=== PATIENT | female | born 1955 | race Two or more races ===

== ENCOUNTER 2024-01-15 14:11 | Emergency (ER) | payer MEDICARE, SELFPAY ==
[2024-01-15 14:56] VITALS: BP 153/90; PULSE 92; RESP 15; TEMP 36.8; O2SAT 97
--- NOTE | 2024-01-15 15:44 | PD.EDRME ---
Rapid Medical Screening Exam RME Arrival date/time: 01/15/24 14:11 Chief Complaint: Abdominal Pain Time Seen by Provider: 01/15/24 14:28 Vital signs: Vital Signs Temperature 98.3 F 01/15/24 14:56 Pulse Rate 92 01/15/24 14:56 Respiratory Rate 15 01/15/24 14:56 Blood Pressure 153/90 H 01/15/24 14:56 Pulse Oximetry (%) 97 01/15/24 14:56 Oxygen Delivery Method Room Air 01/15/24 14:56 Vital signs reviewed by provider: Yes RME Narrative: 68-year-old female with past medical history of diabetes, hyperlipidemia, hypertension presents with constipation x 5 days. She endorses multiple abdominal surgeries in the past. Endorses nausea without emesis. Denies rectal bleeding and hematochezia.
[2024-01-15] MEDS: ACETAMINOPHEN 325 MG TABLET 650 MG PO (16:22)
[2024-01-15] MEDS: SENNA/DOCUSATE SOD 1 TAB TABLET PO (16:23)
--- NOTE | 2024-01-15 17:30 | EDNOTE_ITS ---
ED Abdominal Pain RME/HPI General Chief Complaint: Abdominal Pain Stated complaint: CONSTIPATION TIMES 5 DAYS Time seen by provider: 01/15/24 14:28 Arrival date/time: 01/15/24 14:11 Limitations: no limitations RME / HPI RME / HPI narrative: 68-year-old female with past medical history of diabetes, hyperlipidemia, hypertension presents with constipation x 5 days. She endorses multiple abdominal surgeries in the past. Endorses nausea without emesis. Denies rectal bleeding and hematochezia. Related Data Home Medications ?Medication ?Instructions ?Recorded ?Confirmed sitagliptin phosphate 100 mg 100 mg PO QDAY #0 tabs 07/10/16 05/15/23 tablet (Januvia) carvedilol 12.5 mg tablet 12.5 mg PO BID 05/15/23 05/15/23 docusate calcium 240 mg capsule 240 mg PO QDAY PRN Constipation 05/15/23 05/15/23 empagliflozin 25 mg tablet 25 mg PO QDAY 05/15/23 05/15/23 (Jardiance) ergocalciferol (vitamin D2) 1,250 1,250 mcg PO QWEEK 05/15/23 05/15/23 mcg (50,000 unit) capsule glipizide 10 mg tablet 10 mg PO QDAY 05/15/23 05/15/23 losartan 50 mg tablet 50 mg PO QDAY 05/15/23 05/15/23 lovastatin 10 mg tablet 10 mg PO HS 05/15/23 05/15/23 semaglutide 0.25 mg or 0.5 mg (2 0.25 mg subcut QWEEK 05/15/23 05/15/23 mg/3 mL) subcutaneous pen injector (Ozempic) trazodone 100 mg tablet 100 mg PO HS PRN Sleep 05/15/23 05/15/23 vitamin B comp no.3-folic acid 1 1 tab PO QDAY 05/15/23 05/15/23 mg-vit C 60 mg-biotin 300 mcg tablet (Mel-Debra Rx) Previous Rx's ?Medication ?Instructions ?Recorded docusate calcium 240 mg capsule 240 mg PO QDAY PRN constipation 01/15/24 #30 caps Allergies Allergy/AdvReac Type Severity Reaction Status Date / Time No Known Allergies Allergy Verified 05/15/23 11:01 Review of Systems Constitutional Constitutional: Denies anorexia, Denies chills, Denies fever(s), Denies headache(s), Denies poor appetite, Denies weight gain and Denies weight loss ENT Ears, Nose, Mouth, and Throat: Denies dizziness, Denies headache(s) and Denies neck pain Cardiovascular Cardiovascular: Denies chest pain, Denies dyspnea and Denies leg edema Respiratory Respiratory: Denies cough and Denies dyspnea Gastrointestinal Gastrointestinal: Reports abdominal pain, Denies belching, Reports change in bowel habits, Reports constipation, Denies excessive flatus, Reports nausea and Denies vomiting Genitourinary Genitourinary: Denies dysuria and Denies flank pain Musculoskeletal Musculoskeletal: Denies muscle cramps, Denies myalgias and Denies neck pain Integumentary/Breasts Skin/Breast: Denies rash Neurologic Neurologic: Denies dizziness and Denies headache(s) Past Medical History Past Medical History NEUROLOGIC: Negative Neurological Disorders CARDIAC: Positive Cardiac Disorders, Congestive Heart Failure and Hypertension RESPIRATORY: Negative Chronic Obstructive Pulmonary Disease (COPD) or Asthma GASTROINTESTINAL: Positive Gall Bladder Disease; Negative Gastrointestinal Disorders GENITOURINARY: Negative Genitourinary Disorders or Renal Disease REPRODUCTIVE: Positive Previous Pregnancies; Negative Pelvic Inflammatory Disease MUSCULOSKELETAL: Negative Musculoskeletal Disorders ENDOCRINE: Positive Endocrine Disorders and Diabetes Mellitus Type 2; Negative Diabetes Mellitus Type 1 HEMATOLOGIC: Negative Blood Disorders or Sickle Cell Disease OTHER HISTORY: Positive Blood Transfusions; Negative Autoimmune Disease, Blood Transfusion Reaction, Anesthesia Reactions or Cancer Surgical History SURGICAL: Positive Tonsillectomy, Abdominal Surgery and Section (x4) Social History SMOKING STATUS: Never smoker ED Exam General Limitations: Present no limitations General appearance: Present alert and in no apparent distress Head Head exam: Present atraumatic and normocephalic Eye Eye exam: Present normal appearance and EOMI; Absent scleral icterus ENT ENT exam: Present normal oropharynx and mucous membranes moist Neck Neck exam: Present normal inspection and full ROM Chest Chest inspection: Present normal inspection and symmetric chest wall rise Respiratory Respiratory exam: Present normal lung sounds bilaterally; Absent respiratory distress Cardiovascular Cardiovascular exam: Present regular rate and +S1 Abdominal Exam Abdominal exam: Present normal bowel sounds; Absent soft, distention, tenderness, guarding, rebound, rigidity, organomegaly, ascites, mass or pulsatile mass Rectal Exam Rectal exam: Present deferred Extremities Exam Extremities exam: Present normal inspection and full ROM Back Exam Back exam: Present normal inspection and full ROM Neurological Exam Neurological exam: Present alert and normal gait (ambulating in wheelchair ) Psychiatric Psychiatric exam: Present normal affect Skin Skin exam: Present warm, dry and normal color Course Quality Measures none Orders Category Date Time Status Enema Administration NOW Care 01/15/24 15:20 Completed Acetaminophen Tab [Tylenol Tab] Med 01/15/24 15:20 Discontinued 650 mg PO X1 ONE Lactulose Syrup [Enulose Syrup] Med 01/15/24 17:37 Discontinued 10 gm PO X1 ONE Senna/Docusate Sod [Senokot S] Med 01/15/24 15:22 Discontinued 1 tab PO X1 ONE Reevaluation(s) Reevaluation #1: Patient reports bowel movement following enema administration in the ED. Nontoxic-appearing, speaking in full sentences. Discussed plan for discharge with prescription for bowel regimen and plan to follow-up with primary care on Thursday. Patient was agreeable with this plan Time: 17:30 Vital Signs Vital signs: Vital Signs Temperature 98.3 F 01/15/24 14:56 Pulse Rate 92 01/15/24 14:56 Respiratory Rate 15 01/15/24 14:56 Blood Pressure 153/90 H 01/15/24 14:56 Pulse Oximetry (%) 97 01/15/24 14:56 Oxygen Delivery Method Room Air 01/15/24 14:56 Abdominal Pain MDM MDM Narrative MDM Narrative:: 68-year-old female with multiple comorbidities presents with constipation for the last several days. Vital signs reassuring. Bowel sounds heard on exam, however given history of multiple abdominal surgeries I considered CT abdomen and pelvis. Using shared decision making with the patient CT was deferred until after attempting bowel regimen in the department. Fleet enema was administered and after approximately 1 hour patient did have a bowel movement. Patient reported that her abdominal pain was improved following bowel movement. We d iscussed need for high-fiber diet and bowel regimen at home. Patient said that she was comfortable acquiring [id number] Fleet enema and senna therefore prescription was not sent in. Ultimately patient was discharged with plan to follow-up with primary care in the next 2 to 3 days for reevaluation. Patient stable at time of discharge. Patient data External records reviewed:: [facility] previous records Clinical information provided by:: patient Social determinants that could affect healthcare access:: none Patient has the following chronic illnesses:: Diabetes, hypertension, renal mass, anxiety. How is presenting disease/condition affected by chronic disease/condition?: exacerbated by Evaluation data The following diagnostics were reviewed and interpreted by me:: other (specify) Lab and/or radiology exams considered but not ordered:: Considered not ordered. Interpretation Summary: Considered not ordered. Medications / Prescriptions Medications or Prescriptions considered but not ordered:: Rx given. Medication administrations:: Medication Administration History Discontinued Medications Acetaminophen (Acetaminophen 325 Mg Tablet) 650 mg PO X1 ONE Stop: 01/15/24 15:21 Last Admin: 01/15/24 16:22 Dose: 650 mg Documented By: Lactulose (Lactulose Syrup 20 Gm/30 Ml Udc) 10 gm PO X1 ONE; Protocol Stop: 01/15/24 17:38 Last Admin: 01/15/24 17:55 Dose: 10 gm Documented By: Sennosides (Senna/Docusate Sod 1 Tab Tablet) 1 tab PO X1 ONE; Protocol Stop: 01/15/24 15:23 Last Admin: 01/15/24 16:23 Dose: 1 tab Documented By: Rx given. Consultations Consultation(s) initiated? (list below): No Diagnosis Differential diagnosis abdominal pain: abdominal pain, constipation, diverticulitis, gastroenteritis, small bowel obstruction and other Most likely diagnosis given after review of the tests above:: Constipation. Admission Indicated Admission indicated?: not indicated Admission Request Was there a request for admission?: No Disposition Plan Disposition Plan: Discharge Discharge Attestation Discharge Attestation: The patient and all family members were given an opportunity to ask questions and understood the discharge instructions. Discharge instructions specifically effects, indications for sooner follow up or return to the emergency department, and the expected course of current diagnosis. Patient condition: Stable Discharge Plan Plan Patient Disposition: HOME (Self Care) Disposition Comment: stable Prescriptions/Referrals Prescriptions/Med Rec: New docusate calcium 240 mg capsule 240 mg PO QDAY PRN (Reason: constipation) Qty: 30 0RF No Action Januvia 100 MG tablet 100 mg PO QDAY Qty: 0 Ozempic 0.25 mg or 0.5 mg (2 mg/3 mL) pen injector 0.25 mg SUBCUT QWEEK Patient Comments: INJECT 0.25 MG SUBCUTANEOUSLY WEEKLY losartan 50 mg tablet 50 mg PO QDAY carvedilol 12.5 mg tablet 12.5 mg PO BID docusate calcium 240 mg Capsule 240 mg PO QDAY PRN (Reason: Constipation) glipizide 10 mg tablet 10 mg PO QDAY Patient Comments: TAKE 1 TABLET BY MOUTH EVERY DAY lovastatin 10 mg tablet 10 mg PO HS Patient Comments: TAKE 1 TABLET BY MOUTH EVERY DAY WITH DINNER trazodone 100 mg tablet 100 mg PO HS PRN (Reason: Sleep) Patient Comments: TAKE 1 TABLET BY MOUTH EVERY DAY AT BEDTIME NEEDED FOR 30 DAYS ergocalciferol (vitamin D2) 1,250 mcg (50,000 unit) capsule 1,250 mcg PO QWEEK Patient Comments: TAKE 1 CAPSULE BY MOUTH ONCE A WEEK Mel-Debra Rx 1-60-300 mg-mg-mcg tablet 1 tab PO QDAY Patient Comments: TAKE 1 TABLET BY MOUTH EVERY DAY Jardiance 25 mg Tablet 25 mg PO QDAY Referrals: No Primary/Family,Physician [Primary Care Provider] - In 1 week Problem List Clinical Impression: Constipation Patient/Caregiver Discharge Instructions Other Activity Instructions:: Continues docusate and Fleet enema as needed for constipation. Follow-up with primary care on Thursday for reevaluation. Return to the ED if your symptoms worsen or change. Education Materials: Eating a High-Fiber Diet, ED Constipation (Adult) Print Language: Kazakh Stand Alone Forms: Tesha Award Info., Patient Portal Info Letter PA/CHIEF FINANCIAL OFFICER Supervising Physician EILEEN/BRITTANY Supervising Physician: Dr. rothman
[2024-01-15] MEDS: LACTULOSE SYRUP 20 GM/30 ML UDC 10 GM PO (17:55)
== END 2024-01-15 18:03 | disposition home or self-care (01) ==
PROVIDERS: Emergency Provider Emergency Medicine
DX: K59.00 Constipation, unspecified (principal)
CPT/HCPCS: 99283; A9270

== ENCOUNTER → 2024-02-16 | Outpatient (CLI) | payer MEDICARE, SELFPAY ==
--- NOTE | 2024-02-16 08:15 | XR_ITS ---
Examination: MRI of brain without intravenous contrast. MRI brain with intravenous contrast. Date and time of exam:February 16, 2024 0905 hrs. Indications: Diagnosis renal cell carcinoma, staging, dizziness lightheaded episodes May 2023 Technique: Multiple axial and sagittal images of the brain to been obtained. Siemens high-resolution 1.52 Annamarie short bore scanner utilized. Sagittal sections, T1 weighted images, TR 500, TE 14, are performed. Axial sections proton-density and T2-weighted images have been obtained. Inversion recovery axial images, TR 9260, TE 111, TR 2500. Diffusion weighted images, axial sections, TR 4800, TE 128, B value 1000. Axial sections, ADC map, TR 4800, TE 128. Axial and coronal images were also obtained post 12 cc gadolinium administered intravenously. Findings:: Enlargement of the sella turcica is not present. The optic chiasm and infundibular stalk are not remarkable. There is no localized enlargement of the medulla or ada. Fourth ventricle and cerebellar tonsils appear normal in position. No subacute area of hemorrhage density is seen. Fourth ventricle is midline. Mass in the cerebellopontine angle region is not evident. 7th and 8th nerve complexes exhibit symmetry Globes are symmetrical Orbital musculature including medial lateral rectus muscles do not exhibit abnormality Increased white matter signal is prominent, edema in the right temporal lobe Effacement of the cortical sulcal markings is not identified. Mass effect upon the ventricular system is not identified. Diffusion-weighted images demonstrate no focus of restricted diffusion with matching ADC deficit Contrast images demonstrate 8 mm enhancing lesion right temporal lobe Impression: 8mm enhancing lesion right temporal lobe with surrounding pronounced edema, the appearance most consistent with right temporal lobe metastasis, primary right temporal lobe neoplasm not excluded
== END | disposition home or self-care (01) ==
PROVIDERS: PCP Family Medicine; Referring Provider Internal Medicine; Visit Provider Internal Medicine
DX: G93.89 Other specified disorders of brain (principal); C64.9 Malignant neoplasm of unspecified kidney, except renal pelvis
CPT/HCPCS: 70553; A9579

== ENCOUNTER → 2024-02-18 | Outpatient (CLI) | payer MEDICARE, SELFPAY ==
--- NOTE | 2024-02-18 08:00 | XR_ITS ---
EXAMINATION: PET/CT FUSION SKULL TO THIGH EXAM DATE AND TIME: February 18, 2024 0858 hours INDICATIONS: Diagnosis renal cell carcinoma, staging prior to treatment CTDI:vol (mGy) 3.40 DLP: (mGycm) 310.72 PROCEDURE: 16.14 mCi FDG was administered intravenously To allow for distribution and uptake of radiotracer, the patient was allowed to rest quietly in a shielded room. Imaging was performed on an integrated 16-slice PET/CT scanner, with scanning from the skull base to the mid thigh. Serum blood glucose at the time of the injection was measured 138 mg/dL. CT scanning was performed without oral or intravenous contrast material. FINDINGS: Head and Neck: There is no nathalie hypermetabolism in the neck. The visualized portions of the brain are normal in appearance on CT. Chest: Hypermetabolic pulmonary mass right upper lobe, 10.7 by 6.9 cm, invading the mediastinum and significantly compressing and displacing the trachea to the left This mass extends into the right hilar region as well as subcarinal region Abdomen and Pelvis: There is no nathalie hypermetabolism in retroperitoneal or pelvic chains. Absent right kidney The spleen is normal in size and FDG avidity. Musculoskeletal: Marrow uptake is within normal range. IMPRESSION: 10.7 x 6.9 cm intensely hypermetabolic pulmonary mass right upper lobe infiltrate in the mediastinum with right hilar tracheobronchial and subcarinal adenopathy, differential would include metastatic pulmonary mass and metastatic mediastinal lymphadenopathy, primary lung cancer Recommend high-resolution CT chest post intravenous contrast follow-up
== END | disposition home or self-care (01) ==
PROVIDERS: PCP Family Medicine; Referring Provider Internal Medicine; Visit Provider Internal Medicine
DX: R91.8 Other nonspecific abnormal finding of lung field (principal); R59.0 Localized enlarged lymph nodes; C64.9 Malignant neoplasm of unspecified kidney, except renal pelvis
CPT/HCPCS: 78815; A9552

== ENCOUNTER 2024-04-13 09:23 | Outpatient (RCR) | payer MEDICARE, SELFPAY ==
--- NOTE | 2024-04-13 11:44 | CTCCONSULT_ITS ---
[facility] [address] [place], [place] [address] Consultation Note Date: 04/13/2024 MR#: [id number] Name: KIANNA GARCIA : 1955 Dx: C79.31 Secondary malignant neoplasm of brain C78.01 Secondary malignant neoplasm of right lung. Referring physician. Attending physician. Nelson Gonzales MD Referring physician. Jorge Flower MD [facility]. Reason for consultation. Patient with metastatic CA to lung and brain from renal cell primary. History of Present Illness: Patient is 68-year-old lady who had right nephrectomy performed for presumed renal cell CA, but the biopsy reportedly was benign and no adjuvant therapy was offered. The tumor reportedly completely encased the kidney and had to be removed in any case Due to insurance issues patient was followed at [facility] recently with CT showing a large right chest mass. Biopsy of endobronchial tumor from right mainstem bronchus 01/12/2024 revealed metastatic clear-cell renal cell CA. Patient also went to the ER with complaints of dizziness and on 02/16/2024 had MRI of the brain which revealed 8 mm enhancing lesion right temporal lobe with surrounding edema most likely mets. Patient also had PET CT scan 03-12 revealing hypermetabolic pulmonary mass right upper lobe 10.7 x 6.1 cm invading the mediastinum and significant compressing and displacing the trachea to the left. This mass extends to the right hilar region as well as the subcarinal region. Patient received 1 treatment CyberKnife at [facility] to the right temporal area which she tolerated well. Patient has had no imaging studies since. Patient has had significant weight loss of greater than 20% over the past 6 months but otherwise denies any pain shortness of breath or fever. Past Medical History:1. Right nephrectomy for ?benign tumor? [facility] 2015, now presumed to be likely malignant. 2. High blood pressure diabetes mellitus.3. Restless leg syndrome 4. Abdominal hernias 5. Shoulder surgery tubal ligation prior C-spine surgery. Medications. Carvedilol Jardiance insulin losartan lovastatin Requip Januvia tramadol trazodone Allergies none to meds Social History: Lives with partner in [place]. Denies smoking drinking Review of Systems: Has had significant weight loss. Denies pain shortness of breath. Physical Exam: General: Well-appearing lady no acute distress HEENT: Atraumatic normocephalic extraocular muscle intact no oral lesion no cervical or supraclavicular apathy CV: Chest clear to auscultation heart regular rate rhythm ABD: Soft no no organomegaly or tenderness EXT: No signs of clubbing or edema. Assessment: 1. History of right nephrectomy 2016 US reportedly benign but now presumed to be harboring malignancy. No adjuvant therapy recommended at the time. 2. Large lung mass and brain met. Bronch and biopsy from right upper lobe reveals metastatic renal cell CA. 3. Had CyberKnife treatment to the right temporal region February 2024. [facility]. 4. Seen by the oncology team [facility] which recommends systemic therapy nivolumab plus cabozantinib per Checkmate?9 ER to shrink chest tumor followed by XRT. 5. Currently is surprisingly comfortable appearing with no respiratory symptoms or pain. 6. Patient will be seeing medical oncologist Dr. Aramis watts. 7. I will be following her for palliation of any symptoms as well as radiation therapy at the appropriate time as recommended by [facility]. 8. Thank you much for allowing me to evaluate and manage this patient. Cc: Nelson Miller [facility] Electronically signed by: Shaka Tomas MD, DABR 04/13/2024 11:41 AM
== END 2024-04-15 23:59 | disposition home or self-care (01) ==
LOC: SCTC 09:23
PROVIDERS: PCP Family Medicine; Referring Provider Internal Medicine Hematology & Oncology; Visit Provider Internal Medicine Hematology & Oncology
DX: C64.1 Malignant neoplasm of right kidney, except renal pelvis (principal); C78.01 Secondary malignant neoplasm of right lung; C79.31 Secondary malignant neoplasm of brain; Z90.5 Acquired absence of kidney
CPT/HCPCS: 99213; G0463

== ENCOUNTER 2024-05-16 08:10 | Outpatient (RCR) | payer MEDICARE, MEDICAID, SELFPAY ==
--- NOTE | 2024-04-27 15:33 | CTCCONSULT_ITS ---
Patient: KIANNA GARCIA : 1955 MR#: [id number] Page 2 of 2 CONSULTATION NOTE DATE OF CONSULTATION: 04/25/2024 NAME: KIANNA GARCIA ACCOUNT: [id number] : 1955 AGE: 68 REFERRING PHYSICIAN: Nelson Gonzales MD PRIMARY PHYSICIAN: Nelson Gonzales MD REASON FOR VISIT: New metastatic renal cancer 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; Secondary malignant neoplasm of right lung [ICD10] C78.01; Malignant neoplasm of right kidney, except renal pelvis [ICD10] C64.1 History of right nephrectomy remote in 2017 at [facility] [email or web address]] 8 cm mass in the lung as clear-cell carcinoma DATE OF DIAGNOSIS: 01/12/2024 STAGE/TNM: IV T4 N1 M1 TREATMENT HISTORY: Care?Plan Start?Date Cycle Day Intent HISTORY OF PRESENT ILLNESS: 68-year-old female who is seen here for new diagnosis of renal cell cancer. Patient also was found to have brain lesion for which she underwent SRS. Patient follows with [facility] [[email or web address] Patient completed SRS Feeling very fatigued and tired She has very poor appetite. 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 carvedilol - 12.5 mg 1 tab Twice a Day 2. codeine-guaifenesin - 10-100 mg/5 mL 5 mL twice Daily 3. Cozaar - 50 mg Daily 4. Febuvia - 100 mg Daily 5. Jardiance - 25 mg Daily 6. Levemir - 15 Units Twice a Day 7. lovastatin - 10 mg 1 tab Daily 8. Mel-Debra Rx - 1-60-300 mg-mg-mcg 1 tab Daily 9. tramadol - 50 mg Twice a Day Medications Last Reconciled by Ingrid Lozano RN on 04/25/2024 ALLERGIES: No Known Drug Allergies REVIEW OF SYSTEMS: A complete 14-point review of systems was performed and is negative except as noted in interval history. PHYSICAL EXAMINATION: VITAL SIGNS: Temperature?99.4, B/P?151/79, Height?62.5?inches, Oxygen?Saturation?97% Weight?132?lbs PAIN: 1 - Between no and mild pain ECOG Performance Status: 1 - Symptomatic; ambulatory; restricted in strenuous activity GENERAL APPEARANCE: Appears well, in no apparent distress, appropriately interactive. HEENT: Normocephalic, no temporal wasting, normal conjunctiva, no scleral icterus, normal hearing, lips without lesions, neck normal range of motion. CARDIOVASCULAR: Not assessed. PULMONARY: Normal respiratory effort, no respiratory distress or use of accessory muscles, speaking in full sentences, no tachypnea. EXTREMITIES: No pedal edema or cyanosis. SKIN: Normal skin appearance. NEUROLOGIC: Alert and oriented x4. PSHYCHIATRIC: Appropriate affect, mood normal, behavior normal, intact thought and speech. LABORATORY DATA: I have personally reviewed and interpreted each of the patient?s relevant lab tests, abnormal findings are below: Date ASSESSMENT/PLAN: #1 recurrent metastatic clear-cell renal cell cancer 8 cm mass in the right upper lobe and mediastinal disease Patient is having dry cough from that Patient was also found to have 8 mm right temporal lobe met s/p SBRT Will start patient on axitinib with Keytruda Will start Keytruda while waiting for axitinib Scheduled for chemo education SHARON Port catheter CBC CMP TSH T4 RETURN TO CLINIC: 4 weeks BILLING AND COMPLIANCE: I reviewed external records from providers outside my specialty as summarized above. I spent a total of 50 minutes on this patient?s care on the day of their visit excluding time spent related to any billed procedures. This time includes time spent with the patient as well as time spent documenting in the medical record, reviewing patients records and tests, obtaining history, placing orders, communicating with other healthcare professionals, counseling the patient, family or caregiver, and/or care coordination for the diagnoses above. Electronically Signed by: El Self MD T: 3:31 PM CC: PCP: Nelson Gonzales Referring: Nelson Gonzales This document was completed utilizing speech recognition software. Grammatical errors, random word insertions, pronoun errors, and incomplete sentences are an occasional consequence of this system due to software limitations, ambient noise, and hardware issues. Any formal questions or concerns about the content, text or information contained within the body of this dictation should be directly addressed to the provider for clarification.
[2024-05-13 11:41] LABS: Basophils # (Auto) 0.1 Thou/mm3 (0.0-0.2); Basophils % (Auto) 1 % (0-2.5); Eosinophils # (Auto) 0.2 Thou/mm3 (0.0-0.5); Eosinophils % (Auto) 3 % (0-10); Hematocrit 43.3 % (36.0-46.0); Hemoglobin 13.6 g/dL (12.0-16.0); Immature Granulocytes % (Auto) 0 % (0-0); Immature Granulocytes Auto 0.03 Thou/mm3 (0.00-0.00); Lymphocytes # (Auto) 1.2 Thou/mm3 (1.0-4.8); Lymphocytes % (Auto) 15 % (10-50); Mean Corpuscular HGB Conc 31.4 g/dl (31.0-37.0); Mean Corpuscular Hemoglobin 24.6 pg (25.0-35.0); Mean Corpuscular Volume 78 fL (80-100); Monocytes # (Auto) 0.4 Thou/mm3 (0.0-0.8); Monocytes % (Auto) 5 % (0-12); Neutrophils # (Auto) 6.2 Thou/mm3 (1.8-7.7); Neutrophils % (Auto) 76 % (37-80); Nucleated Red Blood Cell % 0 /100 WBC (0); Platelet Count 365 Thou/mm3 (140-440); RDW Standard Deviation 41.9 fL (36.4-46.3); Red Blood Count 5.53 Miln/mm3 (4.00-5.20); White Blood Count 8.1 Thou/mm3 (3.6-11.0)
[2024-05-13 13:14] LABS: Alanine Aminotransferase 15 U/L (10-49); Albumin, Serum 4.5 gm/dL (3.4-4.8); Albumin/Globulin Ratio 1.1 (1.2-2.2); Alkaline Phosphatase 106 U/L (46-116); Anion Gap 12 (7-16); Aspartate Amino Transferase 16 U/L (0-34); BUN/Creatinine Ratio 18 Ratio (12-20); Blood Urea Nitrogen 18 mg/dL (9-23); Calcium 10.2 mg/dL (8.3-10.6); Calcium (Corrected) 10.2 mg/dL (8.5-10.1); Carbon Dioxide 21.4 mMol/L (20.0-31.0); Chloride 99 mMol/L (98-107); Globulin 4.1 gm/dL (2.3-3.5); Glucose 116 mg/dL (74-106); Osmolality,Calculated 267 (275-295); Potassium 3.8 mMol/L (3.4-5.1); Sodium 132 mMol/L (136-145); Thyroid Stimulating Hormone 12.35 uIU/mL (0.55-4.78); Total Protein 8.6 gm/dL (5.7-8.2); eGFR > 60 See Note
[2024-05-13 14:13] LABS: Bilirubin,Total 0.3 mg/dL (0.3-1.2)
== END 2024-05-16 23:59 | disposition home or self-care (01) ==
LOC: SCTC 08:10
PROVIDERS: PCP Family Medicine; Referring Provider Family Medicine; Visit Provider Internal Medicine Hematology & Oncology
DX: Z51.11 Encounter for antineoplastic chemotherapy (principal); C79.31 Secondary malignant neoplasm of brain; C78.01 Secondary malignant neoplasm of right lung; C64.1 Malignant neoplasm of right kidney, except renal pelvis; Z90.5 Acquired absence of kidney
CPT/HCPCS: 36415; 80053; 84439; 84443; 85025; 96413; 99213; A4216; J1642; J7050; J9271; G0463

== ENCOUNTER 2024-05-25 08:00 | Outpatient (CLI) | payer MEDICARE, MEDICAID, SELFPAY ==
[2024-05-23 09:42] VITALS: BMI 22.4
[2024-05-24 13:18] LABS: Basophils # (Auto) 0.1 Thou/mm3 (0.0-0.2); Basophils % (Auto) 1 % (0-2.5); Eosinophils # (Auto) 0.2 Thou/mm3 (0.0-0.5); Eosinophils % (Auto) 2 % (0-10); Hematocrit 40.6 % (36.0-46.0); Immature Granulocytes % (Auto) 0 % (0-0); Immature Granulocytes Auto 0.02 Thou/mm3 (0.00-0.00); Lymphocytes # (Auto) 1.3 Thou/mm3 (1.0-4.8); Lymphocytes % (Auto) 16 % (10-50); Mean Corpuscular Hemoglobin 24.7 pg (25.0-35.0); Mean Corpuscular Volume 77 fL (80-100); Monocytes # (Auto) 0.4 Thou/mm3 (0.0-0.8); Monocytes % (Auto) 4 % (0-12); Neutrophils # (Auto) 6.4 Thou/mm3 (1.8-7.7); Neutrophils % (Auto) 77 % (37-80); Nucleated Red Blood Cell % 0 /100 WBC (0); Platelet Count 336 Thou/mm3 (140-440); RDW Standard Deviation 43.1 fL (36.4-46.3); Red Blood Count 5.26 Miln/mm3 (4.00-5.20); White Blood Count 8.3 Thou/mm3 (3.6-11.0)
[2024-05-24 13:20] LABS: Blood Urea Nitrogen 22 mg/dL (9-23); Creatinine (Component) 1.2 mg/dL (0.6-1.3); Estimated Creatinine Clearance 36.1 mL/min (>60); eGFR 49 See Note
[2024-05-24 13:25] LABS: Partial Thromboplastin Time 33.5 Seconds (22.0-36.0); Prothrombin Time 10.9 Seconds (9.0-12.2)
[2024-05-25] VITALS (19 sets, daily range): BP systolic 98–202; BP diastolic 58–109; PULSE 61–78; RESP 9–17; TEMP 36.3–36.6; O2SAT 92–98; BMI 22.1
[2024-05-25] MEDS: hydrALAZINE INJ 20 MG/ML VIAL 10 MG IV (08:59)
--- NOTE | 2024-05-25 09:30 | XR_ITS ---
Exam: Fluoroscopic and ultrasound-guided right IJ port placement. Date: May 25, 2024, 9:47 AM Indication: Needs long-term vascular access Fluoroscopy time 7.4 minutes Dose: 4 9.63 mGy Technique: After a discussion of risks and benefits informed consent was obtained from the patient. Patient was brought to the angiography suite and placed supine on the exam table. Preliminary ultrasound evaluation showed the right IJ to be patent. The skin overlying the right neck and upper chest was cleaned and draped in normal sterile surgical fashion. 20 cc's of 1% lidocaine was used for local anesthesia. Conscious sedation was begun with direct nursing supervision. Using ultrasound guidance access to the IJ was obtained with a micropuncture needle. An 0.018 wire was advanced through the needle into the SVC and the needle was withdrawn. A 5 Iraqi micropuncture change sheath was advanced over the wire, and the wire removed. The sheath was capped. A 5 cm incision was made over right chest. Small pouch was created with a combination of sharp and blunt dissection. The port and catheter tubing were attached to the tunneling device and pulled underneath the skin and exiting at the right IJ access site. Right IJ 5 inch sheath was replaced with a 7 Iraqi peel-away sheath. Catheter was advanced through the peel-away sheath and peel-away sheath was removed. Distal catheter tip was appropriately positioned at the cavoatrial junction. The port pocket was closed with deep interrupted sutures using 2-0 Vicryl and superficial running sutures utilized 3-0 Vicryl. IJ access site was closed with 3-0 Vicryl and Dermabond glue Port flushed and aspirated easily and is ready for use. Impression: Successful placement of right IJ port as above with distal tip at the caval atrial junction Catheter is ready for use.
[2024-05-25] MEDS: SODIUM CHLORIDE 0.9% 500 ML 500 ML 20 ML IV (10:18)
[2024-05-25] MEDS: MIDAZOLAM INJ 1 MG/ML VIAL 2 ML IV (10:19)
[2024-05-25] MEDS: fentaNYL CIT INJ 50 mCg/ML AMP 2ML 75 MCG IVP (10:19)
[2024-05-25] MEDS: HEPARIN SOD LOCK SYR 100 UNIT/ML 500 UNIT STFIELD (10:20)
[2024-05-25] MEDS: LIDOCAINE INJ PF 1% 30 ML VIAL EPID (10:20)
[2024-05-25] MEDS: ceFAZolin 1 GM in SODIUM CHLORIDE 0.9% 100 ML IV (10:20)
== END 2024-05-25 12:28 | disposition home or self-care (01) ==
PROVIDERS: Radiology Diagnostic Radiology; PCP Family Medicine; Referring Provider Internal Medicine Hematology & Oncology; Visit Provider Internal Medicine Hematology & Oncology
DX: C79.31 Secondary malignant neoplasm of brain (principal); C78.01 Secondary malignant neoplasm of right lung; Z01.812 Encounter for preprocedural laboratory examination
CPT/HCPCS: 36558; 36415; 76937; 77001; 82565; 84520; 85025; 85610; 85730; 99152; 99153; C1769; C1788; C1894; J0360; J0690; J1642; J2250; J3010; J3490; J7040; J7050

== ENCOUNTER 2024-06-02 13:04 | Emergency (ER) | payer MEDICARE, SELFPAY ==
[2024-06-02 13:05] VITALS: BMI 22.1
[2024-06-02 13:13] VITALS: BP 178/112; PULSE 73; RESP 20; TEMP 36.4; O2SAT 99
--- NOTE | 2024-06-02 13:17 | EKG_ITS ---
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
--- NOTE | 2024-06-02 13:17 | XR_ITS ---
Examination: AP chest single view TECHNIQUE: Sitting AP chest single view Standing time: June 02, 2024 1417 hours Comparison July 23, 2016 INDICATIONS: Shortness of breath weakness today. FINDINGS: Pneumonia and volume loss in the right upper lobe Mild prominence left ventricle Left lung clear Right internal jugular Port-A-Cath tip SVC IMPRESSION: Significant pneumonia and volume loss in the right upper lobe
--- NOTE | 2024-06-02 13:18 | PD.EDSOB ---
ED SOB =RME/HPI General Chief Complaint: Shortness of Breath/Dyspnea Stated Complaint: SOB X2 WEEKS; HX OF LUNG CANCER Time Seen by Provider: 06/02/24 13:17 Arrival date/time: 06/02/24 13:04 RME / HPI RME / HPI Narrative: 68-year-old female patient with significant history of hypertension diabetes mellitus, lung cancer stage IV, currently on chemotherapy, came in for evaluation regarding shortness of breath. According to the family and patient patient's been having worsening shortness of breath for the last 2 weeks. Patient is denying any fever denies any chest pain denies any abdominal pain denies any vomiting denies any blood in the stool denies any other complaints last chemotherapy was 3 weeks ago. Followed by Dr. Phelps Related Data Home Medications ?Medication ?Instructions ?Recorded ?Confirmed sitagliptin phosphate 100 mg 100 mg PO QDAY #0 tabs 07/10/16 05/25/24 tablet (Januvia) carvedilol 12.5 mg tablet 12.5 mg PO BID 05/15/23 05/25/24 ergocalciferol (vitamin D2) 1,250 1,250 mcg PO QWEEK 05/15/23 05/15/23 mcg (50,000 unit) capsule losartan 50 mg tablet 50 mg PO QDAY 05/15/23 05/25/24 lovastatin 10 mg tablet 10 mg PO HS 05/15/23 05/25/24 vitamin B comp no.3-folic acid 1 1 tab PO QDAY 05/15/23 05/25/24 mg-vit C 60 mg-biotin 300 mcg tablet (Mel-Debra Rx) axitinib 5 mg tablet (Inlyta) 5 mg PO Q12H 05/25/24 05/25/24 clonidine HCl 0.2 mg tablet 0.2 mg PO BID 05/25/24 05/25/24 insulin detemir U-100 100 unit/mL 10 unit subcut .am 05/25/24 05/25/24 (3 mL) subcutaneous pen levothyroxine 50 mcg tablet 50 mcg PO QDAY 05/25/24 05/25/24 (Euthyrox) ropinirole 1 mg tablet 1 mg PO HS 05/25/24 05/25/24 Previous Rx's ?Medication ?Instructions ?Recorded levofloxacin 750 mg tablet 750 mg PO Q24H 7 days #7 tabs 06/02/24 Allergies Allergy/AdvReac Type Severity Reaction Status Date / Time No Known Allergies Allergy Verified 06/02/24 13:07 Review of Systems Review of Systems Narrative Review of Systems: Review of system reviewed and within normal limits except mentioned in HPI ED Exam Narrative Physical exam: VITAL SIGNS: Reviewed. GENERAL APPEARANCE: Alert and interactive, follows commands, no acute distress, HEAD AND FACE: Non-traumatic. ENT: PERRL, pale conjunctiva, eyelid no trauma, Mucous membrane moist. NECK: Supple, nontender, no nuchal rigidity. CHEST: No tenderness, no crepitus, no paradoxical movement, no retractions. LUNGS: Clear, well ventilated, symmetric, no rales, no wheezing, no ronchi, no stridor, good breath sounds bilaterally. HEART: Regular rate, regular rhythm, no murmur, no gallops. ABDOMEN: Soft, positive bowel sounds, nondistended, no guarding, nontender, no rebound, no masses, right hernando cath RECTAL: Deferred. GENITAL: Deferred. NEUROLOGICAL: Gross motor function intact sensory function intact, Appropriate for age. MUSCULOSKELETAL: low back nontender, full range of motion. EXTREMITIES: Nontender, full range of motion. SKIN: Color pale, dry, no rash, no lacerations, no abrasions, no contusions. LYMPHATICS: Deferred. Course Quality Measures none Orders Category Date Time Status EKG (ED ONLY) *Do not use* NOW Care 06/02/24 13:18 Completed EKG (ED Only) Stat Exams 06/02/24 13:17 Draft XR chest 1V Stat Exams 06/02/24 13:17 Completed B-Type Natriuretic Peptide Stat Lab 06/02/24 13:52 Completed CBC Stat Lab 06/02/24 13:52 Completed Comprehensive Metabolic Panel Stat Lab 06/02/24 13:52 Completed Partial Thromboplastin Time Stat Lab 06/02/24 13:52 Completed Prothrombin Time with INR Stat Lab 06/02/24 13:52 Completed Troponin I Stat Lab 06/02/24 13:52 Completed Type and Screen Stat Lab 06/02/24 13:52 Completed Urinalysis, C/S if Indicated Stat Lab 06/02/24 13:35 Completed Levofloxacin [Levaquin] Med 06/02/24 16:19 Discontinued 500 mg PO X1 ONE Vital Signs Vital signs: Vital Signs Temperature 97.6 F 06/02/24 13:13 Pulse Rate 73 06/02/24 13:13 Respiratory Rate 20 06/02/24 13:13 Blood Pressure 178/112 H 06/02/24 13:13 Pulse Oximetry (%) 99 06/02/24 13:13 Oxygen Delivery Method Room Air 06/02/24 13:13 Shortness of Breath / Dyspnea [facility] Narrative MDM Narrative:: 68-year-old female patient with significant history of hypertension diabetes mellitus, lung cancer stage IV, currently on chemotherapy, came in for evaluation regarding shortness of breath. According to the family and patient patient's been having worsening shortness of breath for the last 2 weeks. Patient is denying any fever denies any chest pain denies any abdominal pain denies any vomiting denies any blood in the stool denies any other complaints last chemotherapy was 3 weeks ago. Followed by Dr. Phelps Patient CBC showed no leukocytosis. CMP unremarkable urinalysis no UTI EKG showed normal sinus rhythm, ventricular rate 71 bpm, no ST segment ovation depression noted. Chest x-ray showed Significant pneumonia and volume loss in the right upper lobe Was noted to be satting 99% on room air she was given Levaquin p.o. for pneumonia Patient appears nontoxic and hemodynamically stable. Patient discharged home and instructed to follow-up with primary care provider in 24 to 48 hours. Instructed to return to the emergency department immediately if worsening of symptoms Patient data External records reviewed:: None Clinical information provided by:: patient Social determinants that could affect healthcare access:: none Patient has the following chronic illnesses:: Lung cancer How is presenting disease/condition affected by chronic disease/condition?: exacerbated by Evaluation data The following diagnostics were reviewed and interpreted by me:: lab results and radiology exam(s) Lab and/or radiology exams considered but not ordered:: None Interpretation Summary: See results in MDM Medications / Prescriptions Medications or Prescriptions considered but not ordered:: None Medication administrations:: Medication Administration History Discontinued Medications Levofloxacin (Levofloxacin 250 Mg Tablet) 500 mg PO X1 ONE Stop: 06/02/24 16:20 Last Admin: 06/02/24 17:44 Dose: 500 mg Documented By: PADMINI Levaquin Consultations Consultation(s) initiated? (list below): No Diagnosis Shortness of Breath Differential Diagnosis: acute exacerbation of chronic obstructive airways disease and community acquired pneumonia Most likely diagnosis given after review of the tests above:: Pneumonia Admission Indicated Admission indicated?: not indicated Admission Request Was there a request for admission?: No Disposition Plan Disposition Plan: Discharge Discharge Attestation Discharge Attestation: The patient and all family members were given an opportunity to ask questions and understood the discharge instructions. Discharge instructions specifically effects, indications for sooner follow up or return to the emergency department, and the expected course of current diagnosis. Patient condition: Stable Discharge Plan Plan Patient Disposition: HOME (Self Care) Disposition Comment: stable Prescriptions/Referrals Prescriptions/Med Rec: New levofloxacin 750 mg tablet 750 mg PO Q24H 7 Days Qty: 7 0RF No Action Januvia 100 MG tablet 100 mg PO QDAY Qty: 0 losartan 50 mg tablet 50 mg PO QDAY carvedilol 12.5 mg tablet 12.5 mg PO BID lovastatin 10 mg tablet 10 mg PO HS Patient Comments: TAKE 1 TABLET BY MOUTH EVERY DAY WITH DINNER ergocalciferol (vitamin D2) 1,250 mcg (50,000 unit) capsule 1,250 mcg PO QWEEK Patient Comments: TAKE 1 CAPSULE BY MOUTH ONCE A WEEK Mel-Debra Rx 1-60-300 mg-mg-mcg tablet 1 tab PO QDAY Patient Comments: TAKE 1 TABLET BY MOUTH EVERY DAY ropinirole 1 mg tablet 1 mg PO HS clonidine HCl 0.2 mg tablet 0.2 mg PO BID levothyroxine [Euthyrox] 50 mcg tablet 50 mcg PO QDAY insulin detemir U-100 100 unit/mL (3 mL) insulin pen 10 unit subcut .am Inlyta 5 mg tablet 5 mg PO Q12H Referrals: Neslon Gonzales MD [Primary Care Provider] - In 1 week Problem List Clinical Impression: PNA (pneumonia) Patient/Caregiver Discharge Instructions Discharge Activity: activity as tolerated Education Materials: ED Pneumonia (Adult) Additional Instructions: Thank you for the opportunity for serving you today. You are stable for discharged . You are advised to: Follow-up with your PCP in 1 to 2 days Return to ED for worsening of symptoms Take medication as prescribed Print Language: Swedish Stand Alone Forms: [employer]ha Award Info., Patient Portal Info Letter
[2024-06-02 13:44] LABS: Collection Type, Urine Clean Catch
[2024-06-02 14:02] LABS: Bilirubin,Urine Negative (Negative); Blood,Urine 1+ (Negative); Clarity,Urine Clear (Clear/Hazy); Color,Urine Yellow (Lt Yel-Yel); Culture Indicated,Urine Not Indicated; Glucose, Urine 3+ (Negative); Hyaline Casts,Urine < 1 /hpf (0-1); Ketones,Urine Negative (Negative); Leukocyte Esterase,Urine Negative (Negative); Nitrite,Urine Negative (Negative); Protein,Urine 3+ (Neg - Trace); RBC,Urine 4 /hpf (0-3); Specific Gravity,Urine 1.015 (1.001-1.035); Squamous Epithelial Cell,Urine 1 /hpf (0-5); Urobilinogen,Urine Negative mg/dL (0.0-1.0); WBC,Urine 6 /hpf (0-5)
[2024-06-02 14:10] LABS: Basophils # (Auto) 0.1 Thou/mm3 (0.0-0.2); Basophils % (Auto) 1 % (0-2.5); Eosinophils # (Auto) 0.3 Thou/mm3 (0.0-0.5); Eosinophils % (Auto) 4 % (0-10); Hematocrit 44.9 % (36.0-46.0); Hemoglobin 14.6 g/dL (12.0-16.0); Immature Granulocytes % (Auto) 0 % (0-0); Immature Granulocytes Auto 0.03 Thou/mm3 (0.00-0.00); Lymphocytes # (Auto) 1.3 Thou/mm3 (1.0-4.8); Lymphocytes % (Auto) 16 % (10-50); Mean Corpuscular HGB Conc 32.5 g/dl (31.0-37.0); Mean Corpuscular Hemoglobin 24.8 pg (25.0-35.0); Mean Corpuscular Volume 76 fL (80-100); Monocytes # (Auto) 0.3 Thou/mm3 (0.0-0.8); Monocytes % (Auto) 4 % (0-12); Neutrophils # (Auto) 6.3 Thou/mm3 (1.8-7.7); Neutrophils % (Auto) 75 % (37-80); Nucleated Red Blood Cell % 0 /100 WBC (0); Platelet Count 358 Thou/mm3 (140-440); RDW Standard Deviation 43.7 fL (36.4-46.3); Red Blood Count 5.89 Miln/mm3 (4.00-5.20); White Blood Count 8.3 Thou/mm3 (3.6-11.0)
[2024-06-02 14:24] LABS: Partial Thromboplastin Time 33.9 Seconds (22.0-36.0); Prothrombin Time 10.9 Seconds (9.0-12.2)
[2024-06-02 14:25] LABS: B-Type Natriuretic Peptide 95 pg/mL (0-100)
[2024-06-02 14:28] LABS: Alanine Aminotransferase 15 U/L (10-49); Albumin/Globulin Ratio 1.1 (1.2-2.2); Alkaline Phosphatase 112 U/L (46-116); Anion Gap 8 (7-16); Aspartate Amino Transferase 17 U/L (0-34); BUN/Creatinine Ratio 16 Ratio (12-20); Bilirubin,Total 0.3 mg/dL (0.3-1.2); Blood Urea Nitrogen 18 mg/dL (9-23); Calcium 9.5 mg/dL (8.3-10.6); Calcium (Corrected) 9.5 mg/dL (8.5-10.1); Carbon Dioxide 22.2 mMol/L (20.0-31.0); Chloride 102 mMol/L (98-107); Creatinine (Component) 1.1 mg/dL (0.6-1.3); Estimated Creatinine Clearance 39.4 mL/min (>60); Globulin 3.6 gm/dL (2.3-3.5); Glucose 130 mg/dL (74-106); Osmolality,Calculated 268 (275-295); Potassium 3.9 mMol/L (3.4-5.1); Sodium 132 mMol/L (136-145); Total Protein 7.6 gm/dL (5.7-8.2); Troponin I < 0.020 ng/mL (0.0-0.045); eGFR 54 See Note
[2024-06-02] MEDS: LEVOFLOXACIN 250 MG TABLET 500 MG PO (17:44)
== END 2024-06-02 17:52 | disposition home or self-care (01) ==
PROVIDERS: Nurse Practitioner Family; Emergency Provider Emergency Medicine; PCP Family Medicine
DX: J18.9 Pneumonia, unspecified organism (principal); R94.31 Abnormal electrocardiogram [ECG] [EKG]; I10 Essential (primary) hypertension; C34.90 Malignant neoplasm of unspecified part of unspecified bronchus or lung
CPT/HCPCS: 36415; 71045; 80053; 81001; 83880; 84484; 85025; 85610; 85730; 86850; 86900; 86901; 93005; 99283; A9270

== ENCOUNTER 2024-06-13 15:05 | Emergency (ER) | payer MEDICARE, SELFPAY ==
[2024-06-13 15:07] VITALS: BMI 21.9
--- NOTE | 2024-06-13 15:24 | EKG_ITS ---
[facility] Test Date: 2024-06-13 Pat Name: KIANNA GARCIA Department: Room: - Gender: Female Boarding Mother: : 1955 Requested By: Sheldon Villalta (JOANNA) Order Number: [id number] Reading MD: Sheldon Villalta (ANGIOGRAPHY NURSE) Measurements Intervals [place] Rate: 77 P: 109 [place]: 186 QRS: -68 QRSD: 91 T: -6 QT: 351 QTc: 397 Interpretive Statements SINUS RHYTHM WITH OCCASIONAL VENTRICULAR PREMATURE COMPLEXES LEFT AXIS DEVIATION [QRS AXIS < -30] SEPTAL MYOCARDIAL INFARCTION , PROBABLY OLD [40+ ms Q WAVE IN V1/V2] Compared to ECG 06/02/2024 13:22:50 Ventricular premature complex(es) now present Myocardial infarct finding now present /store/S0/[id number]/ecg/[id number].pdf
[2024-06-13 15:35] VITALS: BP 169/98; PULSE 71; RESP 18; TEMP 36.5; O2SAT 97
--- NOTE | 2024-06-13 15:35 | XR_ITS ---
Examination: AP chest single view Technique one AP portable semiupright chest single view Exam date and time: June 05, 2024 1601 hours Comparison June 02, 2024 INDICATIONS: Chest pain shortness of breath today. FINDINGS: Atelectasis in the lung Masslike area in the right upper lobe, please see the PET/CT scan February 18, 2024 Elevation right hemidiaphragm Normal heart size IMPRESSION: Right upper lobe atelectasis, likely related to masslike area in the right upper lobe right mediastinum, please see the PET/CT scan report February 18, 2024 indicating hypermetabolic 10.7 cm mass in the right upper lobe and mediastinum
--- NOTE | 2024-06-13 15:42 | EDNOTE_ITS ---
ED SOB =RME/HPI General Chief Complaint: Shortness of Breath/Dyspnea Stated Complaint: SOB Time Seen by Provider: 06/13/24 15:09 Arrival date/time: 06/13/24 15:05 RME / HPI RME / HPI Narrative: DR. 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 Patient also complains of a little left-sided abdominal pain. No cough. No fevers or chills. No constipation. No dysuria or other urinary symptoms. Last bowel movement was yesterday, normal. 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 Social Hx: No tobacco, alcohol, or substance use. Related Data Home Medications ?Medication ?Instructions ?Recorded ?Confirmed sitagliptin phosphate 100 mg 100 mg PO QDAY #0 tabs 05/25/24 tablet (Januvia) carvedilol 12.5 mg tablet 12.5 mg PO BID 05/15/2311/10 ergocalciferol (vitamin D2) 1,250 1,250 mcg PO QWEEK 0 05/15/23 05/15/23 mcg (50,000 unit) capsule losartan 50 mg tablet 50 mg PO QDAY 05/15/2305/25 lovastatin 10 mg tablet 10 mg PO HS 05/15/23 5 vitamin B comp no.3-folic acid 1 1 tab PO QDAY 4 05/25/24 mg-vit C 60 mg-biotin 300 mcg tablet (Mel-Debra Rx) axitinib 5 mg tablet (Inlyta) 5 mg PO Q12H 05/25/24 clonidine HCl 0.2 mg tablet 0.2 mg PO BID 05/25/2411/10 insulin detemir U-100 100 unit/mL 10 unit subcut .am 0 05/25/24 05/25/24 (3 mL) subcutaneous pen levothyroxine 50 mcg tablet 50 mcg PO QDAY 05/25/24 (Euthyrox) ropinirole 1 mg tablet 1 mg PO HS 05/25/24 05/25/24 Allergies Allergy/AdvReac Type Severity Reaction Status Date / Time No Known Allergies Allergy Verified 06/02/24 13:07 Review of Systems Review of Systems Systems Reviewed: All systems reviewed, normal except as documented Past Medical History Past Medical History CARDIAC: Positive Cardiac Disorders, Congestive Heart Failure and Hypertension GASTROINTESTINAL: Positive Gall Bladder Disease REPRODUCTIVE: Positive Previous Pregnancies MUSCULOSKELETAL: Positive Carpal Tunnel Syndrome (left) ENDOCRINE: Positive Endocrine Disorders, Diabetes Mellitus Type 2 and Hyperthyroidism PSYCHO/SOCIAL: Positive Anxiety OTHER HISTORY: Positive Blood Transfusions Surgical History SURGICAL: Positive Tonsillectomy, Abdominal Surgery, Tubal Ligation and Section (x4) Social History SMOKING STATUS: Never smoker SUBSTANCE USE: does not use ALCOHOL: Never ED Exam Narrative Physical exam: GENERAL APPEARANCE: alert and oriented x 4, well-developed, well-nourished, no acute distress VITALS: All vitals were reviewed and the pulse ox is 97% on room air, which is normal according to my interpretation. HEENT: Normocephalic, atraumatic; pupils equal, round, reactive to light; EOMI; mucous membranes pink, moist; oropharynx clear NECK: Supple LUNGS: CTABL; no wheezes, no rales, no rhonchi HEART: Regular rate, regular rhythm; normal S1, S2; no murmurs ABDOMEN: non distended; normal BS; there is some mild left-sided abdominal tenderness, but no guarding, no rebound; no masses, no organomegaly, no hernia BACK: no CVA tenderness EXTREMITIES: atraumatic; no edema NEUROLOGIC: awake; alert and oriented x4; cranial nerves II-XII grossly intact; no focal sensory or motor deficits PSYCHIATRIC: appropriate mood and affect SKIN: warm, dry, normal color; no rashes Course Quality Measures none Orders Category Date Time Status CT Screening NOW Care 06/13/24 15:46 Completed EKG (ED ONLY) *Do not use* NOW Care 06/13/24 15:[address] angio chest Stat Exams 06/13/24 15:46 Completed EKG (ED Only) Stat Exams 06/13/24 15:24 Draft XR chest 1V portable Stat Exams 06/13/24 15:35 Completed B-Type Natriuretic Peptide Stat Lab 06/13/24 16:06 Completed CBC Stat Lab 06/13/24 16:06 Completed Comprehensive Metabolic Panel Stat Lab 06/13/24 16:06 Completed Free T4 (Free Thyroxine) Stat Lab 06/13/24 16:06 Completed Magnesium Stat Lab 06/13/24 16:06 Completed Partial Thromboplastin Time Stat Lab 06/13/24 16:06 Completed Prothrombin Time with INR Stat Lab 06/13/24 16:06 Completed TSH [Thyroid Stimulating Hormone] Stat Lab 06/13/24 16:06 Completed Troponin I Stat Lab 06/13/24 16:06 Completed UA, C/S IF [Urinalysis, C/S if Indicated] Stat Lab 06/13/24 15:58 Completed Potassium Chloride [K-Dur] Med 06/13/24 20:18 Discontinued 40 meq PO X1 ONE Vital Signs Vital signs: Vital Signs Temperature 97.7 F 06/13/24 15:35 Pulse Rate 71 06/13/24 15:35 Respiratory Rate 18 06/13/24 15:35 Blood Pressure 169/98 H 06/13/24 15:35 Pulse Oximetry (%) 97 06/13/24 15:35 Oxygen Delivery Method Room Air 06/13/24 15:35 Shortness of Breath / Dyspnea MDM Narrative MDM Narrative:: IDaya am scribing for and in the presence of Dr. Cameron. Patient data External records reviewed:: [facility] previous records (Reviewed oncology note by Dr. 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 How is presenting disease/condition affected by chronic disease/condition?: exacerbated by Evaluation data The following diagnostics were reviewed and interpreted by me:: lab results, radiology exam(s) and EKG tracing(s) (EKG#1: EKG at 1537 hours. Interpreted by me: sinus rhythm, rate 75, Q waves in V1 and V2, mild artifact) Lab and/or radiology exams considered but not ordered:: none Interpretation Summary: Procedure(s): XR chest 1V portable Accession Number(s): [id number] cc: Pawan ([employer]),Sheldon MARSHALL; Wolfgang Akhtar MD~ Examination: AP chest single view Technique one AP portable semiupright chest single view Exam date and time: June 05, 2024 1601 hours Comparison June 02, 2024 INDICATIONS: Chest pain shortness of breath today. FINDINGS: Atelectasis in the lung Masslike area in the right upper lobe, please see the PET/CT scan February 18, 2024 Elevation right hemidiaphragm Normal heart size IMPRESSION: Right upper lobe atelectasis, likely related to masslike area in the right upper lobe right mediastinum, please see the PET/CT scan report February 18, 2024 indicating hypermetabolic 10.7 cm mass in the right upper lobe and mediastinum Dictated By: Wolfgang Akhtar MD Medications / Prescriptions Medications or Prescriptions considered but not ordered:: none Medication administrations:: Medication Administration History Discontinued Medications Potassium Chloride (Potassium Chloride 20 Meq Tabcr) 40 meq PO X1 ONE Stop: 06/13/24 20:19 Last Admin: 06/13/24 20:26 Dose: 40 meq Documented By: EF see above if any Consultations Consultation(s) initiated? (list below): No Diagnosis Shortness of Breath Differential Diagnosis: congestive heart failure, community acquired pneumonia, asthma with exacerbation and other (lung cancer) Most likely diagnosis given after review of the tests above:: No official diagnoses at this time, still pending diagnostic tests. Patient signout to the production supervisor off shift provider. Admission Indicated Admission indicated?: not indicated Explain why admission is indicated or not indicated:: No final disposition plan at this time, still pending diagnostic tests. Patient signout to the production supervisor off shift provider. Admission Request Was there a request for admission?: No Disposition Plan Disposition Plan: other (specify) (Patient signout to the production supervisor off shift provider, pending chest CTA, remainder of labs, and final disposition.) Discharge Plan Plan Patient Disposition: HOME (Self Care) Patient condition on transfer: Stable Prescriptions/Referrals Prescriptions/Med Rec: No Action Januvia 100 MG tablet 100 mg PO QDAY Qty: 0 losartan 50 mg tablet 50 mg PO QDAY carvedilol 12.5 mg tablet 12.5 mg PO BID lovastatin 10 mg tablet 10 mg PO HS Patient Comments: TAKE 1 TABLET BY MOUTH EVERY DAY WITH DINNER ergocalciferol (vitamin D2) 1,250 mcg (50,000 unit) capsule 1,250 mcg PO QWEEK Patient Comments: TAKE 1 CAPSULE BY MOUTH ONCE A WEEK Mel-Debra Rx 1-60-300 mg-mg-mcg tablet 1 tab PO QDAY Patient Comments: TAKE 1 TABLET BY MOUTH EVERY DAY ropinirole 1 mg tablet 1 mg PO HS clonidine HCl 0.2 mg tablet 0.2 mg PO BID levothyroxine [Euthyrox] 50 mcg tablet 50 mcg PO QDAY insulin detemir U-100 100 unit/mL (3 mL) insulin pen 10 unit subcut .am Inlyta 5 mg tablet 5 mg PO Q12H Referrals: Nelson Gonzales MD [Primary Care Provider] - In 1 week Problem List Clinical Impression: Left adrenal mass, Acute hypokalemia, Lung cancer Patient/Caregiver Discharge Instructions Education Materials: Cancer Lung Dc Additional Instructions: Return to the emergency department for worsening symptoms, or any other concerns. Please follow-up with your cancer doctor as scheduled. Print Language: Danish Stand Alone Forms: [facility] Award Info., Patient Portal Info Letter
--- NOTE | 2024-06-13 15:46 | XR_ITS ---
Examination: CTA chest with intravenous contrast 2-D reconstructions 3-D reconstructions, vascular Date and time of exam: June 13, 2024 1848 hours Comparison PET/CT scan February 18, 2024 INDICATION: Difficulty breathing beginning 2 weeks ago CTDI: vol (mGy) 9.75 DLP: (mGycm) 275 Technique: Multiple axial sections of the thorax have been obtained. 3 mm slice thickness, from below the hemidiaphragms to above the apices of the lungs. Mediastinal and lung density settings have been obtained. 2-D sagittal and coronal reconstructions. 3-D angiographic renderings, 3-D volume renderings, 3D post processing, vascular maximum intensity projections obtained. Contrast administered is 100 cc Isovue-370. Low dose protocols were performed. One or more of the following dose reduction techniques were used; automated exposure control, adjustment of the mA and/or KV according to patient size, use of iterative reconstruction technique. Findings: Very large mediastinal tumor mass, anterior mediastinal, right tracheobronchial, aortopulmonary window, right hilar, subcarinal measuring at least 9 cm AP dimension 10 cm transverse dimension 11 cm cephalocaudad dimension surrounding and compressing the superior vena cava surrounding the right main pulmonary artery No thoracic aortic aneurysmal dilatation No pulmonary artery filling defects Pneumonia right base Multiple bilateral pulmonary nodules, the largest in the right apex posteriorly measuring 4 cm No definite liver or splenic lesions No pancreatic mass Metastatic left adrenal mass 18 mm Periaortic lymphadenopathy, the largest lymph node 12 mm Significant osteopenia IMPRESSION: 9 x 10 x 11 cm mediastinal tumor mass as above, please see the PET CT scan report February 18, 2024 Multiple bilateral pulmonary nodules, the largest mass is in the right upper lobe measuring 4 cm Negative for pulmonary artery emboli Pneumonia right base Metastatic left adrenal mass
[2024-06-13 15:59] VITALS: BP 201/104; PULSE 76; RESP 23; TEMP 36.4; O2SAT 98
[2024-06-13 16:06] LABS: Collection Type, Urine Clean Catch
[2024-06-13 16:10] VITALS: BP 177/104
[2024-06-13 16:13] LABS: Bilirubin,Urine Negative (Negative); Blood,Urine Trace (Negative); Clarity,Urine Clear (Clear/Hazy); Color,Urine Lt-Yellow (Lt Yel-Yel); Culture Indicated,Urine Not Indicated; Glucose, Urine 2+ (Negative); Ketones,Urine Negative (Negative); Leukocyte Esterase,Urine Negative (Negative); Nitrite,Urine Negative (Negative); Protein,Urine 3+ (Neg - Trace); RBC,Urine 4 /hpf (0-3); Specific Gravity,Urine 1.007 (1.001-1.035); Squamous Epithelial Cell,Urine < 1 /hpf (0-5); Urobilinogen,Urine Negative mg/dL (0.0-1.0); WBC,Urine 2 /hpf (0-5)
--- NOTE | 2024-06-13 16:13 | PC.NURSE ---
PT CAME TO THE ED WITH DAUGHTER REPORTING SOB. PT CAMES THAT THE SHORTENS OF BREATH COMES AND GO AND SHE SAYS ITS RELATED TO A TUMOR IN HER LUNG.
[2024-06-13 16:31] LABS: Basophils # (Auto) 0.1 Thou/mm3 (0.0-0.2); Basophils % (Auto) 1 % (0-2.5); Eosinophils # (Auto) 0.3 Thou/mm3 (0.0-0.5); Eosinophils % (Auto) 5 % (0-10); Hematocrit 45.8 % (36.0-46.0); Hemoglobin 15.3 g/dL (12.0-16.0); Immature Granulocytes % (Auto) 0 % (0-0); Immature Granulocytes Auto 0.02 Thou/mm3 (0.00-0.00); Lymphocytes # (Auto) 1.4 Thou/mm3 (1.0-4.8); Lymphocytes % (Auto) 20 % (10-50); Mean Corpuscular HGB Conc 33.4 g/dl (31.0-37.0); Mean Corpuscular Hemoglobin 25.5 pg (25.0-35.0); Mean Corpuscular Volume 76 fL (80-100); Monocytes # (Auto) 0.4 Thou/mm3 (0.0-0.8); Monocytes % (Auto) 5 % (0-12); Neutrophils # (Auto) 4.9 Thou/mm3 (1.8-7.7); Neutrophils % (Auto) 69 % (37-80); Nucleated Red Blood Cell % 0 /100 WBC (0); Platelet Count 220 Thou/mm3 (140-440); RDW Standard Deviation 45.9 fL (36.4-46.3); White Blood Count 7.2 Thou/mm3 (3.6-11.0)
[2024-06-13 16:39] LABS: Partial Thromboplastin Time 31.9 Seconds (22.0-36.0); Prothrombin Time 10.9 Seconds (9.0-12.2)
--- NOTE | 2024-06-13 16:52 | PC.NURSE ---
Assisted Pt and family member (daughter) to bathroom via wheelchair without incident.
[2024-06-13 16:57] LABS: B-Type Natriuretic Peptide 126 pg/mL (0-100)
--- NOTE | 2024-06-13 18:17 | EDNOTE_ITS ---
Emergency Room Addendum Addendum Narrative: 1800: Care assumed from Dr. Cameron, the previous shift emergency physician. Past medical, surgical, social and family history reviewed. Vitals and home medications reviewed. Results and treatment plan discussed. I will assume the care of the patient at this time and will follow the patient, pending CTA of the chest and labs. Please refer to the emergency department record for history and examination from initial visit. CBC is normal, PT and INR are normal, Potassium is 3.0, Troponin is normal, BNP is 126. CTA of the chest is pending at this time. CTA of the chest is negative for pulmonary emboli. Will replace the patient's potassium and discharge her home. RADIOLOGY RESULTS: [facility] Report Signed Patient: KIANNA GARCIA. Record#: [id number] Birthdate: 1955 Age/Sex: 68 / F Location: [facility] Attending Dr: Ordering Physician: Kathy Cameron MD Date of Service: 06/13/24 Procedure(s): CT angio chest Accession Number(s): [id number] cc: Nelson Gonzales MD; Wolfgang Akhtar MD; Kathy Cameron MD~ Examination: CTA chest with intravenous contrast 2-D reconstructions 3-D reconstructions, vascular Date and time of exam: June 13, 2024 1848 hours Comparison PET/CT scan February 18, 2024 INDICATION: Difficulty breathing beginning 2 weeks ago CTDI: vol (mGy) 9.75 DLP: (mGycm) 275 Technique: Multiple axial sections of the thorax have been obtained. 3 mm slice thickness, from below the hemidiaphragms to above the apices of the lungs. Mediastinal and lung density settings have been obtained. 2-D sagittal and coronal reconstructions. 3-D angiographic renderings, 3-D volume renderings, 3D post processing, vascular maximum intensity projections obtained. Contrast administered is 100 cc Isovue-370. Low dose protocols were performed. One or more of the following dose reduction techniques were used; automated exposure control, adjustment of the mA and/or KV according to patient size, use of iterative reconstruction technique. Findings: Very large mediastinal tumor mass, anterior mediastinal, right tracheobronchial, aortopulmonary window, right hilar, subcarinal measuring at least 9 cm AP dimension 10 cm transverse dimension 11 cm cephalocaudad dimension surrounding and compressing the superior vena cava surrounding the right main pulmonary artery No thoracic aortic aneurysmal dilatation No pulmonary artery filling defects Pneumonia right base Multiple bilateral pulmonary nodules, the largest in the right apex posteriorly measuring 4 cm No definite liver or splenic lesions No pancreatic mass Metastatic left adrenal mass 18 mm Periaortic lymphadenopathy, the largest lymph node 12 mm Significant osteopenia IMPRESSION: 9 x 10 x 11 cm mediastinal tumor mass as above, please see the PET CT scan report February 18, 2024 Multiple bilateral pulmonary nodules, the largest mass is in the right upper lobe measuring 4 cm Negative for pulmonary artery emboli Pneumonia right base Metastatic left adrenal mass Dictated By: Wolfgang Akhtar MD Signed By: <Electronically signed by Wolfgang Akhtar MD in [place]> 06/13/241924
[2024-06-13 18:22] VITALS: BP 143/93; PULSE 66; RESP 14; TEMP 36.5; O2SAT 96
[2024-06-13 18:25] LABS: Alanine Aminotransferase 18 U/L (10-49); Albumin, Serum 3.7 gm/dL (3.4-4.8); Albumin/Globulin Ratio 1.1 (1.2-2.2); Alkaline Phosphatase 115 U/L (46-116); Anion Gap 7 (7-16); Aspartate Amino Transferase 22 U/L (0-34); BUN/Creatinine Ratio 15 Ratio (12-20); Bilirubin,Total 0.5 mg/dL (0.3-1.2); Blood Urea Nitrogen 19 mg/dL (9-23); Calcium 8.8 mg/dL (8.3-10.6); Carbon Dioxide 25.1 mMol/L (20.0-31.0); Chloride 102 mMol/L (98-107); Creatinine (Component) 1.3 mg/dL (0.6-1.3); Estimated Creatinine Clearance 33.3 mL/min (>60); Free T4 (Free Thyroxine) 1.58 ng/dL (0.89-1.76); Globulin 3.3 gm/dL (2.3-3.5); Glucose 152 mg/dL (74-106); Magnesium 1.5 mg/dL (1.6-2.6); Osmolality,Calculated 273 (275-295); Sodium 134 mMol/L (136-145); Thyroid Stimulating Hormone 17.34 uIU/mL (0.55-4.78); eGFR 44 See Note
[2024-06-13 18:40] LABS: Troponin I < 0.020 ng/mL (0.0-0.045)
--- NOTE | 2024-06-13 19:57 | PC.NURSE ---
assisted pt to bathroom via wheelchair. pt tolerated well. assisted pt back to bed
[2024-06-13] MEDS: POTASSIUM CHLORIDE 20 mEq TABCR 40 MEQ PO (20:26)
== END 2024-06-13 20:54 | disposition home or self-care (01) ==
PROVIDERS: Nurse Practitioner Primary Care; Emergency Provider Emergency Medicine; PCP Family Medicine
DX: J18.9 Pneumonia, unspecified organism (principal); C79.72 Secondary malignant neoplasm of left adrenal gland; D49.89 Neoplasm of unspecified behavior of other specified sites; E87.6 Hypokalemia; J98.11 Atelectasis; C64.1 Malignant neoplasm of right kidney, except renal pelvis; C79.31 Secondary malignant neoplasm of brain; C78.00 Secondary malignant neoplasm of unspecified lung; I11.0 Hypertensive heart disease with heart failure; I50.9 Heart failure, unspecified; E78.00 Pure hypercholesterolemia, unspecified; I49.3 Ventricular premature depolarization; Z90.5 Acquired absence of kidney
CPT/HCPCS: 36415; 71045; 71275; 80053; 81001; 83735; 83880; 84439; 84443; 84484; 85025; 85610; 85730; 93005; 99285; A4649; Q9967; A9270

== ENCOUNTER 2024-06-15 09:41 | Outpatient (RCR) | payer MEDICARE, SELFPAY ==
--- NOTE | 2024-06-08 23:53 | CTCFLWUP_ITS ---
Patient: KIANNA GARCIA : 1955 Page 2 of 7 FOLLOW UP NOTE DATE OF SERVICE: 06/08/2024 NAME: KIANNA GARCIA ACCOUNT: [id number] : 1955 AGE: 68 INTERVAL HISTORY: Chief Complaint Pneumonia follow-up, delayed immunotherapy, port catheter site dressing change, dry mouth, skin dryness, vaginal dryness History of Present Illness The patient, currently undergoing treatment for an unspecified cancer, presents with a recent diagnosis of pneumonia and multiple treatment-related side effects. The patient is currently on antibiotics (low-dose ofloxacin) for pneumonia treatment. The patient's immunotherapy treatment has been delayed due to the pneumonia diagnosis. They did not receive their scheduled immunotherapy on June 01, as advised to hold it until after completing the antibiotic course. Despite this setback, the patient's last data showed a positive response to their cancer treatment. The patient reports experiencing significant dryness, particularly affecting the mouth, skin, and vaginal area. The oral and skin dryness are impacting the patient's comfort, while the extent of the vaginal dryness impact is not specified. No specific onset or duration for these symptoms is mentioned. The patient also requires a change of gauze on their port catheter site, which will be addressed by the infusion room nurses. Overall, despite the recent pneumonia diagnosis and treatment-related side effects, the patient is reported to be doing well. Their cancer treatment appears to be progressing positively based on recent data, although specific details are not provided. Medical History - Pneumonia Medications and Supplements - Antibiotics - Low ofloxacin - Immunotherapy - Delayed due to pneumonia and antibiotic treatment - Inhaler Review of Systems General: Positive for fatigue. Skin: Positive for dryness. HEENT: Positive for dry mouth. Genitourinary: Positive for vaginal dryness. 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 Patient also was found to have brain lesion for which she underwent SRS. Patient follows with [facility]. Patient completed SRS Feeling very fatigued and tired She has very poor appetite. 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 axitinib - 5 mg 1 tab Daily 2. carvedilol - 12.5 mg 1 tab Twice a Day 3. codeine-guaifenesin - 10-100 mg/5 mL 5 mL twice Daily 4. conjugated estrogens - 0.625 mg/gram 1 gm Daily 5. Cozaar - 50 mg Daily 6. Inlyta - 5 mg 1 tab twice a day 7. Januvia - 100 mg Daily 8. Jardiance - 25 mg Daily 9. Levemir - 15 Units Twice a Day 10. levothyroxine - 50 mcg 1 tab Daily 11. lovastatin - 10 mg 1 tab Daily 12. ondansetron HCl - 8 mg 1 tab Daily 13. prochlorperazine maleate - 5 mg 1 tab Daily 14. Mel-Debra Rx - 1-60-300 mg-mg-mcg 1 tab Daily 15. tramadol - 50 mg Twice a Day Medications Last Reconciled by Deana Merida MA on 06/08/2024 ALLERGIES: No Known Drug Allergies REVIEW OF SYSTEMS: A complete 14-point review of systems was performed and is negative except as noted in interval history. PHYSICAL EXAMINATION: VITAL SIGNS: Temperature?98.2, B/P?161/100, Oxygen?Saturation?96% PAIN: 1 - Between no and mild pain ECOG Performance Status: 0 - Asymptomatic and fully active GENERAL APPEARANCE: Appears well, in no apparent distress, appropriately interactive. HEENT: Normocephalic, no temporal wasting, normal conjunctiva, no scleral icterus, normal hearing, lips without lesions, neck normal range of motion. CARDIOVASCULAR: Not assessed. PULMONARY: Normal respiratory effort, no respiratory distress or use of accessory muscles, speaking in full sentences, no tachypnea. EXTREMITIES: No pedal edema or cyanosis. SKIN: Normal skin appearance. NEUROLOGIC: Alert and oriented x4. PSHYCHIATRIC: Appropriate affect, mood normal, behavior normal, intact thought and speech. LABORATORY DATA: I have personally reviewed and interpreted each of the patient?s relevant lab tests, abnormal findings are below: Date 05/24/24 06/02/24 ??WHITE?BLOOD?COUNT?(Thou/mm3) 8.3 8.3 ??RED?BLOOD?COUNT?(Miln/mm3) 5.26?H 5.89?H ??HEMOGLOBIN?(gm/dl) 13.0 14.6 ??HEMATOCRIT?(%) 40.6 44.9 ??PLATELET?COUNT?(Thou/mm3) 336 358 ??NEUTROPHILS?%,?AUTO?(%) 77 75 ??LYMPH?%,?AUTO?(%) 16 16 ??NEUTROPHILS,?AUTO?(Thou/mm3) 6.4 6.3 ??GLUCOSE,RANDOM?(mg/dL) ? 130?H ??BLOOD?UREA?NITROGEN?(mg/dL) 22 18 ??CREATININE?(mg/dL) ? 1.10 ??SODIUM?(mmol/L) ? 132?L ??POTASSIUM?(mmol/L) ? 3.9 ??CHLORIDE?(mmol/L) ? 102 ??CrCl?(CandG)?(ml/min) ? 42.60 ??AST/SGOT?(Unit/L) ? 17 ??ALT/SGPT?(Unit/L) ? 15 ??ALKALINE?PHOSPHATASE?(Unit/L) ? 112 ??BILIRUBIN,?TOTAL?(mg/dL) ? 0.3 ??PROTEIN?TOTAL?(gm/dl) ? 7.6 ??ALBUMIN,?SERUM?(gm/dl) ? 4.0 ??GLOBULIN?(gm/dl) ? 3.6?H ??ALBUMIN/GLOBULIN?RATIO ? 1.1?L ??CALCIUM,?SERUM?(mg/dL) ? 9.5 ??CALCIUM?SERUM?(CORRECTED)?(mg/dL) ? 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 Pneumonia Assessment: Patient was diagnosed with pneumonia and is currently on antibiotic treatment with low-dose ofloxacin. The infection has necessitated a delay in the patient's scheduled immunotherapy. Plan: - Continue current antibiotic regimen (low-dose ofloxacin) - Hold immunotherapy until after completion of antibiotic course - Schedule immunotherapy for next week - Follow-up appointment in 2 months Oncological condition (unspecified) Assessment: Patient is undergoing immunotherapy for an unspecified oncological condition. Recent data indicates a positive response to treatment. The patient has a port catheter in place, suggesting ongoing parenteral therapy. Plan: - Resume immunotherapy after completion of antibiotic course - Continue monitoring with serial imaging and Northera - Change gauze on port catheter site (to be performed by infusion room nurses) - Reassess need for testing at next visit Mucocutaneous dryness Assessment: Patient reports significant dryness affecting multiple areas, including mouth, skin, and vagina. Plan: - For oral and skin dryness: - Advise use of coconut oil for skin and gum massage - Encourage frequent oral hydration - For vaginal dryness: - Prescribe estrogen cream - Instruct to apply every other day initially for one week, then every 2-3 days per week CBC CMP TSH T4 ORDERS: Order # Description [id number] CBC + Comprehensive Metabolic Panel [id number] Lab Appointment [id number] Follow Up Appointment [id number] CBC + Comprehensive Metabolic Panel [id number] Lab Appointment [id number] Follow Up Appointment [id number] CBC + Comprehensive Metabolic Panel [id number] Lab Appointment [id number] Follow Up Appointment [id number] CBC + Comprehensive Metabolic Panel [id number] Lab Appointment [id number] Follow Up Appointment [id number] CBC + Comprehensive Metabolic Panel [id number] Lab Appointment [id number] Follow Up Appointment [id number] CBC + Comprehensive Metabolic Panel [id number] Lab Appointment [id number] Follow Up Appointment [id number] CBC + Comprehensive Metabolic Panel [id number] Lab Appointment [id number] Follow Up Appointment [id number] CBC + Comprehensive Metabolic Panel [id number] Lab Appointment [id number] Follow Up Appointment [id number] CBC + Comprehensive Metabolic Panel [id number] Lab Appointment [id number] Follow Up Appointment [id number] CBC + Comprehensive Metabolic Panel [id number] Lab Appointment [id number] Follow Up Appointment [id number] CBC + Comprehensive Metabolic Panel [id number] Lab Appointment [id number] Follow Up Appointment RETURN TO CLINIC: BILLING AND COMPLIANCE: I reviewed external records from providers outside my specialty as summarized above. I spent a total of 50 minutes on this patient?s care on the day of their visit excluding time spent related to any billed procedures. This time includes time spent with the patient as well as time spent documenting in the medical record, reviewing patients records and tests, obtaining history, placing orders, communicating with other healthcare professionals, counseling the patient, family or caregiver, and/or care coordination for the diagnoses above. Electronically Signed by: {Object.Sanct_ID*PnP.NameFL@M}, {Object.Sanct_ID*PnP.Suffix@U} D: {Object.Sanct_Date} T: {Object.Sanct_Time} CC: PCP: Nelson Gonzales Referring: Nelson Gonzales This document was completed utilizing speech recognition software. Grammatical errors, random word insertions, pronoun errors, and incomplete sentences are an occasional consequence of this system due to software limitations, ambient noise, and hardware issues. Any formal questions or concerns about the content, text or information contained within the body of this dictation should be directly addressed to the provider for clarification.
[2024-06-15 10:54] LABS: Basophils # (Auto) 0.1 Thou/mm3 (0.0-0.2); Basophils % (Auto) 1 % (0-2.5); Eosinophils # (Auto) 0.4 Thou/mm3 (0.0-0.5); Eosinophils % (Auto) 5 % (0-10); Hematocrit 41.8 % (36.0-46.0); Hemoglobin 14.1 g/dL (12.0-16.0); Immature Granulocytes % (Auto) 1 % (0-0); Immature Granulocytes Auto 0.04 Thou/mm3 (0.00-0.00); Lymphocytes # (Auto) 1.2 Thou/mm3 (1.0-4.8); Lymphocytes % (Auto) 14 % (10-50); Mean Corpuscular HGB Conc 33.7 g/dl (31.0-37.0); Mean Corpuscular Hemoglobin 25.7 pg (25.0-35.0); Mean Corpuscular Volume 76 fL (80-100); Monocytes # (Auto) 0.4 Thou/mm3 (0.0-0.8); Monocytes % (Auto) 5 % (0-12); Neutrophils # (Auto) 6.1 Thou/mm3 (1.8-7.7); Neutrophils % (Auto) 75 % (37-80); Nucleated Red Blood Cell % 0 /100 WBC (0); Platelet Count 182 Thou/mm3 (140-440); RDW Standard Deviation 46.6 fL (36.4-46.3); Red Blood Count 5.48 Miln/mm3 (4.00-5.20); White Blood Count 8.2 Thou/mm3 (3.6-11.0)
[2024-06-15 11:10] LABS: Alanine Aminotransferase 20 U/L (10-49); Albumin, Serum 3.3 gm/dL (3.4-4.8); Albumin/Globulin Ratio 1.1 (1.2-2.2); Alkaline Phosphatase 91 U/L (46-116); Anion Gap 6 (7-16); Aspartate Amino Transferase 24 U/L (0-34); BUN/Creatinine Ratio 15 Ratio (12-20); Bilirubin,Total 0.5 mg/dL (0.3-1.2); Blood Urea Nitrogen 15 mg/dL (9-23); Calcium 8.5 mg/dL (8.3-10.6); Calcium (Corrected) 9.1 mg/dL (8.5-10.1); Chloride 104 mMol/L (98-107); Free T4 (Free Thyroxine) 1.44 ng/dL (0.89-1.76); Glucose 147 mg/dL (74-106); Osmolality,Calculated 273 (275-295); Potassium 3.4 mMol/L (3.4-5.1); Sodium 135 mMol/L (136-145); Thyroid Stimulating Hormone 18.17 uIU/mL (0.55-4.78); Total Protein 6.3 gm/dL (5.7-8.2); eGFR > 60 See Note
== END 2024-06-15 23:59 | disposition home or self-care (01) ==
LOC: SCTC 09:41
PROVIDERS: PCP Family Medicine; Referring Provider Family Medicine; Visit Provider Internal Medicine Hematology & Oncology
DX: Z51.11 Encounter for antineoplastic chemotherapy (principal); C79.31 Secondary malignant neoplasm of brain; C64.1 Malignant neoplasm of right kidney, except renal pelvis; C78.01 Secondary malignant neoplasm of right lung; Z90.5 Acquired absence of kidney; J18.9 Pneumonia, unspecified organism; R68.2 Dry mouth, unspecified; L85.3 Xerosis cutis; N89.8 Other specified noninflammatory disorders of vagina
CPT/HCPCS: 80053; 84439; 84443; 85025; 96366; 96367; 96413; 99212; A4216; J2997; J7040; J7050; J9271; G0463

== ENCOUNTER 2024-07-06 08:54 | Outpatient (RCR) | payer MEDICARE, SELFPAY ==
[2024-07-04 13:51] LABS: Basophils # (Auto) 0.1 Thou/mm3 (0.0-0.2); Basophils % (Auto) 1 % (0-2.5); Eosinophils # (Auto) 0.4 Thou/mm3 (0.0-0.5); Eosinophils % (Auto) 6 % (0-10); Hematocrit 40.7 % (36.0-46.0); Hemoglobin 13.9 g/dL (12.0-16.0); Immature Granulocytes % (Auto) 0 % (0-0); Immature Granulocytes Auto 0.02 Thou/mm3 (0.00-0.00); Lymphocytes # (Auto) 1.4 Thou/mm3 (1.0-4.8); Lymphocytes % (Auto) 20 % (10-50); Mean Corpuscular HGB Conc 34.2 g/dl (31.0-37.0); Mean Corpuscular Hemoglobin 26.2 pg (25.0-35.0); Mean Corpuscular Volume 77 fL (80-100); Monocytes # (Auto) 0.4 Thou/mm3 (0.0-0.8); Monocytes % (Auto) 6 % (0-12); Neutrophils # (Auto) 4.9 Thou/mm3 (1.8-7.7); Neutrophils % (Auto) 68 % (37-80); Nucleated Red Blood Cell % 0 /100 WBC (0); Platelet Count 139 Thou/mm3 (140-440); RDW Standard Deviation 51.4 fL (36.4-46.3); Red Blood Count 5.31 Miln/mm3 (4.00-5.20); White Blood Count 7.2 Thou/mm3 (3.6-11.0)
[2024-07-04 15:10] LABS: Alanine Aminotransferase 94 U/L (10-49); Albumin, Serum 3.5 gm/dL (3.4-4.8); Albumin/Globulin Ratio 1.2 (1.2-2.2); Alkaline Phosphatase 95 U/L (46-116); Anion Gap 8 (7-16); Aspartate Amino Transferase 63 U/L (0-34); BUN/Creatinine Ratio 14 Ratio (12-20); Bilirubin,Total 0.9 mg/dL (0.3-1.2); Blood Urea Nitrogen 18 mg/dL (9-23); Calcium 8.7 mg/dL (8.3-10.6); Calcium (Corrected) 9.1 mg/dL (8.5-10.1); Carbon Dioxide 23.2 mMol/L (20.0-31.0); Chloride 104 mMol/L (98-107); Creatinine (Component) 1.3 mg/dL (0.6-1.3); Free T4 (Free Thyroxine) 1.52 ng/dL (0.89-1.76); Glucose 94 mg/dL (74-106); Osmolality,Calculated 272 (275-295); Potassium 3.7 mMol/L (3.4-5.1); Sodium 135 mMol/L (136-145); Thyroid Stimulating Hormone 25.96 uIU/mL (0.55-4.78); Total Protein 6.5 gm/dL (5.7-8.2); eGFR 44 See Note
== END 2024-07-16 23:59 | disposition home or self-care (01) ==
LOC: SCTC 08:54
PROVIDERS: PCP Internal Medicine; Referring Provider Internal Medicine Hematology & Oncology; Visit Provider Radiology Therapeutic Radiology
DX: Z51.11 Encounter for antineoplastic chemotherapy (principal); C64.1 Malignant neoplasm of right kidney, except renal pelvis; C79.31 Secondary malignant neoplasm of brain; C78.01 Secondary malignant neoplasm of right lung; Z90.5 Acquired absence of kidney
CPT/HCPCS: 80053; 84439; 84443; 85025; 96374; 96413; 96523; 99212; A4216; J1642; J2997; J7040; J7050; J9271; G0463

== ENCOUNTER 2024-07-27 09:21 | Emergency (ER) | payer MEDICARE, MEDICAID, SELFPAY ==
[2024-07-27 09:23] VITALS: BMI 20.9
[2024-07-27 09:34] VITALS: BP 102/77; PULSE 76; RESP 16; TEMP 36.7; O2SAT 98
--- NOTE | 2024-07-27 09:51 | XR_ITS ---
Examination: AP lateral chest 2 views TECHNIQUE: Sitting AP lateral chest 2 views Date and time: February 27, 2024 1003 hours Comparison June 05, 2024 INDICATIONS: Chest pain beginning 2 months ago lung carcinoma diagnosis FINDINGS: Normal heart size Abnormal right mediastinal contour, please see the PET/CT scan report February 18, 2024 The right paratracheal adenopathy appears worse compared to the prior study No pneumonia or pulmonary edema Right internal jugular Port-A-Cath tip stable position IMPRESSION: Slightly more prominent right paratracheal mediastinal lymphadenopathy compared with June 13, 2024
--- NOTE | 2024-07-27 09:51 | EKG_ITS ---
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: : 1955 Requested By: Ye Gonzalez Order Number: [id number] Reading MD: Ye Gonzalez Measurements Intervals [place] Rate: 78 P: 81 AK: 187 QRS: -79 QRSD: 88 T: 71 QT: 358 QTc: 409 Interpretive Statements SINUS RHYTHM PATTERN CONSISTENT WITH PULMONARY DISEASE LEFT ANTERIOR FASCICULAR BLOCK [QRS AXIS <= -45, QR IN I, RS IN II] MODERATE T-WAVE ABNORMALITY, CONSIDER ANTEROLATERAL ISCHEMIA [-0.1+ mV T-WAVE IN V3-V6] Compared to ECG 06/13/2024 15:38:12 T-wave abnormality now present Possible ischemia now present Ventricular premature complex(es) no longer present Myocardial infarct finding no longer present /store/S0/[id number]/ecg/[id number].pdf
--- NOTE | 2024-07-27 09:52 | PD.EDRME ---
Rapid Medical Screening Exam RME Arrival date/time: 07/27/24 09:21 68-year-old female with a history of hypertension, type 2 diabetes, hyperlipidemia, lung cancer that began in the kidney and has metastasized to the lungs, was sent over by the cancer treatment center for increased shortness of breath. I have greeted and performed a focused initial assessment of this patient. A comprehensive ED assessment and evaluation of the patient, analysis of all test results, and completion of the medical decision making process will be conducted by additional ED providers. Chief Complaint: Shortness of Breath/Dyspnea Time Seen by Provider: 07/27/24 09:40 Vital signs: Vital Signs Temperature 98.1 F 07/27/24 09:34 Pulse Rate 76 07/27/24 09:34 Respiratory Rate 16 07/27/24 09:34 Blood Pressure 102/77 07/27/24 09:34 Pulse Oximetry (%) 98 07/27/24 09:34 Oxygen Delivery Method Room Air 07/27/24 09:34 Vital signs reviewed by provider: Yes
[2024-07-27 10:52] LABS: Basophils # (Auto) 0.1 Thou/mm3 (0.0-0.2); Basophils % (Auto) 1 % (0-2.5); Eosinophils # (Auto) 0.2 Thou/mm3 (0.0-0.5); Eosinophils % (Auto) 2 % (0-10); Hematocrit 45.8 % (36.0-46.0); Hemoglobin 15.9 g/dL (12.0-16.0); Immature Granulocytes % (Auto) 0 % (0-0); Immature Granulocytes Auto 0.03 Thou/mm3 (0.00-0.00); Lymphocytes # (Auto) 2.2 Thou/mm3 (1.0-4.8); Lymphocytes % (Auto) 23 % (10-50); Mean Corpuscular HGB Conc 34.7 g/dl (31.0-37.0); Mean Corpuscular Volume 81 fL (80-100); Monocytes # (Auto) 0.5 Thou/mm3 (0.0-0.8); Monocytes % (Auto) 5 % (0-12); Neutrophils # (Auto) 6.4 Thou/mm3 (1.8-7.7); Neutrophils % (Auto) 69 % (37-80); Nucleated Red Blood Cell % 0 /100 WBC (0); Platelet Count 262 Thou/mm3 (140-440); RDW Standard Deviation 58.9 fL (36.4-46.3); Red Blood Count 5.68 Miln/mm3 (4.00-5.20); White Blood Count 9.3 Thou/mm3 (3.6-11.0)
[2024-07-27 11:07] LABS: B-Type Natriuretic Peptide 64 pg/mL (0-100)
[2024-07-27 11:09] VITALS: BP 157/107; PULSE 69; RESP 17; TEMP 36.5; O2SAT 97; BMI 21.5
[2024-07-27 11:10] LABS: Alanine Aminotransferase 46 U/L (10-49); Albumin, Serum 3.7 gm/dL (3.4-4.8); Albumin/Globulin Ratio 1.3 (1.2-2.2); Alkaline Phosphatase 107 U/L (46-116); Anion Gap 11 (7-16); BUN/Creatinine Ratio 16 Ratio (12-20); Bilirubin,Total 0.7 mg/dL (0.3-1.2); Blood Urea Nitrogen 25 mg/dL (9-23); Calcium 9.3 mg/dL (8.3-10.6); Calcium (Corrected) 9.5 mg/dL (8.5-10.1); Carbon Dioxide 23.8 mMol/L (20.0-31.0); Chloride 100 mMol/L (98-107); Creatinine (Component) 1.6 mg/dL (0.6-1.3); Estimated Creatinine Clearance 27.1 mL/min (>60); Globulin 2.8 gm/dL (2.3-3.5); Glucose 111 mg/dL (74-106); Magnesium 1.9 mg/dL (1.6-2.6); Osmolality,Calculated 275 (275-295); Potassium 4.8 mMol/L (3.4-5.1); Sodium 135 mMol/L (136-145); Total Protein 6.5 gm/dL (5.7-8.2); Troponin I < 0.020 ng/mL (0.0-0.045); eGFR 34 See Note
[2024-07-27 11:18] LABS: Partial Thromboplastin Time 31.8 Seconds (22.0-36.0); Prothrombin Time 10.9 Seconds (9.0-12.2)
--- NOTE | 2024-07-27 11:31 | EDNOTE_ITS ---
ED SOB =RME/HPI General Chief Complaint: Shortness of Breath/Dyspnea Stated Complaint: WORSENING SOB; SENT BY [facility] Time Seen by Provider: 07/27/24 09:40 Arrival date/time: 07/27/24 09:21 RME / HPI RME / HPI Narrative: 68-year-old female with a history of hypertension, type 2 diabetes, hyperlipidemia, lung cancer that began in the kidney and has metastasized to the lungs, was sent over by the cancer treatment center for increased shortness of breath. Patient has been having worsening shortness of breath, especially during the night, for the last 2 to 3 weeks. Patient denies any cough denies any fever denies any other complaints. Patient rotates [id number] oxygen does according to the family it is helping. Related Data Home Medications ?Medication ?Instructions ?Recorded ?Confirmed sitagliptin phosphate 100 mg 100 mg PO QDAY #0 tabs 05/25/24 tablet (Januvia) carvedilol 12.5 mg tablet 12.5 mg PO BID 05/15/2311/10 ergocalciferol (vitamin D2) 1,250 1,250 mcg PO QWEEK 0 05/15/23 05/15/23 mcg (50,000 unit) capsule losartan 50 mg tablet 50 mg PO QDAY 05/15/2305/25 lovastatin 10 mg tablet 10 mg PO HS 05/15/23 5 vitamin B comp no.3-folic acid 1 1 tab PO QDAY 4 05/25/24 mg-vit C 60 mg-biotin 300 mcg tablet (Mel-Debra Rx) axitinib 5 mg tablet (Inlyta) 5 mg PO Q12H 05/25/24 clonidine HCl 0.2 mg tablet 0.2 mg PO BID 05/25/2411/10 insulin detemir U-100 100 unit/mL 10 unit subcut .am 0 05/25/24 05/25/24 (3 mL) subcutaneous pen levothyroxine 50 mcg tablet 50 mcg PO QDAY 05/25/24 (Euthyrox) ropinirole 1 mg tablet 1 mg PO HS 05/25/24 05/25/24 Allergies Allergy/AdvReac Type Severity Reaction Status Date / Time No Known Allergies Allergy Verified 07/27/24 09:24 Review of Systems Review of Systems Narrative Review of Systems: Review of system reviewed and within normal limits except mentioned in HPI ED Exam Narrative Physical exam: VITAL SIGNS: Reviewed. GENERAL APPEARANCE: Alert and interactive, follows commands, no acute distress, HEAD AND FACE: Non-traumatic. ENT: PERRL, pink conjunctivitis, eyelid no trauma, Mucous membrane moist. NECK: Supple, nontender, no nuchal rigidity. CHEST: No tenderness, no crepitus, no paradoxical movement, no retractions. LUNGS: Clear, well ventilated, symmetric, no rales, no wheezing, no ronchi, no stridor, good breath sounds bilaterally. HEART: Regular rate, regular rhythm, no murmur, no gallops. ABDOMEN: Soft, positive bowel sounds, nondistended, no guarding, nontender, no rebound, no masses, RECTAL: Deferred. GENITAL: Deferred. NEUROLOGICAL: Gross motor function intact sensory function intact, Appropriate for age. MUSCULOSKELETAL: low back nontender, full range of motion. EXTREMITIES: Nontender, full range of motion. SKIN: Color pink, dry, no rash, no lacerations, no abrasions, no contusions. LYMPHATICS: Deferred. Course Quality Measures none Orders Category Date Time Status EKG (ED ONLY) *Do not use* NOW Care 07/27/24 09:51 Completed EKG (ED Only) Stat Exams 07/27/24 09:51 Draft XR chest 2V Stat Exams 07/27/24 09:51 Completed B-Type Natriuretic Peptide Stat Lab 07/27/24 10:32 Completed CBC Stat Lab 07/27/24 10:32 Completed Comprehensive Metabolic Panel Stat Lab 07/27/24 10:32 Completed Magnesium Stat Lab 07/27/24 10:32 Completed Partial Thromboplastin Time Stat Lab 07/27/24 10:32 Completed Prothrombin Time with INR Stat Lab 07/27/24 10:32 Completed Troponin I Stat Lab 07/27/24 10:32 Completed Urinalysis Stat Lab 07/27/24 13:04 Completed Referral Inhalation Therapy Aide NOW 07/27/24 11:38 Active Vital Signs Vital signs: Vital Signs Temperature 98.1 F 07/27/24 09:34 Pulse Rate 76 07/27/24 09:34 Respiratory Rate 16 07/27/24 09:34 Blood Pressure 102/77 07/27/24 09:34 Pulse Oximetry (%) 98 07/27/24 09:34 Oxygen Delivery Method Room Air 07/27/24 09:34 Shortness of Breath / Dyspnea [facility] Narrative MDM Narrative:: 68-year-old female with a history of hypertension, type 2 diabetes, hyperlipidemia, lung cancer that began in the kidney and has metastasized to the lungs, was sent over by the cancer treatment center for increased shortness of breath. Patient has been having worsening shortness of breath, especially during the night, for the last 2 to 3 weeks. Patient denies any cough denies any fever denies any other complaints. Patient rotates [id number] oxygen does according to the family it is helping On my initial evaluation patient's oxygen was noted to be 88% on room air while lying in bed patient was ambulating, was noted to be satting 87%.. Patient's workup today all came back unremarkable no leukocytosis, CMP creatinine 1.6 BUN of 25 patient was advised to drink a lot of fluids urinalysis no UTI chest x-ray showed lightly more prominent right paratracheal mediastinal lymphadenopathy compared with June 13, 2024 EKG showed by me as normal sinus rhythm, ventricular rate of 78 bpm, no ST segment elevation or depressions. Patient was referred to social worker school for further evaluation Patient appears nontoxic and hemodynamically stable .Decision to discharge the patient. The patient/family was given an opportunity to ask questions and understood their discharge instructions. Discharge instructions specifically included follow up provider and time frame Patient reports feeling better as well and giving evidence of significant clinical improvement, I believe patient is now a candidate for discharge. Oxygen gaye was here to give them oxygen supplies. Patient data External records reviewed:: None Clinical information provided by:: none Social determinants that could affect healthcare access:: none Patient has the following chronic illnesses:: Diabetes mellitus, hypertension, chest renal carcinoma, How is presenting disease/condition affected by chronic disease/condition?: exacerbated by Evaluation data The following diagnostics were reviewed and interpreted by me:: lab results, radiology exam(s) and EKG tracing(s) Lab and/or radiology exams considered but not ordered:: None Interpretation Summary: See results MDM Medications / Prescriptions Medications or Prescriptions considered but not ordered:: None Medication administrations:: Clonidine Consultations Consultation(s) initiated? (list below): No Diagnosis Shortness of Breath Differential Diagnosis: acute exacerbation of chronic obstructive airways disease, congestive heart failure, community acquired pneumonia and other (Shortness of breath) Most likely diagnosis given after review of the tests above:: Shortness of breath,, history of lung malignancy history of brain malignancy history of renal malignancy Admission Indicated Admission indicated?: not indicated Admission Request Was there a request for admission?: No Disposition Plan Disposition Plan: Discharge Discharge Attestation Discharge Attestation: The patient and all family members were given an opportunity to ask questions and understood the discharge instructions. Discharge instructions specifically effects, indications for sooner follow up or return to the emergency department, and the expected course of current diagnosis. Patient condition: Stable Discharge Plan Plan Patient Disposition: HOME (Self Care) Discharge Disposition comment: Stable Prescriptions/Referrals Prescriptions/Med Rec: No Action Januvia 100 MG tablet 100 mg PO QDAY Qty: 0 losartan 50 mg tablet 50 mg PO QDAY carvedilol 12.5 mg tablet 12.5 mg PO BID lovastatin 10 mg tablet 10 mg PO HS Patient Comments: TAKE 1 TABLET BY MOUTH EVERY DAY WITH DINNER ergocalciferol (vitamin D2) 1,250 mcg (50,000 unit) capsule 1,250 mcg PO QWEEK Patient Comments: TAKE 1 CAPSULE BY MOUTH ONCE A WEEK Mel-Debra Rx 1-60-300 mg-mg-mcg tablet 1 tab PO QDAY Patient Comments: TAKE 1 TABLET BY MOUTH EVERY DAY ropinirole 1 mg tablet 1 mg PO HS clonidine HCl 0.2 mg tablet 0.2 mg PO BID levothyroxine [Euthyrox] 50 mcg tablet 50 mcg PO QDAY insulin detemir U-100 100 unit/mL (3 mL) insulin pen 10 unit subcut .am Inlyta 5 mg tablet 5 mg PO Q12H Referrals: Denise Gonzalez MD [Primary Care Provider] - In 1 week Problem List Clinical Impression: Shortness of breath, Cancer of right lung Patient/Caregiver Discharge Instructions Discharge Activity: activity as tolerated Education Materials: ED Shortness of Breath (Dyspnea) Additional Instructions: Thank you for the opportunity for serving you today. You are stable for discharged . You are advised to: Follow-up with your PCP in 1 to 2 days Return to ED for worsening of symptoms Use your oxygen as needed Print Language: Occitan Stand Alone Forms: Tesha Award Info., Patient Portal Info Letter PA/SPEECH PATHOLOGY SUPERVISOR Supervising Physician PA/SPEECH PATHOLOGY SUPERVISOR Supervising Physician: MD Yi
--- NOTE | 2024-07-27 11:46 | PC.NURSE ---
PT AMBULATED TO RESTROOM WITH 2-PERSON ASSIST WHILE BEING CONNECTED TO PULSE OX VIA PORTABLE VITAL SIGNS MONITOR; PT'S O2 SAT DROPPED TO 87% DURING AMBULATION;. PT MOVED BACK TO BED, PT'S SATURATION WHILE LYING IN BED 88%.
[2024-07-27 11:50] VITALS: PULSE 76; RESP 18; RESP 88; O2SAT 96
--- NOTE | 2024-07-27 12:31 | PC.CC ---
Nataly CANO was consulted by JOANNA Valladares for home oxygen for the patient. ASW confirmed information on demographics with patient and family who was at bedside. ASW submitted DME oxygen order via [employer].
[2024-07-27 13:10] LABS: Collection Type, Urine Clean Catch
[2024-07-27 13:14] LABS: Bilirubin,Urine Negative (Negative); Blood,Urine Negative (Negative); Clarity,Urine Clear (Clear/Hazy); Color,Urine Yellow (Lt Yel-Yel); Glucose, Urine 2+ (Negative); Hyaline Casts,Urine 1 /hpf (0-1); Ketones,Urine Negative (Negative); Leukocyte Esterase,Urine Negative (Negative); Nitrite,Urine Negative (Negative); Protein,Urine 3+ (Neg - Trace); RBC,Urine 3 /hpf (0-3); Specific Gravity,Urine 1.019 (1.001-1.035); Squamous Epithelial Cell,Urine < 1 /hpf (0-5); Urobilinogen,Urine Negative mg/dL (0.0-1.0); WBC,Urine 4 /hpf (0-5)
--- NOTE | 2024-07-27 13:45 | PC.CC ---
ASW, sent referral for oxygen to [facility] as they are contracted with patient's insurance and report they will be able to deliver the oxygen at bedside within the next 2 hours. ASW provided update to JOANNA Valladares and patient.
[2024-07-27 14:10] VITALS: BP 179/119; PULSE 69; RESP 16; TEMP 36.3; O2SAT 97
[2024-07-27 15:42] VITALS: BP 181/104; PULSE 66; RESP 13; TEMP 35.6; O2SAT 93
--- NOTE | 2024-07-27 15:48 | PC.NURSE ---
PER WILDA Khan NP, PT OK TO TAKE BLOOD PRESSURE MEDICATION, CLONIDINE 0.2MG TABLET, FROM HOME HERE AT THIS TIME.
--- NOTE | 2024-07-27 15:50 | PC.NURSE ---
ALEKSANDRA SETTER MOLDING AND COREMAKING MACHINES FROM [facility] AT BEDSIDE PROVIDING PT EDUCATION ON HOW TO USE OXYGEN CONCENTRATOR, OXYGEN TANKS, NASAL CANNULA, AND HUMIDIFIER. PT'S DAUGHTER AT BEDSIDE WELL RECEIVING EDUCATION FROM ALEKSANDRA ON HOW TO USE MEDICAL EQUIPMENT.
--- NOTE | 2024-07-27 15:53 | PC.CC ---
Oxygen has been delivered to bedside. ASW informed GROCERY CHECKER Jacquelyn that oxygen had been delivered.
== END 2024-07-27 16:20 | disposition home or self-care (01) ==
PROVIDERS: Nurse Practitioner Family; Emergency Provider Emergency Medicine; PCP Internal Medicine
DX: C78.01 Secondary malignant neoplasm of right lung (principal); C78.02 Secondary malignant neoplasm of left lung; C64.9 Malignant neoplasm of unspecified kidney, except renal pelvis; R59.0 Localized enlarged lymph nodes; I44.4 Left anterior fascicular block; I10 Essential (primary) hypertension
CPT/HCPCS: 36415; 71046; 80053; 81001; 83735; 83880; 84484; 85025; 85610; 85730; 93005; 99283

== ENCOUNTER 2024-08-09 13:53 | Outpatient (RCR) | payer MEDICARE, SELFPAY ==
[2024-07-26 10:22] LABS: Basophils # (Auto) 0.1 Thou/mm3 (0.0-0.2); Basophils % (Auto) 1 % (0-2.5); Eosinophils # (Auto) 0.3 Thou/mm3 (0.0-0.5); Eosinophils % (Auto) 3 % (0-10); Hematocrit 45.1 % (36.0-46.0); Hemoglobin 15.7 g/dL (12.0-16.0); Immature Granulocytes % (Auto) 0 % (0-0); Immature Granulocytes Auto 0.02 Thou/mm3 (0.00-0.00); Lymphocytes # (Auto) 1.7 Thou/mm3 (1.0-4.8); Lymphocytes % (Auto) 15 % (10-50); Mean Corpuscular HGB Conc 34.8 g/dl (31.0-37.0); Mean Corpuscular Hemoglobin 27.7 pg (25.0-35.0); Mean Corpuscular Volume 80 fL (80-100); Monocytes # (Auto) 0.5 Thou/mm3 (0.0-0.8); Monocytes % (Auto) 5 % (0-12); Neutrophils # (Auto) 8.4 Thou/mm3 (1.8-7.7); Neutrophils % (Auto) 77 % (37-80); Nucleated Red Blood Cell % 0 /100 WBC (0); Platelet Count 288 Thou/mm3 (140-440); RDW Standard Deviation 58.6 fL (36.4-46.3); Red Blood Count 5.66 Miln/mm3 (4.00-5.20); White Blood Count 10.9 Thou/mm3 (3.6-11.0)
[2024-07-26 10:42] LABS: Aspartate Amino Transferase 30 U/L (0-34)
[2024-07-26 10:44] LABS: Alanine Aminotransferase 47 U/L (10-49); Albumin, Serum 3.6 gm/dL (3.4-4.8); Albumin/Globulin Ratio 1.3 (1.2-2.2); Alkaline Phosphatase 113 U/L (46-116); Anion Gap 11 (7-16); BUN/Creatinine Ratio 14 Ratio (12-20); Bilirubin,Total 0.6 mg/dL (0.3-1.2); Blood Urea Nitrogen 20 mg/dL (9-23); Calcium 9.1 mg/dL (8.3-10.6); Calcium (Corrected) 9.4 mg/dL (8.5-10.1); Carbon Dioxide 25.3 mMol/L (20.0-31.0); Chloride 101 mMol/L (98-107); Creatinine (Component) 1.4 mg/dL (0.6-1.3); Free T4 (Free Thyroxine) 1.75 ng/dL (0.89-1.76); Globulin 2.7 gm/dL (2.3-3.5); Glucose 103 mg/dL (74-106); Osmolality,Calculated 276 (275-295); Potassium 4.7 mMol/L (3.4-5.1); Sodium 137 mMol/L (136-145); Thyroid Stimulating Hormone 32.65 uIU/mL (0.55-4.78); Total Protein 6.3 gm/dL (5.7-8.2); eGFR 40 See Note
[2024-07-29 10:13] LABS: D-Dimer 305 ng/mL (<600)
[2024-08-02 10:39] LABS: Basophils % (Auto) 1 % (0-2.5); Eosinophils # (Auto) 0.3 Thou/mm3 (0.0-0.5); Eosinophils % (Auto) 3 % (0-10); Hematocrit 46.5 % (36.0-46.0); Immature Granulocytes % (Auto) 0 % (0-0); Immature Granulocytes Auto 0.03 Thou/mm3 (0.00-0.00); Lymphocytes # (Auto) 1.9 Thou/mm3 (1.0-4.8); Lymphocytes % (Auto) 22 % (10-50); Mean Corpuscular HGB Conc 34.4 g/dl (31.0-37.0); Mean Corpuscular Hemoglobin 28.5 pg (25.0-35.0); Mean Corpuscular Volume 83 fL (80-100); Monocytes # (Auto) 0.4 Thou/mm3 (0.0-0.8); Monocytes % (Auto) 5 % (0-12); Neutrophils # (Auto) 6.1 Thou/mm3 (1.8-7.7); Neutrophils % (Auto) 70 % (37-80); Nucleated Red Blood Cell % 0 /100 WBC (0); Platelet Count 213 Thou/mm3 (140-440); RDW Standard Deviation 60.9 fL (36.4-46.3); Red Blood Count 5.62 Miln/mm3 (4.00-5.20); White Blood Count 8.7 Thou/mm3 (3.6-11.0)
[2024-08-02 11:03] LABS: Alanine Aminotransferase 36 U/L (10-49); Albumin, Serum 3.5 gm/dL (3.4-4.8); Albumin/Globulin Ratio 1.3 (1.2-2.2); Alkaline Phosphatase 93 U/L (46-116); Anion Gap 8 (7-16); Aspartate Amino Transferase 35 U/L (0-34); BUN/Creatinine Ratio 11 Ratio (12-20); Bilirubin,Total 0.6 mg/dL (0.3-1.2); Blood Urea Nitrogen 18 mg/dL (9-23); Calcium 9.2 mg/dL (8.3-10.6); Calcium (Corrected) 9.6 mg/dL (8.5-10.1); Carbon Dioxide 25.1 mMol/L (20.0-31.0); Chloride 100 mMol/L (98-107); Creatinine (Component) 1.7 mg/dL (0.6-1.3); Free T4 (Free Thyroxine) 1.66 ng/dL (0.89-1.76); Globulin 2.7 gm/dL (2.3-3.5); Glucose 117 mg/dL (74-106); Osmolality,Calculated 269 (275-295); Potassium 5.1 mMol/L (3.4-5.1); Sodium 133 mMol/L (136-145); Thyroid Stimulating Hormone 31.51 uIU/mL (0.55-4.78); Total Protein 6.2 gm/dL (5.7-8.2); eGFR 32 See Note
--- NOTE | 2024-08-10 23:56 | CTCFLWUP_ITS ---
Patient: KIANNA GARCIA : 1955 Page 5 of 8 FOLLOW UP NOTE DATE OF SERVICE: 08/09/2024 NAME: KIANNA GARCIA ACCOUNT: [id number] : 1955 AGE: 68 INTERVAL HISTORY: Chief Complaint Patient is feeling fatigued and tired. Was started on spironolactone recently and since has been feeling tired. Medical History - Pneumonia- resolved Medications and Supplements - Antibiotics - Low ofloxacin - Immunotherapy - Delayed due to pneumonia and antibiotic treatment - Inhaler Review of Systems General: Positive for fatigue. Skin: Positive for dryness. HEENT: Positive for dry mouth. Genitourinary: Positive for vaginal dryness. 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 Patient also was found to have brain lesion for which she underwent SRS. Patient follows with [facility]. Patient completed SRS Feeling very fatigued and tired She has very poor appetite. 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 Tobacco?Pack?per?Day:?0 Tobacco Use:?SMOKED 1 PACK/MONTH FOR 10YRS - QUIT 40 YRS AGO ETOH?Use:?DENIES Drug?Note:?DENIES Social?History?Note:?LIVE???/?PARTNER CUST[employer]IAN [employer]MENT HISTORY: Menarche?-?Age:?11 Menopause:?48 :?4 Live?Births:?4 Age?1st?:?14 MEDICATIONS: 1. Aldactone - 50 mg 1 tab Daily 2. axitinib - 5 mg 1 tab Daily 3. carvedilol - 12.5 mg 1 tab Twice a Day 4. cloNIDine HCl - 0.2 mg 1 tab Twice a Day 5. conjugated estrogens - 0.625 mg/gram 1 gm Daily 6. Cozaar - 50 mg Daily 7. Inlyta - 5 mg 1 tab twice a day 8. Januvia - 100 mg Daily 9. Jardiance - 25 mg Daily 10. Levemir - 10 Units Twice a Day 11. levothyroxine - 50 mcg 1 tab Daily 12. levothyroxine - 75 mcg 1 tab Daily 13. levothyroxine - 112 mcg 1 tab Daily 14. Lidocaine Viscous - 2 % 10 mL NEEDED 15. lovastatin - 10 mg 1 tab Daily 16. Maalox Advanced - 200-200-20 mg/5 mL 20 mL as needed 17. nystatin - 100,000 unit/mL 10 mL as needed 18. Mel-Debra Rx - 1-60-300 mg-mg-mcg 1 tab Daily Medications Last Reconciled by Elizabeth Zamora MA on 08/09/2024 ALLERGIES: No Known Drug Allergies REVIEW OF SYSTEMS: A complete 14-point review of systems was performed and is negative except as noted in interval history. PHYSICAL EXAMINATION: VITAL SIGNS: Temperature?98.5, B/P?117/80, Oxygen?Saturation?100% PAIN: 0 - No pain ECOG Performance Status: 0 - Asymptomatic and fully active GENERAL APPEARANCE: Appears well, in no apparent distress, appropriately interactive. HEENT: Normocephalic, no temporal wasting, normal conjunctiva, no scleral icterus, normal hearing, lips without lesions, neck normal range of motion. CARDIOVASCULAR: Not assessed. PULMONARY: Normal respiratory effort, no respiratory distress or use of accessory muscles, speaking in full sentences, no tachypnea. EXTREMITIES: No pedal edema or cyanosis. SKIN: Normal skin appearance. NEUROLOGIC: Alert and oriented x4. PSHYCHIATRIC: Appropriate affect, mood normal, behavior normal, intact thought and speech. LABORATORY DATA: I have personally reviewed and interpreted each of the patient?s relevant lab tests, abnormal findings are below: Date 07/27/24 08/02/24 ??WHITE?BLOOD?COUNT?(Thou/mm3) 9.3 8.7 ??RED?BLOOD?COUNT?(Miln/mm3) 5.68?H 5.62?H ??HEMOGLOBIN?(gm/dl) 15.9 16.0 ??HEMATOCRIT?(%) 45.8 46.5?H ??PLATELET?COUNT?(Thou/mm3) 262 213 ??NEUTROPHILS?%,?AUTO?(%) 69 70 ??LYMPH?%,?AUTO?(%) 23 22 ??NEUTROPHILS,?AUTO?(Thou/mm3) 6.4 6.1 ??GLUCOSE,RANDOM?(mg/dL) 111?H 117?H ??BLOOD?UREA?NITROGEN?(mg/dL) 25?H 18 ??CREATININE?(mg/dL) 1.60?H 1.70?H ??SODIUM?(mmol/L) 135?L 133?L ??POTASSIUM?(mmol/L) 4.8 5.1 ??CHLORIDE?(mmol/L) 100 100 ??CrCl?(CandG)?(ml/min) 27.74 25.75 ??AST/SGOT?(Unit/L) ? 35?H ??ALT/SGPT?(Unit/L) 46 36 ??ALKALINE?PHOSPHATASE?(Unit/L) 107 93 ??BILIRUBIN,?TOTAL?(mg/dL) 0.7 0.6 ??PROTEIN?TOTAL?(gm/dl) 6.5 6.2 ??ALBUMIN,?SERUM?(gm/dl) 3.7 3.5 ??GLOBULIN?(gm/dl) 2.8 2.7 ??ALBUMIN/GLOBULIN?RATIO 1.3 1.3 ??CALCIUM,?SERUM?(mg/dL) 9.3 9.2 ??CALCIUM?SERUM?(CORRECTED)?(mg/dL) 9.5 9.6 ASSESSMENT/PLAN: #1 recurrent metastatic clear-cell renal cell cancer 8 cm mass in the right upper lobe and mediastinal disease patient on axitinib with Keytruda Will start Keytruda while waiting for axitinib Naterra shows response to treatment Cont treatment Stopped spironolactone as BP low Advised to go up on losartan once sbp is above 130 Can start half dose of aldactone if bp rises on losartan 100 daily Pneumonia Resolved Mucocutaneous dryness Assessment: Patient reports significant dryness affecting multiple areas, including mouth, skin, and vagina. Plan: - For oral and skin dryness: - Advise use of coconut oil for skin and gum massage - Encourage frequent oral hydration - For vaginal dryness: - Prescribe estrogen cream - Instruct to apply every other day initially for one week, then every 2-3 days per week CBC CMP TSH T4 ORDERS: Order # Description [id number] CBC + Comprehensive Metabolic Panel [id number] Lab Appointment [id number] Follow Up Appointment [id number] CBC + Comprehensive Metabolic Panel [id number] Lab Appointment [id number] Follow Up Appointment [id number] CBC + Comprehensive Metabolic Panel [id number] Lab Appointment [id number] Follow Up Appointment [id number] CBC + Comprehensive Metabolic Panel [id number] Lab Appointment [id number] Follow Up Appointment [id number] CBC + Comprehensive Metabolic Panel [id number] Lab Appointment [id number] Follow Up Appointment [id number] CBC + Comprehensive Metabolic Panel [id number] Lab Appointment [id number] Follow Up Appointment [id number] CBC + Comprehensive Metabolic Panel [id number] Lab Appointment [id number] Follow Up Appointment [id number] CBC + Comprehensive Metabolic Panel [id number] Lab Appointment [id number] Follow Up Appointment [id number] CBC + Comprehensive Metabolic Panel [id number] Lab Appointment [id number] Follow Up Appointment RETURN TO CLINIC: BILLING AND COMPLIANCE: I reviewed external records from providers outside my specialty as summarized above. I spent a total of 50 minutes on this patient?s care on the day of their visit excluding time spent related to any billed procedures. This time includes time spent with the patient as well as time spent documenting in the medical record, reviewing patients records and tests, obtaining history, placing orders, communicating with other healthcare professionals, counseling the patient, family or caregiver, and/or care coordination for the diagnoses above. Electronically Signed by: {Object.Sanct_ID*PnP.NameFL@M}, {Object.Sanct_ID*PnP.Suffix@U} D: {Object.Sanct_Date} T: {Object.Sanct_Time} CC: PCP: Denise Gonzalez Referring: Denise Gonzalez This document was completed utilizing speech recognition software. Grammatical errors, random word insertions, pronoun errors, and incomplete sentences are an occasional consequence of this system due to software limitations, ambient noise, and hardware issues. Any formal questions or concerns about the content, text or information contained within the body of this dictation should be directly addressed to the provider for clarification.
== END 2024-08-15 23:59 | disposition home or self-care (01) ==
LOC: SCTC 13:53
PROVIDERS: PCP Internal Medicine; Referring Provider Internal Medicine; Visit Provider Internal Medicine Hematology & Oncology
DX: Z51.11 Encounter for antineoplastic chemotherapy (principal); C64.1 Malignant neoplasm of right kidney, except renal pelvis; C79.31 Secondary malignant neoplasm of brain; C78.01 Secondary malignant neoplasm of right lung; Z90.5 Acquired absence of kidney; L85.3 Xerosis cutis; R68.2 Dry mouth, unspecified; N89.8 Other specified noninflammatory disorders of vagina; R53.83 Other fatigue
CPT/HCPCS: 36415; 80053; 84439; 84443; 84450; 85025; 85379; 96365; 96366; 96413; 99212; A4216; J1642; J2997; J7040; J7050; J9271; G0463

== ENCOUNTER 2024-08-17 09:06 | Outpatient (CLI) | payer MEDICARE, MEDICAID, SELFPAY ==
[2024-08-16 11:56] LABS: Basophils # (Auto) 0.1 Thou/mm3 (0.0-0.2); Basophils % (Auto) 1 % (0-2.5); Eosinophils # (Auto) 0.2 Thou/mm3 (0.0-0.5); Eosinophils % (Auto) 2 % (0-10); Hematocrit 48.1 % (36.0-46.0); Hemoglobin 16.3 g/dL (12.0-16.0); Immature Granulocytes Auto 0.03 Thou/mm3 (0.00-0.00); Lymphocytes # (Auto) 2.2 Thou/mm3 (1.0-4.8); Lymphocytes % (Auto) 22 % (10-50); Mean Corpuscular HGB Conc 33.9 g/dl (31.0-37.0); Mean Corpuscular Hemoglobin 29.1 pg (25.0-35.0); Mean Corpuscular Volume 86 fL (80-100); Monocytes # (Auto) 0.5 Thou/mm3 (0.0-0.8); Monocytes % (Auto) 4 % (0-12); Neutrophils # (Auto) 7.4 Thou/mm3 (1.8-7.7); Neutrophils % (Auto) 71 % (37-80); Nucleated Red Blood Cell # 0.00 Thou/mm3 (0.00-0.00); Nucleated Red Blood Cell % 0 /100 WBC (0); Platelet Count 247 Thou/mm3 (140-440); RDW Standard Deviation 63.7 fL (36.4-46.3); Red Blood Count 5.60 Miln/mm3 (4.00-5.20); White Blood Count 10.3 Thou/mm3 (3.6-11.0)
[2024-08-16 12:11] LABS: Blood Urea Nitrogen 23 mg/dL (9-23); Creatinine (Component) 2.0 mg/dL (0.6-1.3); eGFR 26 See Note
[2024-08-16 12:35] LABS: INR 1.0 (0.9-1.3); Partial Thromboplastin Time 30.8 Seconds (22.0-36.0); Prothrombin Time 10.9 Seconds (9.0-12.2)
[2024-08-17] VITALS (9 sets, daily range): BP systolic 120–155; BP diastolic 82–104; PULSE 63–73; RESP 12–20; TEMP 36.6; O2SAT 90–96
--- NOTE | 2024-08-17 09:30 | XR_ITS ---
Examination: IR catheter venous check Fluoroscopy AP chest 20 views Thrombolytic therapy Date and time: August 17, 2024 0924 hours INDICATIONS: Diagnosis renal cell carcinoma, nonfunctioning Port-A-Cath this month TECHNIQUE AND FINDINGS: Hand injection 10 cc Isovue-300 with serial spot fluoroscopic chest images obtained, 20 spot fluoroscopic chest films Radiation dose 14.74 milligray fluoroscopy 0.1 minute Contrast is present in the Port-A-Cath reservoir and line and exits into the superior vena cava However, no aspiration of blood from the Port-A-Cath 2 mg catheter introduced at the Port-A-Cath reservoir with no change in infiltrate to aspirate blood completion of the procedure IMPRESSION: Orogastric reservoir and Port-A-Cath line are intact No successful aspiration of blood from the Port-A-Cath post local thrombolytic therapy
[2024-08-17] MEDS: CATHFLO (ALTEPLASE) INJ 2 MG, Sterile Water 2.2 ML INDWELLCAT (10:39)
[2024-08-17] MEDS: HEPARIN SOD LOCK SYR 100 UNIT/ML 500 UNIT IV (11:15)
== END 2024-08-17 11:37 | disposition home or self-care (01) ==
PROVIDERS: Radiology Diagnostic Radiology; PCP Internal Medicine; Referring Provider Internal Medicine Hematology & Oncology; Visit Provider Internal Medicine Hematology & Oncology
DX: C79.31 Secondary malignant neoplasm of brain (principal); C78.01 Secondary malignant neoplasm of right lung; C64.1 Malignant neoplasm of right kidney, except renal pelvis; Z01.812 Encounter for preprocedural laboratory examination
CPT/HCPCS: 36598; 36415; 82565; 84520; 85025; 85610; 85730; A4216; J1642; J2997; Q9967

== ENCOUNTER → 2024-09-06 | Outpatient (CLI) | payer MEDICARE, MEDICAID, SELFPAY ==
--- NOTE | 2024-09-06 11:30 | XR_ITS ---
Examination: CTA chest with intravenous contrast 2-D reconstructions 3-D reconstructions, vascular Date and time of exam: September 07, 1999 2554 hours Comparison June 13, 2024 INDICATIONS: Secondary malignant neoplasm of the brain, 9 x 10 x 11 cm mediastinal tumor mass on CT chest June 13, 2024 CTDI: vol (mGy) 9.69 DLP: (mGycm) 229 Technique: Multiple axial sections of the thorax have been obtained. 3 mm slice thickness, from below the hemidiaphragms to above the apices of the lungs. Mediastinal and lung density settings have been obtained. 2-D sagittal and coronal reconstructions. 3-D angiographic renderings, 3-D volume renderings, 3D post processing, vascular maximum intensity projections obtained. Contrast administered is 60 cc Isovue-300. Low dose protocols were performed. One or more of the following dose reduction techniques were used; automated exposure control, adjustment of the mA and/or KV according to patient size, use of iterative reconstruction technique. Findings: Right mediastinal tumor mass measures 3.0 x 3.5 x 6.7 cm compared to 9 x 10 x [address] scan June 13, 2024 The 4 cm pulmonary mass described on the June 05, 2024 exam is actually part of the larger right mediastinal mass The right upper lobe 8mm pulmonary nodule on June 13, 2024 now measures 2 mm No visualized liver or splenic lesions The current abdomen images do not extend as low as on the June 13, 2024 exam IMPRESSION: Negative for pulmonary artery emboli Right upper lobe right mediastinal tumor mass measures 3.0 x 3.5 x 6.7 cm compared to 9 x 10 x 11 cm: CT chest June 13, 2024 2 mm pulmonary nodule right upper lobe compared to 8 mm on June 13, 2024 No new pulmonary nodules
== END | disposition home or self-care (01) ==
LOC: CCTX 11:35
PROVIDERS: PCP Internal Medicine; Referring Provider Internal Medicine Hematology & Oncology; Visit Provider Internal Medicine Hematology & Oncology
DX: C78.01 Secondary malignant neoplasm of right lung (principal); R91.1 Solitary pulmonary nodule
CPT/HCPCS: 71275; A4649; Q9967

== ENCOUNTER 2024-09-13 11:09 | Outpatient (RCR) | payer MEDICARE, MEDICAID, SELFPAY ==
[2024-08-23 16:15] LABS: Basophils # (Auto) 0.1 Thou/mm3 (0.0-0.2); Basophils % (Auto) 1 % (0-2.5); Eosinophils # (Auto) 0.2 Thou/mm3 (0.0-0.5); Eosinophils % (Auto) 2 % (0-10); Hematocrit 48.2 % (36.0-46.0); Hemoglobin 16.8 g/dL (12.0-16.0); Immature Granulocytes Auto 0.03 Thou/mm3 (0.00-0.00); Lymphocytes # (Auto) 1.8 Thou/mm3 (1.0-4.8); Lymphocytes % (Auto) 20 % (10-50); Mean Corpuscular HGB Conc 34.9 g/dl (31.0-37.0); Mean Corpuscular Hemoglobin 29.8 pg (25.0-35.0); Mean Corpuscular Volume 86 fL (80-100); Monocytes # (Auto) 0.6 Thou/mm3 (0.0-0.8); Monocytes % (Auto) 7 % (0-12); Neutrophils # (Auto) 6.4 Thou/mm3 (1.8-7.7); Neutrophils % (Auto) 71 % (37-80); Nucleated Red Blood Cell # 0.00 Thou/mm3 (0.00-0.00); Nucleated Red Blood Cell % 0 /100 WBC (0); Platelet Count 268 Thou/mm3 (140-440); RDW Standard Deviation 60.4 fL (36.4-46.3); Red Blood Count 5.63 Miln/mm3 (4.00-5.20); White Blood Count 9.1 Thou/mm3 (3.6-11.0)
[2024-08-23 16:47] LABS: Alanine Aminotransferase 37 U/L (10-49); Albumin, Serum 3.7 gm/dL (3.4-4.8); Albumin/Globulin Ratio 1.3 (1.2-2.2); Alkaline Phosphatase 108 U/L (46-116); Anion Gap 10 (7-16); Aspartate Amino Transferase 36 U/L (0-34); BUN/Creatinine Ratio 13 Ratio (12-20); Bilirubin,Total 0.6 mg/dL (0.3-1.2); Blood Urea Nitrogen 20 mg/dL (9-23); Calcium 9.3 mg/dL (8.3-10.6); Calcium (Corrected) 9.5 mg/dL (8.5-10.1); Carbon Dioxide 24.2 mMol/L (20.0-31.0); Chloride 98 mMol/L (98-107); Creatinine (Component) 1.6 mg/dL (0.6-1.3); Free T4 (Free Thyroxine) 1.06 ng/dL (0.89-1.76); Globulin 2.8 gm/dL (2.3-3.5); Glucose 51 mg/dL (74-106); Osmolality,Calculated 264 (275-295); Potassium 4.9 mMol/L (3.4-5.1); Sodium 132 mMol/L (136-145); Thyroid Stimulating Hormone 94.58 uIU/mL (0.55-4.78); Total Protein 6.5 gm/dL (5.7-8.2); eGFR 34 See Note
== END 2024-09-15 23:59 | disposition home or self-care (01) ==
LOC: SCTC 11:09
PROVIDERS: PCP Internal Medicine; Referring Provider Internal Medicine; Visit Provider Internal Medicine Hematology & Oncology
DX: Z51.11 Encounter for antineoplastic chemotherapy (principal); C64.1 Malignant neoplasm of right kidney, except renal pelvis; C79.31 Secondary malignant neoplasm of brain; C78.01 Secondary malignant neoplasm of right lung; R53.83 Other fatigue; Z90.5 Acquired absence of kidney; L85.3 Xerosis cutis; R68.2 Dry mouth, unspecified; N89.8 Other specified noninflammatory disorders of vagina
CPT/HCPCS: 36415; 80053; 84439; 84443; 85025; 96365; 96413; J7050; J9271

== ENCOUNTER 2024-09-13 11:57 | Inpatient (IN) | payer MEDICARE, MEDICAID, SELFPAY ==
[2024-09-13] VITALS (20 sets, daily range): BP systolic 141–226; BP diastolic 75–119; PULSE 4–77; RESP 12–99; TEMP 36.1–36.8; O2SAT 95–100; BMI 22.4
--- NOTE | 2024-09-13 12:05 | EKG_ITS ---
[facility] Test Date: 2024-09-13 Pat Name: KIANNA GARCIA Department: Room: - Gender: Female Community Arts Officer: : 1955 Requested By: Jean Claude Ortiz Order Number: [id number] Reading MD: Jean Claude Ortiz Measurements Intervals [place] Rate: 34 P: MN: QRS: -61 QRSD: 114 T: 91 QT: 522 QTc: 397 Interpretive Statements SINUS BRADYCARDIA WITH 2ND DEGREE AV BLOCK, 2:1 OR MOBITZ TYPE II LEFT AXIS DEVIATION [QRS AXIS < -30] RIGHT BUNDLE BRANCH BLOCK [120+ ms QRS DURATION, UPRIGHT V1, 40+ ms S IN I/aVL/V4/V5/V6] MODERATE T-WAVE ABNORMALITY, CONSIDER LATERAL ISCHEMIA [-0.1+ mV T-WAVE IN I/aVL/V5/V6] CRITICAL TEST RESULT Compared to ECG 07/27/2024 09:54:45 Left-axis deviation now present Right bundle-branch block now present Sinus rhythm no longer present Left anterior fascicular block no longer present T-wave abnormality still present Possible ischemia still present /store/S0/[id number]/ecg/[id number].pdf
--- NOTE | 2024-09-13 12:05 | XR_ITS ---
Examination: AP chest single view Technique one AP portable upright chest single view Date and time: September 13, 2024 1239 hours Comparison July 27, 2024 INDICATIONS: Weakness beginning 3 days ago. FINDINGS: Normal heart size Moderate elevation right hemidiaphragm. Right internal jugular Port-A-Cath tip SVC No pneumonia or pulmonary edema Prominent osteopenia IMPRESSION: No pneumonia or pulmonary edema
--- NOTE | 2024-09-13 12:08 | PD.EDARRY ---
ED Arrhythmia Palp. RME/HPI General Chief Complaint: Arrhythmia/Palpitations Stated Complaint: SLOW HEART RATE Time Seen by Provider: 09/13/24 12:04 Arrival date/time: 09/13/24 11:57 Limitations: no limitations RME / HPI RME / HPI narrative: 68-year-old female who is brought in by EMS from her cancer care center where she is being seen for routine visit and found to have bradycardia with a heart rate of 36. She has a history of renal cell carcinoma with metastases to the right upper lobe. She has a history of diabetes, hypertension, hyperlipidemia, and hypothyroidism. She has generalized weakness that has been ongoing. She denies any acute changes with this. She denies any dizziness, headache, near syncope, palpitations, chest pain, abdominal pain, nausea, vomiting. She is followed by Dr. Gonzalez. Related Data Home Medications ?Medication ?Instructions ?Recorded ?Confirmed sitagliptin phosphate 100 mg 100 mg PO QDAY #0 tabs 07/10/16 08/17/24 tablet (Januvia) carvedilol 12.5 mg tablet 12.5 mg PO BID 05/15/23 08/17/24 losartan 50 mg tablet 50 mg PO QDAY 05/15/23 08/17/24 lovastatin 10 mg tablet 10 mg PO HS 05/15/23 08/17/24 axitinib 5 mg tablet (Inlyta) 5 mg PO Q12H 05/25/24 08/17/24 clonidine HCl 0.2 mg tablet 0.2 mg PO BID 05/25/24 08/17/24 levothyroxine 50 mcg tablet 75 mcg PO QDAY 05/25/24 08/17/24 (Euthyrox) ropinirole 1 mg tablet 1 mg PO HS 05/25/24 08/17/24 insulin detemir U-100 100 unit/mL 10 unit subcut 08/17/24 (3 mL) subcutaneous pen vitamin B comp no.3-folic acid 1 1 tab PO QDAY 08/17/24 08/17/24 mg-vit C 60 mg-biotin 300 mcg tablet (Mel-Debra Rx) Allergies Allergy/AdvReac Type Severity Reaction Status Date / Time No Known Allergies Allergy Verified 07/27/24 09:24 Review of Systems Review of Systems Systems Reviewed: All systems reviewed, normal except as documented ED Exam General Limitations: Present no limitations General appearance: Present alert and in no apparent distress Head Head exam: Present atraumatic Eye Eye exam: Present normal appearance, PERRL and EOMI ENT ENT exam: Present normal exam, normal oropharynx and mucous membranes moist Neck Neck exam: Present normal inspection, full ROM and trachea midline Chest Chest inspection: Present normal inspection and symmetric chest wall rise Respiratory Respiratory exam: Present normal lung sounds bilaterally Cardiovascular Cardiovascular exam: Present normal rhythm, bradycardia and normal heart sounds Abdominal Exam Abdominal exam: Present soft and normal bowel sounds Extremities Exam Extremities exam: Present normal inspection and full ROM Back Exam Back exam: Present normal inspection and full ROM Neurological Exam Neurological exam: Present alert, oriented X3 and CN II-XII intact Psychiatric Psychiatric exam: Present normal affect and normal mood Skin Skin exam: Present warm, dry, intact and normal color Course Course Course Narrative: Dr. Gonzalez paged at 20 2:[address] Eduardo was contacted at 1355 PM, case were discussed and he will follow-up. Will have her stop her clonidine and carvedilol. He will see the patient in the hospital to consider installing a cardiac pacer. Dr. Gonzalez was contacted at approximately 14:45 regarding the patient's status, she will follow, she would like our hospitalist team to admit. Case discussed with our dayshift hospitalist team. Discussed case with Dr. Buck who have the resident team assist with the admission Quality Measures none Orders Category Date Time Status Welder Operator Q4H START 00 Care 09/13/24 11:59 Active EKG (ED ONLY) *Do not use* NOW Care 09/13/24 12:06 Active EKG (ED Only) Stat Exams 09/13/24 12:05 Ordered XR chest 1V Stat Exams 09/13/24 12:05 Ordered BNP [B-Type Natriuretic Peptide] Stat Lab 09/13/24 12:05 Ordered CBC Stat Lab 09/13/24 12:05 Ordered CMP [Comprehensive Metabolic Panel] Stat Lab 09/13/24 12:05 Ordered Mag [Magnesium] Stat Lab 09/13/24 12:05 Ordered TSH [Thyroid Stimulating Hormone] Stat Lab 09/13/24 12:05 Ordered Troponin I Stat Lab 09/13/24 12:05 Ordered UA [Urinalysis] Stat Lab 09/13/24 12:05 Ordered Vital Signs Vital signs: Vital Signs Temperature 97.6 F 09/13/24 11:59 Pulse Rate 36 L 09/13/24 11:59 Respiratory Rate 14 09/13/24 11:59 Blood Pressure 159/94 H 09/13/24 11:59 Pulse Oximetry (%) 98 09/13/24 11:59 Oxygen Delivery Method Room Air 09/13/24 11:59 Arrhythmia/Palpitations Patient data External records reviewed:: None Clinical information provided by:: patient, EMS and family Social determinants that could affect healthcare access:: none Patient has the following chronic illnesses:: Renal cell carcinoma, metastases to the right lung, diabetes, hypertension chronic kidney disease How is presenting disease/condition affected by chronic disease/condition?: exacerbated by Evaluation data The following diagnostics were reviewed and interpreted by me:: EKG tracing(s) (Sinus bradycardia with secondary AV block) Lab and/or radiology exams considered but not ordered:: n/a Interpretation Summary: Hyperkalemia, Mobitz heart block type II Medications / Prescriptions Medications or Prescriptions considered but not ordered:: n/a Medication administrations:: Calcium, insulin, D50, atropine Consultations Consultation(s) initiated? (list below): No Diagnosis Most likely diagnosis given after review of the tests above:: Hyperkalemia, secondary heart block type II Admission Indicated Admission indicated?: indicated Admission Request Was there a request for admission?: Yes Admission Attestation Admission request attestation: Discussed case with [] from Hospitalist service regarding admission. Discussed patients ED course, exam findings, labs, and radiology results. The Hospitalist [agrees,declines] to accept the patient for admission. Disposition Plan Disposition Plan: Admit Critical Care Time Critical Care Time Total Critical Care Time (min.): 45 Attestation: The high probability of sudden, clinically significant deterioration in the patient's condition required the highest level of my preparedness to intervene urgently. The services I provided to this patient were to treat and/or prevent clinically significant deterioration. Services included the following: chart data review, reviewing nursing notes and/or old charts, documentation time, economics consultant collaboration regarding findings and treatment options, medication orders and management, direct patient care, vital sign assessments and ordering, interpreting and reviewing diagnostic studies and lab tests. Aggregate critical care time includes only time during which I was engaged in work directly related to the patient's care, as described above, whether at bedside or elsewhere in the Emergency Department. It did not include time spent performing other reported procedures or the services of residents, students, nurses or physician assistants. Discharge Plan Plan Patient Disposition: Admit Acute Care w/in Hospital Patient condition on transfer: Stable Prescriptions/Referrals Prescriptions/Med Rec: No Action Januvia 100 MG tablet 100 mg PO QDAY Qty: 0 losartan 50 mg tablet 50 mg PO QDAY carvedilol 12.5 mg tablet 12.5 mg PO BID lovastatin 10 mg tablet 10 mg PO HS Patient Comments: TAKE 1 TABLET BY MOUTH EVERY DAY WITH DINNER ropinirole 1 mg tablet 1 mg PO HS clonidine HCl 0.2 mg tablet 0.2 mg PO BID levothyroxine [Euthyrox] 50 mcg tablet 75 mcg PO QDAY Inlyta 5 mg tablet 5 mg PO Q12H insulin detemir U-100 100 unit/mL (3 mL) insulin pen 10 unit subcut Eml-Debra Rx 1-60-300 mg-mg-mcg tablet 1 tab PO QDAY Referrals: Denise Gonzalez MD [Primary Care Provider] - In 1 week Problem List Clinical Impression: Atrioventricular block, Mobitz type 2, Acute hyperkalemia Patient/Caregiver Discharge Instructions Print Language: Bhutanese Stand Alone Forms: [employer] Award Info., Patient Portal Info Letter
[2024-09-13] MEDS: ATROPINE SULF INJ 0.1 MG/ML SYR 10 ML 1 MG IV (12:18)
--- NOTE | 2024-09-13 12:23 | PC.NURSE ---
HR after atropine at 41bpm at this time, daughter at bedside and updated on plan of care.
--- NOTE | 2024-09-13 12:24 | PC.NURSE ---
Patient to er from CTC with c/o low heart rate 30-40's, feels tired, currently patient skin is warm dry and slightly pale, patient alert and oriented x 3, denies pain, patient on chemo for right lung CA, last chemo was approx. 3 weeks ago, Jose ARELLANO at bedside, new orders recieved, patient placed on Pacer pads.
--- NOTE | 2024-09-13 12:32 | PC.NURSE ---
Patient placed on bedpan to obtain urine sample.
[2024-09-13 12:39] LABS: Basophils # (Auto) 0.1 Thou/mm3 (0.0-0.2); Basophils % (Auto) 1 % (0-2.5); Eosinophils # (Auto) 0.2 Thou/mm3 (0.0-0.5); Eosinophils % (Auto) 2 % (0-10); Hematocrit 43.7 % (36.0-46.0); Hemoglobin 14.9 g/dL (12.0-16.0); Immature Granulocytes Auto 0.05 Thou/mm3 (0.00-0.00); Lymphocytes # (Auto) 1.6 Thou/mm3 (1.0-4.8); Lymphocytes % (Auto) 19 % (10-50); Mean Corpuscular HGB Conc 34.1 g/dl (31.0-37.0); Mean Corpuscular Hemoglobin 31.2 pg (25.0-35.0); Mean Corpuscular Volume 91 fL (80-100); Monocytes # (Auto) 0.5 Thou/mm3 (0.0-0.8); Monocytes % (Auto) 6 % (0-12); Neutrophils # (Auto) 6.2 Thou/mm3 (1.8-7.7); Neutrophils % (Auto) 72 % (37-80); Nucleated Red Blood Cell # 0.00 Thou/mm3 (0.00-0.00); Nucleated Red Blood Cell % 0 /100 WBC (0); Platelet Count 256 Thou/mm3 (140-440); RDW Standard Deviation 62.1 fL (36.4-46.3); Red Blood Count 4.78 Miln/mm3 (4.00-5.20); White Blood Count 8.6 Thou/mm3 (3.6-11.0)
[2024-09-13 13:00] LABS: Alanine Aminotransferase 41 U/L (10-49); Albumin, Serum 3.3 gm/dL (3.4-4.8); Albumin/Globulin Ratio 1.3 (1.2-2.2); Alkaline Phosphatase 106 U/L (46-116); Anion Gap 9 (7-16); Aspartate Amino Transferase 31 U/L (0-34); BUN/Creatinine Ratio 24 Ratio (12-20); Bilirubin,Total 0.4 mg/dL (0.3-1.2); Blood Urea Nitrogen 33 mg/dL (9-23); Calcium 8.5 mg/dL (8.3-10.6); Calcium (Corrected) 9.1 mg/dL (8.5-10.1); Carbon Dioxide 21.9 mMol/L (20.0-31.0); Chloride 101 mMol/L (98-107); Creatinine (Component) 1.4 mg/dL (0.6-1.3); Estimated Creatinine Clearance 30.9 mL/min (>60); Globulin 2.5 gm/dL (2.3-3.5); Glucose 108 mg/dL (74-106); Magnesium 1.8 mg/dL (1.6-2.6); Osmolality,Calculated 272 (275-295); Potassium 5.9 mMol/L (3.4-5.1); Sodium 132 mMol/L (136-145); Thyroid Stimulating Hormone 91.41 uIU/mL (0.55-4.78); Total Protein 5.8 gm/dL (5.7-8.2); Troponin I < 0.020 ng/mL (0.0-0.045); eGFR 40 See Note
[2024-09-13 13:08] LABS: B-Type Natriuretic Peptide 172 pg/mL (0-100)
[2024-09-13 13:20] LABS: Collection Type, Urine Voided
[2024-09-13 13:36] LABS: Bacteria,Urine 1+; Bilirubin,Urine Negative (Negative); Blood,Urine Negative (Negative); Clarity,Urine Turbid (Clear/Hazy); Color,Urine Lt-Yellow (Lt Yel-Yel); Glucose, Urine Trace (Negative); Ketones,Urine Negative (Negative); Leukocyte Esterase,Urine Positive (Negative); Nitrite,Urine Negative (Negative); PH,Urine 7.0 (5.0-7.0); Protein,Urine 3+ (Neg - Trace); RBC,Urine 7 /hpf (0-3); Specific Gravity,Urine 1.011 (1.001-1.035); Squamous Epithelial Cell,Urine 25 /hpf (0-5); Urobilinogen,Urine Negative mg/dL (0.0-1.0); WBC,Urine 31 /hpf (0-5)
--- NOTE | 2024-09-13 13:58 | PC.NURSE ---
pharmacy called to bring Requip to er not in our pixys
[2024-09-13] MEDS: CALCIUM GLUCONATE 10% INJ 1 GM/10 ML VIAL IV (15:05)
[2024-09-13] MEDS: DEXTROSE 50%-WATER INJ 50 ML SYRINGE IVP ×2 (15:05→16:54)
[2024-09-13] MEDS: INSULIN HUM REGULAR 1 UNIT/0.01 ML (PER UNIT) 5 UNIT IV (15:06)
[2024-09-13 15:16] LABS: Free T4 (Free Thyroxine) 1.17 ng/dL (0.89-1.76)
--- NOTE | 2024-09-13 15:31 | PC.NURSE ---
Patients brief changed, soiled of urine, clean dry brief applied and brandt wick applied. Patient placed in POC. Daughter remains at bedside, call light within reach.
--- NOTE | 2024-09-13 15:36 | PC.NURSE ---
Hospitalists at bedside to evaluate patient
--- NOTE | 2024-09-13 16:30 | ECHO_ITS ---
Transthoracic Echo Report Ht (in): 63 Wt (lb): 127 Exam Location: Echo Lab Status: Emergency Circus Performer: Ami De Leon Indications: Procedure Performed: BP: 180 / 74 HR: 52 Technical Quality: Very technically difficult study MEASUREMENTS (Male / Female) Normal Values 2D ECHO LV Diastolic Diameter PLAX 4.1 cm 4.2 - 5.9 / 3.9 - 5.3 cm LV Systolic Diameter PLAX 3.4 cm IVS Diastolic Thickness 1.0 cm 0.6 - 1.0 / 0.6 - 0.9 cm LVPW Diastolic Thickness 0.7 cm 0.6 - 1.0 / 0.6 - 0.9 cm LV Relative Wall Thickness 0.4 LVOT Diameter 2.0 cm M-MODE Aortic Root Diameter MM 2.0 cm LA Systolic Diameter MM 3.5 cm LA Ao Ratio MM 1.8 AV Cusp Separation MM 1.4 cm DOPPLER AV Peak Velocity 112.0 cm/s AV Peak Gradient 5.0 mmHg AV Mean Gradient 2.0 mmHg AV Velocity Time Integral 20.6 cm LVOT Peak Velocity 76.9 cm/s LVOT Peak Gradient 2.4 mmHg LVOT Velocity Time Integral 20.2 cm LVOT Cardiac Index 2056.0 cm?/min?m? AV Area Cont Eq vti 3.1 cm? AV Area Cont Eq pk 2.2 cm? MV Area PHT 4.2 cm? Mitral E Point Velocity 46.1 cm/s Mitral A Point Velocity 81.0 cm/s Mitral E to A Ratio 0.6 PV Peak Velocity 92.3 cm/s PV Peak Gradient 3.4 mmHg FINDINGS Left Ventricle Normal left ventricular size and wall thickness. The ejection fraction is visually estimated at 40-45%. There is grade I diastolic dysfunction of the left ventricle (impaired relaxation pattern). Global left ventricular systolic function is mildly decreased. Right Ventricle The right ventricle is normal in size with moderately decreased systolic function. Left Atrium The left atrium is normal by two-dimensional, color flow and Doppler imaging with no structural abnormalities, no thrombus formation present. Right Atrium The right atrium is normal by two-dimensional imaging, color flow and Doppler imaging with no structural abnormalities, no thrombus formation present. Atrial Septum The interatrial septum appears normal with no evidence of a shunt. Aorta The aorta is normal by two-dimensional, color flow and Doppler interrogation. Mitral Valve The mitral valve is normal by two-dimensional, color flow and Doppler interrogation. Trace mitral regurgitation. Aortic Valve The aortic valve is trileaflet and normal by two-dimensional, color flow and Doppler interrogation. There is no significant aortic valve regurgitation. Tricuspid Valve The tricuspid valve is normal by two-dimensional, color flow and Doppler interrogation. There is trace tricuspid valve regurgitation. Pulmonic Valve The pulmonic valve is not well visualized. There is no significant pulmonic valve regurgitation. Vessels The pulmonary artery appears normal. The inferior vena cava pulmonary and hepatic veins appear normal. Pericardium The pericardium is normal by two-dimensional imaging. There is no significant pericardial effusion. CONCLUSIONS Indication: Second degree heart block. All cardiac structures suboptimally visulaized. Poor quality study Normal LV size and wall thickness. Probable mild LV dysfunction with an EF of 40 to 45%. Diastolic dysfunction present but cannot be graded because of the arrhythmia. Normal RV size and RV not visualized well to comment on the function Trace TR and MR. Devante Alesha (Electronically Signed) Final Date: 14 September 2024 23:00
--- NOTE | 2024-09-13 16:36 | PC.NURSE ---
Called Dr. Peter made her aware of patient's elevated bp, currently 196/94, hr 41. Also, patient requesting to eat, per Dr. Peter will place orders.
--- NOTE | 2024-09-13 16:40 | PC.NURSE ---
Called RT to come to er to administer breathing treatment.
[2024-09-13] MEDS: LOSARTAN POTASSIUM 25 MG TABLET 100 MG PO (16:55)
--- NOTE | 2024-09-13 16:59 | PD.RESHP ---
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 Patient denied chest pain. Positive for orthopnea, PND, and dyspnea upon exertion all occuring within the last few weeks. Patient denied dizziness. Positive for fatigue. Paitnet denied previous cardiac history. Patient was pushed Atropine X 2 in the ER without significant changes and subsequently converted back to sinus. HOLD ROPINIROLE, HOLD COREG, AND HOLD CLONIDINE. Atropine added for MAP <65 or HR <40. Hyperkalemia 5.9, not severe range (>6.5), pushed Insulin Regular 5 units X 1 and calium gluconate. Hypothyroidism, less concern for myxedema comma as patient is alert and orientated, hypoglycemia episode secondary to regular insulin given for K, and no constipation. INcrease Levothyroxine increased from 122 to 150. Continue to monitor. Cardiology Consulted. Echo pending. Tele. Sandoval follows with doctor Self per chart review Keytruda infusion every three weeks and Inlyta BID. Will update Dr. Self that outpatinet has been admitted. HPI History of Present Illness Chief complaint: Generalized weakness and bradycardia History of present illness: Mrs. Zapata is a pleasant 68 year old lady with a relevant medical history of renal cell carcinoma status post right nephrectomy with metastases to lungs and brain, T2DM, HLD, HTN, CKD stage III, restless leg syndrome, and hypothyroidism who presented to the ED from the [facility] with generalized weakness and a pulse of 36. Patient was admitted for symptomatic bradycardia and second-degree heart block. In the ED, the patient arrived with blood pressure of 159/94 and pulse of 36. The patient was given atropine 1 mg once, which did not significantly improve her heart rate. Calcium gluconate 1 gm and insulin 5 units was given with dextrose for management of hyperkalemia of 5.9. About 25 minutes later, the patient's blood pressure increased to 226/119, but pulse also increased to 74. During the evaluation, the patient was not in any acute distress. The patient stated that she has felt generalized weakness and shortness of breath ever since she started her chemotherapy about 3 to 4 months ago. She currently follows Dr. Self for oncology and is currently on Keytruda (pembrolizumab) and Inlyta (axitinib) for management of her metastatic renal cell carcinoma. The patient denied any fever or chills at time of examination. She does state however, that she has shortness of breath that is worse at night, often waking her up. She also sleeps with pillows to prop herself up and noticed that she becomes short of breath with several small steps. The patient uses a walker at home and lives with her . She is able to do all her activities of daily living independently. The patient states that her symptoms do get worse when she has her infusions about every 3 weeks, but also interestingly, her generalized weakness gets worse when she uses her levothyroxine. Patient denies any history of heart failure and does not currently follow with a benzene operator. Patient follows Dr. Gonzalez for PCP. Patient also endorses diarrhea (with Keytruda infusions) and headache in the top of her head. Patient denies fevers and chills, changes in vision, abdominal pain, constipation, dysuria. Oncologic history: The patient had a right renal mass identified prior to 2015. She had a nephrectomy done in 2015 at [facility], which was presumed for renal cell carcinoma, but biopsy was reportedly benign. It would not be until 01/12/2024 where it was discovered that the patient had recurrence of her renal cell carcinoma with metastasis to the lungs after imaging uncovered an 8 cm mass in the right upper lobe of the lungs along with mediastinal disease. An MRI brain was obtained on 02/16/2024, which showed metastatic spread to the brain as well. The patient would undergo CyberKnife treatment to the right temporal region in February 2024 at [facility]. It was noted that the oncology team at [facility] recommended systemic therapy with nivolumab and cabozantibin. However, likely due to pursuing care closer to home, the patient followed up with Dr. Self on 04/27/2024 who recommended immediate treatment with Keytruda and Inlyta. However, due to an upper respiratory infection, the patient did not start treatment until about 3 months ago. She receives Keytruda infusion every 3 weeks at the [facility] and takes Inlyta 5mg twice daily. Additional Past Medical History: - Vitamin D deficiency - Mucocutaneous dryness Past Surgical History: - Right nephrectomy 2016 at [facility] - Cholecystectomy about 35 years ago - Right rotator cuff repair/neck fusion - x4 - s/p CyberKnife treatment to right temporal region February 2024 at [facility] Current Medication(s): - Januvia 100 mg in the morning - Levemir 15 units in the morning - Carvedilol 12.5 mg twice daily - Losartan 50 mg daily - Mel-Debra 300 mg (1 tablet) daily - Lovastatin 10 mg daily - Vitamin D3 1250 MCG capsule weekly on Fridays - Clonidine 0.2 mg twice daily - Levothyroxine 122 MCG daily - Ropinirole 2 mg daily - Inlyta 5 mg twice daily - Aldactone 50 mg daily Allergies (w/ Reactions): NKDA Family History: Multiple family members have diabetes, sister had unspecified cancer Alcohol Intake:?Patient denies Tobacco/Vape Use:?Patient stopped smoking 20 years ago. Smoked 1 pack of cigarettes per month for about 10 years. Other Drug Use:?Patient denies Recent Travel History:?N/A Review of Systems Review of Systems Systems Reviewed: All systems reviewed, normal except as documented Exam Vital Signs Temp Pulse Resp BP Pulse Ox O2 Del Method O2 Flow Rate 98.2 F 74 13 226/119 H 97 Room Air 2 09/13/24 15:33 09/13/24 16:56 09/13/24 16:56 09/13/24 16:56 09/13/24 16:56 09/13/24 16:56 09/13/24 16:31 Narrative Exam Physical Exam: General: Alert, no acute distress. Skin: Warm, dry, intact, no obvious rash. Head: Normocephalic, atraumatic. Eye: Normal conjunctiva, PERRL. Cardiovascular: Regular rate and rhythm, no murmur, +S1/S2. Respiratory: Lungs are clear to auscultation, respirations unlabored, no crackles, no wheezing. Gastrointestinal: Soft, nontender, non-distended. No guarding or rebound tenderness. Extremities: 1+ edema in BLE to shins, no cyanosis, no clubbing. Neuro: No focal deficits observed. Conversant, moving all extremities. No overt cerebellar signs/incoordination. Psychiatric: Cooperative, appropriate affect. Results: Labs 09/14/24 04:07 09/14/24 04:07 Labs: Short CBC 09/13/24 Range/Units 12:12 WBC 8.6 (3.6-11.0) Thou/mm3 Hgb 14.9 (12.0-16.0) g/dL Hct 43.7 (36.0-46.0) % Plt Count 256 (140-440) Thou/mm3 BMP 09/13/24 12:12 Sodium 132 L Potassium 5.9 H Chloride 101 Carbon Dioxide 21.9 BUN 33 H Creatinine 1.4 H Glucose 108 H Calcium 8.5 Cardiac Enzymes 09/13/24 Range/Units 12:12 Troponin I < 0.020 (0.0-0.045) ng/mL Liver Function 09/13/24 Range/Units 12:12 Total Bilirubin 0.4 (0.3-1.2) mg/dL AST 31 (0-34) U/L ALT 41 (10-49) U/L Alkaline Phosphatase 106 (46-116) U/L Albumin 3.3 L (3.4-4.8) gm/dL Urine 09/13/24 Range/Units 13:15 Urine Color Lt-Yellow (Lt Yel-Yel) Urine Clarity Turbid A (Clear/Hazy) Urine pH 7.0 (5.0-7.0) Ur Specific [place] 1.011 (1.001-1.035) Urine Protein 3+ A (Neg - Trace) Urine Glucose (UA) Trace (Negative) Quality Measures Quality Measures none Advance care planning discussed with:: patient and legal surragate Medications Home Medications and Allergies Home Medications ?Medication ?Instructions ?Recorded ?Confirmed ?Type sitagliptin phosphate 100 mg 100 mg PO QDAY #0 tabs 07/10/16 08/17/24 History tablet (Januvia) carvedilol 12.5 mg tablet 12.5 mg PO BID 05/15/23 08/17/24 History losartan 50 mg tablet 50 mg PO QDAY 05/15/23 08/17/24 History lovastatin 10 mg tablet 10 mg PO HS 05/15/23 08/17/24 History axitinib 5 mg tablet (Inlyta) 5 mg PO Q12H 05/25/24 09/13/24 History clonidine HCl 0.2 mg tablet 0.2 mg PO BID 05/25/24 08/17/24 History levothyroxine 50 mcg tablet 75 mcg PO QDAY 05/25/24 08/17/24 History (Euthyrox) ropinirole 1 mg tablet 1 mg PO HS 05/25/24 08/17/24 History insulin detemir U-100 100 unit/mL 10 unit subcut 08/17/24 History (3 mL) subcutaneous pen vitamin B comp no.3-folic acid 1 1 tab PO QDAY 08/17/24 08/17/24 History mg-vit C 60 mg-biotin 300 mcg tablet (Mel-Debra Rx) Allergies Allergy/AdvReac Type Severity Reaction Status Date / Time No Known Allergies Allergy Verified 07/27/24 09:24 Visit Medications Acetaminophen (Acetaminophen 325 Mg Tablet) 650 mg PO Q6H PRN PRN Reason: Mild Pain1-3 or Fever 100.3 Stop: 10/13/24 16:28 Losartan Potassium (Losartan Potassium 25 Mg Tablet) 100 mg PO QDAY GAYATRI Stop: 10/13/24 16:44 Last Admin: 09/13/24 16:55 Dose: 100 mg Discontinued Medications Albuterol (Albuterol Rt 2.5 Mg/0.5 Ml Nebu) 10 mg INH X1 ONE Stop: 09/13/24 16:13 Atropine Sulfate (Atropine Sulf Inj 0.1 Mg/Ml Syr 10 Ml) 1 mg IV X1 ONE Stop: 09/13/24 12:12 Last Admin: 09/13/24 12:18 Dose: 1 mg Calcium Gluconate (Calcium Gluconate 10% Inj 1 Gm/10 Ml Vial) 1 gm IV X1 ONE Stop: 09/13/24 14:48 Last Admin: 09/13/24 15:05 Dose: 1 gm Dextrose (Dextrose 50%-Water Inj 50 Ml Syringe) 50 ml IVP X1 ONE Stop: 09/13/24 14:49 Last Admin: 09/13/24 15:05 Dose: 50 ml Dextrose (Dextrose 50%-Water Inj 50 Ml Syringe) 50 ml IVP X1 ONE Stop: 09/13/24 16:49 Last Admin: 09/13/24 16:54 Dose: 50 ml Insulin Human Regular (Insulin Hum Regular 1 Unit/0.01 Ml (Per Unit)) 5 unit IV X1 ONE Stop: 09/13/24 14:49 Last Admin: 09/13/24 15:06 Dose: 5 unit Ropinirole HCl (Ropinirole Hcl 1 Mg Tablet) 1 mg PO X1 ONE Stop: 09/13/24 13:22 Last Admin: 09/13/24 14:04 Dose: 1 mg Assessment & Plan Plan Mrs. Zapata is a pleasant 68 year old lady with a relevant medical history of renal cell carcinoma status post right nephrectomy with metastases to lungs and brain, T2DM, HLD, HTN, CKD stage III, restless leg syndrome, and hypothyroidism who presented to the ED from the [facility] with generalized weakness and a pulse of 36. Patient was admitted for symptomatic bradycardia and second-degree heart block. #Symptomatic bradycardia #Second degree heart block AV Block, 2: 1 #Suspicion for congestive heart failure Patient presented to the ED with heart rate of 36. EKG done in ED on 09/13 showed sinus bradycardia with 2:1 second-degree heart block. Last recorded EKG done in 07/28/2024 did not show heart block. Atropine 1 mg was given in the ED, initially without success, but patient's heart rate later increased to 74. Patient expresses generalized weakness and shortness of breath. BNP in ED elevated at 172. ? Ordered atropine 0.5 mg every 3 minutes as needed for if MAP less than 65 or heart rate less than 30 ? Transthoracic echocardiogram ordered ? Repeat EKG ordered ? Cardiology consulted, appreciate recommendations ? Per ED note, cardiology to consider placement of cardiac pacer ? Will hold home clonidine and carvedilol per cardiology recommendations #Renal cell carcinoma IV with metastasis to lungs and brain #s/p right nephrectomy Patient follows Dr. Self for management of malignancy. She takes Keytruda infusion once every 3 weeks and Inlyta 5 mg twice daily for chemotherapy. Additional information can be found in H&P. ? Will consult Dr. Self for recommendations on malignancy management while inpatient #Hypothyroidism #Subclinical Hypothyrodisms Patient has a history of hypothyroidism that started with her chemotherapy.TSH has been increasing since initial recordings available in April. An earlier ED visit on 08/23, the patient had a TSH level of 94.58. During this ED visit prior to admission, the patient had a TSH level of 91.41. Patient's physicians has been closely monitoring, resulting in increases to her levothyroxine every few weeks. The patient was on 122 mcg of levothyroxine on presentation to the ED. Free T4 levels throughout all of those was noted to be in the normal range. This is most likely tied to thyroid injury due to chemotherapy. ? Increased levothyroxine dose to 150 mcg daily ? Will monitor with daily TSH and free T4 #Hyperkalemia #Hyponatremia Patient had potassium of 5.9 and sodium of 132 in the ED. ED managed with calcium gluconate 1 gm and regular insulin 5 units with dextrose. ? Will monitor a.m. electrolytes and replenish/deplete as necessary #Type 2 diabetes mellitus Patient has history of T2DM that was diagnosed when the patient was 38 years old. ? Started patient on sliding scale insulin ? Ordered a.m. hemoglobin A1c ? Consistent low carbohydrate diet placed ? Will hold home Januvia 100 mg daily # Hypertensive urgency Patient has a history of hypertension. In the ED, the patient's blood pressure was 159/94 on presentation. ? home losartan 50 mg daily-->Losartan 100 ? Patient's home clonidine and carvedilol held per cardiology recommendations noted in ED note ? Cardiology ordered hydralazine 10 mg every 4 hours as needed if systolic blood pressure is greater than 180 #Restless leg syndrome Patient was noted to have a history of restless leg per patient note provided by her PCP Dr. Gonzalez ? Will HOLD patient's home ropinirole 2 mg at home #Hyperlipidemia Patient noted to have hyperlipidemia in the past. Patient takes lovastatin 10 mg at home. ? Ordered lipid panel ? Started atorvastatin 10 mg at night in place of patient's home lovastatin 10 mg. #CKD stage IIIb Patient noted to have BUN 33, creatinine 1.4, GFR 40 in ED. Baseline BUN around 20, baseline creatinine around 1.3, and baseline GFR around 40. ? Will continue to monitor renal panel daily ? Ordered phosphorus and magnesium series ? Will hold home Mel-Debra DVT Prophylaxis: SCDs GI Prophylaxis: N/A Bowel: N/A Diet: Consistent low carbohydrate diet Montes: N/A Lines: Peripheral IV Antibiotics: N/A Code Status: FULL Reason for Hospitalization: Symptomatic bradycardia and second-degree heart block Other Barriers to Discharge: Cardiology consultation Patient plan of care was discussed with the senior resident Dr. Peter and attending physician Dr. Perri Moe, PGY1 - The patient's plan was discussed with attending Dr. Perri Peter MD PGY2 Internal Medicine Attending Provider Attestation/Addendum I attest that I was physically present for the evaluation, physical examination, lab and imaging review of the patient with the residents. I discussed the case with the residents and agree with the findings and plans of care as documented above. After examination of the patient and review of the clinical data I feel that this patient needs admission to the hospital for further treatment/evaluation. Patient is a 68 years old female with past medical history of hypertension, hyperlipidemia, diabetes mellitus, hypothyroidism, restless leg syndrome, renal cell carcinoma with metastasis to brain and lung s/p nephrectomy who presented from the cancer treatment center with complaint of low heart rate. Patient has been having worsening fatigue for some time since she started her chemotherapy about 3/4 months ago, but has been worse lately. She denied any chest pain, palpitations, fever, chills. But endorses some SOB, Orthopnea and PND. In the ED, patient was hypertensive, blood pressure going up to 226/119. She was bradycardic with pulse rate going down up to 33. Rest of the vitals were within normal limits, saturating well on room air. Lab results show potassium of 5.9, sodium 132, BUN/creatinine 33/1.4, BNP 172, TSH 91.41, T41.17. Urinalysis showed 31 WBCs but patient did not have any urinary symptoms. Chest x-ray did not show any active disease. EKG was done, which shows 2:1 Mobitz type II second-degree heart block. Patient takes carvedilol, clonidine and ropinirole at home. Trial of atropine was done in the ED, without improvement. Discussed with cardiology, recommended admission to telemetry. We will admit the patient for further management of symptomatic bradycardia, second-degree AV block. We will hold off on beta-mary, clonidine and ropinirole. We will start her on losartan 100 mg along with as needed IV hydralazine. We will obtain echocardiogram. We will hold her chemotherapy medication, plan to discuss with Dr. Self tomorrow. With patient's fatigue, very high TSH, bradycardia with heart block, mild hyponatremia concern for myxedema coma arises, but she is alert and oriented, temperature and blood pressure is within normal limits, T4 level also came back at normal limit, suspicion decreases. We will however increase her levothyroxine dose to 150 mcg daily and monitor her thyroid function closely. Patient received temporizing measures with insulin and dextrose for hyperkalemia, we will follow-up with potassium level. Started on insulin regimen for diabetes. Kidney function is currently stable, if patient's potassium level does not improve or kidney function worsen, we will plan for nephrology consult. Gen Rayo MD
--- NOTE | 2024-09-13 17:05 | PC.NURSE ---
repeat ekg being performed by ross furnace operator at this time.
--- NOTE | 2024-09-13 17:28 | PC.NURSE ---
rt called once again for nebulizer treatment
[2024-09-13] MEDS: ALBUTEROL RT 2.5 MG/0.5 ML NEBU 10 MG INH (17:33)
--- NOTE | 2024-09-13 18:46 | PD.RESCONSUL ---
HPI Data of Consult Requesting Physician: Gen Rayo MD Admitting Provider: Gen Rayo MD Attending Provider: Gen Rayo MD Primary Care Provider: Denise Gonzalez MD Consult Narrative History of present illness: The patient is a 69-year-old female with past medical history significant for DM 2, HLD, HTN, CKD stage III, restless leg syndrome, hypothyroidism, renal cell carcinoma diagnosed in 2015, reoccurrence with metastasis to lung and brain in 2023 was sent to ED by infusion center, after being found to have low heart rate and high blood pressure. The patient did not had any symptoms in the infusion center, but due to extreme vitals, she was sent to ED. The patient denied any headache, lightheadedness, dizziness, chest pain, SOB, orthopnea or PND, palpitations, leg swelling, fever or chills, nausea or vomiting, any changes in bowel or bladder habit. In the ED, her blood pressure was 159/94, pulse 36, and received 1 mg of IV atropine, with significant improvement in her heart rate. Her blood pressure increased up to 226/119, and pulse rate increased to 74, but later her blood pressure and heart rate started to decrease. During my evaluation, her blood pressure was 194/96, pulse rate was 43, and saturating 97% on room air. Her CBC was fairly stable, sodium 132, potassium 5.9, BUN 33, creatinine 1.4, GFR 40, magnesium 1.8, BNP 172, troponin less than 0.020, albumin 3.3, TSH 91.41, free T41.17, UA revealed turbid urine, protein 3+, leukocyte esterase positive, WBC 31, squamous epithelial cells 25, urine bacteria 1+, with no urinary symptoms. EKG revealed second-degree AV block, Mobitz type II, 2:1 progression, heart rate 34. Chest x-ray was negative for pneumonia or pulmonary edema. PMH: As mentioned above SHX: Right nephrectomy 2015 at [facility], cholecystectomy about 35 years ago, right rotator cuff repair, x 4, s/p CyberKnife treatment to right temporal region February 2024 at [facility] Family history: Multiple family members with diabetes mellitus, sister had unspecified cancer Social history: Lives with , has poor children, is retired working from [employer], able to ambulate with the help of walker, denied any alcohol, illicit drug use, happy about 1 to 2 pack year smoking history 20 years ago Medications: Januvia 100 Mg daily, Levemir 15 units in the morning, carvedilol 12.5 Mg twice daily, losartan 50 Mg daily, lovastatin 10 mg daily, vitamin D3, clonidine 0.2 Mg twice daily, levothyroxine 125 Mcg daily, ropinirole 2 Mg daily, Inlyta 5 Mg twice daily, Aldactone 50 Mg daily Allergies: No known allergies Cardiology consultation was done for further management of Mobitz type II 2:1 heart block. cc:: cc: Gen Rayo MD Review of Systems Review of Systems Systems Reviewed: All systems reviewed, normal except as documented (Above) Exam Vital Signs Temp Pulse Resp BP Pulse Ox O2 Del Method O2 Flow Rate 98.2 F 72 16 144/87 H 100 Room Air 2 09/13/24 15:33 09/13/24 18:22 09/13/24 18:17 09/13/24 18:17 09/13/24 18:17 09/13/24 17:03 09/13/24 17:33 Narrative Exam General: Elderly, cooperative, frail female, no acute distress, Alert and Oriented x 3 HEENT: Moist mucous membranes, oropharynx clear Neck: Supple, No masses, No JVD CVS: S1S2 Regular rate and rhythm, No murmurs, rubs or gallops Lungs: Clear to auscultation with no accessory use, no wheeze no rhonchi Abd: Soft, NT/ND, +BS, no organomegaly Ext: No edema, warm and well perfused, bilateral lower leg weakness Skin: No rash Psych: Appropriate mood and affect Results Labs 09/13/24 12:12 09/13/24 12:12 Labs: Short CBC 09/13/24 Range/Units 12:12 WBC 8.6 (3.6-11.0) Thou/mm3 Hgb 14.9 (12.0-16.0) g/dL Hct 43.7 (36.0-46.0) % Plt Count 256 (140-440) Thou/mm3 BMP 09/13/24 12:12 Sodium 132 L Potassium 5.9 H Chloride 101 Carbon Dioxide 21.9 BUN 33 H Creatinine 1.4 H Glucose 108 H Calcium 8.5 Cardiac Enzymes 09/13/24 Range/Units 12:12 Troponin I < 0.020 (0.0-0.045) ng/mL Liver Function 09/13/24 Range/Units 12:12 Total Bilirubin 0.4 (0.3-1.2) mg/dL AST 31 (0-34) U/L ALT 41 (10-49) U/L Alkaline Phosphatase 106 (46-116) U/L Albumin 3.3 L (3.4-4.8) gm/dL Urine 09/13/24 Range/Units 13:15 Urine Color Lt-Yellow (Lt Yel-Yel) Urine Clarity Turbid A (Clear/Hazy) Urine pH 7.0 (5.0-7.0) Ur Specific [place] 1.011 (1.001-1.035) Urine Protein 3+ A (Neg - Trace) Urine Glucose (UA) Trace (Negative) Quality Measures Quality Measures none Advance care planning discussed with:: patient and child Medications Home Medications and Allergies Home Medications ?Medication ?Instructions ?Recorded ?Confirmed ?Type sitagliptin phosphate 100 mg 100 mg PO QDAY #0 tabs 07/10/16 08/17/24 History tablet (Januvia) carvedilol 12.5 mg tablet 12.5 mg PO BID 05/15/23 08/17/24 History losartan 50 mg tablet 50 mg PO QDAY 05/15/23 08/17/24 History lovastatin 10 mg tablet 10 mg PO HS 05/15/23 08/17/24 History axitinib 5 mg tablet (Inlyta) 5 mg PO Q12H 05/25/24 09/13/24 History clonidine HCl 0.2 mg tablet 0.2 mg PO BID 05/25/24 08/17/24 History levothyroxine 50 mcg tablet 75 mcg PO QDAY 05/25/24 08/17/24 History (Euthyrox) ropinirole 1 mg tablet 1 mg PO HS 05/25/24 08/17/24 History insulin detemir U-100 100 unit/mL 10 unit subcut 08/17/24 History (3 mL) subcutaneous pen vitamin B comp no.3-folic acid 1 1 tab PO QDAY 08/17/24 08/17/24 History mg-vit C 60 mg-biotin 300 mcg tablet (Mel-Debra Rx) Allergies Allergy/AdvReac Type Severity Reaction Status Date / Time No Known Allergies Allergy Verified 07/27/24 09:24 Visit Medications Acetaminophen (Acetaminophen 325 Mg Tablet) 650 mg PO Q6H PRN PRN Reason: Mild Pain1-3 or Fever 100.3 Stop: 10/13/24 16:28 Atropine Sulfate (Atropine Sulf Inj 0.1 Mg/Ml Syr 10 Ml) 0.5 mg IVP Q3MIN PRN PRN Reason: BRADYCARDIA Stop: 10/13/24 17:05 Dextrose (Dextrose 50%-Water Inj 50 Ml Syringe) 25 ml IV Q15MIN PRN PRN Reason: BG 50-70 responsive npo pt Stop: 10/13/24 17:00 Dextrose (Dextrose 50%-Water Inj 50 Ml Syringe) 50 ml IV Q15MIN PRN PRN Reason: BG <50 OR BG <70 & pt unresponsive Stop: 10/13/24 17:00 Glucagon (Glucagon Inj 1 Mg Vial) 1 mg IM Q15MIN PRN PRN Reason: BG <70, and no IV access Hydralazine HCl (Hydralazine Inj 20 Mg/Ml Vial) 10 mg IVP Q4HR PRN PRN Reason: SBP > 180 Stop: 10/13/24 17:10 Insulin Human Lispro (Insulin Lispro (Admelog) 1 Unit/0.01 Ml Unit) 0 unit SC ACHS [facility]; Protocol Stop: 10/13/24 20:59 Levothyroxine Sodium 125 mcg/ (Levothyroxine Sodium 25 mcg) 150 mcg PO ACBR [facility] Stop: 10/14/24 05:59 Losartan Potassium (Losartan Potassium 25 Mg Tablet) 100 mg PO QDAY [facility] Stop: 10/13/24 16:44 Last Admin: 09/13/24 16:55 Dose: 100 mg Discontinued Medications Albuterol (Albuterol Rt 2.5 Mg/0.5 Ml Nebu) 10 mg INH X1 ONE Stop: 09/13/24 16:13 Last Admin: 09/13/24 17:33 Dose: 10 mg Atropine Sulfate (Atropine Sulf Inj 0.1 Mg/Ml Syr 10 Ml) 1 mg IV X1 ONE Stop: 09/13/24 12:12 Last Admin: 09/13/24 12:18 Dose: 1 mg Calcium Gluconate (Calcium Gluconate 10% Inj 1 Gm/10 Ml Vial) 1 gm IV X1 ONE Stop: 09/13/24 14:48 Last Admin: 09/13/24 15:05 Dose: 1 gm Dextrose (Dextrose 50%-Water Inj 50 Ml Syringe) 50 ml IVP X1 ONE Stop: 09/13/24 14:49 Last Admin: 09/13/24 15:05 Dose: 50 ml Dextrose (Dextrose 50%-Water Inj 50 Ml Syringe) 50 ml IVP X1 ONE Stop: 09/13/24 16:49 Last Admin: 09/13/24 16:54 Dose: 50 ml Hydralazine HCl (Hydralazine Inj 20 Mg/Ml Vial) 10 mg IVP Q4HR PRN PRN Reason: Hypertension Stop: 10/13/24 17:10 Insulin Human Regular (Insulin Hum Regular 1 Unit/0.01 Ml (Per Unit)) 5 unit IV X1 ONE Stop: 09/13/24 14:49 Last Admin: 09/13/24 15:06 Dose: 5 unit Ropinirole HCl (Ropinirole Hcl 1 Mg Tablet) 1 mg PO X1 ONE Stop: 09/13/24 13:22 Last Admin: 09/13/24 14:04 Dose: 1 mg Assessment & Plan Plan The patient is a 69-year-old female with past medical history significant for DM 2, HLD, HTN, CKD stage III, restless leg syndrome, hypothyroidism, renal cell carcinoma diagnosed in 2015, reoccurrence with metastasis to lung and brain in 2023 was sent to ED by infusion center, after being found to have low heart rate and high blood pressure. EKG revealed second-degree AV block, Mobitz type II, 2:1 progression, heart rate 34. Cardiology consultation was done for further management of Mobitz type II 2:1 heart block. #Mobitz type II 2:1 AV block DDx: More likely 2/2 carvedilol, clonidine and ropinirole use, versus age related degeneration (in the setting of hyperkalemia of 5.9) The patient was sent from infusion center to ED with concern regarding low heart rate, and EKG revealed Mobitz type II 2:1 AV block. The patient has been asymptomatic. - TTE ordered - Maintain electrolyte balance - Stop beta-mary, calcium channel mary, clonidine, ropinirole - Continue with losartan 100 Mg daily - Hydralazine 25 Mg p.o. 3 times daily - Hydralazine 10 Mg IV as needed every 4 hourly for SBP greater than 170 - Telemetry monitoring - Subcutaneous pacing as needed, with cardiac pads - Further decision regarding pacemaker placement will be made after 48 hours, the time required for beta-mary washout #Hypertensive urgency Likely compensatory in the setting of bradycardia - Antihypertensive as above #Hyperkalemia Likely secondary to losartan and spironolactone, in the setting of CKD stage IIIb - Recommended to hold spironolactone for now - Kayexalate 30 g x 1 - Regular insulin 5 units IV x 1, albuterol INH 10 mL x 1, D50 W 50 cc x 1 - Monitor potassium level closely #CKD stage IIIb #DM2 #Restless leg syndrome #Metastatic renal cell carcinoma, metastasized to lungs and brain - Management deferred to primary hospitalist team Thank you for cardiology consultation. We appreciate the opportunity to participate in this patient care. Will continue to follow-up in this patient care. The patient's management plan was discussed with my attending physician MD Horace Sommers MD, PGY3 Attending Provider Attestation/Addendum I have personally seen and examined the patient separately on the above date of service and discussed the plan of care with the resident. I reviewed the resident Dr. Horace Reed consultation progress note and agree with the resident findings and plan in the note above and have also edited the documentation to reflect my findings and plan. A 69-year-old female patient with past medical history of renal cell carcinoma diagnosed in 2016 status post right nephrectomy in 2015 with recurrence in 2023 with metastasis to lung and brain on chemotherapy, radiotherapy, type 2 diabetes mellitus, essential hypertension, hyperlipidemia, CKD stage III, hypothyroidism, restless leg syndrome was sent in from the cancer center infusion department for further evaluation of bradycardia or low heart rate with elevated blood pressure. In the emergency department patient was found to have an heart rate of 36 and EKG showed second-degree AV block Mobitz type II with 2: 1 AV block and cardiology was consulted for further evaluation. Assessment and plan: 1. Mobitz type II 2: 1 AV block leading to bradycardia 2. Hypertensive urgency in the setting of severe bradycardia 3. Hyperkalemia 4. Abnormal thyroid function tests with a history of hypothyroidism on levothyroxine 5. CKD stage III 6. Metastatic renal cell carcinoma status post right nephrectomy in 2015 with metastasis to lungs and brain s/p radiotherapy and now on chemotherapy 7. Type 2 diabetes mellitus on insulin 8. Hyperlipidemia 9. Hypothyroidism 10. Restless leg syndrome 11. Chronic fatigue Patient presented with severe bradycardia with a heart rate of 30-40 bpm as well as elevated blood pressure systolic greater than 200 mmHg. Unclear etiology of the severe bradycardia but appears to be multifactorial with possible underlying sick sinus syndrome exacerbated with hyperkalemia versus beta-mary and clonidine use with abnormal thyroid function tests. Patient is hemodynamically stable and denies any kind of syncope or dizziness or passing out. Has chronically vague complains of fatigue but otherwise is asymptomatic and went to the cancer center to get her infusion. Blood pressure is elevated in the setting of the severe bradycardia. No need of urgent pacemaker for the patient to the present point of time as she is essentially asymptomatic and is hemodynamically stable. Recommend to treat the reversible causes for now and continue to closely monitor on telemetry. Recommend to treat aggressively for hyperkalemia with cocktail as well as at least Kayexalate 60 mg x 1 and repeat potassium levels in 6 hours. Recommend to stop the beta-mary completely as patient is on Coreg 12.5 mg twice daily which is a high dose. Also recommend to hold on the clonidine for now it could cause bradycardia. Ropinirole is on low-dose of only 1 mg every night and unlikely to cause bradycardia given that there are reports of bradycardia with ropinirole and it is okay to hold it for now. Patient could still have underlying sick sinus syndrome given her age secondary to degenerative conduction system but will need to wait for at least 48 hours to rule out all reversible causes. Patient thyroid function tests are also abnormal with TSH elevated at 91 and free T4 is low normal around 0.89 and 1.05. Patient appears to be on levothyroxine but unclear reasons for severely elevated TSH consistently Previously. Recommend to check T3 and obtain consultation with endocrinology for further evaluation of the abnormal thyroid function tests Regarding her elevated blood pressure and hypertensive urgency patient's systolic blood pressure is elevated more than 200 which is compensated right secondary to the severe bradycardia to maintain adequate perfusion. Recommend not to aggressively control the blood pressure and keep the systolic blood pressure around 160 to 170 mmHg and his blood pressure is higher than give IV hydralazine as needed. Patient can be continued on losartan 100 mg once daily for now and can add oral hydralazine if needed if the blood pressure consistently is above 180 mmHg in spite of the losartan. Keep potassium between 4 and 5 and keep magnesium greater than 2 at all times. Continue telemetry monitoring Management of rest of the medical conditions as per primary team and other consultants. Thank you for the consult and allowing me to participate in the care of the patient. Cardiology will continue to follow. Devante Eduardo M.D. Interventional Cardiology
[2024-09-13] MEDS: ATORVASTATIN CALCIUM 10 MG TABLET PO (20:57)
--- NOTE | 2024-09-13 21:45 | PC.LAC ---
Patient does not remember her exact meds. Daughter Tri said she will bring her med list tomorrow morning
[2024-09-13] MEDS: SOD POLYSTYRENE SULFON SUSP 15 GM/60 ML BTL 30 GM PO (21:59)
--- NOTE | 2024-09-13 22:06 | PC.NURSE ---
MD whaley notified that patient's HR is sustaining in 33-34. He said ok to give atropine
[2024-09-13] MEDS: ATROPINE SULF INJ 0.1 MG/ML SYR 10 ML 0.5 MG IVP (22:11)
--- NOTE | 2024-09-13 22:44 | PC.NURSE ---
daughter mahsa said she will bring her meds in the AM. patient does not remember what meds she takes
[2024-09-14] VITALS (14 sets, daily range): BP systolic 120–180; BP diastolic 64–91; PULSE 36–52; RESP 10–98; TEMP 35.9–36.4; O2SAT 96–100; BMI 23.5
--- NOTE | 2024-09-14 03:35 | PC.NURSE ---
Clarified with MD Allen about atropine order since it says HR <40 and/or symptomatic. patient HR is sustaining in 36. BP is 160/81. Patient is asymptomatic and not complaining of dizziness, chest pain, or shortness of breath at this time. He said no need to give atropine
[2024-09-14 04:55] LABS: Basophils # (Auto) 0.1 Thou/mm3 (0.0-0.2); Basophils % (Auto) 1 % (0-2.5); Eosinophils # (Auto) 0.1 Thou/mm3 (0.0-0.5); Eosinophils % (Auto) 1 % (0-10); Hematocrit 48.0 % (36.0-46.0); Hemoglobin 16.4 g/dL (12.0-16.0); Immature Granulocytes Auto 0.09 Thou/mm3 (0.00-0.00); Lymphocytes # (Auto) 1.3 Thou/mm3 (1.0-4.8); Lymphocytes % (Auto) 13 % (10-50); Mean Corpuscular HGB Conc 34.2 g/dl (31.0-37.0); Mean Corpuscular Hemoglobin 31.2 pg (25.0-35.0); Mean Corpuscular Volume 91 fL (80-100); Monocytes # (Auto) 0.5 Thou/mm3 (0.0-0.8); Monocytes % (Auto) 5 % (0-12); Neutrophils # (Auto) 8.0 Thou/mm3 (1.8-7.7); Neutrophils % (Auto) 80 % (37-80); Nucleated Red Blood Cell # 0.00 Thou/mm3 (0.00-0.00); Nucleated Red Blood Cell % 0 /100 WBC (0); Platelet Count 259 Thou/mm3 (140-440); RDW Standard Deviation 61.5 fL (36.4-46.3); Red Blood Count 5.25 Miln/mm3 (4.00-5.20); White Blood Count 10.0 Thou/mm3 (3.6-11.0)
[2024-09-14 05:11] LABS: Glucose Estimated Average 128 mg/dL (80-131); Hemoglobin A1C 6.1 % Hgb (4.8-6.0)
[2024-09-14] MEDS: LEVOTHYROXINE SODIUM 125 MCG, LEVOTHYROXINE SODIUM 25 MCG 150 MCG PO (05:16)
[2024-09-14 05:22] LABS: Alanine Aminotransferase 41 U/L (10-49); Albumin, Serum 3.4 gm/dL (3.4-4.8); Albumin/Globulin Ratio 1.4 (1.2-2.2); Alkaline Phosphatase 84 U/L (46-116); Anion Gap 11 (7-16); Aspartate Amino Transferase 35 U/L (0-34); BUN/Creatinine Ratio 24 Ratio (12-20); Bilirubin,Total 0.7 mg/dL (0.3-1.2); Blood Urea Nitrogen 31 mg/dL (9-23); Calcium 8.8 mg/dL (8.3-10.6); Calcium (Corrected) 9.3 mg/dL (8.5-10.1); Carbon Dioxide 19.8 mMol/L (20.0-31.0); Cardiac Risk Estimate 2.8 RATIO (3.7-5.6); Chloride 105 mMol/L (98-107); Cholesterol 228 mg/dL (132-200); Creatinine (Component) 1.3 mg/dL (0.6-1.3); Estimated Creatinine Clearance 33.3 mL/min (>60); Globulin 2.5 gm/dL (2.3-3.5); Glucose 94 mg/dL (74-106); HDL Cholesterol 81 mg/dL (40-60); LDL Cholesterol,Calculated 129 mg/dL (0-130); Magnesium 1.7 mg/dL (1.6-2.6); Osmolality,Calculated 278 (275-295); Phosphorous 4.8 mg/dL (2.4-5.1); Potassium 5.1 mMol/L (3.4-5.1); Sodium 136 mMol/L (136-145); Total Protein 5.9 gm/dL (5.7-8.2); Triglycerides 90 mg/dL (30-150); eGFR 44 See Note
--- NOTE | 2024-09-14 08:00 | EKG_ITS ---
[facility] Test Date: 2024-09-14 Pat Name: KIANNA GARCIA Department: Room: S262A Gender: Female [employer] Mechanician: KARINA : 1955 Requested By: Ramona Peter Order Number: [id number] Reading MD: Ramona Peter Measurements Intervals [place] Rate: 41 P: [place]: QRS: -72 QRSD: 90 T: 136 QT: 517 QTc: 430 Interpretive Statements SINUS BRADYCARDIA WITH 2ND DEGREE AV BLOCK, MOBITZ TYPE II MARKED LEFT AXIS DEVIATION S1-S2-S3 PATTERN, CONSISTENT WITH PULMONARY DISEASE, RVH, OR NORMAL VARIANT PATTERN CONSISTENT WITH PULMONARY DISEASE MODERATE T-WAVE ABNORMALITY, CONSIDER ANTEROLATERAL ISCHEMIA MODERATE T-WAVE ABNORMALITY, CONSIDER INFERIOR ISCHEMIA Compared to ECG 09/13/2024 12:04:21 Right ventricular hypertrophy now present Right bundle-branch block no longer present T-wave abnormality still present Possible ischemia still present /store/S0/[id number].pdf
[2024-09-14] MEDS: LOSARTAN POTASSIUM 25 MG TABLET 100 MG PO (08:34)
[2024-09-14] MEDS: SOD POLYSTYRENE SULFON SUSP 15 GM/60 ML BTL PO (08:34)
[2024-09-14] MEDS: Magnesium Sulfate 2 GM Ivpb 2 GM/50 ML BAG IV (08:34)
--- NOTE | 2024-09-14 08:57 | PD.RESCONSUL ---
HPI Data of Consult Requesting Physician: Gen Rayo MD Admitting Provider: Gen Rayo MD Attending Provider: Gen Rayo MD Primary Care Provider: Denise Gonzalez MD Consult Narrative cc:: cc: Gen Rayo MD Exam Vital Signs Temp Pulse Resp BP Pulse Ox O2 Del Method O2 Flow Rate 96.9 F 45 L 15 177/79 H 100 Nasal Cannula 2 09/14/24 08:00 09/14/24 08:45 09/14/24 08:00 09/14/24 08:45 09/14/24 08:00 09/14/24 08:00 09/14/24 08:00 Results Labs 09/14/24 04:07 09/14/24 04:07 Labs: Short CBC 09/13/24 09/14/24 Range/Units 12:12 04:07 WBC 8.6 10.0 (3.6-11.0) Thou/mm3 Hgb 14.9 16.4 H (12.0-16.0) g/dL Hct 43.7 48.0 H (36.0-46.0) % Plt Count 256 259 (140-440) Thou/mm3 BMP 09/13/24 09/14/24 12:12 04:07 Sodium 132 L 136 Potassium 5.9 H 5.1 D Chloride 101 105 Carbon Dioxide 21.9 19.8 L BUN 33 H 31 H Creatinine 1.4 H 1.3 Glucose 108 H 94 Calcium 8.5 8.8 Cardiac Enzymes 09/13/24 Range/Units 12:12 Troponin I < 0.020 (0.0-0.045) ng/mL Liver Function 09/13/24 09/14/24 Range/Units 12:12 04:07 Total Bilirubin 0.4 0.7 (0.3-1.2) mg/dL AST 31 35 H (0-34) U/L ALT 41 41 (10-49) U/L Alkaline Phosphatase 106 84 D (46-116) U/L Albumin 3.3 L 3.4 (3.4-4.8) gm/dL Urine 09/13/24 Range/Units 13:15 Urine Color Lt-Yellow (Lt Yel-Yel) Urine Clarity Turbid A (Clear/Hazy) Urine pH 7.0 (5.0-7.0) Ur Specific [place] 1.011 (1.001-1.035) Urine Protein 3+ A (Neg - Trace) Urine Glucose (UA) Trace (Negative) Quality Measures Quality Measures none Medications Home Medications and Allergies Home Medications ?Medication ?Instructions ?Recorded ?Confirmed ?Type sitagliptin phosphate 100 mg 100 mg PO QDAY #0 tabs 07/10/16 08/17/24 History tablet (Januvia) carvedilol 12.5 mg tablet 12.5 mg PO BID 05/15/23 08/17/24 History losartan 50 mg tablet 50 mg PO QDAY 05/15/23 08/17/24 History lovastatin 10 mg tablet 10 mg PO HS 05/15/23 08/17/24 History axitinib 5 mg tablet (Inlyta) 5 mg PO Q12H 05/25/24 09/13/24 History clonidine HCl 0.2 mg tablet 0.2 mg PO BID 05/25/24 08/17/24 History levothyroxine 50 mcg tablet 75 mcg PO QDAY 05/25/24 08/17/24 History (Euthyrox) ropinirole 1 mg tablet 1 mg PO HS 05/25/24 08/17/24 History insulin detemir U-100 100 unit/mL 10 unit subcut 08/17/24 History (3 mL) subcutaneous pen vitamin B comp no.3-folic acid 1 1 tab PO QDAY 08/17/24 08/17/24 History mg-vit C 60 mg-biotin 300 mcg tablet (Mel-Debra Rx) Allergies Allergy/AdvReac Type Severity Reaction Status Date / Time No Known Allergies Allergy Verified 07/27/24 09:24 Visit Medications Acetaminophen (Acetaminophen 325 Mg Tablet) 650 mg PO Q6H PRN PRN Reason: Mild Pain1-3 or Fever 100.3 Stop: 10/13/24 16:28 Atorvastatin Calcium (Atorvastatin Calcium 10 Mg Tablet) 10 mg PO HS GAYATRI Stop: 10/13/24 20:59 Last Admin: 09/13/24 20:57 Dose: 10 mg Atropine Sulfate (Atropine Sulf Inj 0.1 Mg/Ml Syr 10 Ml) 0.5 mg IVP Q3MIN PRN PRN Reason: BRADYCARDIA Stop: 10/13/24 17:05 Dextrose (Dextrose 50%-Water Inj 50 Ml Syringe) 25 ml IV Q15MIN PRN PRN Reason: BG 50-70 responsive npo pt Stop: 10/13/24 17:00 Dextrose (Dextrose 50%-Water Inj 50 Ml Syringe) 50 ml IV Q15MIN PRN PRN Reason: BG <50 OR BG <70 & pt unresponsive Stop: 10/13/24 17:00 Glucagon (Glucagon Inj 1 Mg Vial) 1 mg IM Q15MIN PRN PRN Reason: BG <70, and no IV access Hydralazine HCl (Hydralazine Inj 20 Mg/Ml Vial) 10 mg IVP Q4HR PRN PRN Reason: SBP > 180 Stop: 10/13/24 17:10 Hydralazine HCl (Hydralazine Hcl 25 Mg Tablet) 50 mg PO Q8H GAYATRI Stop: 10/14/24 13:59 Magnesium Sulfate (Magnesium Sulfate Ivpb) 2 gm in 50 mls @ 25 mls/hr IV X1 ONE Stop: 09/14/24 09:21 Last Admin: 09/14/24 08:34 Dose: 25 mls/hr Insulin Human Lispro (Insulin Lispro (Admelog) 1 Unit/0.01 Ml Unit) 0 unit SC [facility]; Protocol Stop: 10/13/24 20:59 Last Admin: 09/14/24 08:29 Dose: Not Given Levothyroxine Sodium 125 mcg/ (Levothyroxine Sodium 25 mcg) 150 mcg PO ACBR [facility] Stop: 10/14/24 05:59 Last Admin: 09/14/24 05:16 Dose: 150 mcg Losartan Potassium (Losartan Potassium 25 Mg Tablet) 100 mg PO QDAY GAYATRI Stop: 10/13/24 16:44 Last Admin: 09/14/24 08:34 Dose: 100 mg Sodium Polystyrene Sulfonate (Sod Polystyrene Sulfon Susp 15 Gm/60 Ml Btl) 15 gm PO X1 ONE Stop: 09/14/24 09:01 Last Admin: 09/14/24 08:34 Dose: 15 gm Discontinued Medications Albuterol (Albuterol Rt 2.5 Mg/0.5 Ml Nebu) 10 mg INH X1 ONE Stop: 09/13/24 16:13 Last Admin: 09/13/24 17:33 Dose: 10 mg Atropine Sulfate (Atropine Sulf Inj 0.1 Mg/Ml Syr 10 Ml) 1 mg IV X1 ONE Stop: 09/13/24 12:12 Last Admin: 09/13/24 12:18 Dose: 1 mg Atropine Sulfate (Atropine Sulf Inj 0.1 Mg/Ml Syr 10 Ml) 0.5 mg IVP Q3MIN PRN PRN Reason: BRADYCARDIA Stop: 10/13/24 17:05 Last Admin: 09/13/24 22:11 Dose: 0.5 mg Calcium Gluconate (Calcium Gluconate 10% Inj 1 Gm/10 Ml Vial) 1 gm IV X1 ONE Stop: 09/13/24 14:48 Last Admin: 09/13/24 15:05 Dose: 1 gm Dextrose (Dextrose 50%-Water Inj 50 Ml Syringe) 50 ml IVP X1 ONE Stop: 09/13/24 14:49 Last Admin: 09/13/24 15:05 Dose: 50 ml Dextrose (Dextrose 50%-Water Inj 50 Ml Syringe) 50 ml IVP X1 ONE Stop: 09/13/24 16:49 Last Admin: 09/13/24 16:54 Dose: 50 ml Hydralazine HCl (Hydralazine Inj 20 Mg/Ml Vial) 10 mg IVP Q4HR PRN PRN Reason: Hypertension Stop: 10/13/24 17:10 Hydralazine HCl (Hydralazine Hcl 25 Mg Tablet) 25 mg PO Q8H GAYATRI Stop: 10/13/24 21:59 Last Admin: 09/14/24 05:16 Dose: 25 mg Hydralazine HCl (Hydralazine Hcl 25 Mg Tablet) 25 mg PO X1 ONE Stop: 09/14/24 08:37 Last Admin: 09/14/24 08:45 Dose: 25 mg Insulin Human Regular (Insulin Hum Regular 1 Unit/0.01 Ml (Per Unit)) 5 unit IV X1 ONE Stop: 09/13/24 14:49 Last Admin: 09/13/24 15:06 Dose: 5 unit Ropinirole HCl (Ropinirole Hcl 1 Mg Tablet) 1 mg PO X1 ONE Stop: 09/13/24 13:22 Last Admin: 09/13/24 14:04 Dose: 1 mg Sodium Polystyrene Sulfonate (Sod Polystyrene Sulfon Susp 15 Gm/60 Ml Btl) 30 gm PO X1 ONE Stop: 09/13/24 21:47 Last Admin: 09/13/24 21:59 Dose: 30 gm
--- NOTE | 2024-09-14 09:45 | PD.RESPRO ---
Documentation for date of: 09/14/24 No overnight events. Paitnet examed at bedside. Paitent dienes chest pain, chest pressure, or shortness of breath. Denied fluttering sensation or skipped beats. HR 40s. Continue to hold Coreg, Clonidine, and ropinirole. Continue to monitor for th next 24 hours. Continue to monitor BP. Attempted to updated patient oncologist about recent hospitilization. Continue levothyroxine, likely will require adjustment, based on weight. Ramona Peter PGY 2 Subjective Subjective Interval history: Overnight events: No acute events overnight. Patient received atropine 0.5 mg for bradycardia heart rate at 36. Atropine did not seem to improve, so second dose was not given. Patient was asymptomatic throughout. Patient was seen and examined at bedside. AM vitals and labs reviewed. Patient stated that she feels better than yesterday. Heart rate noted to be 41 and blood pressure 177/79 on telemetry during visit. Reviewed telemetry strips overnight which was only significant for bradycardia, no further incidences of second-degree Mobitz type II heart block noted. Attempted to reach out to Dr. Self this morning via phone, but was unsuccessful. Cardiology does not recommend urgent pacemaker placement, does recommend holding beta-mary, clonidine, ropinirole and wait for at least 48 hours to rule out reversible causes. Patient has no other complaints at this time. Review of systems otherwise negative except for what is mentioned above. Exam Vital Signs Temp Pulse Resp BP Pulse Ox O2 Del Method O2 Flow Rate 96.9 F 49 L 16 177/79 H 100 Nasal Cannula 2 09/14/24 08:00 09/14/24 08:45 09/14/24 08:45 09/14/24 08:45 09/14/24 08:00 09/14/24 08:00 09/14/24 08:00 Narrative Exam Physical Exam: General: Alert, no acute distress. Skin: Warm, dry, intact, no obvious rash. Head: Normocephalic, atraumatic. Eye: Normal conjunctiva, PERRL. Throat: Oral mucosa moist. No obvious lesions in oropharynx. Cardiovascular: Bradycardic and regular rhythm, no murmur, +S1/S2. Respiratory: Lungs are clear to auscultation, respirations unlabored, no crackles, no wheezing. Gastrointestinal: Soft, nontender, non-distended. No guarding or rebound tenderness. Extremities: No edema, no cyanosis, no clubbing. 2+ radial pulse bilaterally, 2+ pedal pulse bilaterally. Neuro: No focal deficits observed. Conversant, moving all extremities. No overt cerebellar signs/incoordination. Psychiatric: Cooperative, appropriate affect. Objective Labs 09/14/24 04:07 09/14/24 04:07 Labs: Laboratory Results - last 24 hr 09/13/24 09/13/24 09/14/24 12:12 13:15 04:07 WBC 8.6 10.0 RBC 4.78 5.25 H Hgb 14.9 16.4 H Hct 43.7 48.0 H MCV 91 91 MCH 31.2 31.2 MCHC 34.1 34.2 RDW Std Deviation 62.1 H 61.5 H Plt Count 256 259 Neut % (Auto) 72 80 Lymph % (Auto) 19 13 [place] % (Auto) 6 5 Eos % (Auto) 2 1 Baso % (Auto) 1 1 Neut # (Auto) 6.2 8.0 H Lymph # (Auto) 1.6 1.3 [place] # (Auto) 0.5 0.5 Eos # (Auto) 0.2 0.1 Baso # (Auto) 0.1 0.1 Immature Gran # (Auto) 0.05 H 0.09 H Absolute Nucleated RBC 0.00 0.00 Immature Gran % 1 H 1 H Nucleated RBC % 0 0 Sodium 132 L 136 Potassium 5.9 H 5.1 D Chloride 101 105 Carbon Dioxide 21.9 19.8 L Anion Gap 9 11 BUN 33 H 31 H Creatinine 1.4 H 1.3 Estim Creat Clear Calc 30.9 L 33.3 L eGFR 40 L 44 L BUN/Creatinine Ratio 24 H 24 H Glucose [address] Glu mg/dL 128 Hemoglobin A1c 6.1 H Calculated Osmolality 272 L 278 Calcium 8.5 8.8 Corrected Calcium 9.1 9.3 Phosphorus 4.8 Magnesium 1.8 1.7 Total Bilirubin 0.4 0.7 AST 31 35 H ALT 41 41 Alkaline Phosphatase 106 84 D Troponin I < 0.020 B-Natriuretic Peptide 172 H Total Protein 5.8 5.9 Albumin 3.3 L 3.4 Globulin 2.5 2.5 Albumin/Globulin Ratio 1.3 1.4 Triglycerides 90 Cholesterol 228 H LDL Cholesterol, Calc 129 HDL Cholesterol 81 H Cholesterol/HDL Ratio 2.8 L TSH 91.41 H* D Free T4 1.17 Ur Collection Type Voided Urine Color Lt-Yellow Urine Clarity Turbid A Urine pH 7.0 Ur Specific Ramona 1.011 Urine Protein 3+ A Urine Glucose (UA) Trace Urine Ketones Negative Urine Blood Negative Urine Nitrite Negative Urine Bilirubin Negative Urine Urobilinogen (Auto) Negative Ur Leukocyte Esterase Positive Urine RBC 7 H Urine WBC 31 H Ur Squamous Epith Cells 25 H Urine Bacteria 1+ A Quality Measures Quality Measures none Advance care planning discussed with:: patient Assessment & Plan Assessment Current Active Medications: Generic Name Dose Route Start Last Admin Trade Name Freq PRN Reason Stop Dose Admin Acetaminophen 650 mg 09/13/24 16:29 Acetaminophen 325 Mg Tablet PO 10/13/24 16:28 Q6H PRN Mild Pain1-3 or Fever 100.3 Atorvastatin Calcium 10 mg 09/13/24 21:00 09/13/24 20:57 Atorvastatin Calcium 10 Mg Tablet PO 10/13/24 20:59 10 mg HS GAYATRI Administration Atropine Sulfate 0.5 mg 09/13/24 22:18 Atropine Sulf Inj 0.1 Mg/Ml Syr 10 Ml IVP 10/13/24 17:05 Q3MIN PRN BRADYCARDIA Dextrose 25 ml 09/13/24 17:01 Dextrose 50%-Water Inj 50 Ml Syringe IV 10/13/24 17:00 Q15MIN PRN BG 50-70 responsive npo pt Dextrose 50 ml 09/13/24 17:01 Dextrose 50%-Water Inj 50 Ml Syringe IV 10/13/24 17:00 Q15MIN PRN BG <50 OR BG <70 & pt unresponsive Glucagon 1 mg 09/13/24 17:01 Glucagon Inj 1 Mg Vial IM Q15MIN PRN BG <70, and no IV access Hydralazine HCl 10 mg 09/13/24 17:54 Hydralazine Inj 20 Mg/Ml Vial IVP 10/13/24 17:10 Q4HR PRN SBP > 180 Hydralazine HCl 50 mg 09/14/24 14:00 Hydralazine Hcl 25 Mg Tablet PO 10/14/24 13:59 Q8H GAYATRI Insulin Human Lispro 0 unit 09/13/24 21:00 09/14/24 08:29 Insulin Lispro (Admelog) 1 Unit/0.01 Ml Unit SC 10/13/24 20:59 Not Given ACHS GAYATRI Protocol Levothyroxine Sodium 125 mcg/ 150 mcg 09/14/24 06:00 09/14/24 05:16 Levothyroxine Sodium 25 mcg PO 10/14/24 05:59 150 mcg ACBR GAYATRI Administration Losartan Potassium 100 mg 09/13/24 16:45 09/14/24 08:34 Losartan Potassium 25 Mg Tablet PO 10/13/24 16:44 100 mg QDAY GAYATRI Administration Plan Mrs. Zapata is a pleasant 68 year old lady with a relevant medical history of renal cell carcinoma status post right nephrectomy with metastases to lungs and brain, T2DM, HLD, HTN, CKD stage III, restless leg syndrome, and hypothyroidism who presented to the ED from the [facility] with generalized weakness and a pulse of 36. Patient was admitted for symptomatic bradycardia and second-degree heart block. #Symptomatic bradycardia #Second degree heart block AV Block, 2: 1 #Suspicion for congestive heart failure Patient presented to the ED with heart rate of 36. EKG done in ED on 09/13 showed sinus bradycardia with 2:1 second-degree heart block. Last recorded EKG done in 07/28/2024 did not show heart block. Atropine 1 mg was given in the ED, initially without success, but patient's heart rate later increased to 74. Patient expresses generalized weakness and shortness of breath. BNP in ED elevated at 172. ? Continue atropine 0.5 mg every 3 minutes as needed for if MAP less than 65 or heart rate less than 40 ? Transthoracic echocardiogram ordered, pending ? Cardiology consulted, appreciate recommendations ? Continue to hold home clonidine and carvedilol per cardiology recommendations ? 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 Self for management of malignancy. She takes Keytruda infusion once every 3 weeks and Inlyta 5 mg twice daily for chemotherapy. Additional information can be found in H&P. ? Will consult Dr. Self for recommendations on malignancy management while inpatient #Hypothyroidism Patient has a history of hypothyroidism that started with her chemotherapy.TSH has been increasing since initial recordings available in April. An earlier ED visit on 08/23, the patient had a TSH level of 94.58. During this ED visit prior to admission, the patient had a TSH level of 91.41. Patient's physicians has been closely monitoring, resulting in increases to her levothyroxine every few weeks. The patient was on 122 mcg of levothyroxine on presentation to the ED. Free T4 levels throughout all of those was noted to be in the normal range. This is most likely tied to thyroid injury due to chemotherapy. ? Increased levothyroxine dose to 150 mcg daily ? Will monitor with daily TSH and free T4 ? Ordered free T3 level ? Will discuss possible recommendations for management of chemotherapy induced hypothyroidism with behavior management specialist Dr. Argueta #Hyperkalemia #Hyponatremia Patient had potassium of 5.9 and sodium of 132 in the ED. ED managed with calcium gluconate 1 gm and regular insulin 5 units with dextrose. ? Will monitor a.m. electrolytes and replenish/deplete as necessary #Type 2 diabetes mellitus Patient has history of T2DM that was diagnosed when the patient was 38 years old. Hemoglobin A1c 09/14 6.1. ? Continue sliding scale insulin ? Continue onsistent low carbohydrate diet ? Continue to hold home Januvia 100 mg daily # Hypertensive urgency Patient has a history of hypertension. In the ED, the patient's blood pressure was 159/94 on presentation. ? Continue Losartan 100 mg ? Patient's home clonidine and carvedilol held per cardiology recommendations noted in ED note ? Cardiology ordered hydralazine 10 mg every 4 hours as needed if systolic blood pressure is greater than 180 #Restless leg syndrome Patient was noted to have a history of restless leg per patient note provided by her PCP Dr. Gonzalez ? Continue to HOLD patient's home ropinirole 2 mg at home -Iron supplements. #Hyperlipidemia Patient noted to have hyperlipidemia in the past. Patient takes lovastatin 10 mg at home. Lipid panel 09/14 triglycerides 90, cholesterol 228, LDL 129, HDL 81. ? Continue atorvastatin 10 mg at night in place of patient's home lovastatin 10 mg. #CKD stage IIIb Patient noted to have BUN 33, creatinine 1.4, GFR 40 in ED. Baseline BUN around 20, baseline creatinine around 1.3, and baseline GFR around 40. ? Continue to monitor renal panel daily ? Ordered phosphorus and magnesium series ? Continue to hold home Mel-Debra DVT Prophylaxis: SCDs GI Prophylaxis: N/A Bowel: N/A Diet: Consistent low carbohydrate diet Montes: N/A Lines: Peripheral IV Antibiotics: N/A Code Status: FULL Reason for Hospitalization: Symptomatic bradycardia and second-degree heart block Other Barriers to Discharge: Cardiology consultation Patient plan of care was discussed with the senior resident Dr. Peter and attending physician Dr. Perri Moe, PGY1 - The patient's plan was discussed with attending Dr. Perri Peter MD PGY2 Internal Medicine Attending Provider Attestation/Addendum I attest that I was physically present for the evaluation, physical examination, lab and imaging review of the patient with the residents. I discussed the case with the residents and agree with the findings and plans of care as documented above. At bedside today, patient states she is feeling better. She states she has better energy compared to yesterday. Continues to have hypertension and bradycardia. Heart rate remains around 30s to 40s. Potassium level have improved to 5.1 this morning. We will continue to hold her beta-mary, clonidine and ropinirole. Will continue with levothyroxine 150 daily. Free T3 level was ordered. Patient is planned for possible pacemaker placement tomorrow, we will keep her n.p.o. after midnight. Gen Rayo MD
[2024-09-14 11:03] LABS: Free T3 1.5 pg/mL (2.3-4.2)
--- NOTE | 2024-09-14 11:32 | ESPR_ITS ---
Documentation for date of: 09/14/24 Subjective Subjective Interval history: The patient was seen and examined at the bedside this morning. She reported doing well. She denied any headache, dizziness, chest pain, chest pressure, SOB, orthopnea or PND, palpitations, or leg swelling. No overnight events. lay out maker still revealing Mobitz type II 2: 1 AV block Heart rate ranging from 30s to 40s Labs at baseline, with improving creatinine to 1.3. A1c 6.1, total cholesterol 228, LDL 129, HDL 81, Her blood pressure has been ranging from 160s to 180s, and her hydralazine was increased to 50 Mg 3 times daily. Continue with hydralazine 10 mg IV every 4 hourly as needed for SBP greater than 170. N.p.o. after midnight, for possible permanent cardiac pacemaker placement tomorrow morning or afternoon. Exam Vital Signs Temp Pulse Resp BP Pulse Ox O2 Del Method O2 Flow Rate 96.9 F 49 L 16 177/79 H 100 Nasal Cannula 2 09/14/24 08:00 09/14/24 08:45 09/14/24 08:45 09/14/24 08:45 09/14/24 08:00 09/14/24 08:00 09/14/24 08:00 Narrative Exam General: Elderly, cooperative, frail female, no acute distress, Alert and Oriented x 3 HEENT: Moist mucous membranes, oropharynx clear Neck: Supple, No masses, No JVD CVS: Bradycardic, No murmurs, rubs or gallops Lungs: Clear to auscultation with no accessory use, no wheeze no rhonchi Abd: Soft, NT/ND, +BS, no organomegaly Ext: No edema, warm and well perfused, bilateral lower leg weakness Skin: No rash Psych: Appropriate mood and affect Objective Labs 09/14/24 04:07 09/14/24 04:07 Labs: Laboratory Results - last 24 hr 09/13/24 09/13/24 09/14/24 12:12 13:15 04:07 WBC 8.6 10.0 RBC 4.78 5.25 H Hgb 14.9 16.4 H Hct 43.7 48.0 H MCV 91 91 MCH 31.2 31.2 MCHC 34.1 34.2 RDW Std Deviation 62.1 H 61.5 H Plt Count 256 259 Neut % (Auto) 72 80 Lymph % (Auto) 19 13 [place] % (Auto) 6 5 Eos % (Auto) 2 1 Baso % (Auto) 1 1 Neut # (Auto) 6.2 8.0 H Lymph # (Auto) 1.6 1.3 [place] # (Auto) 0.5 0.5 Eos # (Auto) 0.2 0.1 Baso # (Auto) 0.1 0.1 Immature Gran # (Auto) 0.05 H 0.09 H Absolute Nucleated RBC 0.00 0.00 Immature Gran % 1 H 1 H Nucleated RBC % 0 0 Sodium 132 L 136 Potassium 5.9 H 5.1 D Chloride 101 105 Carbon Dioxide 21.9 19.8 L Anion Gap 9 11 BUN 33 H 31 H Creatinine 1.4 H 1.3 Estim Creat Clear Calc 30.9 L 33.3 L eGFR 40 L 44 L BUN/Creatinine Ratio 24 H 24 H Glucose [address] Glu mg/dL 128 Hemoglobin A1c 6.1 H Calculated Osmolality 272 L 278 Calcium 8.5 8.8 Corrected Calcium 9.1 9.3 Phosphorus 4.8 Magnesium 1.8 1.7 Total Bilirubin 0.4 0.7 AST 31 35 H ALT 41 41 Alkaline Phosphatase 106 84 D Troponin I < 0.020 B-Natriuretic Peptide 172 H Total Protein 5.8 5.9 Albumin 3.3 L 3.4 Globulin 2.5 2.5 Albumin/Globulin Ratio 1.3 1.4 Triglycerides 90 Cholesterol 228 H LDL Cholesterol, Calc 129 HDL Cholesterol 81 H Cholesterol/HDL Ratio 2.8 L TSH 91.41 H* D Free T4 1.17 Free T3 pg/dL Cancelled 1.5 L Ur Collection Type Voided Urine Color Lt-Yellow Urine Clarity Turbid A Urine pH 7.0 Ur Specific [place] 1.011 Urine Protein 3+ A Urine Glucose (UA) Trace Urine Ketones Negative Urine Blood Negative Urine Nitrite Negative Urine Bilirubin Negative Urine Urobilinogen (Auto) Negative Ur Leukocyte Esterase Positive Urine RBC 7 H Urine WBC 31 H Ur Squamous Epith Cells 25 H Urine Bacteria 1+ A Quality Measures Quality Measures none Advance care planning discussed with:: patient and child Assessment & Plan Assessment Current Active Medications: Generic Name Dose Route Start Last Admin Trade Name Freq PRN Reason Stop Dose Admin Acetaminophen 650 mg 09/13/24 16:29 Acetaminophen 325 Mg Tablet PO 10/13/24 16:28 Q6H PRN Mild Pain1-3 or Fever 100.3 Atorvastatin Calcium 10 mg 09/13/24 21:00 09/13/24 20:57 Atorvastatin Calcium 10 Mg Tablet PO 10/13/24 20:59 10 mg HS GAYATRI Administration Atropine Sulfate 0.5 mg 09/13/24 22:18 Atropine Sulf Inj 0.1 Mg/Ml Syr 10 Ml IVP 10/13/24 17:05 Q3MIN PRN BRADYCARDIA Dextrose 25 ml 09/13/24 17:01 Dextrose 50%-Water Inj 50 Ml Syringe IV 10/13/24 17:00 Q15MIN PRN BG 50-70 responsive npo pt Dextrose 50 ml 09/13/24 17:01 Dextrose 50%-Water Inj 50 Ml Syringe IV 10/13/24 17:00 Q15MIN PRN BG <50 OR BG <70 & pt unresponsive Glucagon 1 mg 09/13/24 17:01 Glucagon Inj 1 Mg Vial IM Q15MIN PRN BG <70, and no IV access Hydralazine HCl 10 mg 09/13/24 17:54 Hydralazine Inj 20 Mg/Ml Vial IVP 10/13/24 17:10 Q4HR PRN SBP > 180 Hydralazine HCl 50 mg 09/14/24 14:00 Hydralazine Hcl 25 Mg Tablet PO 10/14/24 13:59 Q8H GAYATRI Insulin Human Lispro 0 unit 09/13/24 21:00 09/14/24 08:29 Insulin Lispro (Admelog) 1 Unit/0.01 Ml Unit SC 10/13/24 20:59 Not Given ACHS GAYATRI Protocol Levothyroxine Sodium 125 mcg/ 150 mcg 09/14/24 06:00 09/14/24 05:16 Levothyroxine Sodium 25 mcg PO 10/14/24 05:59 150 mcg ACBR GAYATRI Administration Losartan Potassium 100 mg 09/13/24 16:45 09/14/24 08:34 Losartan Potassium 25 Mg Tablet PO 10/13/24 16:44 100 mg QDAY GAYATRI Administration Plan The patient is a 69-year-old female with past medical history significant for DM 2, HLD, HTN, CKD stage III, restless leg syndrome, hypothyroidism, renal cell carcinoma diagnosed in 2015, reoccurrence with metastasis to lung and brain in 2023 was sent to ED by infusion center, after being found to have low heart rate and high blood pressure. EKG revealed second-degree AV block, Mobitz type II, 2:1 progression, heart rate 34. Cardiology consultation was done for further management of Mobitz type II 2:1 heart block. #Mobitz type II 2:1 AV block DDx: More likely 2/2 carvedilol, clonidine and ropinirole use, versus age related degeneration (in the setting of hyperkalemia of 5.9) The patient was sent from infusion center to ED with concern regarding low heart rate, and EKG revealed Mobitz type II 2:1 AV block. The patient has been asymptomatic. - TTE ordered - Maintain electrolyte balance - Stop beta-mary, calcium channel mary, clonidine, ropinirole - Continue with losartan 100 Mg daily - Hydralazine 50 Mg p.o. 3 times daily - Hydralazine 10 Mg IV as needed every 4 hourly for SBP greater than 170 - Telemetry monitoring - Subcutaneous pacing as needed, with cardiac pads - Possible permanent cardiac pacemaker tomorrow morning or afternoon, n.p.o. after midnight #Hypertensive urgency Likely compensatory in the setting of bradycardia - Antihypertensive as above #Hyperlipidemia Presented with total cholesterol of 228, LDL 129, HDL 81, TG 90 - Recommended to start the patient on atorvastatin 40 Mg daily #Hyperkalemia, resolved Likely secondary to losartan and spironolactone, in the setting of CKD stage IIIb - Recommended to hold spironolactone for now - Monitor potassium level closely #CKD stage IIIb #DM2 #Restless leg syndrome #Hypothyroidism #Metastatic renal cell carcinoma, metastasized to lungs and brain - Management deferred to primary hospitalist team Thank you for cardiology consultation. We appreciate the opportunity to participate in this patient care. Will continue to follow-up in this patient care. The patient's management plan was discussed with my attending physician MD Horace Sommers MD, PGY3 Attending Provider Attestation/Addendum I have personally seen and examined the patient separately on the above date of service and discussed the plan of care with the resident. I reviewed the resident Dr. Horcae Reed consultation progress note and agree with the resident findings and plan in the note above and have also edited the documentation to reflect my findings and plan. A 69-year-old female patient with past medical history of renal cell carcinoma diagnosed in 2016 status post right nephrectomy in 2015 with recurrence in 2023 with metastasis to lung and brain on chemotherapy, radiotherapy, type 2 diabetes mellitus, essential hypertension, hyperlipidemia, CKD stage III, hypothyroidism, restless leg syndrome was sent in from the [facility] infusion department for further evaluation of bradycardia or low heart rate with elevated blood pressure. In the emergency department patient was found to have an heart rate of 36 and EKG showed second-degree AV block Mobitz type II with 2: 1 AV block and cardiology was consulted for further evaluation. Assessment and plan: 1. Mobitz type II 2: 1 AV block leading to bradycardia 2. Hypertensive urgency in the setting of severe bradycardia 3. Hyperkalemia 4. Abnormal thyroid function tests with a history of hypothyroidism on levothyroxine 5. CKD stage III 6. Metastatic renal cell carcinoma status post right nephrectomy in 2016 with metastasis to lungs and brain s/p radiotherapy and now on chemotherapy 7. Type 2 diabetes mellitus on insulin 8. Hyperlipidemia 9. Hypothyroidism 10. Restless leg syndrome 11. Chronic fatigue Patient presented with severe bradycardia with a heart rate of 30-40 bpm as well as elevated blood pressure systolic greater than 200 mmHg. Unclear etiology of the severe bradycardia but appears to be multifactorial with possible underlying sick sinus syndrome exacerbated with hyperkalemia versus beta-amry and clonidine use with abnormal thyroid function tests. Patient is hemodynamically stable and denies any kind of syncope or dizziness or passing out. Has chronically vague complains of fatigue but otherwise is asymptomatic and went to the [facility] center to get her infusion. Blood pressure is elevated in the setting of the severe bradycardia. No need of urgent pacemaker for the patient to the present point of time as she is essentially asymptomatic and is hemodynamically stable. Recommend to treat the reversible causes for now and continue to closely monitor on telemetry. Recommend to treat aggressively for hyperkalemia with cocktail as well as at least Kayexalate 60 mg x 1 and repeat potassium levels in 6 hours. Recommend to stop the beta-mary completely as patient is on Coreg 12.5 mg twice daily which is a high dose. Also recommend to hold on the clonidine for now it could cause bradycardia. Ropinirole is on low-dose of only 1 mg every night and unlikely to cause bradycardia given that there are reports of bradycardia with ropinirole and it is okay to hold it for now. Patient could still have underlying sick sinus syndrome given her age secondary to degenerative conduction system but will need to wait for at least 48 hours to rule out all reversible causes. Patient thyroid function tests are also abnormal with TSH elevated at 91 and free T4 is low normal around 0.89 and 1.05. Patient appears to be on levothyroxine but unclear reasons for severely elevated TSH consistently Previously. Recommend to check T3 and obtain consultation with endocrinology for further evaluation of the abnormal thyroid function tests Regarding her elevated blood pressure and hypertensive urgency patient's systolic blood pressure is elevated more than 200 which is compensated right secondary to the severe bradycardia to maintain adequate perfusion. Recommend not to aggressively control the blood pressure and keep the systolic blood pressure around 160 to 170 mmHg and his blood pressure is higher than give IV hydralazine as needed. Patient can be continued on losartan 100 mg once daily for now and can add oral hydralazine if needed if the blood pressure consistently is above 180 mmHg in spite of the losartan. Keep potassium between 4 and 5 and keep magnesium greater than 2 at all times. Continue telemetry monitoring. 09/14/2024- Patient seen and examined at the bedside. Patient continues to be in second- degree Mobitz type II 2:1 AV block with a heart rate between 35 to 40 bpm. Beta-mary already stopped and hyperkalemia has been corrected and potassium is 4.9 and additional treatment being given. Clonidine has also been stopped. Blood pressure stable and the patient is hemodynamically stable. Patient heart rate continues to be between 35 bpm to 45 bpm and patient will need an dual- chamber pacemaker placement which is a class I indication for the patient. Patient was recommended dual-chamber pacemaker placement given the evidence of sick sinus syndrome with significant AV block and was explained the risk benefits and alternatives of performing the procedure including the risk of bleeding, infection as well as perforation with hemopericardium in detail. Patient understands the risks and wishes to proceed with the procedure. Consent obtained for the same. Will keep her n.p.o. and plan for the pacemaker placement tomorrow afternoon if patient continues to have a low heart rate as it may be 48 hours since discontinuing the medication. Management of rest of the medical conditions as per primary team and other consultants. Thank you for the consult and allowing me to participate in the care of the patient. Cardiology will continue to follow. Devante Eduardo M.D. Interventional Cardiology
[2024-09-14] MEDS: INSULIN LISPRO (AdmeLOG) 1 UNIT/0.01 ML UNIT SC (11:45)
--- NOTE | 2024-09-14 12:49 | PC.SS ---
CONTACT AND SERVICE CLERKS SUPERVISOR conducted bedside contact with the patient conduct initial assessment and to discuss discharge planning.? Patient confirmed demographic information.? Patient resides at home with spouse, Won Sesay.? Patient is retired.? Patient utilizes a walker to assist with ambulation.? Patient reports possession of home oxygen.? Patient describes possessing ability to complete ADL?s independently.? Patient identified daughter, Tri Orozco ; as surrogate medical decision maker.? Patient?s PCP is Dr. Gonzalez.? Patient?s oncologist is Dr. Self.? Patient currently undergoing chemotherapy at [facility].? Patient does not participate with dialysis.? Patient possesses history of diabetes, insulin dependent.? Patient possesses history of high blood pressure.? Patient utilizes [facility] for medication services.? Patient plans on returning home at the time of discharge.? If home health recommended no preferred agency identified.? Patient reports possession of basic utilities and provisions.? Family will provide transportation on behalf of the patient. ?No further discharge needs identified by the patient.? No further intervention required at this time, criminal justice social worker will be available to address any further concerns.? Next of Kin: Tri Orozco D/C Plan: Home
--- NOTE | 2024-09-14 12:51 | PC.SS ---
Patient's home address is: [id number] [place], [place]. PCP: Dr. Gonzalez.
--- NOTE | 2024-09-14 15:22 | PC.SS ---
Rounding Note: Cardiology recommendations are pending. Awaiting 48 hr duration to confirm beta mary out of patient's system.
[2024-09-14] MEDS: LOPERAMIDE 2 MG CAPSULE PO (16:11)
--- NOTE | 2024-09-14 16:42 | PC.PT ---
PT eval witheld today. Patient has restless leg today per family. Will try again tomorrow.
[2024-09-14] MEDS: FERROUS SULF 325 MG TABLET PO (17:25)
[2024-09-14] MEDS: ATORVASTATIN CALCIUM 10 MG TABLET PO (21:43)
[2024-09-15] VITALS (14 sets, daily range): BP systolic 136–174; BP diastolic 67–116; PULSE 41–97; RESP 10–98; TEMP 35.9–37.3; O2SAT 90–98; BMI 21.8
[2024-09-15 05:00] LABS: Basophils # (Auto) 0.1 Thou/mm3 (0.0-0.2); Basophils % (Auto) 1 % (0-2.5); Eosinophils # (Auto) 0.2 Thou/mm3 (0.0-0.5); Eosinophils % (Auto) 2 % (0-10); Hematocrit 49.6 % (36.0-46.0); Hemoglobin 16.9 g/dL (12.0-16.0); Immature Granulocytes Auto 0.05 Thou/mm3 (0.00-0.00); Lymphocytes # (Auto) 1.6 Thou/mm3 (1.0-4.8); Lymphocytes % (Auto) 15 % (10-50); Mean Corpuscular HGB Conc 34.1 g/dl (31.0-37.0); Mean Corpuscular Hemoglobin 31.3 pg (25.0-35.0); Mean Corpuscular Volume 92 fL (80-100); Monocytes # (Auto) 0.5 Thou/mm3 (0.0-0.8); Monocytes % (Auto) 5 % (0-12); Neutrophils # (Auto) 8.7 Thou/mm3 (1.8-7.7); Neutrophils % (Auto) 78 % (37-80); Nucleated Red Blood Cell # 0.00 Thou/mm3 (0.00-0.00); Nucleated Red Blood Cell % 0 /100 WBC (0); Platelet Count 278 Thou/mm3 (140-440); RDW Standard Deviation 62.8 fL (36.4-46.3); Red Blood Count 5.40 Miln/mm3 (4.00-5.20); White Blood Count 11.2 Thou/mm3 (3.6-11.0)
[2024-09-15] MEDS: LEVOTHYROXINE SODIUM 125 MCG, LEVOTHYROXINE SODIUM 25 MCG 150 MCG PO (05:21)
[2024-09-15 06:01] LABS: Alanine Aminotransferase 38 U/L (10-49); Albumin, Serum 3.2 gm/dL (3.4-4.8); Albumin/Globulin Ratio 1.3 (1.2-2.2); Alkaline Phosphatase 103 U/L (46-116); Anion Gap 10 (7-16); Aspartate Amino Transferase 26 U/L (0-34); BUN/Creatinine Ratio 18 Ratio (12-20); Bilirubin,Total 0.6 mg/dL (0.3-1.2); Blood Urea Nitrogen 25 mg/dL (9-23); Calcium 8.4 mg/dL (8.3-10.6); Calcium (Corrected) 9.0 mg/dL (8.5-10.1); Carbon Dioxide 22.5 mMol/L (20.0-31.0); Chloride 103 mMol/L (98-107); Creatinine (Component) 1.4 mg/dL (0.6-1.3); Estimated Creatinine Clearance 30.9 mL/min (>60); Globulin 2.5 gm/dL (2.3-3.5); Glucose 112 mg/dL (74-106); Magnesium 2.0 mg/dL (1.6-2.6); Osmolality,Calculated 275 (275-295); Phosphorous 4.3 mg/dL (2.4-5.1); Potassium 4.0 mMol/L (3.4-5.1); Sodium 135 mMol/L (136-145); Total Protein 5.7 gm/dL (5.7-8.2); eGFR 40 See Note
--- NOTE | 2024-09-15 09:17 | PD.RESPRO ---
Documentation for date of: 09/15/24 No overnight events. Patient is NPO, scheduled for wetlands conservation laborer at 12 PM for pacemaker. Continue to hold home medication of coreg, clonidine, and ropinirole as these may be contributing for second degree block. s/p pacemaker. NO Heparin NO anticoagulation for today. Do not lift anything heavy within the first week or so. Keflex for 1 week, until 09/22/2024. Ceftriaxone D/C. Levothyroxine given weight at approximately 100 mcg per day. Given recent adjustment from Lovethyroxine 75 to 122, this is only week 4 and may require additional time. None the less new dose 125 mcg before meals/antiacids. Additionally, 3 additional days of IV levothyroxine 50 mcg for the next 3 days until 09/17/2024. Continue to hold cancer medication. Continue Losartan 100 mg qday I have discussed the case with supervising physician and trestle mainternance laborer physician involved in the care of patient. I personally saw and examined patient and discussed the assessment and plan with the entire medical team, including attending. I agree with assessment and plan as documented below. Ramona Peter MD PGY-2 Internal Medicine Subjective Subjective Interval history: Overnight events: No acute events overnight. Patient was seen and examined at bedside. AM vitals and labs reviewed. Patient ate dinner last night but had nothing by mouth since midnight and did not eat breakfast this morning. Cardiology plans to have pacemaker placement today. Patient stated that she feels even better compared to yesterday. Patient asked for her ropinirole for her restless legs, but it was explained to her that this medication was held due to concerns for further slowing of the heart rate. Patient also complains of new dysuria. On telemetry block, heart rate was noted to be 44 with 2:1 second-degree Mobitz type II heart block present. Attempts to reach Dr. Self were unsuccessful today. Review of systems otherwise negative except for what is mentioned above. Exam Vital Signs Temp Pulse Resp BP Pulse Ox O2 Del Method O2 Flow Rate 99.2 F 44 L 17 136/67 H 94 L Room Air 2 09/15/24 11:29 09/15/24 11:29 09/15/24 11:29 09/15/24 11:29 09/15/24 11:29 09/15/24 11:29 09/14/24 12:00 Narrative Exam Physical Exam: General: Alert, no acute distress. Skin: Warm, dry, intact, no obvious rash. Head: Normocephalic, atraumatic. Eye: Normal conjunctiva, PERRL. Cardiovascular: Bradycardic and regular rhythm, no murmur, +S1/S2. Respiratory: Lungs are clear to auscultation, respirations unlabored, no crackles, no wheezing. Gastrointestinal: Soft, nontender, non-distended. No guarding or rebound tenderness. Extremities: No edema, no cyanosis, no clubbing. Neuro: No focal deficits observed. Conversant, moving all extremities. No overt cerebellar signs/incoordination. Psychiatric: Cooperative, appropriate affect. Objective Labs 09/15/24 04:13 09/15/24 04:13 Labs: Laboratory Results - last 24 hr 09/15/24 04:13 WBC 11.2 H RBC 5.40 H Hgb 16.9 H Hct 49.6 H MCV 92 MCH 31.3 MCHC 34.1 RDW Std Deviation 62.8 H Plt Count 278 Neut % (Auto) 78 Lymph % (Auto) 15 [place] % (Auto) 5 Eos % (Auto) 2 Baso % (Auto) 1 Neut # (Auto) 8.7 H Lymph # (Auto) 1.6 [place] # (Auto) 0.5 Eos # (Auto) 0.2 Baso # (Auto) 0.1 Immature Gran # (Auto) 0.05 H Absolute Nucleated RBC 0.00 Immature Gran % 0 Nucleated RBC % 0 Sodium 135 L Potassium 4.0 D Chloride 103 Carbon Dioxide 22.5 Anion Gap 10 BUN 25 H Creatinine 1.4 H Estim Creat Clear Calc 30.9 L eGFR 40 L BUN/Creatinine Ratio 18 Glucose 112 H Calculated Osmolality 275 Calcium 8.4 Corrected Calcium 9.0 Phosphorus 4.3 Magnesium 2.0 Total Bilirubin 0.6 AST 26 ALT 38 Alkaline Phosphatase 103 D Total Protein 5.7 Albumin 3.2 L Globulin 2.5 Albumin/Globulin Ratio 1.3 Quality Measures Quality Measures none Advance care planning discussed with:: patient and child Assessment & Plan Assessment Current Active Medications: Generic Name Dose Route Start Last Admin Trade Name Freq PRN Reason Stop Dose Admin Acetaminophen 650 mg 09/13/24 16:29 Acetaminophen 325 Mg Tablet PO 10/13/24 16:28 Q6H PRN Mild Pain1-3 or Fever 100.3 Atorvastatin Calcium 10 mg 09/13/24 21:00 09/14/24 21:43 Atorvastatin Calcium 10 Mg Tablet PO 10/13/24 20:59 10 mg HS GAYATRI Administration Atropine Sulfate 0.5 mg 09/13/24 22:18 Atropine Sulf Inj 0.1 Mg/Ml Syr 10 Ml IVP 10/13/24 17:05 Q3MIN PRN BRADYCARDIA Dextrose 25 ml 09/13/24 17:01 Dextrose 50%-Water Inj 50 Ml Syringe IV 10/13/24 17:00 Q15MIN PRN BG 50-70 responsive npo pt Dextrose 50 ml 09/13/24 17:01 Dextrose 50%-Water Inj 50 Ml Syringe IV 10/13/24 17:00 Q15MIN PRN BG <50 OR BG <70 & pt unresponsive Ferrous Sulfate 325 mg 09/14/24 16:30 09/14/24 17:25 Ferrous Sulf 325 Mg Tablet PO 10/14/24 16:29 325 mg QOD GAYATRI Administration Glucagon 1 mg 09/13/24 17:01 Glucagon Inj 1 Mg Vial IM Q15MIN PRN BG <70, and no IV access Hydralazine HCl 10 mg 09/13/24 17:54 Hydralazine Inj 20 Mg/Ml Vial IVP 10/13/24 17:10 Q4HR PRN SBP > 180 Hydralazine HCl 50 mg 09/14/24 14:00 09/15/24 05:20 Hydralazine Hcl 25 Mg Tablet PO 10/14/24 13:59 50 mg Q8H GAYATRI Administration Ceftriaxone Sodium/Dextrose 1 gm in 50 mls @ 100 mls/hr 09/15/24 10:06 09/15/24 10:35 Rocephin/D5w 1gm Iv Premix IV 09/22/24 10:05 100 mls/hr QDAY GAYATRI Administration Insulin Human Lispro 0 unit 09/13/24 21:00 09/15/24 12:47 Insulin Lispro (Admelog) 1 Unit/0.01 Ml Unit SC 10/13/24 20:59 Not Given ACHS GAYATRI Protocol Levothyroxine Sodium 125 mcg 09/16/24 06:00 Levothyroxine Sodium 125 Mcg Tablet PO 10/16/24 05:59 ACBR GAYATRI Losartan Potassium 100 mg 09/13/24 16:45 09/15/24 10:04 Losartan Potassium 25 Mg Tablet PO 10/13/24 16:44 100 mg QDAY GAYATRI Administration Plan Mrs. Zapata is a pleasant 68 year old lady with a relevant medical history of renal cell carcinoma status post right nephrectomy with metastases to lungs and brain, T2DM, HLD, HTN, CKD stage III, restless leg syndrome, and hypothyroidism who presented to the ED from the [facility] with generalized weakness and a pulse of 36. Patient was admitted for symptomatic bradycardia and second-degree heart block. #Symptomatic bradycardia #Second degree heart block AV Block, 2: 1 #Suspicion for congestive heart failure Patient presented to the ED with heart rate of 36. EKG done in ED on 09/13 showed sinus bradycardia with 2:1 second-degree heart block. Last recorded EKG done in 07/28/2024 did not show heart block. Atropine 1 mg was given in the ED, initially without success, but patient's heart rate later increased to 74. Patient expresses generalized weakness and shortness of breath. BNP in ED elevated at 172. ? Continue atropine 0.5 mg every 3 minutes as needed for if MAP less than 65 or heart rate less than 40 ? Transthoracic echocardiogram ordered, normal LV size and wall thickness, possible mild LV dysfunction with EF 40 to 45%. ? Cardiology consulted, appreciate recommendations ? Continue to hold home clonidine and carvedilol per cardiology recommendations ? 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 Self for management of malignancy. She takes Keytruda infusion once every 3 weeks and Inlyta 5 mg twice daily for chemotherapy. Additional information can be found in H&P. ? Will consult Dr. Self for recommendations on malignancy management while inpatient #Hypothyroidism Patient has a history of hypothyroidism that started with her chemotherapy.TSH has been increasing since initial recordings available in April. An earlier ED visit on 08/23, the patient had a TSH level of 94.58. During this ED visit prior to admission, the patient had a TSH level of 91.41. Patient's physicians has been closely monitoring, resulting in increases to her levothyroxine every few weeks. The patient was on 122 mcg of levothyroxine on presentation to the ED. Free T4 levels throughout all of those was noted to be in the normal range. This is most likely tied to thyroid injury due to chemotherapy. Free T3 on 09/14 was 1.5. ? Discussed case with safety admin assistant Dr. Argueta ? Recommended to decrease the thyroxine 150 mcg back to 125 mcg daily based on patient's weight, and add 2 to 3 days of IV levothyroxine 50 mcg ? Dr. Argueta noted that 3 weeks would be too soon for the patient to adjust to new thyroxine dose ? Will monitor symptomatically #Dysuria due to #Suspected urinary tract infection Patient had turbid urine with 3+ protein, 7 RBC, 31 WBC, 25 squamous epithelial cells, and 1+ bacteria in ED. Patient was initially asymptomatic, so this was not pursued further due to concern for possible contamination. Patient endorsed new onset dysuria on 09/15, reminicent of her previous cases of dysuria. Will treat empirically. ? Started Rocephin 1 g IV daily #Hyperkalemia #Hyponatremia Patient had potassium of 5.9 and sodium of 132 in the ED. ED managed with calcium gluconate 1 gm and regular insulin 5 units with dextrose. ? Will monitor a.m. electrolytes and replenish/deplete as necessary #Type 2 diabetes mellitus Patient has history of T2DM that was diagnosed when the patient was 38 years old. Hemoglobin A1c 09/14 6.1. ? Continue sliding scale insulin ? Continue onsistent low carbohydrate diet ? Continue to hold home Januvia 100 mg daily #Hypertensive urgency Patient has a history of hypertension. In the ED, the patient's blood pressure was 159/94 on presentation. ? Continue Losartan 100 mg ? Patient's home clonidine and carvedilol held per cardiology recommendations noted in ED note ? Cardiology ordered hydralazine 10 mg every 4 hours as needed if systolic blood pressure is greater than 180 #Restless leg syndrome Patient was noted to have a history of restless leg per patient note provided by her PCP Dr. Gonzalez ? Continue to HOLD patient's home ropinirole 2 mg at home ? Iron supplements. #Hyperlipidemia Patient noted to have hyperlipidemia in the past. Patient takes lovastatin 10 mg at home. Lipid panel 09/14 triglycerides 90, cholesterol 228, LDL 129, HDL 81. ? Continue atorvastatin 10 mg at night in place of patient's home lovastatin 10 mg. #CKD stage IIIb Patient noted to have BUN 33, creatinine 1.4, GFR 40 in ED. Baseline BUN around 20, baseline creatinine around 1.3, and baseline GFR around 40. ? Continue to monitor renal panel daily ? Ordered phosphorus and magnesium series ? Continue to hold home Mel-Debra DVT Prophylaxis: SCDs GI Prophylaxis: N/A Bowel: N/A Diet: Consistent low carbohydrate diet Montes: N/A Lines: Peripheral IV Antibiotics: N/A Code Status: FULL Reason for Hospitalization: Symptomatic bradycardia and second-degree heart block Other Barriers to Discharge: Pacemaker placement Patient plan of care was discussed with the senior resident Dr. Peter and attending physician Dr. Perri Moe, PGY1 Attending Provider Attestation/Addendum I attest that I was physically present for the evaluation, physical examination, lab and imaging review of the patient with the residents. I discussed the case with the residents and agree with the findings and plans of care as documented above. At bedside today, patient appears comfortable and denies any new complaints. Her energy level is similar compared to yesterday. WBC count noted to be slightly elevated to 11.2 from 10 yesterday, patient had complaint of burning micturition yesterday, urinalysis on admission showed pyuria, we will start her on IV Rocephin. Continues to be bradycardic, heart rate mostly around low 40s. Blood pressure this morning is stable, 140s systolic. We will continue with her antihypertensive regimen. Discussed the case with endocrinology, we will reduce her levothyroxine dose to 125 mcg daily and start her on IV levothyroxine 50 mg x 2 days. Blood glucose and temperatures are stable. Chemistry panel is also stable. Patient is planned for pacemaker placement with cardiology today Gen Rayo MD
[2024-09-15] MEDS: LOSARTAN POTASSIUM 25 MG TABLET 100 MG PO (10:04)
[2024-09-15] MEDS: cefTRIAXone/D5w 1gm IV premix 1 GM/50 ML BAG IV (10:35)
--- NOTE | 2024-09-15 11:15 | PC.NURSE ---
Handoff report given to Araseli PAYTON from woods laborer. Pt was picked up via gurney and sent to woods laborer with RN.
--- NOTE | 2024-09-15 11:33 | PC.NURSE ---
patient awake, alert, orientedx3, agree to have pacemaker procedure done and prefers daughter to sign consent, consent obtained at this time by daughter
--- NOTE | 2024-09-15 13:00 | PC.PT ---
Patient is pending pacemaker implant. PT eval witheld.
--- NOTE | 2024-09-15 15:41 | ESPR_ITS ---
Documentation for date of: 09/15/24 Subjective Subjective Interval history: The patient was seen and examined at the bedside this morning. She reported doing well. She denied any headache, dizziness, chest pain, chest pressure, SOB, orthopnea or PND, palpitations, or leg swelling. No overnight events. surveillance system monitor still revealing Mobitz type II 2: 1 AV block Heart rate ranging from 30s to 40s Labs at baseline, with improving creatinine to 1.3. A1c 6.1, total cholesterol 228, LDL 129, HDL 81, Her blood pressure has been ranging from 160s to 170's, and her hydralazine is 50 Mg 3 times daily. Continue with hydralazine 10 mg IV every 4 hourly as needed for SBP greater than 170. She underwent dual chamber cardiac pacemaker placement this afternoon. -Recommended not to move or raise the left arm for 1 week and continue with Kaflex 500mg BID for 7 days. -F/U with Dr. Eduardo in 1 week after discharge for staple removal -Ok to resume her beta mary, carvedilol and clonidine for BP control Exam Vital Signs Temp Pulse Resp BP Pulse Ox O2 Del Method O2 Flow Rate 99.2 F 44 L 17 136/67 H 94 L Room Air 2 09/15/24 11:29 09/15/24 11:29 09/15/24 11:29 09/15/24 11:29 09/15/24 11:09/15/24 11:09/14/24 12:00 Narrative Exam General: Elderly, cooperative, frail female, no acute distress, Alert and Oriented x 3 HEENT: Moist mucous membranes, oropharynx clear Neck: Supple, No masses, No JVD CVS: Bradycardic, No murmurs, rubs or gallops Lungs: Clear to auscultation with no accessory use, no wheeze no rhonchi Abd: Soft, NT/ND, +BS, no organomegaly Ext: No edema, warm and well perfused, bilateral lower leg weakness Skin: No rash Psych: Appropriate mood and affect Objective Labs 09/15/24 04:13 09/15/24 04:13 Labs: Laboratory Results - last 24 hr 09/15/24 04:13 WBC 11.2 H RBC 5.40 H Hgb 16.9 H Hct 49.6 H MCV 92 MCH 31.3 MCHC 34.1 RDW Std Deviation 62.8 H Plt Count 278 Neut % (Auto) 78 Lymph % (Auto) 15 [place] % (Auto) 5 Eos % (Auto) 2 Baso % (Auto) 1 Neut # (Auto) 8.7 H Lymph # (Auto) 1.6 [place] # (Auto) 0.5 Eos # (Auto) 0.2 Baso # (Auto) 0.1 Immature Gran # (Auto) 0.05 H Absolute Nucleated RBC 0.00 Immature Gran % 0 Nucleated RBC % 0 Sodium 135 L Potassium 4.0 D Chloride 103 Carbon Dioxide 22.5 Anion Gap 10 BUN 25 H Creatinine 1.4 H Estim Creat Clear Calc 30.9 L eGFR 40 L BUN/Creatinine Ratio 18 Glucose 112 H Calculated Osmolality 275 Calcium 8.4 Corrected Calcium 9.0 Phosphorus 4.3 Magnesium 2.0 Total Bilirubin 0.6 AST 26 ALT 38 Alkaline Phosphatase 103 D Total Protein 5.7 Albumin 3.2 L Globulin 2.5 Albumin/Globulin Ratio 1.3 Quality Measures Quality Measures none Advance care planning discussed with:: patient and child Assessment & Plan Assessment Current Active Medications: Generic Name Dose Route Start Last Admin Trade Name Freq PRN Reason Stop Dose Admin Acetaminophen 650 mg 09/13/24 16:29 Acetaminophen 325 Mg Tablet PO 10/13/24 16:28 Q6H PRN Mild Pain1-3 or Fever 100.3 Atorvastatin Calcium 10 mg 09/13/24 21:00 09/14/24 21:43 Atorvastatin Calcium 10 Mg Tablet PO 10/13/24 20:59 10 mg HS GAYATRI Administration Atropine Sulfate 0.5 mg 09/13/24 22:18 Atropine Sulf Inj 0.1 Mg/Ml Syr 10 Ml IVP 10/13/24 17:05 Q3MIN PRN BRADYCARDIA Dextrose 25 ml 09/13/24 17:01 Dextrose 50%-Water Inj 50 Ml Syringe IV 10/13/24 17:00 Q15MIN PRN BG 50-70 responsive npo pt Dextrose 50 ml 09/13/24 17:01 Dextrose 50%-Water Inj 50 Ml Syringe IV 10/13/24 17:00 Q15MIN PRN BG <50 OR BG <70 & pt unresponsive Ferrous Sulfate 325 mg 09/14/24 16:30 09/14/24 17:25 Ferrous Sulf 325 Mg Tablet PO 10/14/24 16:29 325 mg QOD GAYATRI Administration Glucagon 1 mg 09/13/24 17:01 Glucagon Inj 1 Mg Vial IM Q15MIN PRN BG <70, and no IV access Hydralazine HCl 10 mg 09/13/24 17:54 Hydralazine Inj 20 Mg/Ml Vial IVP 10/13/24 17:10 Q4HR PRN SBP > 180 Hydralazine HCl 50 mg 09/14/24 14:00 09/15/24 05:20 Hydralazine Hcl 25 Mg Tablet PO 10/14/24 13:59 50 mg Q8H GAYATRI Administration Ceftriaxone Sodium/Dextrose 1 gm in 50 mls @ 100 mls/hr 09/15/24 10:06 09/15/24 13:48 Rocephin/D5w 1gm Iv Premix IV 09/22/24 10:05 Infused QDAY GAYATRI Infusion Insulin Human Lispro 0 unit 09/13/24 21:00 09/15/24 12:47 Insulin Lispro (Admelog) 1 Unit/0.01 Ml Unit SC 10/13/24 20:59 Not Given ACHS GAYATRI Protocol Levothyroxine Sodium 125 mcg 09/16/24 06:00 Levothyroxine Sodium 125 Mcg Tablet PO 10/16/24 05:59 ACBR GAYATRI Losartan Potassium 100 mg 09/13/24 16:45 09/15/24 10:04 Losartan Potassium 25 Mg Tablet PO 10/13/24 16:44 100 mg QDAY GAYATRI Administration Plan The patient is a 69-year-old female with past medical history significant for DM 2, HLD, HTN, CKD stage III, restless leg syndrome, hypothyroidism, renal cell carcinoma diagnosed in 2015, reoccurrence with metastasis to lung and brain in 2023 was sent to ED by [facility], after being found to have low heart rate and high blood pressure. EKG revealed second-degree AV block, Mobitz type II, 2:1 progression, heart rate 34. Cardiology consultation was done for further management of Mobitz type II 2:1 heart block. #Mobitz type II 2:1 AV block DDx: More likely 2/2 carvedilol, clonidine and ropinirole use, versus age related degeneration (in the setting of hyperkalemia of 5.9) The patient was sent from infusion center to ED with concern regarding low heart rate, and EKG revealed Mobitz type II 2:1 AV block. The patient has been asymptomatic. - TTE ordered - Maintain electrolyte balance - Stop beta-mary, calcium channel mary, clonidine, ropinirole - Continue with losartan 100 Mg daily - Hydralazine 50 Mg p.o. 3 times daily - Hydralazine 10 Mg IV as needed every 4 hourly for SBP greater than 170 - Telemetry monitoring - She underwent dual chamber cardiac pacemaker placement this afternoon. - Recommended not to move or raise the left arm for 1 week and continue with Kaflex 500mg BID for 7 days. - F/U with Dr. Eduardo in 1 week after discharge for staple removal. - Ok to resume her beta mary, carvedilol and clonidine for BP control #Hypertensive urgency Likely compensatory in the setting of bradycardia - Antihypertensive as above #Hyperlipidemia Presented with total cholesterol of 228, LDL 129, HDL 81, TG 90 - Recommended to start the patient on atorvastatin 40 Mg daily #Hyperkalemia, resolved Likely secondary to losartan and spironolactone, in the setting of CKD stage IIIA - Recommended to hold spironolactone for now - Monitor potassium level closely #CKD stage IIIb #DM2 #Restless leg syndrome #Hypothyroidism #Metastatic renal cell carcinoma, metastasized to lungs and brain #Chronic fatigue - Management deferred to primary hospitalist team Thank you for cardiology consultation. We appreciate the opportunity to participate in this patient care. Will continue to follow-up in this patient care. The patient's management plan was discussed with my attending physician MD Horace Sommers MD, PGY3 Attending Provider Attestation/Addendum I have personally seen and examined the patient separately on the above date of service and discussed the plan of care with the resident. I reviewed the resident Dr. Horace Reed consultation progress note and agree with the resident findings and plan in the note above and have also edited the documentation to reflect my findings and plan. Devante Eduardo M.D. Interventional Cardiology
--- NOTE | 2024-09-15 17:30 | ESOP_ITS ---
Date of Procedure 09/15/24 Pre Op Diagnosis 1. Intermittent complete heart block as well as Mobitz Type II 2: 1 AV block 2. Sick sinus syndrome 3. Bradycardia symptomatic Post Op Diagnosis Successful implantation of dual-chamber AV sequential permanent pacemaker- Nueñz /[employer] Procedure 1. Implantation of dual-chamber AV sequential permanent pacemaker. CPT 14118 2. 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 In the emergency department patient was found to have an heart rate of 36 and EKG showed second-degree AV block Mobitz type II with 2: 1 AV block and cardiology was consulted for further evaluation. Patient was monitored in the hospital for 48 hours after discontinuing the carvedilol as well as clonidine. Hyperkalemia was treated aggressively and potassium was in the normal range. Patient still continued to be in Mobitz type II 2: 1 AV block and this morning she also had intermittent complete heart block and hence was recommended a permanent pacemaker. Syndrome. Patient was recommended dual- chamber pacemaker placement given the evidence of sick sinus syndrome with significant AV block and was explained the risk benefits and alternatives of performing the procedure including the risk of bleeding, infection as well as perforation with hemopericardium in detail. Patient understands the risks and wishes to proceed with the procedure. Consent obtained for the same. H&P updated and placed in the chart. Procedure Description The patient was brought to cardiac catheterization laboratory where she was given total of 2.5 mg Versed and 75 mcg of fentanyl for sedation.? A micropuncture was used to cannulate the left subclavian vein once and Two guidewires were introduced. A linear incision was made, with blunt dissection a pocket was created.? 2 separate 6 Macedonian sheaths were introduced into the subc lavian vein for atrial and ventricular leads.?Atrial and ventricular leads advanced into the right atrial appendage and right ventricular apex respectively.? Active fixation leads screw-in technique was used to secure the leads and thresholds were excellent.? After obtaining satisfactory threshold, both leads were anchored to the pectoral fascia, 2-0 silk suture.? Subsequently Nuñez dual chamber pacemaker generator attached to the leads, placed in the pocket, secured to the fascia with 2-0 silk suture.? Subsequently, subcutaneous tissue was closed using 2-0 chromic continuous suture.? Skin was closed using tasneem.? The patient was given 1 gram of Ancef preprocedure.? The patient tolerated the operation well with no complications.? Details of device as follows:? Nuñez vp marketing services and skin Assurity MRI PM 2272, pacemaker serial number is [id number] Atrial lead is Nuñze Ultipace 46 cm lead LPA 1231 -serial [id number] Atrial lead is Nuñez Ultipace 52 cm lead LPA 1231 -serial [id number] The thresholds are as follows:? Atrial capturing threshold 1.0 Volts @ 0.4 ms, sensing 1.6 millivolts, lead impedance 510 ohms. Ventricular capturing threshold 1.25 Volts @ 0.4 ms,? Sensing 10.3 millivolts.? Lead impedance 760 ohms.? The patient is programmed DDDR mode, baseline rate of 60 bpm, maximum track rate 130 beats bpm, Paced and Sensed AV delay of 180 ms. Patient received 500 mg of IV vancomycin along with a left arm sling. Postoperative chest x-ray showed no evidence of any pneumothorax and cardiac leads were in satisfactory position. Patient recommended to not to lift any weights with his left hand and avoid significant shoulder movements. Will also send a prescription for Keflex 500 mg twice daily for a total of 10 days for antibiotic prophylaxis. Patient recommended to follow-up with me in the clinic in 7-10 days for staple removal. Anesthesia local and IV sedation Pathology / specimen None Estimated Blood Loss 10 Condition Stable Disposition floor Surgeon Devante Eduardo MD Surgical Staff Operation Date: 09/15/24 13:00 <No data on this case meets the specified criteria>
--- NOTE | 2024-09-15 17:36 | XR_ITS ---
Examination: AP chest single view TECHNIQUE: AP portable semiupright chest single view Date and time: September 15, 2024, 1827 hours Comparison September 13, 2024 INDICATIONS: Postop pacemaker insertion FINDINGS: Transvenous dual-chamber bipolar cardiac leads satisfactory position Mild prominence left ventricle Ectatic and enlarged thoracic aorta. Moderate elevation right hemidiaphragm with subsegmental atelectasis of the right days Right internal jugular central line tip SVC satisfactory position No pneumothorax IMPRESSION: Cardiac leads satisfactory position
--- NOTE | 2024-09-15 17:51 | PC.SS ---
Rounding Note: Plan is for patient to obtain pace maker today. Cardiology consulting.
[2024-09-15] MEDS: VANCOMYCIN/NS 500 MG IVPB 100 ML 100 MG IV (18:06)
--- NOTE | 2024-09-15 18:26 | PC.NURSE ---
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 No report or update about return of patient.
[2024-09-15] MEDS: fentaNYL CIT INJ 50 mCg/ML AMP 2ML 25 MCG IVP (18:35)
[2024-09-15] MEDS: ATORVASTATIN CALCIUM 10 MG TABLET PO (20:09)
--- NOTE | 2024-09-15 21:51 | PD.CARDCATH ---
Cardiac Cath Procedure Procedure Narrative Pre Op Diagnosis 1. Intermittent complete heart block as well as Mobitz Type II 2: 1 AV block 2. Sick sinus syndrome Post Op Diagnosis Successful implantation of a dual-chamber AV sequential permanent pacemaker-Nuñez device Procedure 1. Implantation of dual-chamber AV sequential permanent pacemaker. CPT 66169 2. Conscious sedation for 60 min Findings HISTORY AND INDICATIONS:? Patient was recommended dual-chamber pacemaker placement given the evidence of sick sinus syndrome with significant AV block and was explained the risk benefits and alternatives of performing the procedure including the risk of bleeding, infection as well as perforation with hemopericardium in detail. Patient understands the risks and wishes to proceed with the procedure. Consent obtained for the same. H&P updated and placed in the chart. Procedure Description The patient was brought to cardiac catheterization laboratory where she was given total of 2.5 mg Versed and 75 mcg of fentanyl for sedation.? A micropuncture was used to cannulate the left subclavian vein twice and Two guidewires were introduced.? A linear incision was made, with blunt dissection a pocket was created.? 2 6 Argentine sheaths were introduced into the subclavian vein.? Atrial and ventricular leads advanced into the right atrial appendage and right ventricular apex respectively.? Active fixation leads screw-in technique was used to secure the leads and thresholds were excellent.? After obtaining satisfactory threshold, both leads were anchored to the pectoral fascia, 2-0 silk suture.? Subsequently Nuñez dual chamber pacemaker generator attached to the leads, placed in the pocket, secured to the fascia with 2-0 silk suture.? Subsequently, subcutaneous tissue was closed using 2-0 chromic continuous suture.? Skin was closed using tasneem.? The patient was given 1 gram of Ancef preprocedure.? The patient tolerated the operation well with no complications.? Details of device as follows:? Nuñez wood pile driver operator Assurity MRI TM 2272, pacemaker serial # [id number] Atrial lead is [employer] 52 cm lead - Tendril STS 2088TC/52 cm - [id number] Ventricular lead is [employer] 58 cm lead - Tendril STS 2088TC/58 cm - [id number] The thresholds are as follows:? Atrial capturing threshold 0.75 Volts @ 0.4 ms, sensing 1.3 millivolts, lead impedance 460 ohms. Ventricular capturing threshold 0.75 Volts @ 0.4 ms,? Sensing 9.4 millivolts.? Lead impedance 560 ohms.? The patient is programmed DDDR mode, baseline rate of 60 bpm, maximum track rate 130 beats bpm, Paced and Sensed AV delay of 180 ms. Patient will receive 500 mg of IV vancomycin and left arm sling postoperatively prior to discharge. Postoperative chest x-ray showed no evidence of any pneumothorax and cardiac leads were in satisfactory position. Patient recommended to not to lift any weights with his left hand and avoid significant shoulder movements. Will also send a prescription for Keflex 500 mg twice daily for a total of 10 days for antibiotic prophylaxis. Patient recommended to follow-up with me in the clinic in 7-10 days for staple removal.
[2024-09-16] VITALS (12 sets, daily range): BP systolic 137–155; BP diastolic 87–99; PULSE 80–101; RESP 12–97; TEMP 36–36.6; O2SAT 94–97; BMI 21.9
[2024-09-16] MEDS: LEVOTHYROXINE SODIUM 125 MCG TABLET PO (05:16)
[2024-09-16 06:24] LABS: Basophils # (Auto) 0.1 Thou/mm3 (0.0-0.2); Basophils % (Auto) 1 % (0-2.5); Eosinophils # (Auto) 0.1 Thou/mm3 (0.0-0.5); Eosinophils % (Auto) 1 % (0-10); Hematocrit 49.5 % (36.0-46.0); Hemoglobin 16.5 g/dL (12.0-16.0); Immature Granulocytes Auto 0.02 Thou/mm3 (0.00-0.00); Lymphocytes # (Auto) 1.0 Thou/mm3 (1.0-4.8); Lymphocytes % (Auto) 11 % (10-50); Mean Corpuscular HGB Conc 33.3 g/dl (31.0-37.0); Mean Corpuscular Hemoglobin 31.0 pg (25.0-35.0); Mean Corpuscular Volume 93 fL (80-100); Monocytes # (Auto) 0.5 Thou/mm3 (0.0-0.8); Monocytes % (Auto) 6 % (0-12); Neutrophils # (Auto) 7.8 Thou/mm3 (1.8-7.7); Neutrophils % (Auto) 82 % (37-80); Nucleated Red Blood Cell # 0.00 Thou/mm3 (0.00-0.00); Nucleated Red Blood Cell % 0 /100 WBC (0); Platelet Count 239 Thou/mm3 (140-440); RDW Standard Deviation 62.8 fL (36.4-46.3); Red Blood Count 5.32 Miln/mm3 (4.00-5.20); White Blood Count 9.6 Thou/mm3 (3.6-11.0)
[2024-09-16 07:04] LABS: Alanine Aminotransferase 34 U/L (10-49); Albumin, Serum 3.2 gm/dL (3.4-4.8); Albumin/Globulin Ratio 1.2 (1.2-2.2); Alkaline Phosphatase 119 U/L (46-116); Anion Gap 12 (7-16); Aspartate Amino Transferase 29 U/L (0-34); BUN/Creatinine Ratio 16 Ratio (12-20); Bilirubin,Total 0.6 mg/dL (0.3-1.2); Blood Urea Nitrogen 22 mg/dL (9-23); Calcium 8.8 mg/dL (8.3-10.6); Calcium (Corrected) 9.4 mg/dL (8.5-10.1); Carbon Dioxide 21.2 mMol/L (20.0-31.0); Chloride 103 mMol/L (98-107); Creatinine (Component) 1.4 mg/dL (0.6-1.3); Estimated Creatinine Clearance 30.9 mL/min (>60); Globulin 2.7 gm/dL (2.3-3.5); Glucose 111 mg/dL (74-106); Magnesium 2.2 mg/dL (1.6-2.6); Osmolality,Calculated 276 (275-295); Phosphorous 4.5 mg/dL (2.4-5.1); Potassium 4.0 mMol/L (3.4-5.1); Sodium 136 mMol/L (136-145); Total Protein 5.9 gm/dL (5.7-8.2); eGFR 40 See Note
[2024-09-16] MEDS: LOSARTAN POTASSIUM 25 MG TABLET 100 MG PO (07:52)
[2024-09-16] MEDS: FERROUS SULF 325 MG TABLET PO (07:52)
--- NOTE | 2024-09-16 09:05 | ESPR_ITS ---
<Statement entered by Roya Mendez MD - 09/16/24 21:55> Patient was seen and examined by me personally. I have directly supervised and reviewed documentation by the team resident and agree with its findings with the following exceptions/and additional findings. ------- Plan of care was discussed with the attending, Dr. Perri Mendez, PGY-2 Documentation for date of: 09/16/24 Subjective Subjective Interval history: Overnight events: No acute events overnight. Patient was seen and examined at bedside. AM vitals and labs reviewed. Patient had dual-chamber AV sequential permanent pacemaker placement yesterday 09/15. Today the patient states that she feels significantly better, with much more energy. She endorses soreness on pacemaker placement area, but otherwise has no complaints at this time. Patient had heart rate of 102 without evidence of heart block on telemetry box. Discussed the current hypothyroidism plan with the patient. Notified the patient that it would be ideal if she follows up with endocrinology outpatient. Review of systems otherwise negative except for what is mentioned above. Exam Vital Signs Temp Pulse Resp BP Pulse Ox O2 Del Method O2 Flow Rate 97.8 F 81 20 141/95 H 97 Room Air 2 09/16/24 16:09/16/24 16:09/16/24 16:09/16/24 16:09/16/24 16:09/16/24 16:09/14/24 12:00 Narrative Exam Physical Exam: General: Alert, no acute distress. Skin: Warm, dry, intact, no obvious rash. Head: Normocephalic, atraumatic. Eye: Normal conjunctiva, PERRL. Cardiovascular: Regular rate and rhythm, no murmur, +S1/S2. Tender to light palpation of left chest near pacemaker bandage. Respiratory: Lungs are clear to auscultation, respirations unlabored, no crackles, no wheezing. Gastrointestinal: Soft, nontender, non-distended. No guarding or rebound tenderness. Extremities: No edema, no cyanosis, no clubbing. 2+ radial pulse bilaterally, 2+ pedal pulse bilaterally. Neuro: No focal deficits observed. Conversant, moving all extremities. No overt cerebellar signs/incoordination. Psychiatric: Cooperative, appropriate affect. Objective Labs 09/16/24 05:00 09/16/24 05:00 Labs: Laboratory Results - last 24 hr 09/16/24 05:00 WBC 9.6 RBC 5.32 H Hgb 16.5 H Hct 49.5 H MCV 93 MCH 31.0 MCHC 33.3 RDW Std Deviation 62.8 H Plt Count 239 D Neut % (Auto) 82 H Lymph % (Auto) 11 [place] % (Auto) 6 Eos % (Auto) 1 Baso % (Auto) 1 Neut # (Auto) 7.8 H Lymph # (Auto) 1.0 [place] # (Auto) 0.5 Eos # (Auto) 0.1 Baso # (Auto) 0.1 Immature Gran # (Auto) 0.02 H Absolute Nucleated RBC 0.00 Immature Gran % 0 Nucleated RBC % 0 Sodium 136 Potassium 4.0 Chloride 103 Carbon Dioxide 21.2 Anion Gap 12 BUN 22 Creatinine 1.4 H Estim Creat Clear Calc 30.9 L eGFR 40 L BUN/Creatinine Ratio 16 Glucose 111 H Calculated Osmolality 276 Calcium 8.8 Corrected Calcium 9.4 Phosphorus 4.5 Magnesium 2.2 Total Bilirubin 0.6 AST 29 ALT 34 Alkaline Phosphatase 119 H Total Protein 5.9 Albumin 3.2 L Globulin 2.7 Albumin/Globulin Ratio 1.2 Quality Measures Quality Measures none Advance care planning discussed with:: patient Assessment & Plan Assessment Current Active Medications: Generic Name Dose Route Start Last Admin Trade Name Freq PRN Reason Stop Dose Admin Acetaminophen 650 mg 09/13/24 16:29 Acetaminophen 325 Mg Tablet PO 10/13/24 16:28 Q6H PRN Mild Pain1-3 or Fever 100.3 Atorvastatin Calcium 40 mg 09/16/24 21:00 Atorvastatin Calcium 10 Mg Tablet PO 10/16/24 20:59 HS GAYATRI Atropine Sulfate 0.5 mg 09/13/24 22:18 Atropine Sulf Inj 0.1 Mg/Ml Syr 10 Ml IVP 10/13/24 17:05 Q3MIN PRN BRADYCARDIA Carvedilol 12.5 mg 09/16/24 10:00 09/16/24 13:53 Carvedilol 12.5 Mg Tablet PO 10/16/24 09:59 12.5 mg BIDWM GAYATRI Administration Cephalexin HCl 500 mg 09/15/24 21:00 09/16/24 07:52 Cephalexin 250 Mg Capsule PO 09/22/24 20:59 500 mg BID GAYATRI Administration Dextrose 25 ml 09/13/24 17:01 Dextrose 50%-Water Inj 50 Ml Syringe IV 10/13/24 17:00 Q15MIN PRN BG 50-70 responsive npo pt Dextrose 50 ml 09/13/24 17:01 Dextrose 50%-Water Inj 50 Ml Syringe IV 10/13/24 17:00 Q15MIN PRN BG <50 OR BG <70 & pt unresponsive Ferrous Sulfate 325 mg 09/14/24 16:30 09/16/24 07:52 Ferrous Sulf 325 Mg Tablet PO 10/14/24 16:29 325 mg QOD GAYATRI Administration Glucagon 1 mg 09/13/24 17:01 Glucagon Inj 1 Mg Vial IM Q15MIN PRN BG <70, and no IV access Hydralazine HCl 10 mg 09/13/24 17:54 Hydralazine Inj 20 Mg/Ml Vial IVP 10/13/24 17:10 Q4HR PRN SBP > 180 Hydralazine HCl 50 mg 09/14/24 14:00 09/16/24 13:52 Hydralazine Hcl 25 Mg Tablet PO 10/14/24 13:59 50 mg Q8H GAYATRI Administration Insulin Human Lispro 0 unit 09/13/24 21:00 09/16/24 17:46 Insulin Lispro (Admelog) 1 Unit/0.01 Ml Unit SC 10/13/24 20:59 Not Given ACHS GAYATRI Protocol Levothyroxine Sodium 125 mcg 09/16/24 06:00 09/16/24 05:16 Levothyroxine Sodium 125 Mcg Tablet PO 10/16/24 05:59 125 mcg ACBR GAYATRI Administration Levothyroxine Sodium 50 mcg 09/16/24 06:00 09/16/24 05:18 Levothyroxine Inj 100 Mcg Vial IV 09/17/24 05:59 50 mcg ACBR GAYATRI Administration Protocol Losartan Potassium 100 mg 09/13/24 16:45 09/16/24 07:52 Losartan Potassium 25 Mg Tablet PO 10/13/24 16:44 100 mg QDAY GAYATRI Administration Ropinirole HCl 2 mg 09/16/24 21:00 Ropinirole Hcl 1 Mg Tablet PO 10/16/24 20:59 QPM GAYATRI Plan Mrs. Zapata is a pleasant 68 year old lady with a relevant medical history of renal cell carcinoma status post right nephrectomy with metastases to lungs and brain, T2DM, HLD, HTN, CKD stage III, restless leg syndrome, and hypothyroidism who presented to the ED from the [facility] with generalized weakness and a pulse of 36. Patient was admitted for symptomatic bradycardia and second-degree heart block. #Symptomatic bradycardia (resolved) #Second degree heart block AV Block, 2: 1 #Sick sinus syndrome #status post pacemaker placement #Congestive heart failure ruled out Patient presented to the ED with heart rate of 36. EKG done in ED on 09/13 showed sinus bradycardia with 2:1 second-degree heart block. Last recorded EKG done in 07/28/2024 did not show heart block. Atropine 1 mg was given in the ED, initially without success, but patient's heart rate later increased to 74. Patient expresses generalized weakness and shortness of breath. BNP in ED elevated at 172. ? Continue atropine 0.5 mg every 3 minutes as needed for if MAP less than 65 or heart rate less than 40 ? Transthoracic echocardiogram ordered, normal LV size and wall thickness, possible mild LV dysfunction with EF 40 to 45%. ? Cardiology consulted, appreciate recommendations ? Physical therapy referral ordered ? 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 Self for management of malignancy. She takes Keytruda infusion once every 3 weeks and Inlyta 5 mg twice daily for chemotherapy. Additional information can be found in H&P. ? Will consult Dr. Self for recommendations on malignancy management while inpatient #Hypothyroidism Patient has a history of hypothyroidism that started with her chemotherapy.TSH has been increasing since initial recordings available in April. An earlier ED visit on 08/23, the patient had a TSH level of 94.58. During this ED visit prior to admission, the patient had a TSH level of 91.41. Patient's physicians has been closely monitoring, resulting in increases to her levothyroxine every few weeks. The patient was on 122 mcg of levothyroxine on presentation to the ED. Free T4 levels throughout all of those was noted to be in the normal range. This is most likely tied to thyroid injury due to chemotherapy. Free T3 on 09/14 was 1.5. ? Discussed case with finisher accordion Dr. Argueta ? Recommended to decrease the thyroxine 150 mcg back to 125 mcg daily based on patient's weight, and add 2 to 3 days of IV levothyroxine 50 mcg ? Dr. Argueta noted that 3 weeks would be too soon for the patient to adjust to new thyroxine dose ? Will monitor symptomatically #Dysuria due to #Suspected urinary tract infection Patient had turbid urine with 3+ protein, 7 RBC, 31 WBC, 25 squamous epithelial cells, and 1+ bacteria in ED. Patient was initially asymptomatic, so this was not pursued further due to concern for possible contamination. Patient endorsed new onset dysuria on 09/15, reminicent of her previous cases of dysuria. Will treat empirically. ? Keflex 500mg BID #Hyperkalemia #Hyponatremia Patient had potassium of 5.9 and sodium of 132 in the ED. ED managed with calcium gluconate 1 gm and regular insulin 5 units with dextrose. ? Will monitor a.m. electrolytes and replenish/deplete as necessary #Type 2 diabetes mellitus Patient has history of T2DM that was diagnosed when the patient was 38 years old. Hemoglobin A1c 09/14 6.1. ? Continue sliding scale insulin ? Continue consistent low carbohydrate diet ? Continue to hold home Januvia 100 mg daily #Hypertensive urgency (resolved) #Hypertension Patient has a history of hypertension. In the ED, the patient's blood pressure was 159/94 on presentation. ? Restarted home carvedilol 125 mg twice daily ? Continue losartan 100 mg daily ? Continue to hold home clonidine, will consider restarting tomorrow ? Continue hydralazine 50 mg every 8 hours per cardiology recommendations ? Cardiology ordered hydralazine 10 mg every 4 hours as needed if systolic blood pressure is greater than 180 #Restless leg syndrome Patient was noted to have a history of restless leg per patient note provided by her PCP Dr. Gonzalez ? Restarted patient's home ropinirole 2 mg at home ? Iron supplements. #Hyperlipidemia Patient noted to have hyperlipidemia in the past. Patient takes lovastatin 10 mg at home. Lipid panel 09/14 triglycerides 90, cholesterol 228, LDL 129, HDL 81. ASCVD risk 7.2%. ? Increased atorvastatin 10mg at night to atorvastatin 40mg at night. #CKD stage IIIb Patient noted to have BUN 33, creatinine 1.4, GFR 40 in ED. Baseline BUN around 20, baseline creatinine around 1.3, and baseline GFR around 40. ? Continue to monitor renal panel daily ? Ordered phosphorus and magnesium series ? Continue to hold home Mel-Debra DVT Prophylaxis: SCDs GI Prophylaxis: N/A Bowel: N/A Diet: Consistent low carbohydrate diet Montes: N/A Lines: Peripheral IV Antibiotics: N/A Code Status: FULL Reason for Hospitalization: Hypothyroidism Other Barriers to Discharge: Clearance Patient plan of care was discussed with the senior resident Dr. Mendez and attending physician Dr. Perri Moe, PGY1 Attending Provider Attestation/Addendum I attest that I was physically present for the evaluation, physical examination, lab and imaging review of the patient with the residents. I discussed the case with the residents and agree with the findings and plans of care as documented above. Gen Rayo MD
--- NOTE | 2024-09-16 09:30 | PC.SS ---
Addendum entered by GARRET Amaral 09/16/24 15:43: Insurance authorization was obtained by [facility]. lucierna reference number: [id number]. Pending transport ETA. Addendum entered by GARRET Amaral 09/16/24 15:22: [facility] is working on insurance authorization. Patient's daughter Tri is aware. RN Arabella is also aware. Addendum entered by GARRET Amaral 09/16/24 14:37: PT evaluation sent to SNF's on [facility] to review if able to accept. Patient will require insurance authorization. Addendum entered by GARRET Amaral 09/16/24 13:46: SNF referral sent via [facility]. Pending PT evaluation to be charted to send out to facilities. Addendum entered by GARRET Amaral 09/16/24 13:35: PASRR completed. No follow up required. Addendum entered by GARRET Amaral 09/16/24 13:27: Per PT Diana, recommendation for short term SNF for the patient. Spoke to patient's daughter, Tri regarding the recommendations and she was agreeable. No preferred facility in [facility]. Original Note: SS update: patient receiving IV pain medication. No plan for d/c today.
--- NOTE | 2024-09-16 10:17 | PD.RESPRO ---
Documentation for date of: 09/16/24 Subjective Subjective Interval history: Overnight events: No acute events overnight. Patient was seen and examined at bedside. AM vitals and labs reviewed. Patient received pacemaker placement yesterday. Heart rate noted to be 102 on the telemetry box, no heart block noted. The patient states that she feels so much better, and that she has much more energy compared to yesterday before the procedure. The patient is mixer tender at the site of the pacemaker placement and has some back pain, but otherwise has no complaints. Review of systems otherwise negative except for what is mentioned above. Exam Vital Signs Temp Pulse Resp BP Pulse Ox O2 Del Method O2 Flow Rate 97.9 F 91 25 H 139/98 H 94 L Room Air 2 09/16/24 07:58 09/16/24 08:00 09/16/24 07:58 09/16/24 07:58 09/16/24 07:58 09/16/24 07:58 09/14/24 12:00 Narrative Exam Physical Exam: General: Alert, no acute distress. Skin: Warm, dry, intact, no obvious rash. Head: Normocephalic, atraumatic. Eye: Normal conjunctiva, PERRL. Cardiovascular: Regular rate and rhythm, no murmur, +S1/S2. Respiratory: Lungs are clear to auscultation, respirations unlabored, no crackles, no wheezing. Gastrointestinal: Soft, nontender, non-distended. No guarding or rebound tenderness. Extremities: No edema, no cyanosis, no clubbing. 2+ radial pulse bilaterally, 2+ pedal pulse bilaterally. Neuro: No focal deficits observed. Conversant, moving all extremities. No overt cerebellar signs/incoordination. Psychiatric: Cooperative, appropriate affect. Objective Labs 09/16/24 05:00 09/16/24 05:00 Labs: Laboratory Results - last 24 hr 09/16/24 05:00 WBC 9.6 RBC 5.32 H Hgb 16.5 H Hct 49.5 H MCV 93 MCH 31.0 MCHC 33.3 RDW Std Deviation 62.8 H Plt Count 239 D Neut % (Auto) 82 H Lymph % (Auto) 11 [place] % (Auto) 6 Eos % (Auto) 1 Baso % (Auto) 1 Neut # (Auto) 7.8 H Lymph # (Auto) 1.0 [place] # (Auto) 0.5 Eos # (Auto) 0.1 Baso # (Auto) 0.1 Immature Gran # (Auto) 0.02 H Absolute Nucleated RBC 0.00 Immature Gran % 0 Nucleated RBC % 0 Sodium 136 Potassium 4.0 Chloride 103 Carbon Dioxide 21.2 Anion Gap 12 BUN 22 Creatinine 1.4 H Estim Creat Clear Calc 30.9 L eGFR 40 L BUN/Creatinine Ratio 16 Glucose 111 H Calculated Osmolality 276 Calcium 8.8 Corrected Calcium 9.4 Phosphorus 4.5 Magnesium 2.2 Total Bilirubin 0.6 AST 29 ALT 34 Alkaline Phosphatase 119 H Total Protein 5.9 Albumin 3.2 L Globulin 2.7 Albumin/Globulin Ratio 1.2 Quality Measures Quality Measures none Advance care planning discussed with:: patient Assessment & Plan Assessment Current Active Medications: Generic Name Dose Route Start Last Admin Trade Name Freq PRN Reason Stop Dose Admin Acetaminophen 650 mg 09/13/24 16:29 Acetaminophen 325 Mg Tablet PO 10/13/24 16:28 Q6H PRN Mild Pain1-3 or Fever 100.3 Atorvastatin Calcium 40 mg 09/16/24 21:00 Atorvastatin Calcium 10 Mg Tablet PO 10/16/24 20:59 HS GAYATRI Atropine Sulfate 0.5 mg 09/13/24 22:18 Atropine Sulf Inj 0.1 Mg/Ml Syr 10 Ml IVP 10/13/24 17:05 Q3MIN PRN BRADYCARDIA Carvedilol 12.5 mg 09/16/24 10:00 Carvedilol 12.5 Mg Tablet PO 10/16/24 09:59 BIDWM GYAATRI Cephalexin HCl 500 mg 09/15/24 21:00 09/16/24 07:52 Cephalexin 250 Mg Capsule PO 09/22/24 20:59 500 mg BID GAYATRI Administration Dextrose 25 ml 09/13/24 17:01 Dextrose 50%-Water Inj 50 Ml Syringe IV 10/13/24 17:00 Q15MIN PRN BG 50-70 responsive npo pt Dextrose 50 ml 09/13/24 17:01 Dextrose 50%-Water Inj 50 Ml Syringe IV 10/13/24 17:00 Q15MIN PRN BG <50 OR BG <70 & pt unresponsive Ferrous Sulfate 325 mg 09/14/24 16:30 09/16/24 07:52 Ferrous Sulf 325 Mg Tablet PO 10/14/24 16:29 325 mg QOD GAYATRI Administration Glucagon 1 mg 09/13/24 17:01 Glucagon Inj 1 Mg Vial IM Q15MIN PRN BG <70, and no IV access Hydralazine HCl 10 mg 09/13/24 17:54 Hydralazine Inj 20 Mg/Ml Vial IVP 10/13/24 17:10 Q4HR PRN SBP > 180 Hydralazine HCl 50 mg 09/14/24 14:00 09/16/24 05:15 Hydralazine Hcl 25 Mg Tablet PO 10/14/24 13:59 50 mg Q8H GAYATRI Administration Insulin Human Lispro 0 unit 09/13/24 21:00 09/16/24 07:26 Insulin Lispro (Admelog) 1 Unit/0.01 Ml Unit SC 10/13/24 20:59 Not Given ACHS GAYATRI Protocol Levothyroxine Sodium 125 mcg 09/16/24 06:00 09/16/24 05:16 Levothyroxine Sodium 125 Mcg Tablet PO 10/16/24 05:59 125 mcg ACBR GAYATRI Administration Levothyroxine Sodium 50 mcg 09/16/24 06:00 09/16/24 05:18 Levothyroxine Inj 100 Mcg Vial IV 09/17/24 05:59 50 mcg ACBR GAYATRI Administration Protocol Losartan Potassium 100 mg 09/13/24 16:45 09/16/24 07:52 Losartan Potassium 25 Mg Tablet PO 10/13/24 16:44 100 mg QDAY GAYATRI Administration Ropinirole HCl 2 mg 09/16/24 21:00 Ropinirole Hcl 1 Mg Tablet PO 10/16/24 20:59 QPM GAYATRI Plan Mrs. Zapata is a pleasant 68 year old lady with a relevant medical history of renal cell carcinoma status post right nephrectomy with metastases to lungs and brain, T2DM, HLD, HTN, CKD stage III, restless leg syndrome, and hypothyroidism who presented to the ED from the [facility] with generalized weakness and a pulse of 36. Patient was admitted for symptomatic bradycardia and second-degree heart block. #Symptomatic bradycardia (resolved) #Second degree heart block AV Block, 2: 1 (resolved) #Congestive heart failure ruled out Patient presented to the ED with heart rate of 36. EKG done in ED on 09/13 showed sinus bradycardia with 2:1 second-degree heart block. Last recorded EKG done in 07/28/2024 did not show heart block. Atropine 1 mg was given in the ED, initially without success, but patient's heart rate later increased to 74. Patient expresses generalized weakness and shortness of breath. BNP in ED elevated at 172. ? Continue atropine 0.5 mg every 3 minutes as needed for if MAP less than 65 or heart rate less than 40 ? Transthoracic echocardiogram ordered, normal LV size and wall thickness, possible mild LV dysfunction with EF 40 to 45%. ? Cardiology consulted, appreciate recommendations ? Restarted home carvedilol and ? 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 Self for management of malignancy. She takes Keytruda infusion once every 3 weeks and Inlyta 5 mg twice daily for chemotherapy. Additional information can be found in H&P. ? Will consult Dr. Self for recommendations on malignancy management while inpatient #Hypothyroidism Patient has a history of hypothyroidism that started with her chemotherapy.TSH has been increasing since initial recordings available in April. An earlier ED visit on 08/23, the patient had a TSH level of 94.58. During this ED visit prior to admission, the patient had a TSH level of 91.41. Patient's physicians has been closely monitoring, resulting in increases to her levothyroxine every few weeks. The patient was on 122 mcg of levothyroxine on presentation to the ED. Free T4 levels throughout all of those was noted to be in the normal range. This is most likely tied to thyroid injury due to chemotherapy. Free T3 on 09/14 was 1.5. ? Discussed case with brick burner head Dr. Argueta ? Recommended to decrease the thyroxine 150 mcg back to 125 mcg daily based on patient's weight, and add 2 to 3 days of IV levothyroxine 50 mcg ? Dr. Argueta noted that 3 weeks would be too soon for the patient to adjust to new thyroxine dose ? Will monitor symptomatically #Dysuria due to #Suspected urinary tract infection Patient had turbid urine with 3+ protein, 7 RBC, 31 WBC, 25 squamous epithelial cells, and 1+ bacteria in ED. Patient was initially asymptomatic, so this was not pursued further due to concern for possible contamination. Patient endorsed new onset dysuria on 09/15, reminicent of her previous cases of dysuria. Will treat empirically. ? Started Rocephin 1 g IV daily #Hyperkalemia #Hyponatremia Patient had potassium of 5.9 and sodium of 132 in the ED. ED managed with calcium gluconate 1 gm and regular insulin 5 units with dextrose. ? Will monitor a.m. electrolytes and replenish/deplete as necessary #Type 2 diabetes mellitus Patient has history of T2DM that was diagnosed when the patient was 38 years old. Hemoglobin A1c 09/14 6.1. ? Continue sliding scale insulin ? Continue onsistent low carbohydrate diet ? Continue to hold home Januvia 100 mg daily #Hypertensive urgency Patient has a history of hypertension. In the ED, the patient's blood pressure was 159/94 on presentation. ? Continue Losartan 100 mg ? Patient's home clonidine and carvedilol held per cardiology recommendations noted in ED note ? Cardiology ordered hydralazine 10 mg every 4 hours as needed if systolic blood pressure is greater than 180 #Restless leg syndrome Patient was noted to have a history of restless leg per patient note provided by her PCP Dr. Gonzalez ? Continue to HOLD patient's home ropinirole 2 mg at home ? Iron supplements. #Hyperlipidemia Patient noted to have hyperlipidemia in the past. Patient takes lovastatin 10 mg at home. Lipid panel 09/14 triglycerides 90, cholesterol 228, LDL 129, HDL 81. ? Continue atorvastatin 10 mg at night in place of patient's home lovastatin 10 mg. #CKD stage IIIb Patient noted to have BUN 33, creatinine 1.4, GFR 40 in ED. Baseline BUN around 20, baseline creatinine around 1.3, and baseline GFR around 40. ? Continue to monitor renal panel daily ? Ordered phosphorus and magnesium series ? Continue to hold home Mel-Debra DVT Prophylaxis: SCDs GI Prophylaxis: N/A Bowel: N/A Diet: Consistent low carbohydrate diet Montes: N/A Lines: Peripheral IV Antibiotics: N/A Code Status: FULL Reason for Hospitalization: Symptomatic bradycardia and second-degree heart block Other Barriers to Discharge: Pacemaker placement Patient plan of care was discussed with the senior resident Dr. Peter and attending physician Dr. Perri Moe, PGY1
--- NOTE | 2024-09-16 14:00 | PD.IMPROG ---
Documentation for date of: 09/17/24 Subjective Subjective Interval history: [facility]. No new cardiac complaints. pacemaker site normal with no evidence of any hematoma or bruising Successful implantation of dual-chamber AV sequential permanent pacemaker- Nuñez device on 09/15/2024. Details of device as follows:? 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 Atrial capturing threshold 1.0 Volts @ 0.4 ms, sensing 1.6 millivolts, lead impedance 510 ohms. Ventricular capturing threshold 1.25 Volts @ 0.4 ms,? Sensing 10.3 millivolts.? Lead impedance 760 ohms.? The patient is programmed DDDR mode, baseline rate of 60 bpm, maximum track rate 130 beats bpm, Paced and Sensed AV delay of 180 ms. Patient received 500 mg of IV vancomycin along with a left arm sling. Postoperative chest x-ray showed no evidence of any pneumothorax and cardiac leads were in satisfactory position. Patient recommended to not to lift any weights with his left hand and avoid significant shoulder movements. Will also send a prescription for Keflex 500 mg twice daily for a total of 10 days for antibiotic prophylaxis. Patient recommended to follow-up with me in the clinic in 7-10 days for staple removal. Exam Vital Signs Temp Pulse Resp BP Pulse Ox O2 Del Method O2 Flow Rate 97.8 F 81 20 137/87 H 97 Room Air 2 09/16/24 16:09/16/24 17:52 09/16/24 16:09/16/24 17:52 09/16/24 16:00 09/16/24 16:00 09/14/24 12:00 Narrative Exam General: Elderly, cooperative, frail female, no acute distress, Alert and Oriented x 3 HEENT: Moist mucous membranes, oropharynx clear Neck: Supple, No masses, No JVD pacemaker site normal with no evidence of any hematoma or bruising CVS: S1 S2 normal, No murmurs, rubs or gallops Lungs: Clear to auscultation with no accessory use, no wheeze no rhonchi Abd: Soft, NT/ND, +BS, no organomegaly Ext: No edema, warm and well perfused, bilateral lower leg weakness Skin: No rash Psych: Appropriate mood and affect Objective Labs 09/16/24 05:00 09/16/24 05:00 Assessment & Plan A&P Narrative I have personally seen and examined the patient separately on the above date of service and discussed the plan of care with the resident. I reviewed the resident Dr. Horace Reed consultation progress note and agree with the resident findings and plan in the note above and have also edited the documentation to reflect my findings and plan. A 69-year-old female patient with past medical history of renal cell carcinoma diagnosed in 2015 status post right nephrectomy in 2015 with recurrence in 2023 with metastasis to lung and brain on chemotherapy, radiotherapy, type 2 diabetes mellitus, essential hypertension, hyperlipidemia, CKD stage III, hypothyroidism, restless leg syndrome was sent in from the [facility] infusion department for further evaluation of bradycardia or low heart rate with elevated blood pressure. In the emergency department patient was found to have an heart rate of 36 and EKG showed second-degree AV block Mobitz type II with 2: 1 AV block and cardiology was consulted for further evaluation. Assessment and plan: 1. Mobitz type II 2: 1 AV block leading to bradycardia 2. Hypertensive urgency in the setting of severe bradycardia 3. Hyperkalemia 4. Abnormal thyroid function tests with a history of hypothyroidism on levothyroxine 5. CKD stage III 6. Metastatic renal cell carcinoma status post right nephrectomy in 2016 with metastasis to lungs and brain s/p radiotherapy and now on chemotherapy 7. Type 2 diabetes mellitus on insulin 8. Hyperlipidemia 9. Hypothyroidism 10. Restless leg syndrome 11. Chronic fatigue Patient presented with severe bradycardia with a heart rate of 30-40 bpm as well as elevated blood pressure systolic greater than 200 mmHg. Unclear etiology of the severe bradycardia but appears to be multifactorial with possible underlying sick sinus syndrome exacerbated with hyperkalemia versus beta-mary and clonidine use with abnormal thyroid function tests. Patient is hemodynamically stable and denies any kind of syncope or dizziness or passing out. Has chronically vague complains of fatigue but otherwise is asymptomatic and went to the [facility] to get her infusion. Blood pressure is elevated in the setting of the severe bradycardia. No need of urgent pacemaker for the patient to the present point of time as she is essentially asymptomatic and is hemodynamically stable. Recommend to treat the reversible causes for now and continue to closely monitor on telemetry. Recommend to treat aggressively for hyperkalemia with cocktail as well as at least Kayexalate 60 mg x 1 and repeat potassium levels in 6 hours. Recommend to stop the beta-mary completely as patient is on Coreg 12.5 mg twice daily which is a high dose. Also recommend to hold on the clonidine for now it could cause bradycardia. Ropinirole is on low-dose of only 1 mg every night and unlikely to cause bradycardia given that there are reports of bradycardia with ropinirole and it is okay to hold it for now. Patient could still have underlying sick sinus syndrome given her age secondary to degenerative conduction system but will need to wait for at least 48 hours to rule out all reversible causes. Patient thyroid function tests are also abnormal with TSH elevated at 91 and free T4 is low normal around 0.89 and 1.05. Patient appears to be on levothyroxine but unclear reasons for severely elevated TSH consistently Previously. Recommend to check T3 and obtain consultation with endocrinology for further evaluation of the abnormal thyroid function tests Regarding her elevated blood pressure and hypertensive urgency patient's systolic blood pressure is elevated more than 200 which is compensated right secondary to the severe bradycardia to maintain adequate perfusion. Recommend not to aggressively control the blood pressure and keep the systolic blood pressure around 160 to 170 mmHg and his blood pressure is higher than give IV hydralazine as needed. Patient can be continued on losartan 100 mg once daily for now and can add oral hydralazine if needed if the blood pressure consistently is above 180 mmHg in spite of the losartan. Keep potassium between 4 and 5 and keep magnesium greater than 2 at all times. Continue telemetry monitoring. 09/14/2024- Patient seen and examined at the bedside. Patient continues to be in second-degree Mobitz type II 2:1 AV block with a heart rate between 35 to 40 bpm. Beta-mary already stopped and hyperkalemia has been corrected and potassium is 4.9 and additional treatment being given. Clonidine has also been stopped. Blood pressure stable and the patient is hemodynamically stable. Patient heart rate continues to be between 35 bpm to 45 bpm and patient will need an dual-chamber pacemaker placement which is a class I indication for the patient. Patient was recommended dual-chamber pacemaker placement given the evidence of sick sinus syndrome with significant AV block and was explained the risk benefits and alternatives of performing the procedure including the risk of bleeding, infection as well as perforation with hemopericardium in detail. Patient understands the risks and wishes to proceed with the procedure. Consent obtained for the same. Will keep her n.p.o. and plan for the pacemaker placement tomorrow afternoon if patient continues to have a low heart rate as it may be 48 hours since discontinuing the medication. 09/16/2024: Successful implantation of dual-chamber AV sequential permanent pacemaker- Nuñez device on 09/15/2024. Details of device as follows:? 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 Atrial capturing threshold 1.0 Volts @ 0.4 ms, sensing 1.6 millivolts, lead impedance 510 ohms. Ventricular capturing threshold 1.25 Volts @ 0.4 ms,? Sensing 10.3 millivolts.? Lead impedance 760 ohms.? The patient is programmed DDDR mode, baseline rate of 60 bpm, maximum track rate 130 beats bpm, Paced and Sensed AV delay of 180 ms. Patient received 500 mg of IV vancomycin along with a left arm sling. Postoperative chest x-ray showed no evidence of any pneumothorax and cardiac leads were in satisfactory position. Patient recommended to not to lift any weights with his left hand and avoid significant shoulder movements. Will also send a prescription for Keflex 500 mg twice daily for a total of 10 days for antibiotic prophylaxis. Patient recommended to follow-up with me in the clinic in 7-10 days for staple removal. Management of rest of the medical conditions as per primary team and other consultants. Thank you for the consult and allowing me to participate in the care of the patient. Cardiology will continue to follow. Devante Eduardo M.D. Interventional Cardiology Time Spent With Patient Time: Total time spent is greater than 50% in coordination of care (as documented) at patient's floor/unit and/or counseling patient:
--- NOTE | 2024-09-16 14:50 | PD.RESDS ---
Planned Discharge Date 09/16/24 DS: Providers Provider Date of admission: 09/13/24 16:42 Primary care physician: Denise Gonzalez MD Admitting Provider: Gen Rayo MD Attending Provider on Admission: Gen Rayo MD Consults: 09/13/24 13:55 Consult to Cardiology Stat Comment: Consulting Provider: Devante Eduardo 09/14/24 07:28 Referral Physical Therapy Routine Comment: Gen weakness, on chemo, reports independent ADLs Physician Instructions: Attending Provider on DC: Gen Rayo MD Discharging Provider: Gen Rayo MD DS: Diagnosis Problem List Completed Was Problem List Reviewed/Reconciled?: Yes Hospital Course Time Spent with Patient Time attestation: Total time spent providing and/or coordinating discharge services: Time spent: Greater than 30 minutes Exam Vital Signs Temp Pulse Resp BP Pulse Ox O2 Del Method O2 Flow Rate 97.0 F 80 14 143/99 H 96 Room Air 2 09/16/24 12:00 09/16/24 13:53 09/16/24 12:00 09/16/24 13:53 09/16/24 12:00 09/16/24 12:00 09/14/24 12:00 Discharge Plan Plan Patient Disposition: [facility]fer [facility] ([facility]) Patient condition on transfer: Stable Care Plan Goals: Instructions: -New dose of Levothyroxine 125 mcg once daily before foods or other medication. -Please take Keflex 500 mg orally twice daily until 09/22/2024. -Continue all home medications as prescribed. -Please do avoid lifting heavy objects with left arm for 1 week after cardiac placement of pacemaker. -Please follow up with cardiology, Dr. Eduardo, within one week of discharge -Please follow up with your primary care provider within one week of discharge -If your symptoms worsen,please seek immediate medical attention and return to your nearest emergency room -If you do not have a primary care provider, you may follow up at the [facility] at [address], [place] [address], Prescriptions/Referrals Prescriptions/Med Rec: New atorvastatin 40 mg tablet 40 mg PO HS 30 Days Qty: 30 0RF cephalexin 500 mg capsule 500 mg PO BID 10 Days Qty: 0 0RF levothyroxine 125 mcg Tablet 125 mcg PO ACBR 30 Days Qty: 0 0RF ferrous sulfate 325 mg (65 mg iron) Tablet,Delayed Release (Dr/Ec) 325 mg PO QOD 30 Days Qty: 0 0RF Continued Januvia 100 MG tablet 100 mg PO QDAY Qty: 0 carvedilol 12.5 mg tablet 12.5 mg PO BID ropinirole 1 mg tablet 2 mg PO QPM clonidine HCl 0.2 mg tablet 0.2 mg PO BID Mel-Debar Rx 1-60-300 mg-mg-mcg tablet 1 tab PO QDAY spironolactone [Aldactone] 50 mg tablet 50 mg PO QDAY Premarin 0.625 mg/gram cream 0.625 mg TOPICAL QDAY Patient Comments: APPLY 1 GM VAGINALLY DAILY NEEDED Rx Instructions: 1 gram topically; losartan [Cozaar] 50 mg tablet 50 mg PO QDAY Jardiance 25 mg tablet 25 mg PO QAM insulin detemir U-100 100 unit/mL (3 mL) insulin pen 10 unit subcut BID lidocaine HCl [Lidocaine Viscous] 2 % solution 10 ml PO .Q6 PRN (Reason: as needed) Patient Comments: TAKE 10ML BY MOUTH NEEDED SWISH, GARGLE AND SPIT 1-2 TEASPOONS EVERY 6 HOURS NEEDED alum-mag hydroxide-simeth [Advanced Antacid-[place]as] 200-200-20 mg/5 mL suspension 20 ml PO TID PRN (Reason: indigestion) Rx Instructions: administer between meals nystatin 100,000 unit/mL suspension 10 ml PO QDAY PRN (Reason: as needed) Held Inlyta 5 mg tablet 5 mg PO Q12H Hold Instructions: Resume on 09/23/24. Follow up with Oncologist before resuming pembrolizumab 50 mg recon soln 200 mg IV .[id number] Hold Instructions: Resume on 09/23/24. Follow up with Oncologist Discontinued lovastatin 10 mg tablet 10 mg PO HS Patient Comments: TAKE 1 TABLET BY MOUTH EVERY DAY WITH DINNER levothyroxine 112 mcg tablet 125 mcg PO QDAY Patient Comments: 1 TABLET DAILY Referrals: Devante Eduardo MD [Physician] - Denise Gonzalez MD [Primary Care Provider] - Patient/Caregiver Discharge Instructions Discharge Activity: as per physical therapy Education Materials: Pacemakers, Living with a Pacemaker, Understanding Bradycardia Print Language: Mongolian Stand Alone Forms: Tesha Award Info., Patient Portal Info Letter Discharge Order Discharge Orders: Discharge (Routine); Ordered 09/16/24 Ordered By: Hannah Spaulding
--- NOTE | 2024-09-16 14:55 | ESDS_ITS ---
<Statement entered by Roya Mendez MD - 09/16/24 21:39> Pt is advised to follow up with Dr. Hudson outpatient after discharge. Patient was seen and examined by me personally. I have directly supervised and reviewed documentation by the team resident and agree with its findings. ------- Plan of care was discussed with the attending, Dr. Perri Mendez, PGY-2 Planned Discharge Date 09/16/24 DS: Providers Provider Date of admission: 09/13/24 16:42 Primary care physician: Denise Gonzalez MD Admitting Provider: Gen Rayo MD Attending Provider on Admission: Gen Rayo MD Consults: 09/13/24 13:55 Consult to Cardiology Stat Comment: Consulting Provider: Devante Eduardo 09/14/24 07:28 Referral Physical Therapy Routine Comment: Gen weakness, on chemo, reports independent ADLs Physician Instructions: Attending Provider on DC: Gen Rayo MD Discharging Provider: Gen Rayo MD DS: Diagnosis Problem List Completed Was Problem List Reviewed/Reconciled?: Yes Hospital Course Hospital Course Hospital course: Reason for hospitalization:?Symptomatic bradycardia and second-degree Mobitz type II heart block Summary: Patient is a 68-year-old female with past medical history of hypertension, hyperlipidemia, diabetes, hypothyroidism, restless leg syndrome, renal cell carcinoma status post nephrectomy with metastases to brain and right lung who presented to [facility] from the [facility] due to heart rate of 36 with significant weakness. In ED patient was given atropine bradycardia and EKG showed second-degree Mobitz type II heart block, ED gave patient atropine for bradycardia and calcium gluconate with regular insulin and dextrose for hyperkalemia. Patient was admitted to telemetry on 09/13 for symptomatic bradycardia and second-degree Mobitz type II heart block. Cardiology was consulted who recommended no urgent pacer for the patient at time of admission. Cardiology recommended holding beta-mary, clonidine, and ropinirole, and wanted to wait 48 hours to rule out reversible causes. Attempted to reach patient's oncologist Dr. Self without success. Patient also had elevated TSH, normal free T4, and decreased free T3, resulting in increasing levothyroxine dose. Endocrinology was consulted, who recommended the patient take 125 mcg of levothyroxine along with 2 to 3 days of 50 mcg IV levothyroxine. IV levothyroxine started on 09/15/2024. On 09/15/2024, the patient was taken for implantation of dual-chamber AV sequential permanent pacemaker and patient was started on Keflex post procedure. Evaluation by PT on 09/16 recommended placement for shelter facility. Patient's vitals were stable, was awake, alert, follows commands, and medically cleared for discharge by both cardiology and primary medicine team. Imaging: ? Chest x-ray 09/13/2024: No pneumonia or pulmonary edema ? Echocardiogram ultrasound 09/13/2024: Normal LV size and wall thickness. Probable mild LV dysfunction with EF of 40 to 45%. Trace TR and MR ? Chest x-ray 09/15/2024: Cardiac leads satisfactory position Discharge Recommendations: - Follow up with PCP within 1 week of discharge. - Continue rest of medications as previously prescribed. - Return to the ED or call EMS if symptoms return and/or worsen. ? Follow-up with outpatient cardiology for pacemaker management. ? Follow-up with outpatient heat treat supervisor for hypothyroidism management. ? Follow-up with outpatient oncologist for management of renal cell carcinoma. ? Continue Keflex 500 mg twice daily for 1 week postsurgery to complete course of antibiotics. If you don't have a PCP, you can make an appointment at the [facility]: 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 #Status post right nephrectomy #Hypothyroidism #Suspected urinary tract infection #Hyperkalemia #Hyponatremia #Type 2 diabetes mellitus #Hypertensive urgency #Hypertension #Restless leg syndrome #Hyperlipidemia #CKD stage IIIb Shyam Moe, PGY-1 Time Spent with Patient Time attestation: Total time spent providing and/or coordinating discharge services: 36 min Time spent: Greater than 30 minutes Exam Vital Signs Temp Pulse Resp BP Pulse Ox O2 Del Method O2 Flow Rate 97.8 F 81 20 137/87 H 97 Room Air 2 09/16/24 16:00 09/16/24 17:52 09/16/24 16:00 09/16/24 17:52 09/16/24 16:00 09/16/24 16:00 09/14/24 12:00 Narrative Exam Physical Exam: General: Alert, no acute distress. Skin: Warm, dry, intact, no obvious rash. Head: Normocephalic, atraumatic. Eye: Normal conjunctiva, PERRL. Cardiovascular: Regular rate and rhythm, no murmur, +S1/S2. Tender to light pal pation of left chest near pacemaker bandage. Respiratory: Lungs are clear to auscultation, respirations unlabored, no crackles, no wheezing. Gastrointestinal: Soft, nontender, non-distended. No guarding or rebound tenderness. Extremities: No edema, no cyanosis, no clubbing. 2+ radial pulse bilaterally, 2+ pedal pulse bilaterally. Neuro: No focal deficits observed. Conversant, moving all extremities. No overt cerebellar signs/incoordination. Psychiatric: Cooperative, appropriate affect. Discharge Plan Plan Patient Disposition: er [facility]illed [facility] (SNF) Patient condition on transfer: Stable Care Plan Goals: Instructions: -New dose of Levothyroxine 125 mcg once daily before foods or other medication. -Please take Keflex 500 mg orally twice daily until 09/22/2024. -Continue all home medications as prescribed. -Please do avoid lifting heavy objects with left arm for 1 week after cardiac placement of pacemaker. -Please follow up with cardiology, Dr. Eduardo, within one week of discharge -Please follow up with your primary care provider within one week of discharge -If your symptoms worsen,please seek immediate medical attention and return to your nearest emergency room -If you do not have a primary care provider, you may follow up at the [facility] at [address], [place] [address], Prescriptions/Referrals Prescriptions/Med Rec: New atorvastatin 40 mg tablet 40 mg PO HS 30 Days Qty: 30 0RF cephalexin 500 mg capsule 500 mg PO BID 10 Days Qty: 0 0RF levothyroxine 125 mcg Tablet 125 mcg PO ACBR 30 Days Qty: 0 0RF ferrous sulfate 325 mg (65 mg iron) Tablet,Delayed Release (Dr/Ec) 325 mg PO QOD 30 Days Qty: 0 0RF Continued Januvia 100 MG tablet 100 mg PO QDAY Qty: 0 carvedilol 12.5 mg tablet 12.5 mg PO BID ropinirole 1 mg tablet 2 mg PO QPM clonidine HCl 0.2 mg tablet 0.2 mg PO BID Mel-Debra Rx 1-60-300 mg-mg-mcg tablet 1 tab PO QDAY spironolactone [Aldactone] 50 mg tablet 50 mg PO QDAY Premarin 0.625 mg/gram cream 0.625 mg TOPICAL QDAY Patient Comments: APPLY 1 GM VAGINALLY DAILY NEEDED Rx Instructions: 1 gram topically; losartan [Cozaar] 50 mg tablet 50 mg PO QDAY Jardiance 25 mg tablet 25 mg PO QAM insulin detemir U-100 100 unit/mL (3 mL) insulin pen 10 unit subcut BID lidocaine HCl [Lidocaine Viscous] 2 % solution 10 ml PO .Q6 PRN (Reason: as needed) Patient Comments: TAKE 10ML BY MOUTH NEEDED SWISH, GARGLE AND SPIT 1-2 TEASPOONS EVERY 6 HOURS NEEDED alum-mag hydroxide-simeth [Advanced Antacid-Antigas] 200-200-20 mg/5 mL suspension 20 ml PO TID PRN (Reason: indigestion) Rx Instructions: administer between meals nystatin 100,000 unit/mL suspension 10 ml PO QDAY PRN (Reason: as needed) Held Inlyta 5 mg tablet 5 mg PO Q12H Hold Instructions: Resume on 09/23/24. Follow up with Oncologist before resuming pembrolizumab 50 mg recon soln 200 mg IV .L0tidgy Hold Instructions: Resume on 09/23/24. Follow up with Oncologist Discontinued lovastatin 10 mg tablet 10 mg PO HS Patient Comments: TAKE 1 TABLET BY MOUTH EVERY DAY WITH DINNER levothyroxine 112 mcg tablet 125 mcg PO QDAY Patient Comments: 1 TABLET DAILY Referrals: Devante Eduardo MD [Physician] - Denise Gonzalez MD [Primary Care Provider] - Patient/Caregiver Discharge Instructions Discharge Activity: as per physical therapy Education Materials: Pacemakers, Living with a Pacemaker, Understanding Prateek cardia Print Language: Turkish Stand Alone Forms: Tesha Award Info., Patient Portal Info Letter Discharge Order Discharge Orders: Discharge (Routine); Ordered 09/16/24 Ordered By: Hannah Spaulding Quality Discharge Quality Measures none MD Attestestation Attestation I attest that I was physically present for the evaluation, physical examination, lab and imaging review of the patient with the residents. I discussed the case with the residents and agree with the findings and plans of care as documented above. Gen Rayo MD
--- NOTE | 2024-09-16 18:11 | PC.NURSE ---
[facility] all questions and concerns answered
== END 2024-09-16 18:49 | disposition skilled nursing facility (03) | DRG 243 ==
LOC: SERX 16:18 → SERHOLD 16:43 → S2NX 20:26
PROVIDERS: Internal Medicine Cardiovascular Disease; Physician Assistant Medical; Admitting Provider Student in an Organized Health Care Education/Training Program; Emergency Provider Emergency Medicine; PCP Internal Medicine; Visit Provider Student in an Organized Health Care Education/Training Program
DX: I44.1 Atrioventricular block, second degree (principal); C64.9 Malignant neoplasm of unspecified kidney, except renal pelvis; C78.01 Secondary malignant neoplasm of right lung; C79.31 Secondary malignant neoplasm of brain; E87.1 Hypo-osmolality and hyponatremia; I44.2 Atrioventricular block, complete; Z85.528 Personal history of other malignant neoplasm of kidney; Z90.5 Acquired absence of kidney; E03.9 Hypothyroidism, unspecified; E11.22 Type 2 diabetes mellitus with diabetic chronic kidney disease; N18.32 Chronic kidney disease, stage 3b; I12.9 Hypertensive chronic kidney disease with stage 1 through stage 4 chronic kidney disease, or unspecified chronic kidney disease; E78.5 Hyperlipidemia, unspecified; Z79.4 Long term (current) use of insulin; G25.81 Restless legs syndrome; E87.5 Hyperkalemia; I16.0 Hypertensive urgency; I49.5 Sick sinus syndrome; Z79.84 Long term (current) use of oral hypoglycemic drugs; Z79.890 Hormone replacement therapy; Z79.899 Other long term (current) drug therapy; Z98.1 Arthrodesis status
CPT/HCPCS: 36415; 71045; 80053; 80061; 81001; 83036; 83735; 83880; 84100; 84439; 84443; 84481; 84484; 85025; 93005; 93306; 94644; 94645; 96374; 97163; 99152; 99153; 99284; A4649; C1785; C1894; C1898; J0168; J0461; J0612; J0689; J0696; J1815; J2250; J2310; J3010; J3373; J3475; J3490; A9270

== ENCOUNTER 2024-10-13 13:43 | Outpatient (RCR) | payer MEDICARE, MEDICAID, SELFPAY ==
--- NOTE | 2024-10-18 00:10 | CTCFLWUP_ITS ---
Patient: KIANNA GARCIA : 1955 Page 5 of 6 FOLLOW UP NOTE DATE OF SERVICE: 10/13/2024 NAME: KIANNA GARCIA ACCOUNT: [id number] : 1955 AGE: 69 INTERVAL HISTORY: Chief Complaint Still very fatigued Medical History - Pneumonia- resolved Medications and Supplements - Antibiotics - Low ofloxacin - Immunotherapy - Delayed due to pneumonia and antibiotic treatment - Inhaler Review of Systems General: Positive for fatigue. Skin: Positive for dryness. HEENT: Positive for dry mouth. Genitourinary: Positive for vaginal dryness. ONCOLOGY HISTORY:?[facility] Oncology Hx? DIAGNOSIS: Secondary malignant neoplasm of brain [ICD10] C79.31; Secondary malignant neoplasm of right lung [ICD10] C78.01; Malignant neoplasm of right kidney, except renal pelvis [ICD10] C64.1 History of right nephrectomy remote in 2016 at [facility] 8 cm mass in the lung as clear-cell carcinoma DATE OF DIAGNOSIS: 01/12/2024 STAGE/TNM: IV T4 N1 M1 TREATMENT HISTORY: Care?Plan Start?Date Cycle Day Intent Axitinib?and?Pembrolizumab 05/16/2024 1 21 Palliative HISTORY OF PRESENT ILLNESS: 69-year-old female who is seen here for new diagnosis of renal cell cancer. Patient also was found to have brain lesion for which she underwent SRS. Patient follows with [facility]. Patient completed SRS Feeling very fatigued and tired She has very poor appetite. 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 Aldactone - 50 mg 1 tab Daily 2. carvedilol - 12.5 mg 1 tab Twice a Day 3. cloNIDine HCl - 0.2 mg 1 tab Twice a Day 4. conjugated estrogens - 0.625 mg/gram 1 gm Daily 5. Cozaar - 50 mg Daily 6. Imodium A-D - 2 mg 2 mg Daily 7. Inlyta - 5 mg 1 tab Daily 8. Januvia - 100 mg Daily 9. Jardiance - 25 mg Daily 10. Levemir - 10 Units Twice a Day 11. levothyroxine - 150 mcg 1 tab Daily 12. Lidocaine Viscous - 2 % 10 mL NEEDED 13. lovastatin - 10 mg 1 tab Daily 14. Maalox Advanced - 200-200-20 mg/5 mL 20 mL as needed 15. nystatin - 100,000 unit/mL 10 mL as needed 16. Mel-Debra Rx - 1-60-300 mg-mg-mcg 1 tab Daily?Palabra Meds? Medications Last Reconciled by Elizabeth Beckman MD on 10/13/2024 ALLERGIES: No Known Drug Allergies REVIEW OF SYSTEMS: A complete 14-point review of systems was performed and is negative except as noted in interval history. PHYSICAL EXAMINATION:?[facility] PE? VITAL SIGNS: Temperature?97.5, B/P?140/91, Oxygen?Saturation?99% Weight?122?lbs (Change?since?09/13/24:?-4.4?lbs) PAIN: 0 - No pain ECOG Performance Status: 0 - Asymptomatic and fully active GENERAL APPEARANCE: Appears well, in no apparent distress, appropriately interactive. HEENT: Normocephalic, no temporal wasting, normal conjunctiva, no scleral icterus, normal hearing, lips without lesions, neck normal range of motion. CARDIOVASCULAR: Not assessed. PULMONARY: Normal respiratory effort, no respiratory distress or use of accessory muscles, speaking in full sentences, no tachypnea. EXTREMITIES: No pedal edema or cyanosis. SKIN: Normal skin appearance. NEUROLOGIC: Alert and oriented x4. PSHYCHIATRIC: Appropriate affect, mood normal, behavior normal, intact thought and speech. LABORATORY DATA: I have personally reviewed and interpreted each of the patient?s relevant lab tests, abnormal findings are below: Date 09/15/24 09/16/24 ??WHITE?BLOOD?COUNT?(Thou/mm3) 11.2?H 9.6 ??RED?BLOOD?COUNT?(Miln/mm3) 5.40?H 5.32?H ??HEMOGLOBIN?(gm/dl) 16.9?H 16.5?H ??HEMATOCRIT?(%) 49.6?H 49.5?H ??PLATELET?COUNT?(Thou/mm3) 278 239 ??NEUTROPHILS?%,?AUTO?(%) 78 82?H ??LYMPH?%,?AUTO?(%) 15 11 ??NEUTROPHILS,?AUTO?(Thou/mm3) 8.7?H 7.8?H ??GLUCOSE,RANDOM?(mg/dL) ? 111?H ??BLOOD?UREA?NITROGEN?(mg/dL) ? 22 ??CREATININE?(mg/dL) ? 1.40?H ??SODIUM?(mmol/L) ? 136 ??POTASSIUM?(mmol/L) ? 4.0 ??CHLORIDE?(mmol/L) ? 103 ??CrCl?(CandG)?(ml/min) ? 33.84 ??AST/SGOT?(Unit/L) ? 29 ??ALT/SGPT?(Unit/L) ? 34 ??ALKALINE?PHOSPHATASE?(Unit/L) ? 119?H ??BILIRUBIN,?TOTAL?(mg/dL) ? 0.6 ??PROTEIN?TOTAL?(gm/dl) ? 5.9 ??ALBUMIN,?SERUM?(gm/dl) ? 3.2?L ??GLOBULIN?(gm/dl) ? 2.7 ??ALBUMIN/GLOBULIN?RATIO ? 1.2 ??CALCIUM,?SERUM?(mg/dL) ? 8.8 ??CALCIUM?SERUM?(CORRECTED)?(mg/dL) ? 9.4 ??MAGNESIUM?(mg/dL) ? 2.2 ASSESSMENT/PLAN:?[facility]ton Self Assessment/Plan? 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 Plan: - For oral and skin dryness: - Advise use of coconut oil for skin and gum massage - Encourage frequent oral hydration - For vaginal dryness: - Prescribe estrogen cream - Instruct to apply every other day initially for one week, then every 2-3 days per week CBC CMP TSH T4 ORDERS: Order # Description [id number] MRI + Brain + With W/O Contrast [id number] CT Scan + With W/O Contrast + Chest + Abdomen and Pelvis [id number] Cardiac ECHO [id number] Comprehensive Metabolic Panel - 12 + CBC with Auto Diff RETURN TO CLINIC: I reviewed the diagnosis, prognosis, and recommended treatment/procedure options with the patient (and/or their legal traveling representative), including the potential benefits, risks, side effects and alternative therapies. We also discussed the option of no treatment and the possibility of clinical trial participation, if applicable. All questions were addressed, and they demonstrated understanding. They provided informed consent to proceed with the proposed plan of care. BILLING AND COMPLIANCE: I reviewed external records from providers outside my specialty as summarized above. I spent a total of 50 minutes on this patient?s care on the day of their visit excluding time spent related to any billed procedures. This time includes time spent with the patient as well as time spent documenting in the medical record, reviewing patients records and tests, obtaining history, placing orders, communicating with other healthcare professionals, counseling the patient, family or caregiver, and/or care coordination for the diagnoses above. Electronically Signed by: El Self MD T: 12:08 AM CC: PCP: Denise Gonzalez Referring: Denise Gonzalez This document was completed utilizing speech recognition software. Grammatical errors, random word insertions, pronoun errors, and incomplete sentences are an occasional consequence of this system due to software limitations, ambient noise, and hardware issues. Any formal questions or concerns about the content, text or information contained within the body of this dictation should be directly addressed to the provider for clarification.
== END 2024-10-16 23:59 | disposition home or self-care (01) ==
LOC: SCTC 13:43
PROVIDERS: PCP Internal Medicine; Referring Provider Internal Medicine; Visit Provider Internal Medicine Hematology & Oncology
DX: C64.1 Malignant neoplasm of right kidney, except renal pelvis (principal); C79.31 Secondary malignant neoplasm of brain; C78.01 Secondary malignant neoplasm of right lung
CPT/HCPCS: 99212; G0463

== ENCOUNTER → 2024-10-31 | Outpatient (CLI) | payer MEDICARE, MEDICAID, SELFPAY ==
[2024-10-31 12:59] LABS: Free T4 (Free Thyroxine) 1.62 ng/dL (0.89-1.76); Thyroid Stimulating Hormone 7.76 uIU/mL (0.55-4.78)
== END | disposition home or self-care (01) ==
LOC: SLAB 11:50
PROVIDERS: PCP Internal Medicine; Referring Provider Internal Medicine; Visit Provider Internal Medicine
DX: E03.9 Hypothyroidism, unspecified (principal)
CPT/HCPCS: 36415; 84439; 84443

== ENCOUNTER → 2024-11-11 | Outpatient (CLI) | payer MEDICARE, MEDICAID, SELFPAY ==
[2024-11-11 10:15] LABS: Basophils # (Auto) 0.1 Thou/mm3 (0.0-0.2); Basophils % (Auto) 1 % (0-2.5); Eosinophils # (Auto) 0.3 Thou/mm3 (0.0-0.5); Eosinophils % (Auto) 4 % (0-10); Hematocrit 39.7 % (36.0-46.0); Hemoglobin 13.1 g/dL (12.0-16.0); Immature Granulocytes Auto 0.09 Thou/mm3 (0.00-0.00); Lymphocytes # (Auto) 1.7 Thou/mm3 (1.0-4.8); Lymphocytes % (Auto) 20 % (10-50); Mean Corpuscular HGB Conc 33.0 g/dl (31.0-37.0); Mean Corpuscular Hemoglobin 32.0 pg (25.0-35.0); Mean Corpuscular Volume 97 fL (80-100); Monocytes # (Auto) 0.7 Thou/mm3 (0.0-0.8); Monocytes % (Auto) 9 % (0-12); Neutrophils # (Auto) 5.4 Thou/mm3 (1.8-7.7); Neutrophils % (Auto) 66 % (37-80); Nucleated Red Blood Cell # 0.00 Thou/mm3 (0.00-0.00); Nucleated Red Blood Cell % 0 /100 WBC (0); Platelet Count 332 Thou/mm3 (140-440); RDW Standard Deviation 51.1 fL (36.4-46.3); Red Blood Count 4.10 Miln/mm3 (4.00-5.20); White Blood Count 8.2 Thou/mm3 (3.6-11.0)
[2024-11-11 10:40] LABS: Alanine Aminotransferase 29 U/L (10-49); Albumin, Serum 4.7 gm/dL (3.4-4.8); Albumin/Globulin Ratio 1.6 (1.2-2.2); Alkaline Phosphatase 117 U/L (46-116); Anion Gap 6 (7-16); Aspartate Amino Transferase 25 U/L (0-34); BUN/Creatinine Ratio 32 Ratio (12-20); Bilirubin,Total 0.6 mg/dL (0.3-1.2); Blood Urea Nitrogen 48 mg/dL (9-23); Calcium 9.6 mg/dL (8.3-10.6); Calcium (Corrected) 9.6 mg/dL (8.5-10.1); Carbon Dioxide 21.8 mMol/L (20.0-31.0); Chloride 108 mMol/L (98-107); Creatinine (Component) 1.5 mg/dL (0.6-1.3); Free T4 (Free Thyroxine) 1.76 ng/dL (0.89-1.76); Globulin 2.9 gm/dL (2.3-3.5); Glucose 83 mg/dL (74-106); Osmolality,Calculated 283 (275-295); Potassium 5.1 mMol/L (3.4-5.1); Sodium 136 mMol/L (136-145); Thyroid Stimulating Hormone 12.22 uIU/mL (0.55-4.78); Total Protein 7.6 gm/dL (5.7-8.2); eGFR 37 See Note
== END | disposition home or self-care (01) ==
LOC: SLAB 09:15
PROVIDERS: PCP Internal Medicine; Referring Provider Internal Medicine Hematology & Oncology; Visit Provider Internal Medicine Hematology & Oncology
DX: C79.31 Secondary malignant neoplasm of brain (principal); C78.01 Secondary malignant neoplasm of right lung; C64.1 Malignant neoplasm of right kidney, except renal pelvis; E03.9 Hypothyroidism, unspecified
CPT/HCPCS: 36415; 80053; 84439; 84443; 85025

== ENCOUNTER 2024-11-14 10:30 | Outpatient (RCR) | payer MEDICARE, MEDICAID, SELFPAY ==
[2024-10-24 09:23] LABS: Basophils # (Auto) 0.0 Thou/mm3 (0.0-0.2); Basophils % (Auto) 1 % (0-2.5); Eosinophils # (Auto) 0.3 Thou/mm3 (0.0-0.5); Eosinophils % (Auto) 5 % (0-10); Hematocrit 37.7 % (36.0-46.0); Hemoglobin 12.2 g/dL (12.0-16.0); Immature Granulocytes Auto 0.06 Thou/mm3 (0.00-0.00); Lymphocytes # (Auto) 0.7 Thou/mm3 (1.0-4.8); Lymphocytes % (Auto) 11 % (10-50); Mean Corpuscular HGB Conc 32.4 g/dl (31.0-37.0); Mean Corpuscular Hemoglobin 31.8 pg (25.0-35.0); Mean Corpuscular Volume 98 fL (80-100); Monocytes # (Auto) 0.4 Thou/mm3 (0.0-0.8); Monocytes % (Auto) 6 % (0-12); Neutrophils # (Auto) 4.9 Thou/mm3 (1.8-7.7); Neutrophils % (Auto) 77 % (37-80); Nucleated Red Blood Cell # 0.00 Thou/mm3 (0.00-0.00); Nucleated Red Blood Cell % 0 /100 WBC (0); Platelet Count 219 Thou/mm3 (140-440); RDW Standard Deviation 55.8 fL (36.4-46.3); Red Blood Count 3.84 Miln/mm3 (4.00-5.20); White Blood Count 6.4 Thou/mm3 (3.6-11.0)
[2024-10-24 09:43] LABS: Alanine Aminotransferase 14 U/L (10-49); Albumin, Serum 3.8 gm/dL (3.4-4.8); Albumin/Globulin Ratio 1.7 (1.2-2.2); Alkaline Phosphatase 93 U/L (46-116); Anion Gap 9 (7-16); Aspartate Amino Transferase 21 U/L (0-34); BUN/Creatinine Ratio 25 Ratio (12-20); Bilirubin,Total 0.5 mg/dL (0.3-1.2); Blood Urea Nitrogen 35 mg/dL (9-23); Calcium 9.3 mg/dL (8.3-10.6); Calcium (Corrected) 9.5 mg/dL (8.5-10.1); Carbon Dioxide 22.2 mMol/L (20.0-31.0); Chloride 105 mMol/L (98-107); Creatinine (Component) 1.4 mg/dL (0.6-1.3); Free T4 (Free Thyroxine) 1.69 ng/dL (0.89-1.76); Globulin 2.3 gm/dL (2.3-3.5); Glucose 86 mg/dL (74-106); Osmolality,Calculated 278 (275-295); Potassium 4.6 mMol/L (3.4-5.1); Sodium 136 mMol/L (136-145); Thyroid Stimulating Hormone 12.64 uIU/mL (0.55-4.78); Total Protein 6.1 gm/dL (5.7-8.2); eGFR 40 See Note
== END 2024-11-15 23:59 | disposition home or self-care (01) ==
LOC: SCTC 10:30
PROVIDERS: PCP Internal Medicine; Referring Provider Internal Medicine; Visit Provider Internal Medicine Hematology & Oncology
DX: Z51.11 Encounter for antineoplastic chemotherapy (principal); C64.1 Malignant neoplasm of right kidney, except renal pelvis; C79.31 Secondary malignant neoplasm of brain; Z90.5 Acquired absence of kidney; C78.01 Secondary malignant neoplasm of right lung
CPT/HCPCS: 80053; 84439; 84443; 85025; 96413; J3490; J9271

== ENCOUNTER → 2024-11-24 | Outpatient (CLI) | payer MEDICARE, MEDICAID, SELFPAY ==
--- NOTE | 2024-11-24 10:57 | XR_ITS ---
Examination: CT chest with intravenous contrast CT abdomen with intravenous contrast CT pelvis with intravenous contrast CT abdomen without intravenous contrast, CT chest without intravenous contrast CT pelvis without intravenous contrast 2-D coronal and sagittal reconstructions Time of exam: November 24, 2024, 1116 hours, comparison CT chest September 06, 2024, June 13, 2024, PET/CT scan February 18, 2024 INDICATIONS: Diagnosis secondary malignant neoplasm of the brain, CTA chest September 06, 2024 right mediastinal tumor mass 3.0 x 3.5 x 6.7 cm, 2 mm pulmonary nodule right upper lobe, diagnosis renal cell carcinoma CTDI: vol (mGy) : 14.8 DLP: (mGycm): 1018 Technique: Multiple axial images of the chest, abdomen and pelvis with intravenous contrast, 3.0 mm slice thickness. Images obtained post intravenous injection Isovue 370 60 cc. 2-D sagittal and coronal reconstructions. Low dose protocols were performed. One or more of the following dose reduction techniques were used; automated exposure control, adjustment of the mA and/or KV according to patient size, use of iterative reconstruction technique. Findings: Pulmonary mass in the right upper lobe measures 23 x 22 mm compared to 29 x 31 mm on September 06, 2024 The mass again extends to the right mediastinal region, mass in the right tracheobronchial area measures 41 x 24 mm compared to 44 x 30 mm on September 06, 2024 No new pulmonary nodules No pneumonia or pulmonary edema Mild enlargement cardiac contour No interval liver or splenic lesions Absent gallbladder Absent right kidney No tumor in the right renal fossa No left renal tumor mass No interval abdominal or pelvic lymphadenopathy No bowel obstruction Right pelvic anterior hernia defect, 34 mm, containing small bowel no incarcerated bowel 25 mm fat-containing umbilical hernia Atrophic uterus No bladder mass Abundant stool in the rectum IMPRESSION: Pulmonary mass in the right upper lobe measures 23 x 22 mm compared to 29 x [address] September 06, 2024 Right mediastinal tumor mass, right tracheobronchial and precarinal region measures 41 x 24 mm compared to 44 x [address] examination September 06, 2024 No new pulmonary nodules No pneumonia or pulmonary edema No interval metastatic disease in the abdomen or pelvis
== END | disposition home or self-care (01) ==
PROVIDERS: PCP Internal Medicine; Referring Provider Internal Medicine Hematology & Oncology; Visit Provider Internal Medicine Hematology & Oncology
DX: R91.8 Other nonspecific abnormal finding of lung field (principal); C79.31 Secondary malignant neoplasm of brain; C78.01 Secondary malignant neoplasm of right lung; C64.1 Malignant neoplasm of right kidney, except renal pelvis
CPT/HCPCS: 71270; 74178; A4649; Q9967

== ENCOUNTER → 2024-12-02 | Outpatient (CLI) | payer MEDICARE, MEDICAID, SELFPAY ==
[2024-12-02 14:28] LABS: Basophils # (Auto) 0.1 Thou/mm3 (0.0-0.2); Basophils % (Auto) 1 % (0-2.5); Eosinophils # (Auto) 0.4 Thou/mm3 (0.0-0.5); Eosinophils % (Auto) 4 % (0-10); Hematocrit 37.3 % (36.0-46.0); Hemoglobin 11.9 g/dL (12.0-16.0); Immature Granulocytes Auto 0.07 Thou/mm3 (0.00-0.00); Lymphocytes # (Auto) 0.9 Thou/mm3 (1.0-4.8); Lymphocytes % (Auto) 9 % (10-50); Mean Corpuscular HGB Conc 31.9 g/dl (31.0-37.0); Mean Corpuscular Hemoglobin 31.9 pg (25.0-35.0); Mean Corpuscular Volume 100 fL (80-100); Monocytes # (Auto) 0.5 Thou/mm3 (0.0-0.8); Monocytes % (Auto) 5 % (0-12); Neutrophils # (Auto) 8.0 Thou/mm3 (1.8-7.7); Neutrophils % (Auto) 82 % (37-80); Nucleated Red Blood Cell # 0.00 Thou/mm3 (0.00-0.00); Nucleated Red Blood Cell % 0 /100 WBC (0); Platelet Count 244 Thou/mm3 (140-440); RDW Standard Deviation 51.5 fL (36.4-46.3); Red Blood Count 3.73 Miln/mm3 (4.00-5.20); White Blood Count 9.8 Thou/mm3 (3.6-11.0)
[2024-12-02 14:42] LABS: Alanine Aminotransferase 59 U/L (10-49); Albumin, Serum 3.9 gm/dL (3.4-4.8); Albumin/Globulin Ratio 1.9 (1.2-2.2); Alkaline Phosphatase 108 U/L (46-116); Anion Gap 7 (7-16); Aspartate Amino Transferase 48 U/L (0-34); BUN/Creatinine Ratio 26 Ratio (12-20); Bilirubin,Total 0.5 mg/dL (0.3-1.2); Blood Urea Nitrogen 41 mg/dL (9-23); Calcium 8.7 mg/dL (8.3-10.6); Calcium (Corrected) 8.8 mg/dL (8.5-10.1); Carbon Dioxide 16.9 mMol/L (20.0-31.0); Chloride 110 mMol/L (98-107); Creatinine (Component) 1.6 mg/dL (0.6-1.3); Free T4 (Free Thyroxine) 2.08 ng/dL (0.89-1.76); Globulin 2.1 gm/dL (2.3-3.5); Glucose 139 mg/dL (74-106); Osmolality,Calculated 280 (275-295); Sodium 134 mMol/L (136-145); Thyroid Stimulating Hormone 5.01 uIU/mL (0.55-4.78); Total Protein 6.0 gm/dL (5.7-8.2); eGFR 34 See Note
[2024-12-02 14:43] LABS: Potassium 7.1 mMol/L (3.4-5.1)
== END | disposition home or self-care (01) ==
LOC: SLAB 13:46
PROVIDERS: PCP Internal Medicine; Referring Provider Internal Medicine Hematology & Oncology; Visit Provider Internal Medicine Hematology & Oncology
DX: C79.31 Secondary malignant neoplasm of brain (principal)
CPT/HCPCS: 36415; 80053; 84439; 84443; 85025

== ENCOUNTER 2024-12-05 13:23 | Outpatient (RCR) | payer MEDICARE, MEDICAID, SELFPAY ==
[2024-12-05 14:43] LABS: Alanine Aminotransferase 69 U/L (10-49); Albumin, Serum 3.7 gm/dL (3.4-4.8); Albumin/Globulin Ratio 1.9 (1.2-2.2); Alkaline Phosphatase 105 U/L (46-116); Anion Gap 8 (7-16); Aspartate Amino Transferase 58 U/L (0-34); BUN/Creatinine Ratio 16 Ratio (12-20); Bilirubin,Total 0.3 mg/dL (0.3-1.2); Blood Urea Nitrogen 26 mg/dL (9-23); Calcium 8.5 mg/dL (8.3-10.6); Calcium (Corrected) 8.7 mg/dL (8.5-10.1); Chloride 112 mMol/L (98-107); Creatinine (Component) 1.6 mg/dL (0.6-1.3); Free T4 (Free Thyroxine) 1.96 ng/dL (0.89-1.76); Globulin 2.0 gm/dL (2.3-3.5); Glucose 126 mg/dL (74-106); Osmolality,Calculated 273 (275-295); Sodium 133 mMol/L (136-145); Thyroid Stimulating Hormone 3.75 uIU/mL (0.55-4.78); Total Protein 5.7 gm/dL (5.7-8.2); eGFR 34 See Note
[2024-12-05 14:44] LABS: Potassium 7.6 mMol/L (3.4-5.1)
[2024-12-05 14:45] LABS: Carbon Dioxide 13.3 mMol/L (20.0-31.0)
== END 2024-12-16 23:59 | disposition home or self-care (01) ==
LOC: SCTC 13:23
PROVIDERS: Internal Medicine Hematology & Oncology; PCP Internal Medicine; Referring Provider Internal Medicine; Visit Provider Radiology Therapeutic Radiology
DX: C64.1 Malignant neoplasm of right kidney, except renal pelvis (principal); C78.01 Secondary malignant neoplasm of right lung; C79.31 Secondary malignant neoplasm of brain
CPT/HCPCS: 36415; 80053; 84439; 84443; 85025; J3490; J9271

== ENCOUNTER 2024-12-05 15:06 | Inpatient (IN) | payer MEDICARE, MEDICAID, SELFPAY ==
[2024-12-05] VITALS (11 sets, daily range): BP systolic 129–196; BP diastolic 61–114; PULSE 70–89; RESP 12–20; TEMP 36.6–36.8; O2SAT 96–100
--- NOTE | 2024-12-05 15:33 | EKG_ITS ---
[facility] Test Date: 2024-12-05 Pat Name: KIANNA GARCIA Department: Room: - Gender: Female Clinical Trial Head: : 1955 Requested By: Lissette Fuentes Order Number: [id number] Reading MD: Lissette Fuentes Measurements Intervals [place] Rate: 71 P: 78 IN: 147 QRS: 262 QRSD: 184 T: 70 QT: 422 QTc: 461 Interpretive Statements ELECTRONIC VENTRICULAR PACEMAKER ABNORMAL RHYTHM ECG Compared to ECG 09/14/2024 08:18:06 Sinus bradycardia no longer present Left-axis deviation no longer present Right ventricular hypertrophy no longer present T-wave abnormality no longer present Possible ischemia no longer present /store/S0/[id number]/ecg/[id number].pdf
--- NOTE | 2024-12-05 15:34 | PD.EDRME ---
Rapid Medical Screening Exam RME Arrival date/time: 12/05/24 15:06 This is a case of 69-year-old female who had history of cancer came in in the emergency room due to hyperkalemia patient was on cancer treatment center where blood test was performed and noted that her potassium was greater than 7 and was sent here for treatment and further evaluation patient have no symptoms Chief Complaint: General Adult/Misc Complain Time Seen by Provider: 12/05/24 15:15 Vital signs: Vital Signs Temperature 36.8 C 12/05/24 15:24 Pulse Rate 73 12/05/24 15:24 Respiratory Rate 18 12/05/24 15:24 Blood Pressure 143/82 H 12/05/24 15:24 Pulse Oximetry (%) 100 12/05/24 15:24 Oxygen Delivery Method Room Air 12/05/24 15:24 MD Attestation MD Attestation Patient will be admitted to medical team and medical management for hyperkalemia ordered.
[2024-12-05 16:06] LABS: Basophils # (Auto) 0.0 Thou/mm3 (0.0-0.2); Basophils % (Auto) 1 % (0-2.5); Eosinophils # (Auto) 0.3 Thou/mm3 (0.0-0.5); Eosinophils % (Auto) 5 % (0-10); Hematocrit 36.7 % (36.0-46.0); Hemoglobin 11.8 g/dL (12.0-16.0); Immature Granulocytes Auto 0.06 Thou/mm3 (0.00-0.00); Lymphocytes # (Auto) 0.9 Thou/mm3 (1.0-4.8); Lymphocytes % (Auto) 13 % (10-50); Mean Corpuscular HGB Conc 32.2 g/dl (31.0-37.0); Mean Corpuscular Hemoglobin 32.0 pg (25.0-35.0); Mean Corpuscular Volume 100 fL (80-100); Monocytes # (Auto) 0.4 Thou/mm3 (0.0-0.8); Monocytes % (Auto) 6 % (0-12); Neutrophils # (Auto) 5.3 Thou/mm3 (1.8-7.7); Neutrophils % (Auto) 75 % (37-80); Nucleated Red Blood Cell # 0.00 Thou/mm3 (0.00-0.00); Nucleated Red Blood Cell % 0 /100 WBC (0); Platelet Count 214 Thou/mm3 (140-440); RDW Standard Deviation 50.5 fL (36.4-46.3); Red Blood Count 3.69 Miln/mm3 (4.00-5.20); White Blood Count 7.0 Thou/mm3 (3.6-11.0)
[2024-12-05 16:56] LABS: Alanine Aminotransferase 74 U/L (10-49); Albumin, Serum 4.0 gm/dL (3.4-4.8); Albumin/Globulin Ratio 1.8 (1.2-2.2); Alkaline Phosphatase 128 U/L (46-116); Anion Gap 7 (7-16); Aspartate Amino Transferase 59 U/L (0-34); BUN/Creatinine Ratio 18 Ratio (12-20); Bilirubin,Total 0.3 mg/dL (0.3-1.2); Blood Urea Nitrogen 29 mg/dL (9-23); Calcium 8.8 mg/dL (8.3-10.6); Calcium (Corrected) 8.8 mg/dL (8.5-10.1); Carbon Dioxide 15.1 mMol/L (20.0-31.0); Chloride 112 mMol/L (98-107); Creatinine (Component) 1.6 mg/dL (0.6-1.3); Globulin 2.2 gm/dL (2.3-3.5); Glucose 123 mg/dL (74-106); Magnesium 1.6 mg/dL (1.6-2.6); Osmolality,Calculated 275 (275-295); Sodium 134 mMol/L (136-145); Total Protein 6.2 gm/dL (5.7-8.2); Troponin I < 0.020 ng/mL (0.0-0.045); eGFR 34 See Note
[2024-12-05 16:58] LABS: Potassium 7.3 mMol/L (3.4-5.1)
--- NOTE | 2024-12-05 17:45 | EDNOTE_ITS ---
ED General RME/HPI General Chief complaint: General Adult/Misc Complain Stated complaint: SENT BY PMD FOR K 7.6 Time Seen by Provider: 12/05/24 15:15 Arrival date/time: 12/05/24 15:06 Limitations: no limitations and language barrier RME / HPI RME / HPI narrative: 12/05/24 15:06 This is a case of 69-year-old female who had history of cancer came in in the emergency room due to hyperkalemia patient was on cancer treatment center where blood test was performed and noted that her potassium was greater than 7 and was sent here for treatment and further evaluation patient have no symptoms Dr Orantes evaluation Patient is a 69 yo female with medical history notable for renal cancer status post right kidney nephrectomy, 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 Patient had a labs drawn as outpatient was told that her labs were abnormal and was told to come to the emergency department. Denies any chest pain fevers chills nausea vomiting shortness of breath abdominal pain dysuria hematuria melena bloody stools drugs alcohol smoking recent travel or sick contacts. Patient does state that she has felt weak recently. Related Data Home Medications ?Medication ?Instructions ?Recorded ?Confirmed sitagliptin phosphate 100 mg 100 mg PO QDAY #0 tabs 12/06/24 tablet (Januvia) carvedilol 12.5 mg tablet 12.5 mg PO BID 05/15/2311/17 axitinib 5 mg tablet (Inlyta) 5 mg PO Q12H 05/25/24 Held on 12/07/24. Instructions: Resume on 12/14/24. Follow with oncologist before resuming clonidine HCl 0.2 mg tablet 0.2 mg PO BID 05/25/24 ropinirole 1 mg tablet 2 mg PO QPM 05/25/24 5 vitamin B comp no.3-folic acid 1 1 tab PO QDAY 5 12/06/24 mg-vit C 60 mg-biotin 300 mcg tablet (Mel-Debra Rx) pembrolizumab 50 mg intravenous 200 mg IV .[id number] 12/06/24 solution Previous Rx's ?Medication ?Instructions ?Recorded amlodipine 5 mg tablet 5 mg PO QDAY 1 month #30 tab s 12/07/24 sodium bicarbonate 325 mg tablet 325 mg PO QDAY 1 chanda h #30 tabs 12/07/24 Allergies Allergy/AdvReac Type Severity Reaction Status Date / Time No Known Allergies Allergy Verified 07/27/24 09:24 ED Exam General Limitations: Present no limitations and language barrier General appearance: Present alert and in no apparent distress Head Head exam: Present atraumatic Eye Eye exam: Present normal appearance and PERRL Course Quality Measures none Orders Category Date Time Status EKG (ED ONLY) *Do not use* NOW Care 12/05/24 15:33 Completed EKG (ED Only) Stat Exams 12/05/24 15:33 Draft CBC Stat Lab 12/05/24 15:50 Completed CMP [Comprehensive Metabolic Panel] Stat Lab 12/05/24 15:50 Completed Magnesium Stat Lab 12/05/24 15:50 Completed Troponin I Stat Lab 12/05/24 15:50 Completed ALBUTEROL RT 3ml [Proventil Rt 3ml] Med 12/05/24 17:03 Discontinued 2.5 mg INH X1 ONE Calcium Gluconate 10% Inj Med 12/05/24 17:02 Discontinued 1 gm IV X1 ONE Dextrose 10%-Water 1000 ml [D10w 1000 ml] 1,000 ml Med 12/05/24 17:15 Discontinued IV 100 mls/hr Dextrose 50% Syr [D50w Syringe Abboject] Med 12/05/24 17:02 Discontinued 100 ml IV X1 ONE Dextrose 50% Syr [D50w Syringe Abboject] Med 12/05/24 17:02 Discontinued 25 ml IV Q15MIN PRN Furosemide [Lasix Inj] Med 12/05/24 17:02 Discontinued 40 mg IVP X1 ONE Insulin Regular Med 12/05/24 17:02 Discontinued 10 unit IV X1 ONE Sod Polystyrene Sulfon Susp [Kayexalate Susp] Med 12/05/24 17:02 Discontinued 30 gm PO X1 ONE Vital Signs Vital signs: Vital Signs Temperature 98.2 F 12/05/24 15:24 Pulse Rate 73 12/05/24 15:24 Respiratory Rate 18 12/05/24 15:24 Blood Pressure 143/82 H 12/05/24 15:24 Pulse Oximetry (%) 100 12/05/24 15:24 Oxygen Delivery Method Room Air 12/05/24 15:24 Critical Care Time Critical Care Time Critical Care Time: Yes Total Critical Care Time (min.): 36 Attestation: Total critical care time: Approximately?36?minutes Due to a high probability of clinically significant, life threatening deterioration, the patient required my highest level of preparedness to intervene emergently and I personally spent this critical care time directly and personally managing the patient. This critical care time included obtaining a history; examining the patient; pulse oximetry; ordering and review of studies; arranging urgent treatment with development of a management plan; evaluation of patient's response to treatment; frequent reassessment; and, discussions with other providers. This critical care time was performed to assess and manage the high probability of imminent, life-threatening deterioration that could result in multi-organ failure. It was exclusive of separately billable procedures and treating other patients and teaching time. Please see MDM section and the rest of the note for further information on patient assessment and treatment. Discharge Plan Plan Patient Disposition: Admit Acute Care w/in Hospital Patient condition on transfer: Stable Problem List Clinical Impression: Acute hyperkalemia MDM Narrative MDM hospital course (for use when minimal MDM required): Patient presents w/ concern for abnl labs. VS and exam as listed. Concern for metabolic dist, arrythmia, anemia among others. Ordered labs and EKG. Labs with hyperkalemia. ordered medications for mgt of hyperkalemia. Patient remained HD stable NAD. 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 Accepted for hospital admission Clinical Information Provided by: patient Medical Records reviewed [facility] Meds/Rx considered, not ordered None Labs/Rad/Tests considered, not ordered None Chronic Illness/Social Conditions which may negatively complicate care or outcome(s)-explain: other (see mdm ) EKG Interpretation EKG #1: EKG Interpretation: Performed today [id number] notable for paced rhythm, nl int, non spec t wave changes not a cardiac alert Medication Administration(s) Medication Administration History Discontinued Medications Acetaminophen (Acetaminophen 325 Mg Tablet) 650 mg PO Q6H PRN PRN Reason: Fever >100 or pain 1-3 Stop: 01/04/25 18:17 Last Admin: 12/06/24 21:13 Dose: 650 mg Documented By: LEO Albuterol (Albuterol Rt 2.5 Mg/3 Ml Nebu) 2.5 mg INH X1 ONE Stop: 12/05/24 17:04 Last Admin: 12/05/24 18:58 Dose: 2.5 mg Documented By: NE Albuterol (Albuterol Rt 2.5 Mg/3 Ml Nebu) 10 mg INH X1 ONE Stop: 12/05/24 23:42 Last Admin: 12/06/24 00:00 Dose: 10 mg Documented By: NE Albuterol (Albuterol Rt 2.5 Mg/3 Ml Nebu) 10 mg INH X1 ONE Stop: 12/06/24 04:23 Last Admin: 12/06/24 05:24 Dose: 10 mg Documented By: NE Albuterol (Albuterol Rt 2.5 Mg/3 Ml Nebu) 10 mg INH X1 ONE Stop: 12/07/24 00:51 Last Admin: 12/07/24 01:37 Dose: 10 mg Documented By: MELISSA Albuterol/Ipratropium (Albuterol/Ipratropium (Duoneb) Rt [place]aya 3 Ml Nebu) 3 ml INH X1 ONE Stop: 12/05/24 18:21 Last Admin: 12/05/24 18:58 Dose: 3 ml Documented By: ISRA Calcium Chloride (Calcium Chloride 10% Inj 10 Ml Syrg) 10 ml IV X1 ONE Stop: 12/07/24 00:51 Last Admin: 12/07/24 01:47 Dose: 10 ml Documented By: MP Calcium Gluconate (Calcium Gluconate 10% Inj 1 Gm/10 Ml Vial) 1 gm IV X1 ONE Stop: 12/05/24 17:03 Last Admin: 12/05/24 18:46 Dose: 1 gm Documented By: AA Calcium Gluconate (Calcium Gluconate 10% Inj 1 Gm/10 Ml Vial) 1 gm IV X1 ONE Stop: 12/05/24 23:42 Last Admin: 12/06/24 00:19 Dose: 1 gm Documented By: EE Calcium Gluconate (Calcium Gluconate 10% Inj 1 Gm/10 Ml Vial) 1 gm IV X1 ONE Stop: 12/06/24 04:20 Last Admin: 12/06/24 05:36 Dose: 1 gm Documented By: JOVAN Carvedilol (Carvedilol 12.5 Mg Tablet) 12.5 mg PO BIDWM GAYATRI Stop: 01/04/25 20:59 Last Admin: 12/07/24 08:21 Dose: 12.5 mg Documented By: Admin: 12/06/24 17:01 Dose: 12.5 mg Documented By: Admin: 12/06/24 08:19 Dose: 12.5 mg Documented By: Admin: 12/05/24 20:55 Dose: 12.5 mg Documented By: BALWINDER Citric Acid/Sodium Citrate (Citric Acid/Sodium Citr 15 Ml Udc (Bicitra)) 30 ml PO BID GAYATRI Stop: 01/05/25 20:59 Last Admin: 12/07/24 08:22 Dose: 30 ml Documented By: Admin: 12/06/24 21:15 Dose: 30 ml Documented By: LEO Dextrose (Dextrose 50%-Water Inj 50 Ml Syringe) 25 ml IV Q15MIN PRN PRN Reason: BG 50-70 responsive npo pt Stop: 01/04/25 17:01 Dextrose (Dextrose 50%-Water Inj 50 Ml Syringe) 100 ml IV X1 ONE Stop: 12/05/24 17:03 Last Admin: 12/05/24 18:51 Dose: 100 ml Documented By: ANISHA Dextrose (Dextrose 50%-Water Inj 50 Ml Syringe) 50 ml IV Q15MIN PRN PRN Reason: BG <50 OR BG <70 & pt unresponsive Stop: 01/04/25 18:20 Dextrose (Dextrose 50%-Water Inj 50 Ml Syringe) 25 ml IV Q15MIN PRN PRN Reason: BG 50-70 responsive npo pt Stop: 01/04/25 23:40 Dextrose (Dextrose 50%-Water Inj 50 Ml Syringe) 50 ml IV Q15MIN PRN PRN Reason: BG <50 OR BG <70 & pt unresponsive Stop: 01/04/25 23:40 Dextrose (Dextrose 50%-Water Inj 50 Ml Syringe) 50 ml IV X1 ONE Stop: 12/05/24 23:42 Last Admin: 12/06/24 00:21 Dose: 50 ml Documented By: BALWINDER Dextrose (Dextrose 50%-Water Inj 50 Ml Syringe) 50 ml IVP X1 ONE Stop: 12/06/24 04:21 Last Admin: 12/06/24 05:42 Dose: 50 ml Documented By: JOVAN Dextrose (Dextrose 50%-Water Inj 50 Ml Syringe) 50 ml IVP X1 ONE Stop: 12/07/24 00:51 Last Admin: 12/07/24 01:49 Dose: 50 ml Documented By: MP Furosemide (Furosemide Inj 10 Mg/Ml Vial 2 Ml) 40 mg IVP X1 ONE Stop: 12/05/24 17:03 Last Admin: 12/05/24 19:05 Dose: 40 mg Documented By: ANISHA Furosemide (Furosemide Inj 10 Mg/Ml Vial 2 Ml) 40 mg IVP X1 ONE Stop: 12/05/24 23:42 Last Admin: 12/06/24 00:19 Dose: 40 mg Documented By: BALWINDER Furosemide (Furosemide Inj 10 Mg/Ml Vial 2 Ml) 40 mg IVP X1 ONE Stop: 12/07/24 00:51 Last Admin: 12/07/24 01:50 Dose: 40 mg Documented By: RONEN Glucagon (Glucagon Inj 1 Mg Vial) 1 mg IM Q15MIN PRN PRN Reason: BG <70, and no IV access Glucagon (Glucagon Inj 1 Mg Vial) 1 mg IM Q15MIN PRN PRN Reason: BG <70, and no IV access Glucagon (Glucagon Inj 1 Mg Vial) 1 mg IM Q15MIN PRN PRN Reason: BG <70, and no IV access Heparin Sodium (Porcine) (Heparin Sod Inj 5000 Unit/Ml Vial) 5,000 unit SC Q12HR [facility] Stop: 12/19/24 20:59 Last Admin: 12/07/24 08:22 Dose: 5,000 unit Documented By: JAZ Co-signed By: JASON Admin: 12/06/24 21:04 Dose: 5,000 unit Documented By: LEO Co-signed By: XAVIER Admin: 12/06/24 08:19 Dose: 5,000 unit Documented By: MERCEDES Co-signed By: ALB[place]IA Admin: 12/05/24 20:56 Dose: 5,000 unit Documented By: BALWINDER Co-signed By: JAZ(2) Hydralazine HCl (Hydralazine Inj 20 Mg/Ml Vial) 10 mg IVP Q4HR PRN PRN Reason: Hypertension Stop: 01/04/25 19:30 Dextrose (D10w 1000 Ml) 1,000 mls @ 100 mls/hr IV .Q10H [facility] Stop: 12/06/24 03:14 Last Admin: 12/05/24 20:17 Dose: Not Given Documented By: BALWINDER Non-Admin Reason: Cancelled by Provider Magnesium Sulfate (Magnesium Sulfate Ivpb) 4 gm in 50 mls @ 12.5 mls/hr IV X1 ONE Stop: 12/07/24 11:42 Last Infusion: 12/07/24 09:50 Dose: 0 mls/hr Documented By: Admin: 12/07/24 08:21 Dose: 12.5 mls/hr Documented By: JAZ Insulin Human Lispro (Insulin Lispro (Admelog) 1 Unit/0.01 Ml Unit) 0 unit SC ACHS GAYATRI; Protocol Stop: 01/04/25 20:59 Last Admin: 12/07/24 11:30 Dose: Not Given Documented By: XIJAMAR Non-Admin Reason: Per Protocol Admin: 12/07/24 08:21 Dose: Not Given Documented By: XIJAMAR Non-Admin Reason: Per Protocol Admin: 12/06/24 21:10 Dose: Not Given Documented By: LEO Non-Admin Reason: Per Protocol Admin: 12/06/24 16:06 Dose: Not Given Documented By: [email or web address] Non-Admin Reason: Per Protocol Admin: 12/06/24 11:10 Dose: Not Given Documented By: [email or web address] Non-Admin Reason: Per Protocol Admin: 12/06/24 07:03 Dose: Not Given Documented By: [email or web address] Non-Admin Reason: Per Protocol Admin: 12/05/24 21:11 Dose: Not Given Documented By: BALWINDER Non-Admin Reason: Per Protocol Comments: fsbs 108 Insulin Human Regular (Insulin Hum Regular 1 Unit/0.01 Ml (Per Unit)) 10 unit IV X1 ONE Stop: 12/05/24 17:03 Last Admin: 12/05/24 19:02 Dose: 10 unit Documented By: AA Co-signed By: DB Insulin Human Regular (Insulin Hum Regular 1 Unit/0.01 Ml (Per Unit)) 5 unit IV X1 ONE Stop: 12/05/24 23:42 Last Admin: 12/06/24 00:19 Dose: 5 unit Documented By: EE Co-signed By: JAZ(2) Insulin Human Regular (Insulin Hum Regular 1 Unit/0.01 Ml (Per Unit)) 5 unit IV X1 ONE Stop: 12/06/24 04:21 Last Admin: 12/06/24 05:50 Dose: 5 unit Documented By: MRG Co-signed By: CG Comments: Given over 2 mins. Insulin Human Regular (Insulin Hum Regular 1 Unit/0.01 Ml (Per Unit)) 5 unit IV X1 ONE Stop: 12/07/24 00:51 Last Admin: 12/07/24 01:48 Dose: 5 unit Documented By: RONEN Co-signed By: CAITIE Magnesium Oxide (Magnesium Oxide 400 Mg Tablet) 400 mg PO X1 ONE Stop: 12/07/24 10:04 Last Admin: 12/07/24 10:16 Dose: 400 mg Documented By: JAZ Ondansetron HCl (Ondansetron Inj 2 Mg/Ml Inj 2 Ml) 4 mg IVP X1 ONE; Protocol Stop: 12/05/24 20:37 Last Admin: 12/05/24 20:55 Dose: 4 mg Documented By: BALWINDER Patiromer (Patiromer Calcium 8.4 Gm Packet) 8.4 gm PO X1 ONE Stop: 12/06/24 21:23 Ropinirole HCl (Ropinirole Hcl 1 Mg Tablet) 2 mg PO QPM GAYATRI Stop: 01/05/25 20:59 Ropinirole HCl (Ropinirole Hcl 1 Mg Tablet) 2 mg PO BID GAYATRI Stop: 01/05/25 20:59 Last Admin: 12/07/24 08:22 Dose: 2 mg Documented By: Admin: 12/06/24 21:43 Dose: Not Given Documented By: RONEN Non-Admin Reason: Patient Refused Ropinirole HCl (Ropinirole Hcl 1 Mg Tablet) 2 mg PO X1 ONE Stop: 12/06/24 15:48 Last Admin: 12/06/24 16:04 Dose: 2 mg Documented By: MERCEDES Ropinirole HCl (Ropinirole Hcl 1 Mg Tablet) 2 mg PO X1 ONE Stop: 12/06/24 23:16 Last Admin: 12/06/24 23:11 Dose: 2 mg Documented By: RONEN Sodium Bicarbonate (Sodium Bicarb Inj 8.4% 1 Meq/Ml 50 Ml Vial) 50 meq IV X1 ONE Stop: 12/06/24 21:23 Last Admin: 12/06/24 22:01 Dose: 50 meq Documented By: RONEN Comments: given over 5 minutes Sodium Bicarbonate (Sodium Bicarbonate 650 Mg Tablet) 325 mg PO QDAY [facility] Stop: 01/06/25 08:59 Sodium Polystyrene Sulfonate (Sod Polystyrene Sulfon Susp 15 Gm/60 Ml Btl) 30 gm PO X1 ONE Stop: 12/05/24 17:03 Last Admin: 12/05/24 18:46 Dose: 30 gm Documented By: AA Sodium Polystyrene Sulfonate (Sod Polystyrene Sulfon Susp 15 Gm/60 Ml Btl) 60 gm PO X1 ONE Stop: 12/05/24 23:42 Last Admin: 12/06/24 00:18 Dose: 60 gm Documented By: EE Sodium Polystyrene Sulfonate (Sod Polystyrene Sulfon Susp 15 Gm/60 Ml Btl) 30 gm PO X1 ONE Stop: 12/06/24 17:08 Last Admin: 12/06/24 17:44 Dose: 30 gm Documented By: PEDROEMWayne Sodium Polystyrene Sulfonate (Sod Polystyrene Sulfon Susp 15 Gm/60 Ml Btl) 60 gm PO X1 ONE Stop: 12/07/24 00:51 Last Admin: 12/07/24 01:47 Dose: 60 gm Documented By: RONEN
--- NOTE | 2024-12-05 18:35 | PD.RESHP ---
Documentation for date of: 12/05/24 Patient is a 68 year old female with a past medical history of hypertension, Hyperlipidemia, diabetes, insulin-dependent on Levemir 15 units, CKD stage III, hypothyroidism (recently increased Levothyroxine from 75 to 122 weeks ago), Restless Leg Syndrome on Rpinirole, Renal cell carcinoma IV s/p nephrectomy s/p metastatis to brain and right lung, recent intermittent complete heart block as well as Mobitz type II status post dual-chamber pacemaker ([place]) who presented by primary care providere for hyperkalemia. Hyperkalemia may be secondary to CKD given adverse effects of medication including losartan or spironolactone. Patient has a past medical history of CKD IIIb which may be progressing, but given change in Cr over the past several months dalton on ckd can not be rule out for possible ATN givne Januvia and Jardiance use with GFR <40s. STOP medication upon discharge. Consult nephrology, Dr. Gonzalez. PMH history CHF HFrEF 40 to 45% with LV dysfunction and diastolic dysfunction. NO fluid restrictions given concern for worsening CKD vs DALTON on CKD given use of jardiance and water pills. History of rest less leg syndrome, resume home medicaiton Diabetes Mellitus type 2, insulin dependent. A1c 6.1 (08/2024), resume home medication. Conitonue to monitor heart rate tele box givne history of second degree heart blaock. Follow up on ABG and Renal Panel, specifically Potassium, consider cocktail. Consider emergency dialysis. Consider bicarb based on ABG. - The patient's plan was discussed with attending Dr. Rome Peter MD PGY2 Internal Medicine HPI History of Present Illness History of present illness: Patient is a 69-year-old female with a PMH of malignant neoplasm of right kidney with spread to right lung and brain (s/p right nephrectomy @ [facility] in 2017), pacemaker placement for unspecified cardiac condition, HTN, IDDM, HLD, hypothyroidism, and restless leg syndrome on ropinirole who presents directly from the cancer center to [facility] ED on 12/05/24 after she was found to have hyperkalemia (potassium>7). She sees Dr. Gonzalez as her PCP in the outpatient setting. Patient endorses symptoms of [id number] paresthesia in her bilateral legs which she says began around 2-3 weeks ago. This sensation happens mostly at night and awakens her from sleep. She also endorses abdominal pain and nausea (but not currently active) that has also been ongoing for 2 weeks as well as ankle swelling. She denies any fever, shortness of breath, vomiting, chest pain, palpitations, constipation, diarrhea, or urinary symptoms. PMH: malignant neoplasm of right kidney with spread to right lung and brain (s/p right nephrectomy @ [facility] in 2017), pacemaker placement for unspecified cardiac condition, HTN, IDDM, HLD, hypothyroidism, and restless leg syndrome PSH: tonsillectomy @ 3 years old, shoulder surgery in 2015, 4 C-sections, cholecystectomy 30 years ago, right nephrectomy @ [facility] in 2017 Medications: Januvia, losartan, Mel-Debra, carvedilol, clonidine, Requip, axitinib (stopped due to weakness i/s/o pacemaker), pembrolizumab Allergies: NKDA FH: HTN, T2DM, and unspecified cardiac condition in father, HTN and T2DM in mother SH: lives in [place] in house with , past social drinker, smoked from age [age] (only smoked when she was at the [employer] and 1 pack could last 2 weeks), no recreational drug use In the ED, vitals showed: BP 143/82 HR 73 RR 18 Temp 98.2 SpO2 100% on room air CBC showed Hgb 11.8 (MCV 100, RDW 50.5). ABG showed acidotic pH 7.26, pCO2 28, pO2 98, and bicarbonate 16.9. CMP showed sodium 134, potassium 7.3, chloride 112, bicarbonate 16.9, BUN 29, creatinine 1.6 (baseline possibly 1.3 taken on 09/14/24), calculated osmolality 275, magnesium 1.6, AST 59, ALT 74, alkaline phosphatase 128, TSH 3.75, and free T4 1.96. Imagin/20 EKG showed the presence of an electronic ventricular pacemaker w/ HR 71 and normal QTc 461. In the ED, patient was given IV calcium gluconate, PO kayexalate, IV dextrose, inhaled albuterol and Duoneb, IV regular human insulin, and IV Lasix. Patient was admitted for the work-up and management of hyperkalemia. Nephrology (Dr. Gonzalez) was consulted and is closely following the case. Review of Systems Review of Systems Systems Reviewed: All systems reviewed, normal except as documented Exam Vital Signs Temp Pulse Resp BP Pulse Ox O2 Del Method 98.0 F 70 12 162/83 H 98 Room Air 12/05/24 16:21 12/05/24 16:21 12/05/24 16:21 12/05/24 16:21 12/05/24 16:21 12/05/24 16:21 Narrative Exam General: A/O x3, no acute distress. Skin: Erythematous rash under right breast. Pimple under left breast. Skin intact. Head: Normocephalic, atraumatic. Eyes: PERRL, EOMI. Anicteric, vision grossly intact. Ears: No ear pain, no ear discharge, Hearing grossly intact. Nose: No nasal discharge. Mouth/Throat: Oral mucosa moist. No obvious lesions in oropharynx. Neck: Neck supple, non-tender, no cervical lymphadenopathy. Cardiovascular: Pacemaker in place. Regular rate and rhythm, no murmur, no JVD or carotid bruits. +S1/S2. Respiratory: Bilateral lungs are clear to auscultation, respirations unlabored, no crackles, no wheezing. No accessory muscle use. Gastrointestinal: Patient is ticklish and reacts strongly to palpation. Soft, nontender, non-distended, no palpable masses. No guarding or rebound tenderness. Peristalsis present. Extremities: 3+ pitting edema bilaterally up to knees. Symmetrical, no significant deformities. No cyanosis, no clubbing. 2+ radial pulse bilaterally, 2+ posterior tibial pulse bilaterally. Neuro: No focal deficits observed. Conversant, moving all extremities. No overt cerebellar signs/incoordination. Psychiatric: Cooperative, appropriate affect. Results: Labs 12/07/24 03:30 12/07/24 03:30 Labs: Short CBC 12/05/24 Range/Units 15:50 WBC 7.0 (3.6-11.0) Thou/mm3 Hgb 11.8 L (12.0-16.0) g/dL Hct 36.7 (36.0-46.0) % Plt Count 214 D (140-440) Thou/mm3 BMP 12/05/24 15:50 Sodium 134 L Potassium 7.3 H* Chloride 112 H Carbon Dioxide 15.1 L BUN 29 H Creatinine 1.6 H Glucose 123 H Calcium 8.8 Cardiac Enzymes 12/05/24 Range/Units 15:50 Troponin I < 0.020 (0.0-0.045) ng/mL Liver Function 12/05/24 Range/Units 15:50 Total Bilirubin 0.3 (0.3-1.2) mg/dL AST 59 H (0-34) U/L ALT 74 H (10-49) U/L Alkaline Phosphatase 128 H D (46-116) U/L Albumin 4.0 (3.4-4.8) gm/dL Quality Measures Quality Measures VTE prophylaxis Advance care planning discussed with:: patient Medications Home Medications and Allergies Home Medications ?Medication ?Instructions ?Recorded ?Confirmed ?Type sitagliptin phosphate 100 mg 100 mg PO QDAY #0 tabs 07/10/16 12/06/24 History tablet (Januvia) carvedilol 12.5 mg tablet 12.5 mg PO BID 05/15/23 12/06/24 History axitinib 5 mg tablet (Inlyta) 5 mg PO Q12H 05/25/24 12/06/24 History Held on 12/07/24. Instructions: Resume on 12/14/24. Follow with oncologist before resuming clonidine HCl 0.2 mg tablet 0.2 mg PO BID 05/25/24 12/06/24 History ropinirole 1 mg tablet 2 mg PO QPM 05/25/24 12/06/24 History vitamin B comp no.3-folic acid 1 1 tab PO QDAY 08/17/24 12/06/24 History mg-vit C 60 mg-biotin 300 mcg tablet (Mel-Debra Rx) pembrolizumab 50 mg intravenous 200 mg IV .[id number] 09/14/24 12/06/24 History solution Allergies Allergy/AdvReac Type Severity Reaction Status Date / Time No Known Allergies Allergy Verified 07/27/24 09:24 Visit Medications Acetaminophen (Acetaminophen 325 Mg Tablet) 650 mg PO Q6H PRN PRN Reason: Fever >100 or pain 1-3 Stop: 01/04/25 18:17 Dextrose (Dextrose 50%-Water Inj 50 Ml Syringe) 25 ml IV Q15MIN PRN PRN Reason: BG 50-70 responsive npo pt Stop: 01/04/25 17:01 Dextrose (Dextrose 50%-Water Inj 50 Ml Syringe) 50 ml IV Q15MIN PRN PRN Reason: BG <50 OR BG <70 & pt unresponsive Stop: 01/04/25 18:20 Glucagon (Glucagon Inj 1 Mg Vial) 1 mg IM Q15MIN PRN PRN Reason: BG <70, and no IV access Dextrose (D10w 1000 Ml) 1,000 mls @ 100 mls/hr IV .Q10H GAYATRI Stop: 12/06/24 03:14 Insulin Human Lispro (Insulin Lispro (Admelog) 1 Unit/0.01 Ml Unit) 0 unit SC ACHS GAYATRI; Protocol Stop: 01/04/25 20:59 Discontinued Medications Albuterol (Albuterol Rt 2.5 Mg/3 Ml Nebu) 2.5 mg INH X1 ONE Stop: 12/05/24 17:04 Albuterol/Ipratropium (Albuterol/Ipratropium (Duoneb) Rt [place]aya 3 Ml Nebu) 3 ml INH X1 ONE Stop: 12/05/24 18:21 Calcium Gluconate (Calcium Gluconate 10% Inj 1 Gm/10 Ml Vial) 1 gm IV X1 ONE Stop: 12/05/24 17:03 Dextrose (Dextrose 50%-Water Inj 50 Ml Syringe) 100 ml IV X1 ONE Stop: 12/05/24 17:03 Furosemide (Furosemide Inj 10 Mg/Ml Vial 2 Ml) 40 mg IVP X1 ONE Stop: 12/05/24 17:03 Insulin Human Regular (Insulin Hum Regular 1 Unit/0.01 Ml (Per Unit)) 10 unit IV X1 ONE Stop: 12/05/24 17:03 Sodium Polystyrene Sulfonate (Sod Polystyrene Sulfon Susp 15 Gm/60 Ml Btl) 30 gm PO X1 ONE Stop: 12/05/24 17:03 Assessment & Plan Plan Patient is a 69-year-old female with a PMH of malignant neoplasm of right kidney with spread to right lung and brain (s/p right nephrectomy @ [facility] in 2017), pacemaker placement for unspecified cardiac condition, HTN, IDDM, HLD, hypothyroidism, and restless leg syndrome on ropinirole who presents directly from the cancer center to [facility] ED on 12/05/24 after she was found to have hyperkalemia (potassium>7). Patient was admitted for the work-up and management of hyperkalemia. #Hyperkalemia, i/s/o impaired renal function, likely 2/2 #Adverse medication effect (losartan, spironolactone) Admission potassium 7.3, asymptomatic and without EKG changes (pacemaker in place) In the ED, patient was given IV calcium gluconate, PO kayexalate, IV dextrose, inhaled albuterol and Duoneb, IV regular human insulin, and IV Lasix Patient takes the following medications that can cause hyperkalemia: losartan, spironolactone Patient also presented with elevated creatinine 1.6 and only has her left kidney remaining, which may impair her body's ability to excrete potassium Rx: -If K >5.5, initiate treatment (e.g., calcium gluconate IV, insulin + D50, albuterol, kayexalate or Lokelma) -If giving insulin + D50, perform a blood glucose check prior to administration -Nephrology consulted, appreciate recommendations #CKD IIIb, worsening, i/s/o chronic hypertension and T2DM #PMH of malignant neoplasm of right kidney #s/p right nephrectomy Patient does not meet criteria for acute kidney injury (DALTON), defined by a rise in serum creatinine >=.3 mg/dL within 48 hours or >=.5? baseline within 7 days, and/or urine output <0.5 mL/kg/hr for >6 hours. Current creatinine: 1.6, baseline: [possibly 1.3 from 09/14/24]. Etiology likely multifactorial but may include chronically uncontrolled hypertension, T2DM, and increased burden on remaining left kidney after right nephrectomy Dx: -Ordered renal US, results pending -Ordered random urine electrolytes, results pending Rx: -If hypovolemic: IV isotonic fluids (e.g., NS 500?1000 mL bolus, then reassess) -If volume overloaded: Diuresis with furosemide IV [e.g., 40?80 mg IV push], monitor urine output -Strict I's & O's and daily weights -Review medications for nephrotoxins (NSAIDs, ACEi/ARBs, contrast, aminoglycosides) -If K >5.5, initiate treatment (e.g., calcium gluconate IV, insulin + D50, albuterol, kayexalate or lokelma) -If pH <7.2 consider sodium bicarbonate IV -Nephrology consulted, contact if HD needed for: - Refractory hyperkalemia - Severe acidosis - Volume overload unresponsive to diuretics - Uremic symptoms (e.g., pericarditis, encephalopathy) OR unclear etiology for DALTON OR worsening renal function despite treatment #Metabolic acidosis w/ compensatory respiratory alkalosis Admission ABG showed acidotic pH 7.26, pCO2 28, pO2 98, and bicarbonate 16.9 Metabolic acidosis possibly 2/2 impaired acid excretion due to impaired renal function Respiratory alkalosis possibly 2/2 hyperventilation Rx: -If pH <7.2 consider sodium bicarbonate IV #Chronic hypertension Admission BP 143/82 Home medications include: Coreg, clonidine, losartan, spironolactone, bumetanide, furosemide Rx: -Restarted home PO Coreg 12.5 mg BIDWM -Started IV hydralazine 10 mg q4HR prn for SBP>180 or DBP>120 -Consider restarting other home antihypertensives if HTN refractory #Macrocytic anemia Admission Hgb 11.8 (MCV 100, RDW 50.5) Dx: -Consider ordering iron panel and ferritin -Consider ordering Vitamin B12 and folate Rx: -Transfuse if Hgb<7 #Transaminitis Admission AST 59, ALT 74, alkaline phosphatase 128 Possibly 2/2 adverse medication effect (patient apparently has home medication of statin) #Insulin-dependent T2DM Dx: -Ordered hemoglobin A1c, results pending Rx: -Insulin sliding scale -Monitor blood glucose #Hypothyroidism Dx: -Ordered TSH, results pending Rx: -Holding patient's home levothyroxine for now #Pacemaker in place For unspecified cardiac condition #Restless leg syndrome On home ropinirole Rx: -Consider restarting patient's home ropinirole Hospital Management: Disposition: Admitted for the work-up and management of hyperkalemia Diet: Carbohydrate Consistent Low GI Prophylaxis: Not Indicated Bowel Prophylaxis: None DVT Prophylaxis: SC Heparin 5K q12HR CODE STATUS: Full Code I have examined the patient and conferred with my attending, Dr. Brown, and my senior resident, Dr. Peter, regarding them. Callum Gonzalez DO PGY-1 Internal Medicine Attending Provider Attestation/Addendum I have examined the patient, reviewed labs and imaging findings, discussed the case with the resident(s), and reviewed entered orders. I agree with the plan of care as outlined in this note, with these additional summaries/recommendations: After examination of the patient and review of the clinical data, I feel that this patient needs admission to the hospital for further treatment and evaluation. Patient is a 68-year-old female with a medical history of hypertension, hyperlipidemia, diabetes mellitus type 2, CKD, hypothyroidism, renal cell carcinoma, history of heart block, and restless leg syndrome presents to [facility] emergency department on 12/05/2024 with chief complaint of hyperkalemia. Most likely medication induced. Patient is given hyperkalemia cocktail and will follow-up repeat level. Patient has underlying CKD and consult nephrology. Avoid nephrotoxic agents and renally dose medications. Continue home antihypertensives. Start insulin sliding scale for diabetes mellitus type 2. Continue home levothyroxine for hypothyroidism. Patient updated on the plan and in agreement. All questions answered to satisfaction. Please see residents note for additional details and management. Dr. Kevin MD
[2024-12-05] MEDS: SOD POLYSTYRENE SULFON SUSP 15 GM/60 ML BTL 30 GM PO (18:46)
[2024-12-05] MEDS: CALCIUM GLUCONATE 10% INJ 1 GM/10 ML VIAL IV (18:46)
[2024-12-05] MEDS: DEXTROSE 50%-WATER INJ 50 ML SYRINGE 100 ML IV (18:51)
[2024-12-05] MEDS: ALBUTEROL RT 2.5 MG/3 ML NEBU INH (18:58)
[2024-12-05] MEDS: ALBUTEROL/IPRATROPIUM (Duoneb) RT SOL 3 ML NEBU INH (18:58)
[2024-12-05 19:01] LABS: Lactate (Lactic Acid) 0.6 mMol/L (0.4-2.0)
[2024-12-05] MEDS: INSULIN HUM REGULAR 1 UNIT/0.01 ML (PER UNIT) 10 UNIT IV (19:02)
[2024-12-05] MEDS: FUROSEMIDE INJ 10 MG/ML VIAL 2 ML 40 MG IVP (19:05)
[2024-12-05 19:26] LABS: Albumin, Serum 4.5 gm/dL (3.4-4.8); Anion Gap 7 (7-16); BUN/Creatinine Ratio 19 Ratio (12-20); Blood Urea Nitrogen 30 mg/dL (9-23); Calcium 10.0 mg/dL (8.3-10.6); Calcium (Corrected) 10.0 mg/dL (8.5-10.1); Carbon Dioxide 15.9 mMol/L (20.0-31.0); Chloride 111 mMol/L (98-107); Creatinine (Component) 1.6 mg/dL (0.6-1.3); Glucose 93 mg/dL (74-106); Osmolality,Calculated 274 (275-295); Phosphorous 3.9 mg/dL (2.4-5.1); Sodium 134 mMol/L (136-145); eGFR 34 See Note
[2024-12-05 19:27] LABS: Potassium 7.2 mMol/L (3.4-5.1)
[2024-12-05 19:29] LABS: Base Excess -13 (-3-3); HCO3 13 mEq/L (20-26); Inspired Oxygen, FIO2 21 %; O2 Saturation 98 % (91-98); PCO2 28 mmHg (32.0-48.0); PO2 98 mmHg (83-108); pH, Arterial 7.26 (7.35-7.45)
[2024-12-05 19:34] LABS: Allen Test Performed/OK; Puncture Site Right Radial
--- NOTE | 2024-12-05 20:29 | XR_ITS ---
Examination: Retroperitoneal ultrasound, complete Technique: Multiple high resolution grayscale images of the retroperitoneum obtained, including kidneys and bladder. Exam date and time: December 05, 2024 2116 hours INDICATIONS: Chronic kidney disease years, diagnosis renal cancer FINDINGS: Absent right kidney Left kidney 10.5 cm renal cortex 1.7 cm Mild left renal scar formation No bladder mass or bladder calculi Bladder prevoid volume 267 cc IMPRESSION: Absent right kidney Moderate left renal scar formation, no hydronephrosis
[2024-12-05] MEDS: ONDANSETRON INJ 2 MG/ML INJ 2 ML 4 MG IVP (20:55)
[2024-12-05] MEDS: HEPARIN SOD INJ 5000 UNIT/ML VIAL SC (20:56)
[2024-12-05 22:37] LABS: Albumin, Serum 3.9 gm/dL (3.4-4.8); Anion Gap 8 (7-16); BUN/Creatinine Ratio 13 Ratio (12-20); Blood Urea Nitrogen 20 mg/dL (9-23); Calcium 9.1 mg/dL (8.3-10.6); Calcium (Corrected) 9.2 mg/dL (8.5-10.1); Carbon Dioxide 16.0 mMol/L (20.0-31.0); Chloride 113 mMol/L (98-107); Creatinine (Component) 1.5 mg/dL (0.6-1.3); Glucose 94 mg/dL (74-106); Osmolality,Calculated 276 (275-295); Phosphorous 4.4 mg/dL (2.4-5.1); Sodium 137 mMol/L (136-145); eGFR 37 See Note
[2024-12-05 22:38] LABS: Potassium 6.7 mMol/L (3.4-5.1)
[2024-12-05 22:54] LABS: Chloride,Urine Random 128.0 mMol/L (55.0-125.0); Potassium,Urine Random 14 mMol/L (12-62); Sodium,Urine Random 135.0 mMol/L (20.0-110.0)
[2024-12-06] VITALS (18 sets, daily range): BP systolic 104–156; BP diastolic 51–99; PULSE 69–112; RESP 15–100; TEMP 36.1–36.6; O2SAT 96–100; BMI 27.8
[2024-12-06] MEDS: SOD POLYSTYRENE SULFON SUSP 15 GM/60 ML BTL 60 GM PO (00:18)
[2024-12-06] MEDS: INSULIN HUM REGULAR 1 UNIT/0.01 ML (PER UNIT) 5 UNIT IV ×2 (00:19→05:50)
[2024-12-06] MEDS: FUROSEMIDE INJ 10 MG/ML VIAL 2 ML 40 MG IVP (00:19)
[2024-12-06] MEDS: CALCIUM GLUCONATE 10% INJ 1 GM/10 ML VIAL IV ×2 (00:19→05:36)
[2024-12-06] MEDS: DEXTROSE 50%-WATER INJ 50 ML SYRINGE IV (00:21)
[2024-12-06 02:31] LABS: Albumin, Serum 4.3 gm/dL (3.4-4.8); Anion Gap 9 (7-16); BUN/Creatinine Ratio 16 Ratio (12-20); Blood Urea Nitrogen 25 mg/dL (9-23); Calcium 10.1 mg/dL (8.3-10.6); Calcium (Corrected) 10.1 mg/dL (8.5-10.1); Carbon Dioxide 18.9 mMol/L (20.0-31.0); Chloride 112 mMol/L (98-107); Creatinine (Component) 1.6 mg/dL (0.6-1.3); Estimated Creatinine Clearance 30.5 mL/min (>60); Glucose 63 mg/dL (74-106); Osmolality,Calculated 281 (275-295); Phosphorous 4.7 mg/dL (2.4-5.1); Potassium 5.9 mMol/L (3.4-5.1); Sodium 140 mMol/L (136-145); eGFR 34 See Note
[2024-12-06] MEDS: ALBUTEROL RT 2.5 MG/3 ML NEBU 10 MG INH ×2 (05:24)
[2024-12-06 05:40] LABS: Basophils # (Auto) 0.1 Thou/mm3 (0.0-0.2); Basophils % (Auto) 1 % (0-2.5); Eosinophils # (Auto) 0.3 Thou/mm3 (0.0-0.5); Eosinophils % (Auto) 3 % (0-10); Hematocrit 40.3 % (36.0-46.0); Hemoglobin 13.3 g/dL (12.0-16.0); Immature Granulocytes Auto 0.12 Thou/mm3 (0.00-0.00); Lymphocytes # (Auto) 1.0 Thou/mm3 (1.0-4.8); Lymphocytes % (Auto) 10 % (10-50); Mean Corpuscular HGB Conc 33.0 g/dl (31.0-37.0); Mean Corpuscular Hemoglobin 32.1 pg (25.0-35.0); Mean Corpuscular Volume 97 fL (80-100); Monocytes # (Auto) 0.6 Thou/mm3 (0.0-0.8); Monocytes % (Auto) 6 % (0-12); Neutrophils # (Auto) 8.4 Thou/mm3 (1.8-7.7); Neutrophils % (Auto) 80 % (37-80); Nucleated Red Blood Cell # 0.00 Thou/mm3 (0.00-0.00); Nucleated Red Blood Cell % 0 /100 WBC (0); Platelet Count 256 Thou/mm3 (140-440); RDW Standard Deviation 50.4 fL (36.4-46.3); Red Blood Count 4.14 Miln/mm3 (4.00-5.20); White Blood Count 10.5 Thou/mm3 (3.6-11.0)
[2024-12-06] MEDS: DEXTROSE 50%-WATER INJ 50 ML SYRINGE IVP (05:42)
[2024-12-06 06:24] LABS: Alanine Aminotransferase 94 U/L (10-49); Albumin, Serum 4.3 gm/dL (3.4-4.8); Albumin/Globulin Ratio 1.7 (1.2-2.2); Alkaline Phosphatase 114 U/L (46-116); Anion Gap 11 (7-16); Aspartate Amino Transferase 66 U/L (0-34); BUN/Creatinine Ratio 19 Ratio (12-20); Bilirubin,Total 0.5 mg/dL (0.3-1.2); Blood Urea Nitrogen 31 mg/dL (9-23); Calcium 9.9 mg/dL (8.3-10.6); Calcium (Corrected) 9.9 mg/dL (8.5-10.1); Carbon Dioxide 18.1 mMol/L (20.0-31.0); Chloride 110 mMol/L (98-107); Creatinine (Component) 1.6 mg/dL (0.6-1.3); Estimated Creatinine Clearance 30.5 mL/min (>60); Globulin 2.5 gm/dL (2.3-3.5); Glucose 100 mg/dL (74-106); Glucose Estimated Average 111 mg/dL (80-131); Hemoglobin A1C 5.5 % Hgb (4.8-6.0); Magnesium 1.5 mg/dL (1.6-2.6); Osmolality,Calculated 284 (275-295); Phosphorous 5.3 mg/dL (2.4-5.1); Sodium 139 mMol/L (136-145); Thyroid Stimulating Hormone 6.15 uIU/mL (0.55-4.78); Total Protein 6.8 gm/dL (5.7-8.2); eGFR 34 See Note
[2024-12-06 06:49] LABS: Potassium 6.1 mMol/L (3.4-5.1)
[2024-12-06] MEDS: HEPARIN SOD INJ 5000 UNIT/ML VIAL SC ×2 (08:19→21:04)
[2024-12-06 09:05] LABS: Albumin, Serum 4.0 gm/dL (3.4-4.8); Anion Gap 12 (7-16); BUN/Creatinine Ratio 22 Ratio (12-20); Blood Urea Nitrogen 33 mg/dL (9-23); Calcium 9.6 mg/dL (8.3-10.6); Calcium (Corrected) 9.6 mg/dL (8.5-10.1); Carbon Dioxide 16.5 mMol/L (20.0-31.0); Chloride 111 mMol/L (98-107); Creatinine (Component) 1.5 mg/dL (0.6-1.3); Estimated Creatinine Clearance 32.6 mL/min (>60); Glucose 77 mg/dL (74-106); Osmolality,Calculated 283 (275-295); Phosphorous 4.7 mg/dL (2.4-5.1); Potassium 6.0 mMol/L (3.4-5.1); Sodium 139 mMol/L (136-145); eGFR 37 See Note
--- NOTE | 2024-12-06 10:19 | PD.RESCONSUL ---
HPI Data of Consult Consult date: 12/06/24 Requesting Physician: Lasha Brown MD Admitting Provider: Lasha Brown MD Attending Provider: Lasha Brown MD Primary Care Provider: Denise Gonzalez MD Consult Narrative Reason for consult: Hyperkalemia History of present illness: Ms. Zapata is a 69-year-old female with a history of CKD, hypertension, type 2 diabetes, hypothyroidism, and metastatic renal cell carcinoma (s/p nephrectomy). She was admitted on 12/05/2024 for hyperkalemia (potassium 7.3) and worsening renal function (creatinine 1.6, GFR 37). She was treated with IV calcium gluconate, kayexalate, insulin + D50, albuterol, and IV Lasix in the ED for metabolic derangements. Over the past day, her potassium has improved to 6.0, and she reports ongoing abdominal pain and paresthesia in her legs, which have slightly improved. Consultation requested for hyperkalemia, likely secondary to CKD and medication use (losartan and spironolactone). The patient?s potassium level has improved, but ongoing management and monitoring are necessary due to the potential for complications with renal function. 12/06/2024: Patient seen today still appears tired and fatigued. Reports minimal urine output. Abdominal pain persists but is not actively bothering her. Paresthesia in her legs has improved but still persists at night. No acute complaints. The patient is undergoing ongoing management of hyperkalemia and CKD with continued monitoring of renal function. Labs: WBC 10.5, Hgb 13.3, Hct 40.3, Plt 256, Na 139, K 6.0, Cl 111, CO2 16.5, BUN 33, Cr 1.5, GFR 37, Ca 9.6, Phos 3.5, Mg 1.5. ABG (12/05/2024): pH 7.26, pCO2 28, Bicarbonate 13. cc:: cc: Lasha Brown MD Review of Systems Review of Systems Narrative Review of Systems: CONSTITUTIONAL: Patient denies any fever, chills. HEENT: Denies any visual disturbances or hearing problems. CARDIOVASCULAR: Patient denies any chest pain, shortness of breath, swelling in the lower extremities. PULMONARY: Patient denies any shortness of breath, cough. GASTROINTESTINAL: Patient denies any abdominal pain, constipation, nausea, vomiting, diarrhea. GENITOURINARY: Patient denies any urinary symptoms of burning or frequency or hematuria, denies any form in the urine. SKIN: Denies any rash. MUSCULOSKELETAL: Complaining of gait imbalance NEUROLOGICAL: Denies any neurological problems of strokes, seizures or confusion. Denies any memory problems. PSYCHIATRIC: Denies any depression or anxiety. LYMPHATICS : No lymphadenopathy Exam Vital Signs Temp Pulse Resp BP Pulse Ox O2 Del Method 97.3 F 95 18 150/81 H 100 Room Air 12/06/24 04:00 12/06/24 08:19 12/06/24 06:33 12/06/24 08:19 12/06/24 06:30 12/06/24 04:00 Narrative Exam General: Alert and oriented x3, no acute distress. Cardiovascular: Pacemaker in place, regular rhythm, no murmur, no JVD. Respiratory: Clear to auscultation bilaterally, no crackles or wheezing. Abdomen: Soft, non-tender, no rebound or guarding. Extremities: 3+ pitting edema bilaterally up to knees. Neurological: No focal deficits, cooperative, moving all extremities. Results Labs 12/06/24 04:56 12/06/24 20:23 Labs: Short CBC 12/05/24 12/06/24 Range/Units 15:50 04:56 WBC 7.0 10.5 D (3.6-11.0) Thou/mm3 Hgb 11.8 L 13.3 (12.0-16.0) g/dL Hct 36.7 40.3 (36.0-46.0) % Plt Count 214 D 256 D (140-440) Thou/mm3 BMP 12/05/24 12/05/24 12/05/24 15:50 18:55 21:51 Sodium 134 L 134 L 137 Potassium 7.3 H* 7.2 H* 6.7 H* D Chloride 112 H 111 H 113 H Carbon Dioxide 15.1 L 15.9 L 16.0 L BUN 29 H 30 H 20 Creatinine 1.6 H 1.6 H 1.5 H Glucose 123 H 93 94 Calcium 8.8 10.0 9.1 12/06/24 12/06/24 12/06/24 01:47 04:56 07:51 Sodium 140 139 139 Potassium 5.9 H D 6.1 H* 6.0 H Chloride 112 H 110 H 111 H Carbon Dioxide 18.9 L 18.1 L 16.5 L BUN 25 H 31 H 33 H Creatinine 1.6 H 1.6 H 1.5 H Glucose 63 L 100 D 77 Calcium 10.1 9.9 9.6 Cardiac Enzymes 12/05/24 Range/Units 15:50 Troponin I < 0.020 (0.0-0.045) ng/mL Liver Function 12/05/24 12/05/24 12/05/24 Range/Units 15:50 18:55 21:51 Total Bilirubin 0.3 (0.3-1.2) mg/dL AST 59 H (0-34) U/L ALT 74 H (10-49) U/L Alkaline Phosphatase 128 H D (46-116) U/L Albumin 4.0 4.5 D 3.9 D (3.4-4.8) gm/dL 12/06/24 12/06/24 12/06/24 Range/Units 01:47 04:56 07:51 Total Bilirubin 0.5 (0.3-1.2) mg/dL AST 66 H (0-34) U/L ALT 94 H (10-49) U/L Alkaline Phosphatase 114 (46-116) U/L Albumin 4.3 4.3 4.0 (3.4-4.8) gm/dL ABG Interpretation ABG results: 12/05/24 19:24 ABG pH 7.26 L ABG pCO2 28 L ABG pO2 98 ABG HCO3 13 L ABG O2 Saturation 98 ABG Base Excess -13 L Quality Measures Quality Measures VTE prophylaxis Advance care planning discussed with:: patient Medications Home Medications and Allergies Home Medications ?Medication ?Instructions ?Recorded ?Confirmed ?Type sitagliptin phosphate 100 mg 100 mg PO QDAY #0 tabs 07/10/16 12/06/24 History tablet (Januvia) carvedilol 12.5 mg tablet 12.5 mg PO BID 05/15/23 12/06/24 History axitinib 5 mg tablet (Inlyta) 5 mg PO Q12H 05/25/24 12/06/24 History Held on 09/16/24. Instructions: Resume on 09/23/24. Follow up with Oncologist before resuming clonidine HCl 0.2 mg tablet 0.2 mg PO BID 05/25/24 12/06/24 History ropinirole 1 mg tablet 2 mg PO QPM 05/25/24 12/06/24 History vitamin B comp no.3-folic acid 1 1 tab PO QDAY 08/17/24 12/06/24 History mg-vit C 60 mg-biotin 300 mcg tablet (Mel-Debra Rx) lidocaine HCl 2 % mucosal solution 10 ml PO .Q6 PRN as needed 09/14/24 12/06/24 History (Lidocaine Viscous) Held on 12/06/24. Instructions: Causes mouth irritation. losartan 50 mg tablet (Cozaar) 50 mg PO QDAY 09/14/24 12/06/24 History pembrolizumab 50 mg intravenous 200 mg IV .T2nyezg 09/14/24 12/06/24 History solution spironolactone 50 mg tablet 50 mg PO QDAY 09/14/24 12/06/24 History (Aldactone) Allergies Allergy/AdvReac Type Severity Reaction Status Date / Time No Known Allergies Allergy Verified 07/27/24 09:24 Visit Medications Acetaminophen (Acetaminophen 325 Mg Tablet) 650 mg PO Q6H PRN PRN Reason: Fever >100 or pain 1-3 Stop: 01/04/25 18:17 Carvedilol (Carvedilol 12.5 Mg Tablet) 12.5 mg PO BIDWM GAYATRI Stop: 01/04/25 20:59 Last Admin: 12/06/24 08:19 Dose: 12.5 mg Dextrose (Dextrose 50%-Water Inj 50 Ml Syringe) 25 ml IV Q15MIN PRN PRN Reason: BG 50-70 responsive npo pt Stop: 01/04/25 23:40 Dextrose (Dextrose 50%-Water Inj 50 Ml Syringe) 50 ml IV Q15MIN PRN PRN Reason: BG <50 OR BG <70 & pt unresponsive Stop: 01/04/25 23:40 Glucagon (Glucagon Inj 1 Mg Vial) 1 mg IM Q15MIN PRN PRN Reason: BG <70, and no IV access Heparin Sodium (Porcine) (Heparin Sod Inj 5000 Unit/Ml Vial) 5,000 unit SC Q12HR GAYATRI Stop: 12/19/24 20:59 Last Admin: 12/06/24 08:19 Dose: 5,000 unit Hydralazine HCl (Hydralazine Inj 20 Mg/Ml Vial) 10 mg IVP Q4HR PRN PRN Reason: Hypertension Stop: 01/04/25 19:30 Insulin Human Lispro (Insulin Lispro (Admelog) 1 Unit/0.01 Ml Unit) 0 unit SC [facility]; Protocol Stop: 01/04/25 20:59 Last Admin: 12/06/24 07:03 Dose: Not Given Discontinued Medications Albuterol (Albuterol Rt 2.5 Mg/3 Ml Nebu) 2.5 mg INH X1 ONE Stop: 12/05/24 17:04 Last Admin: 12/05/24 18:58 Dose: 2.5 mg Albuterol (Albuterol Rt 2.5 Mg/3 Ml Nebu) 10 mg INH X1 ONE Stop: 12/05/24 23:42 Last Admin: 12/06/24 00:00 Dose: 10 mg Albuterol (Albuterol Rt 2.5 Mg/3 Ml Nebu) 10 mg INH X1 ONE Stop: 12/06/24 04:23 Last Admin: 12/06/24 05:24 Dose: 10 mg Albuterol/Ipratropium (Albuterol/Ipratropium (Duoneb) Rt [place] 3 Ml Nebu) 3 ml INH X1 ONE Stop: 12/05/24 18:21 Last Admin: 12/05/24 18:58 Dose: 3 ml Calcium Gluconate (Calcium Gluconate 10% Inj 1 Gm/10 Ml Vial) 1 gm IV X1 ONE Stop: 12/05/24 17:03 Last Admin: 12/05/24 18:46 Dose: 1 gm Calcium Gluconate (Calcium Gluconate 10% Inj 1 Gm/10 Ml Vial) 1 gm IV X1 ONE Stop: 12/05/24 23:42 Last Admin: 12/06/24 00:19 Dose: 1 gm Calcium Gluconate (Calcium Gluconate 10% Inj 1 Gm/10 Ml Vial) 1 gm IV X1 ONE Stop: 12/06/24 04:20 Last Admin: 12/06/24 05:36 Dose: 1 gm Dextrose (Dextrose 50%-Water Inj 50 Ml Syringe) 25 ml IV Q15MIN PRN PRN Reason: BG 50-70 responsive npo pt Stop: 01/04/25 17:01 Dextrose (Dextrose 50%-Water Inj 50 Ml Syringe) 100 ml IV X1 ONE Stop: 12/05/24 17:03 Last Admin: 12/05/24 18:51 Dose: 100 ml Dextrose (Dextrose 50%-Water Inj 50 Ml Syringe) 50 ml IV Q15MIN PRN PRN Reason: BG <50 OR BG <70 & pt unresponsive Stop: 01/04/25 18:20 Dextrose (Dextrose 50%-Water Inj 50 Ml Syringe) 50 ml IV X1 ONE Stop: 12/05/24 23:42 Last Admin: 12/06/24 00:21 Dose: 50 ml Dextrose (Dextrose 50%-Water Inj 50 Ml Syringe) 50 ml IVP X1 ONE Stop: 12/06/24 04:21 Last Admin: 12/06/24 05:42 Dose: 50 ml Furosemide (Furosemide Inj 10 Mg/Ml Vial 2 Ml) 40 mg IVP X1 ONE Stop: 12/05/24 17:03 Last Admin: 12/05/24 19:05 Dose: 40 mg Furosemide (Furosemide Inj 10 Mg/Ml Vial 2 Ml) 40 mg IVP X1 ONE Stop: 12/05/24 23:42 Last Admin: 12/06/24 00:19 Dose: 40 mg Glucagon (Glucagon Inj 1 Mg Vial) 1 mg IM Q15MIN PRN PRN Reason: BG <70, and no IV access Dextrose (D10w 1000 Ml) 1,000 mls @ 100 mls/hr IV .Q10H GAYATRI Stop: 12/06/24 03:14 Last Admin: 12/05/24 20:17 Dose: Not Given Insulin Human Regular (Insulin Hum Regular 1 Unit/0.01 Ml (Per Unit)) 10 unit IV X1 ONE Stop: 12/05/24 17:03 Last Admin: 12/05/24 19:02 Dose: 10 unit Insulin Human Regular (Insulin Hum Regular 1 Unit/0.01 Ml (Per Unit)) 5 unit IV X1 ONE Stop: 12/05/24 23:42 Last Admin: 12/06/24 00:19 Dose: 5 unit Insulin Human Regular (Insulin Hum Regular 1 Unit/0.01 Ml (Per Unit)) 5 unit IV X1 ONE Stop: 12/06/24 04:21 Last Admin: 12/06/24 05:50 Dose: 5 unit Ondansetron HCl (Ondansetron Inj 2 Mg/Ml Inj 2 Ml) 4 mg IVP X1 ONE; Protocol Stop: 12/05/24 20:37 Last Admin: 12/05/24 20:55 Dose: 4 mg Sodium Polystyrene Sulfonate (Sod Polystyrene Sulfon Susp 15 Gm/60 Ml Btl) 30 gm PO X1 ONE Stop: 12/05/24 17:03 Last Admin: 12/05/24 18:46 Dose: 30 gm Sodium Polystyrene Sulfonate (Sod Polystyrene Sulfon Susp 15 Gm/60 Ml Btl) 60 gm PO X1 ONE Stop: 12/05/24 23:42 Last Admin: 12/06/24 00:18 Dose: 60 gm Assessment & Plan Plan 69-year-old female with hyperkalemia likely secondary to CKD and medications (losartan, spironolactone), stable potassium levels improved to 6.0, with persistent leg paresthesia, abdominal pain, and history of metastatic renal cell carcinoma. # Hyperkalemia The patient presents with hyperkalemia (6.0, improved from 7.6) likely due to CKD and medications (losartan, spironolactone). No significant EKG changes as pacemaker in place. Plan: Continue potassium-lowering therapy: IV calcium gluconate, insulin + D50, albuterol, kayexalate If potassium remains elevated or worsens despite these interventions, will consider dialysis if necessary to remove potassium and correct fluid/electrolyte imbalances. Discontinue potassium-sparing medications (spironolactone, losartan) Monitor potassium and renal function Follow up with nephrology if potassium rises or symptoms worsen # Chronic Kidney Disease Stage IIIb CKD stage IIIb with a declining GFR (37). No DALTON based on creatinine changes and urine output. Plan: Continue monitoring renal function and electrolytes Avoid nephrotoxic agents (e.g., NSAIDs, RAYMOND inhibitors) Hydration management as needed # Non Anion Gap Metabolic Acidosis pH 7.26, bicarbonate 16.5, consistent with metabolic acidosis, likely non-anion gap metabolic acidosis (NAGMA) due to CKD. Anion gap is 11.5, which is within the normal range. Winter?s formula predicts an expected pCO2 of 30.75?34.75 mmHg based on her bicarbonate of 16.5, but her pCO2 is 28 mmHg, suggesting some respiratory alkalosis. The Delta Delta ratio (AG/HCO3) is -0.07, further supporting a diagnosis of NAGMA. 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 Carlos Pelletier MD PGY-1 Internal Medicine Attending Provider Attestation/Addendum Patient seen and examined with resident physician Dr. Pelletier. Note reviewed, agree with findings and recommendations. Patient currently seen in medical floor. Noted persistent hyperkalemia with no EKG changes. Medical management ordered for hyperkalemia. If no improvement will consider temporary dialysis. Also need to correct metabolic acidosis -Bicitra, sodium bicarbonate given. Hold off on Cozaar, Aldactone. Thank you Lasha for allowing me to participate in the care of Ms. Zapata
--- NOTE | 2024-12-06 11:55 | PC.SS ---
Addendum entered by Jamee Hall 12/06/24 11:56: Physical Address: [address] [address] [id number] Original Note: Nelida Zapata is a 69-year-old female admitted to Med Surg for Hyperkalemia. SS conducted bedside contact with the patient to complete initial assessment and to discuss discharge planning. Role and reason explained. Patient confirmed demographic information. Patient identifies Daughter Tri Orozco [phone] as her surrogate decision maker. Pt states she is able to complete all ADL?s independently. Pt possesses a Walker, shower chair and wc. Pts PCP is Dr. Gonzalez (last visit was Saturday 12/02). Pharmacy of choice is [facility]. Discharge options discussed and the pt wishes to return home.? Family will provide transportation upon DC. No further intervention required at this time, social secretary would be available to address any further concerns. DC Plan: Home Contact: Daughter Address: Confirmed on face sheet PCP: Carlos
--- NOTE | 2024-12-06 13:52 | ESPR_ITS ---
<Statement entered by Vance Iniguez MD - 12/06/24 17:10> I saw and examined patient personally and supervised PGY 1 resident, Dr. Gonzalez with formulating a management plan. I agree with the documentation with the exceptions as listed below. Patient was admitted for asymptomatic hyperkalemia of 7. She was given insulin 10 units IV x 1, calcium gluconate 1 g IV x 1 and dextrose 50 IV x 1 twice yesterday after which potassium improved to 6 today. She was given Kayexalate 30 g p.o. x 1 today. Repeat renal panel is pending and night team will follow- up on results. If hyperkalemia remains persistent, she may need possible hemodialysis. Nephrology Dr. Ritchie was consulted, appreciate recommendations. Plan of care discussed with Attending Dr. Fredi Iniguez MD PGY 2 Disclaimer: This note was dictated by speech recognition. Minor errors in fish cutting machine operator may be present due to voice recognition software. Documentation for date of: 12/06/24 Subjective Subjective Interval history: No overnight events. Patient was examined at bedside; they appear A&Ox4 and in NAD. Vitals/labs today significant for BP 150/81, potassium 6.7 -> 6.0, HgbA1c 5.5, magnesium 1.5, AST 59 -> 66, ALT 74 -> 94, TSH 3.75 -> 6.15. Physical exam unchanged from yesterday. Will continue to follow up on renal panel. Plan Updates: -Switched PO ropinirole 2 mg qD -> BID -Per Nephrology, started PO Bicitra 30 ml BID -Gave PO Kayexalate 30 gm x 1 Exam Vital Signs Temp Pulse Resp BP Pulse Ox O2 Del Method 97.9 F 85 18 137/73 H 98 Room Air 12/06/24 11:31 12/06/24 12:00 12/06/24 11:31 12/06/24 11:31 12/06/24 11:31 12/06/24 11:31 Narrative Exam General: A/O x3, no acute distress. Skin: Erythematous rash under right breast. Pimple under left breast. Skin intact. Head: Normocephalic, atraumatic. Eyes: PERRL, EOMI. Anicteric, vision grossly intact. Ears: No ear pain, no ear discharge, Hearing grossly intact. Nose: No nasal discharge. Mouth/Throat: Oral mucosa moist. No obvious lesions in oropharynx. Neck: Neck supple, non-tender, no cervical lymphadenopathy. Cardiovascular: Pacemaker in place. Regular rate and rhythm, no murmur, no JVD or carotid bruits. +S1/S2. Respiratory: Bilateral lungs are clear to auscultation, respirations unlabored, no crackles, no wheezing. No accessory muscle use. Gastrointestinal: Patient is ticklish and reacts strongly to palpation. Soft, nontender, non-distended, no palpable masses. No guarding or rebound tenderness. Peristalsis present. Extremities: 3+ pitting edema bilaterally up to knees. Symmetrical, no significant deformities. No cyanosis, no clubbing. 2+ radial pulse bilaterally, 2+ posterior tibial pulse bilaterally. Neuro: No focal deficits observed. Conversant, moving all extremities. No overt cerebellar signs/incoordination. Psychiatric: Cooperative, appropriate affect. Objective Labs 12/06/24 04:56 12/06/24 16:26 Labs: Laboratory Results - last 24 hr 12/05/24 12/05/24 12/05/24 15:50 18:55 19:24 WBC 7.0 RBC 3.69 L Hgb 11.8 L Hct 36.7 MCV 100 MCH 32.0 MCHC 32.2 RDW Std Deviation 50.5 H Plt Count 214 D Neut % (Auto) 75 Lymph % (Auto) 13 Teller % (Auto) 6 Eos % (Auto) 5 Baso % (Auto) 1 Neut # (Auto) 5.3 Lymph # (Auto) 0.9 L Teller # (Auto) 0.4 Eos # (Auto) 0.3 Baso # (Auto) 0.0 Immature Gran # (Auto) 0.06 H Absolute Nucleated RBC 0.00 Immature Gran % 1 H Nucleated RBC % 0 Puncture Site Right Radial ABG pH 7.26 L ABG pCO2 28 L ABG pO2 98 ABG HCO3 13 L ABG O2 Saturation 98 ABG Base Excess -13 L FiO2 21 Sodium 134 L 134 L Potassium 7.3 H* 7.2 H* Chloride 112 H 111 H Carbon Dioxide 15.1 L 15.9 L Anion Gap 7 7 BUN 29 H 30 H Creatinine 1.6 H 1.6 H Estim Creat Clear Calc Not Performed. Not Performed. eGFR 34 L 34 L BUN/Creatinine Ratio 18 19 Glucose [address] Glu mg/dL Hemoglobin A1c Calculated Osmolality 275 274 L Lactic Acid 0.6 Calcium 8.8 10.0 Corrected Calcium 8.8 10.0 Phosphorus 3.9 Magnesium 1.6 Total Bilirubin 0.3 AST 59 H ALT 74 H Alkaline Phosphatase 128 H D Troponin I < 0.020 Total Protein 6.2 Albumin 4.0 4.5 D Globulin 2.2 L Albumin/Globulin Ratio 1.8 TSH Ur Random Sodium Ur Random Potassium Ur Random Chloride 12/05/24 12/05/24 12/06/24 21:51 22:45 01:47 WBC RBC Hgb Hct MCV MCH MCHC RDW Std Deviation Plt Count Neut % (Auto) Lymph % (Auto) Teller % (Auto) Eos % (Auto) Baso % (Auto) Neut # (Auto) Lymph # (Auto) Teller # (Auto) Eos # (Auto) Baso # (Auto) Immature Gran # (Auto) Absolute Nucleated RBC Immature Gran % Nucleated RBC % Puncture Site ABG pH ABG pCO2 ABG pO2 ABG HCO3 ABG O2 Saturation ABG Base Excess FiO2 Sodium 137 140 Potassium 6.7 H* D 5.9 H D Chloride 113 H 112 H Carbon Dioxide 16.0 L 18.9 L Anion Gap 8 9 BUN 20 25 H Creatinine 1.5 H 1.6 H Estim Creat Clear Calc Not Performed. 30.5 L eGFR 37 L 34 L BUN/Creatinine Ratio 13 16 Glucose [address] Glu mg/dL Hemoglobin A1c Calculated Osmolality 276 281 Lactic Acid Calcium 9.1 10.1 Corrected Calcium 9.2 10.1 Phosphorus 4.4 4.7 Magnesium Total Bilirubin AST ALT Alkaline Phosphatase Troponin I Total Protein Albumin 3.9 D 4.3 Globulin Albumin/Globulin Ratio TSH Ur Random Sodium 135.0 H Ur Random Potassium 14 Ur Random Chloride 128.0 H 12/06/24 12/06/24 04:56 07:51 WBC 10.5 D RBC 4.14 Hgb 13.3 Hct 40.3 MCV 97 MCH 32.1 MCHC 33.0 RDW Std Deviation 50.4 H Plt Count 256 D Neut % (Auto) 80 Lymph % (Auto) 10 Teller % (Auto) 6 Eos % (Auto) 3 Baso % (Auto) 1 Neut # (Auto) 8.4 H Lymph # (Auto) 1.0 Teller # (Auto) 0.6 Eos # (Auto) 0.3 Baso # (Auto) 0.1 Immature Gran # (Auto) 0.12 H Absolute Nucleated RBC 0.00 Immature Gran % 1 H Nucleated RBC % 0 Puncture Site ABG pH ABG pCO2 ABG pO2 ABG HCO3 ABG O2 Saturation ABG Base Excess FiO2 Sodium 139 139 Potassium 6.1 H* 6.0 H Chloride 110 H 111 H Carbon Dioxide 18.1 L 16.5 L Anion Gap 11 12 BUN 31 H 33 H Creatinine 1.6 H 1.5 H Estim Creat Clear Calc 30.5 L 32.6 L eGFR 34 L 37 L BUN/Creatinine Ratio 19 22 H Glucose [address] Glu mg/dL 111 Hemoglobin A1c 5.5 Calculated Osmolality 284 283 Lactic Acid Calcium 9.9 9.6 Corrected Calcium 9.9 9.6 Phosphorus 5.3 H 4.7 Magnesium 1.5 L Total Bilirubin 0.5 AST 66 H ALT 94 H Alkaline Phosphatase 114 Troponin I Total Protein 6.8 Albumin 4.3 4.0 Globulin 2.5 Albumin/Globulin Ratio 1.7 TSH 6.15 H D Ur Random Sodium Ur Random Potassium Ur Random Chloride ABG Interpretation ABG results: 12/05/24 19:24 ABG pH 7.26 L ABG pCO2 28 L ABG pO2 98 ABG HCO3 13 L ABG O2 Saturation 98 ABG Base Excess -13 L Quality Measures Quality Measures VTE prophylaxis Advance care planning discussed with:: patient Assessment & Plan Assessment Current Active Medications: Generic Name Dose Route Start Last Admin Trade Name Freq PRN Reason Stop Dose Admin Acetaminophen 650 mg 12/05/24 18:18 Acetaminophen 325 Mg Tablet PO 01/04/25 18:17 Q6H PRN Fever >100 or pain 1-3 Carvedilol 12.5 mg 12/05/24 21:00 12/06/24 08:19 Carvedilol 12.5 Mg Tablet PO 01/04/25 20:59 12.5 mg BIDWM GAYATRI Administration Dextrose 25 ml 12/05/24 23:41 Dextrose 50%-Water Inj 50 Ml Syringe IV 01/04/25 23:40 Q15MIN PRN BG 50-70 responsive npo pt Dextrose 50 ml 12/05/24 23:41 Dextrose 50%-Water Inj 50 Ml Syringe IV 01/04/25 23:40 Q15MIN PRN BG <50 OR BG <70 & pt unresponsive Glucagon 1 mg 12/05/24 23:41 Glucagon Inj 1 Mg Vial IM Q15MIN PRN BG <70, and no IV access Heparin Sodium (Porcine) 5,000 unit 12/05/24 21:00 12/06/24 08:19 Heparin Sod Inj 5000 Unit/Ml Vial SC 12/19/24 20:59 5,000 unit Q12HR GAYATRI Administration Hydralazine HCl 10 mg 12/05/24 19:31 Hydralazine Inj 20 Mg/Ml Vial IVP 01/04/25 19:30 Q4HR PRN Hypertension Insulin Human Lispro 0 unit 12/05/24 21:00 12/06/24 11:10 Insulin Lispro (Admelog) 1 Unit/0.01 Ml Unit SC 01/04/25 20:59 Not Given ACHS GAYATRI Protocol Ropinirole HCl 2 mg 12/06/24 21:00 Ropinirole Hcl 1 Mg Tablet PO 01/05/25 20:59 QPM GAYATRI Plan Patient is a 69-year-old female with a PMH of 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 Patient was admitted for the work-up and management of hyperkalemia. #Hyperkalemia, i/s/o impaired renal function, likely 2/2 #Adverse medication effect (losartan, spironolactone) Admission potassium 7.3, asymptomatic and without EKG changes (pacemaker in place) In the ED, patient was given IV calcium gluconate, PO kayexalate, IV dextrose, inhaled albuterol and Duoneb, IV regular human insulin, and IV Lasix Patient takes the following medications that can cause hyperkalemia: losartan, spironolactone Patient also presented with elevated creatinine 1.6 and only has her left kidney remaining, which may impair her body's ability to excrete potassium Rx: -Gave PO Kayexalate 30 gm x 1 -If K >5.5, initiate treatment (e.g., calcium gluconate IV, insulin + D50, albuterol, kayexalate or Lokelma) -If giving insulin + D50, perform a blood glucose check prior to administration -Nephrology consulted, appreciate recommendations #CKD IIIb, worsening, i/s/o chronic hypertension and T2DM #PMH of malignant neoplasm of right kidney #s/p right nephrectomy Patient does not meet criteria for acute kidney injury (DALTON), defined by a rise in serum creatinine >=.3 mg/dL within 48 hours or >=.5? baseline within 7 days, and/or urine output <0.5 mL/kg/hr for >6 hours. Current creatinine: 1.6, baseline: [possibly 1.3 from 09/14/24]. Etiology likely multifactorial but may include chronically uncontrolled hypertension, T2DM, and increased burden on remaining left kidney after right nephrectomy Dx: -Ordered renal US, showed moderate left renal scar formation but no hydronephrosis and absent right kidney -Ordered random urine electrolytes, showed random sodium 135.0, random potassium 14, random chloride 128.0 Rx: -If hypovolemic: IV isotonic fluids (e.g., NS 500?1000 mL bolus, then reassess) -If volume overloaded: Diuresis with furosemide IV [e.g., 40?80 mg IV push], monitor urine output -Strict I's & O's and daily weights -Review medications for nephrotoxins (NSAIDs, ACEi/ARBs, contrast, aminoglycosides) -If K >5.5, initiate treatment (e.g., calcium gluconate IV, insulin + D50, albuterol, kayexalate or lokelma) -If pH <7.2 consider sodium bicarbonate IV -Nephrology consulted, contact if HD needed for: - Refractory hyperkalemia - Severe acidosis - Volume overload unresponsive to diuretics - Uremic symptoms (e.g., pericarditis, encephalopathy) OR unclear etiology for DALTON OR worsening renal function despite treatment #Metabolic acidosis w/ compensatory respiratory alkalosis Admission ABG showed acidotic pH 7.26, pCO2 28, pO2 98, and bicarbonate 16.9 Metabolic acidosis possibly 2/2 impaired acid excretion due to impaired renal function Respiratory alkalosis possibly 2/2 hyperventilation Rx: -Per Nephrology, started PO Bicitra 30 ml BID -If pH <7.2 consider sodium bicarbonate IV #Chronic hypertension Admission BP 143/82 Home medications include: Coreg, clonidine, losartan, spironolactone, bumetanide, furosemide Rx: -Continue home PO Coreg 12.5 mg BIDWM -Continue IV hydralazine 10 mg q4HR prn for SBP>180 or DBP>120 -Consider restarting other home antihypertensives if HTN refractory #Macrocytic anemia Admission Hgb 11.8 (MCV 100, RDW 50.5) Dx: -Consider ordering iron panel and ferritin -Consider ordering Vitamin B12 and folate Rx: -Transfuse if Hgb<7 #Transaminitis Admission AST 59, ALT 74, alkaline phosphatase 128 Possibly 2/2 adverse medication effect (patient apparently has home medication of statin) #Insulin-dependent T2DM Dx: -Ordered hemoglobin A1c, results pending Rx: -Insulin sliding scale -Monitor blood glucose #Hypothyroidism Dx: -Ordered TSH, results pending Rx: -Holding patient's home levothyroxine for now #Pacemaker in place For Mobitz Type II AV block #Restless leg syndrome On home ropinirole Rx: -Switched PO ropinirole 2 mg qD -> BID Hospital Management: Disposition: Admitted for the work-up and management of hyperkalemia Diet: Carbohydrate Consistent Low GI Prophylaxis: Not Indicated Bowel Prophylaxis: None DVT Prophylaxis: SC Heparin 5K q12HR CODE STATUS: Full Code I have examined the patient and conferred with my attending, Dr. Rai, and my senior resident, Dr. Iniguez, regarding them. Callum Gonzalez DO PGY-1 Internal Medicine Attending Provider Attestation/Addendum I have discussed and was present for the essential components of the history, physical examination, diagnosis, and treatment plan with the resident. I agree with the patient's care as documented by the resident and amended herein by me. Ciro Rai DO. Although this document has been carefully reviewed, there may still be some phonetic and other typographical errors. These errors are purely grammatical due to imperfections in the software program and should not be construed in any way to compromise the substance of the patient's medical care during this visit. :
--- NOTE | 2024-12-06 15:13 | PC.SS ---
Rounding: Pending Nephrology consult and reccs, DC plan home
[2024-12-06 17:19] LABS: Albumin, Serum 3.8 gm/dL (3.4-4.8); Anion Gap 9 (7-16); BUN/Creatinine Ratio 22 Ratio (12-20); Blood Urea Nitrogen 37 mg/dL (9-23); Calcium 8.6 mg/dL (8.3-10.6); Calcium (Corrected) 8.8 mg/dL (8.5-10.1); Carbon Dioxide 18.5 mMol/L (20.0-31.0); Chloride 110 mMol/L (98-107); Creatinine (Component) 1.7 mg/dL (0.6-1.3); Estimated Creatinine Clearance 28.7 mL/min (>60); Glucose 120 mg/dL (74-106); Osmolality,Calculated 283 (275-295); Phosphorous 5.0 mg/dL (2.4-5.1); Potassium 5.9 mMol/L (3.4-5.1); Sodium 137 mMol/L (136-145); eGFR 32 See Note
[2024-12-06] MEDS: SOD POLYSTYRENE SULFON SUSP 15 GM/60 ML BTL 30 GM PO (17:44)
[2024-12-06 20:55] LABS: Albumin, Serum 3.8 gm/dL (3.4-4.8); Anion Gap 10 (7-16); BUN/Creatinine Ratio 22 Ratio (12-20); Blood Urea Nitrogen 38 mg/dL (9-23); Calcium 8.6 mg/dL (8.3-10.6); Calcium (Corrected) 8.8 mg/dL (8.5-10.1); Carbon Dioxide 17.5 mMol/L (20.0-31.0); Chloride 111 mMol/L (98-107); Creatinine (Component) 1.7 mg/dL (0.6-1.3); Estimated Creatinine Clearance 28.7 mL/min (>60); Glucose 106 mg/dL (74-106); Osmolality,Calculated 284 (275-295); Phosphorous 5.1 mg/dL (2.4-5.1); Potassium 5.9 mMol/L (3.4-5.1); Sodium 138 mMol/L (136-145); eGFR 32 See Note
[2024-12-06] MEDS: ACETAMINOPHEN 325 MG TABLET 650 MG PO (21:13)
[2024-12-06] MEDS: CITRIC ACID/SODIUM CITR 15 ML UDC (BICITRA) 30 ML PO (21:15)
[2024-12-06] MEDS: SODIUM BICARB INJ 8.4% 1 mEq/ML 50 ML VIAL 50 MEQ IV (22:01)
[2024-12-07] VITALS (10 sets, daily range): BP systolic 112–153; BP diastolic 66–88; PULSE 65–105; RESP 15–98; TEMP 36.1–36.6; O2SAT 95–99; BMI 27.8
[2024-12-07] MEDS: ALBUTEROL RT 2.5 MG/3 ML NEBU 10 MG INH (01:37)
[2024-12-07] MEDS: SOD POLYSTYRENE SULFON SUSP 15 GM/60 ML BTL 60 GM PO (01:47)
[2024-12-07] MEDS: CALCIUM CHLORIDE 10% INJ 10 ML SYRG IV (01:47)
[2024-12-07] MEDS: INSULIN HUM REGULAR 1 UNIT/0.01 ML (PER UNIT) 5 UNIT IV (01:48)
[2024-12-07] MEDS: DEXTROSE 50%-WATER INJ 50 ML SYRINGE IVP (01:49)
[2024-12-07] MEDS: FUROSEMIDE INJ 10 MG/ML VIAL 2 ML 40 MG IVP (01:50)
[2024-12-07 03:50] LABS: Basophils # (Auto) 0.0 Thou/mm3 (0.0-0.2); Basophils % (Auto) 0 % (0-2.5); Eosinophils # (Auto) 0.3 Thou/mm3 (0.0-0.5); Eosinophils % (Auto) 3 % (0-10); Hematocrit 35.3 % (36.0-46.0); Hemoglobin 11.5 g/dL (12.0-16.0); Immature Granulocytes Auto 0.07 Thou/mm3 (0.00-0.00); Lymphocytes # (Auto) 1.6 Thou/mm3 (1.0-4.8); Lymphocytes % (Auto) 16 % (10-50); Mean Corpuscular HGB Conc 32.6 g/dl (31.0-37.0); Mean Corpuscular Hemoglobin 31.5 pg (25.0-35.0); Mean Corpuscular Volume 97 fL (80-100); Monocytes # (Auto) 0.6 Thou/mm3 (0.0-0.8); Monocytes % (Auto) 6 % (0-12); Neutrophils # (Auto) 7.3 Thou/mm3 (1.8-7.7); Neutrophils % (Auto) 74 % (37-80); Nucleated Red Blood Cell # 0.00 Thou/mm3 (0.00-0.00); Nucleated Red Blood Cell % 0 /100 WBC (0); Platelet Count 192 Thou/mm3 (140-440); RDW Standard Deviation 50.4 fL (36.4-46.3); Red Blood Count 3.65 Miln/mm3 (4.00-5.20); White Blood Count 9.9 Thou/mm3 (3.6-11.0)
[2024-12-07 04:11] LABS: Alanine Aminotransferase 59 U/L (10-49); Albumin, Serum 3.9 gm/dL (3.4-4.8); Albumin/Globulin Ratio 2.2 (1.2-2.2); Alkaline Phosphatase 92 U/L (46-116); Anion Gap 10 (7-16); Aspartate Amino Transferase 32 U/L (0-34); BUN/Creatinine Ratio 22 Ratio (12-20); Bilirubin,Total 0.4 mg/dL (0.3-1.2); Blood Urea Nitrogen 35 mg/dL (9-23); Calcium 9.3 mg/dL (8.3-10.6); Calcium (Corrected) 9.4 mg/dL (8.5-10.1); Carbon Dioxide 19.3 mMol/L (20.0-31.0); Chloride 112 mMol/L (98-107); Creatinine (Component) 1.6 mg/dL (0.6-1.3); Estimated Creatinine Clearance 30.5 mL/min (>60); Globulin 1.8 gm/dL (2.3-3.5); Glucose 109 mg/dL (74-106); Magnesium 1.4 mg/dL (1.6-2.6); Osmolality,Calculated 290 (275-295); Potassium 4.6 mMol/L (3.4-5.1); Sodium 141 mMol/L (136-145); Total Protein 5.7 gm/dL (5.7-8.2); eGFR 34 See Note
[2024-12-07] MEDS: Magnesium Sulfate 4 GM Ivpb 4 GM/50 ML BAG IV (08:21)
[2024-12-07] MEDS: HEPARIN SOD INJ 5000 UNIT/ML VIAL SC (08:22)
[2024-12-07] MEDS: CITRIC ACID/SODIUM CITR 15 ML UDC (BICITRA) 30 ML PO (08:22)
--- NOTE | 2024-12-07 08:48 | ESPR_ITS ---
Documentation for date of: 12/07/24 Subjective Subjective Interval history: Reason for consult: Hyperkalemia History of present illness: Ms. Zapata is a 69-year-old female with a history of CKD, hypertension, type 2 diabetes, hypothyroidism, and metastatic renal cell carcinoma (s/p nephrectomy). She was admitted on 12/05/2024 for hyperkalemia (potassium 7.3) and worsening renal function (creatinine 1.6, GFR 37). She was treated with IV calcium gluconate, kayexalate, insulin + D50, albuterol, and IV Lasix in the ED for metabolic derangements. Over the past day, her potassium has improved to 6.0, and she reports ongoing abdominal pain and paresthesia in her legs, which have slightly improved. Consultation requested for hyperkalemia, likely secondary to CKD and medication use (losartan and spironolactone). The patient?s potassium level has improved, but ongoing management and monitoring are necessary due to the potential for complications with renal function. 12/06/2024: Patient seen today still appears tired and fatigued. Reports minimal urine output. Abdominal pain persists but is not actively bothering her. Paresthesia in her legs has improved but still persists at night. No acute complaints. The patient is undergoing ongoing management of hyperkalemia and CKD with continued monitoring of renal function. Labs: WBC 10.5, Hgb 13.3, Hct 40.3, Plt 256, Na 139, K 6.0, Cl 111, CO2 16.5, BUN 33, Cr 1.5, GFR 37, Ca 9.6, Phos 3.5, Mg 1.5. ABG (12/05/2024): pH 7.26, pCO2 28, Bicarbonate 13. 12/07/2024: Patient seen today, doing well. Potassium has corrected. She reports having diarrhea overnight, which we suspects is due to Kayexalate. No dialysis is needed at this time. Plans to discontinue the Montes catheter this afternoon. The patient is stable, and no other complaints or acute issues noted. She is cleared for discharge this afternoon. Labs: Sodium 141, Potassium 4.6, Chloride 112, CO2 19.3, Anion gap normal, Creatinine 1.6, GFR 34, BUN 35, Glucose 109, Calcium 9.4, Magnesium 1.4, Hemoglobin 11.5, Hematocrit 35.3, Platelets 192. Exam Vital Signs Temp Pulse Resp BP Pulse Ox O2 Del Method O2 Flow Rate 98 F 96 15 153/83 H 98 Room Air 8 12/07/24 08:00 12/07/24 08:21 12/07/24 08:00 12/07/24 08:21 12/07/24 08:00 12/07/24 08:00 12/07/24 01:40 Narrative Exam General: Alert and oriented x3, no acute distress. Cardiovascular: Pacemaker in place, regular rhythm, no murmur, no JVD. Respiratory: Clear to auscultation bilaterally, no crackles or wheezing. Abdomen: Soft, non-tender, no rebound or guarding. Extremities: 1+ pitting edema bilaterally up to knees. Neurological: No focal deficits, cooperative, moving all extremities. Objective Labs 12/07/24 03:30 12/07/24 03:30 Labs: Laboratory Results - last 24 hr 12/06/24 12/06/24 12/06/24 07:51 16:26 20:23 WBC RBC Hgb Hct MCV MCH MCHC RDW Std Deviation Plt Count Neut % (Auto) Lymph % (Auto) [place] % (Auto) Eos % (Auto) Baso % (Auto) Neut # (Auto) Lymph # (Auto) [place] # (Auto) Eos # (Auto) Baso # (Auto) Immature Gran # (Auto) Absolute Nucleated RBC Immature Gran % Nucleated RBC % Sodium 139 137 138 Potassium 6.0 H 5.9 H 5.9 H Chloride 111 H 110 H 111 H Carbon Dioxide 16.5 L 18.5 L 17.5 L Anion Gap 12 9 10 BUN 33 H 37 H 38 H Creatinine 1.5 H 1.7 H 1.7 H Estim Creat Clear Calc 32.6 L 28.7 L 28.7 L eGFR 37 L 32 L 32 L BUN/Creatinine Ratio 22 H 22 H 22 H Glucose 77 120 H D 106 Calculated Osmolality 283 283 284 Calcium 9.6 8.6 8.6 Corrected Calcium 9.6 8.8 8.8 Phosphorus 4.7 5.0 5.1 Magnesium Total Bilirubin AST ALT Alkaline Phosphatase Total Protein Albumin 4.0 3.8 3.8 Globulin Albumin/Globulin Ratio 12/07/24 03:30 WBC 9.9 RBC 3.65 L Hgb 11.5 L Hct 35.3 L MCV 97 MCH 31.5 MCHC 32.6 RDW Std Deviation 50.4 H Plt Count 192 D Neut % (Auto) 74 Lymph % (Auto) 16 [place] % (Auto) 6 Eos % (Auto) 3 Baso % (Auto) 0 Neut # (Auto) 7.3 Lymph # (Auto) 1.6 [place] # (Auto) 0.6 Eos # (Auto) 0.3 Baso # (Auto) 0.0 Immature Gran # (Auto) 0.07 H Absolute Nucleated RBC 0.00 Immature Gran % 1 H Nucleated RBC % 0 Sodium 141 Potassium 4.6 D Chloride 112 H Carbon Dioxide 19.3 L Anion Gap 10 BUN 35 H Creatinine 1.6 H Estim Creat Clear Calc 30.5 L eGFR 34 L BUN/Creatinine Ratio 22 H Glucose 109 H Calculated Osmolality 290 Calcium 9.3 Corrected Calcium 9.4 Phosphorus Magnesium 1.4 L Total Bilirubin 0.4 AST 32 ALT 59 H Alkaline Phosphatase 92 D Total Protein 5.7 Albumin 3.9 Globulin 1.8 L Albumin/Globulin Ratio 2.2 ABG Interpretation ABG results: 12/05/24 19:24 ABG pH 7.26 L ABG pCO2 28 L ABG pO2 98 ABG HCO3 13 L ABG O2 Saturation 98 ABG Base Excess -13 L Quality Measures Quality Measures VTE prophylaxis Advance care planning discussed with:: patient Assessment & Plan Assessment Current Active Medications: Generic Name Dose Route Start Last Admin Trade Name Freq PRN Reason Stop Dose Admin Acetaminophen 650 mg 12/05/24 18:18 12/06/24 21:13 Acetaminophen 325 Mg Tablet PO 01/04/25 18:17 650 mg Q6H PRN Administration Fever >100 or pain 1-3 Carvedilol 12.5 mg 12/05/24 21:00 12/07/24 08:21 Carvedilol 12.5 Mg Tablet PO 01/04/25 20:59 12.5 mg BIDWM GAYATRI Administration Citric Acid/Sodium Citrate 30 ml 12/06/24 21:00 12/07/24 08:22 Citric Acid/Sodium Citr 15 Ml Udc (Bicitra) PO 01/05/25 20:59 30 ml BID GAYATRI Administration Dextrose 25 ml 12/05/24 23:41 Dextrose 50%-Water Inj 50 Ml Syringe IV 01/04/25 23:40 Q15MIN PRN BG 50-70 responsive npo pt Dextrose 50 ml 12/05/24 23:41 Dextrose 50%-Water Inj 50 Ml Syringe IV 01/04/25 23:40 Q15MIN PRN BG <50 OR BG <70 & pt unresponsive Glucagon 1 mg 12/05/24 23:41 Glucagon Inj 1 Mg Vial IM Q15MIN PRN BG <70, and no IV access Glucagon 1 mg 12/07/24 00:50 Glucagon Inj 1 Mg Vial IM Q15MIN PRN BG <70, and no IV access Heparin Sodium (Porcine) 5,000 unit 12/05/24 21:00 12/07/24 08:22 Heparin Sod Inj 5000 Unit/Ml Vial SC 12/19/24 20:59 5,000 unit Q12HR GAYATRI Administration Hydralazine HCl 10 mg 12/05/24 19:31 Hydralazine Inj 20 Mg/Ml Vial IVP 01/04/25 19:30 Q4HR PRN Hypertension Magnesium Sulfate 4 gm in 50 mls @ 12.5 mls/hr 12/07/24 07:43 12/07/24 08:21 Magnesium Sulfate Ivpb IV 12/07/24 11:42 12.5 mls/hr X1 ONE Administration Insulin Human Lispro 0 unit 12/05/24 21:00 12/07/24 08:21 Insulin Lispro (Admelog) 1 Unit/0.01 Ml Unit SC 01/04/25 20:59 Not Given ACHS [facility] Protocol Ropinirole HCl 2 mg 12/06/24 21:00 12/07/24 08:22 Ropinirole Hcl 1 Mg Tablet PO 01/05/25 20:59 2 mg BID GAYATRI Administration Plan 69-year-old female with CKD, type IV renal tubular acidosis (RTA), and corrected hyperkalemia, managed with sodium bicarbonate for metabolic acidosis, no need for dialysis at this time. # Hyperkalemia (resolved) Potassium corrected to 4.6, no EKG changes, and no dialysis needed. Stable potassium levels and no signs of arrhythmia. Plan: * Continue monitoring potassium closely, adjust medications if needed. # Renal Tubular Acidosis Type IV (RTA IV) Lab shows normal anion gap (11) and low bicarbonate (19.3), are consistent with RTA Type IV, which is commonly seen in patients with CKD. The low bicarbonate and relatively preserved anion gap suggest an issue with distal renal acidification. Given the patient's CKD and history of diabetes and hypertension, RTA IV may be a contributing factor to her metabolic acidosis. Plan: * Continue sodium bicarbonate 325 mEq daily outpatient to correct metabolic acidosis. * Monitor potassium and bicarbonate levels closely. * Avoid potassium-sparing medications (e.g., Aldactone, losartan) as they may worsen hyperkalemia. * Follow up with renal function and electrolyte monitoring in 1-2 weeks. # Chronic Kidney Disease (CKD) GFR 34, creatinine 1.6. Stable at present, no signs of acute kidney injury (DALTON). Plan: * Continue monitoring renal function with labs. * No need for dialysis at this time. # Diarrhea (likely from Kayexalate) The patient experienced diarrhea overnight, likely secondary to Kayexalate. Plan: * Monitor for resolution of diarrhea and assess electrolyte balance. * Consider adjusting Kayexalate if symptoms persist. Active problems: #Hypertension #Type 2 Diabetes Mellitus #Restless Leg Syndrome #Abdominal Pain #Paresthesia in Bilateral Legs (Improving) #Malignant Neoplasm of Right Kidney with Metastasis (Post-nephrectomy) Management per primary team ----- Plan discussed with attending physician Dr. Carlos Pelletier MD PGY-1 Internal Medicine Attending Provider Attestation/Addendum Patient seen and examined with resident physician Dr. Pelletier. Note reviewed, agree with findings and recommendations. Potassium level seems to be much better. Patient is going to be discharged today. Hold off on losartan and Aldactone. Low potassium diet as ordered.
[2024-12-07] MEDS: MAGNESIUM OXIDE 400 MG TABLET PO (10:16)
--- NOTE | 2024-12-07 15:07 | PD.RESPRO ---
Documentation for date of: 12/07/24 Exam Vital Signs Temp Pulse Resp BP Pulse Ox O2 Del Method O2 Flow Rate 97.1 F 91 16 148/66 H 95 Room Air 8 12/07/24 11:00 12/07/24 12:00 12/07/24 11:00 12/07/24 11:00 12/07/24 11:00 12/07/24 11:00 12/07/24 01:40 Objective Labs 12/07/24 03:30 12/07/24 03:30 Labs: Laboratory Results - last 24 hr 12/06/24 12/06/24 12/07/24 16:26 20:23 03:30 WBC 9.9 RBC 3.65 L Hgb 11.5 L Hct 35.3 L MCV 97 MCH 31.5 MCHC 32.6 RDW Std Deviation 50.4 H Plt Count 192 D Neut % (Auto) 74 Lymph % (Auto) 16 [place] % (Auto) 6 Eos % (Auto) 3 Baso % (Auto) 0 Neut # (Auto) 7.3 Lymph # (Auto) 1.6 [place] # (Auto) 0.6 Eos # (Auto) 0.3 Baso # (Auto) 0.0 Immature Gran # (Auto) 0.07 H Absolute Nucleated RBC 0.00 Immature Gran % 1 H Nucleated RBC % 0 Sodium 137 138 141 Potassium 5.9 H 5.9 H 4.6 D Chloride 110 H 111 H 112 H Carbon Dioxide 18.5 L 17.5 L 19.3 L Anion Gap 9 10 10 BUN 37 H 38 H 35 H Creatinine 1.7 H 1.7 H 1.6 H Estim Creat Clear Calc 28.7 L 28.7 L 30.5 L eGFR 32 L 32 L 34 L BUN/Creatinine Ratio 22 H 22 H 22 H Glucose 120 H D 106 109 H Calculated Osmolality 283 284 290 Calcium 8.6 8.6 9.3 Corrected Calcium 8.8 8.8 9.4 Phosphorus 5.0 5.1 Magnesium 1.4 L Total Bilirubin 0.4 AST 32 ALT 59 H Alkaline Phosphatase 92 D Total Protein 5.7 Albumin 3.8 3.8 3.9 Globulin 1.8 L Albumin/Globulin Ratio 2.2 ABG Interpretation ABG results: 12/05/24 19:24 ABG pH 7.26 L ABG pCO2 28 L ABG pO2 98 ABG HCO3 13 L ABG O2 Saturation 98 ABG Base Excess -13 L Quality Measures Quality Measures VTE prophylaxis Assessment & Plan Assessment Current Active Medications: Generic Name Dose Route Start Last Admin Trade Name Nidhi PRN Reason Stop Dose Admin Acetaminophen 650 mg 12/05/24 18:18 12/06/24 21:13 Acetaminophen 325 Mg Tablet PO 01/04/25 18:17 650 mg Q6H PRN Administration Fever >100 or pain 1-3 Carvedilol 12.5 mg 12/05/24 21:00 12/07/24 08:21 Carvedilol 12.5 Mg Tablet PO 01/04/25 20:59 12.5 mg BIDWM GAYATRI Administration Citric Acid/Sodium Citrate 30 ml 12/06/24 21:00 12/07/24 08:22 Citric Acid/Sodium Citr 15 Ml Udc (Bicitra) PO 01/05/25 20:59 30 ml BID GAYATRI Administration Dextrose 25 ml 12/05/24 23:41 Dextrose 50%-Water Inj 50 Ml Syringe IV 01/04/25 23:40 Q15MIN PRN BG 50-70 responsive npo pt Dextrose 50 ml 12/05/24 23:41 Dextrose 50%-Water Inj 50 Ml Syringe IV 01/04/25 23:40 Q15MIN PRN BG <50 OR BG <70 & pt unresponsive Glucagon 1 mg 12/05/24 23:41 Glucagon Inj 1 Mg Vial IM Q15MIN PRN BG <70, and no IV access Glucagon 1 mg 12/07/24 00:50 Glucagon Inj 1 Mg Vial IM Q15MIN PRN BG <70, and no IV access Heparin Sodium (Porcine) 5,000 unit 12/05/24 21:00 12/07/24 08:22 Heparin Sod Inj 5000 Unit/Ml Vial SC 12/19/24 20:59 5,000 unit Q12HR GAYATRI Administration Hydralazine HCl 10 mg 12/05/24 19:31 Hydralazine Inj 20 Mg/Ml Vial IVP 01/04/25 19:30 Q4HR PRN Hypertension Insulin Human Lispro 0 unit 12/05/24 21:00 12/07/24 11:30 Insulin Lispro (Admelog) 1 Unit/0.01 Ml Unit SC 01/04/25 20:59 Not Given ACHS [facility] Protocol Ropinirole HCl 2 mg 12/06/24 21:00 12/07/24 08:22 Ropinirole Hcl 1 Mg Tablet PO 01/05/25 20:59 2 mg BID GAYATRI Administration
--- NOTE | 2024-12-07 16:25 | ESDS_ITS ---
<Statement entered by Vance Iniguez MD - 12/07/24 18:21> I saw and examined patient personally and supervised PGY 1 resident, Dr. Gonzalez with formulating a management plan. I agree with the documentation with the exceptions as listed below. Patient was admitted for asymptomatic hypokalemia of 7.4. During routine outpatient lab work she was found to have elevated potassium and referred to the emergency department. Patient was treated with hyperkalemia cocktail [insulin IV, calcium gluconate and D50] along with Kayexalate inpatient. Her potassium improved to 4.6 today. Also it was deemed that the cause of her hyperkalemia was multifactorial due to both Aldactone, losartan and RTA type IV. Upon discharge we will completely discontinue Aldactone and losartan. She was started on sodium bicarb 325 mg p.o. 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 Recommend patient continue follow-up with [facility] for renal cell carcinoma with mets to the lung. All patient's labs are currently returning to her baseline. Patient clinically stable and fit for discharge to home. Plan of care discussed with Attending Dr. Fredi Iniguez MD PGY 2 Disclaimer: This note was dictated by speech recognition. Minor errors in title vehicle service attendant may be present due to voice recognition software. 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 ER: In the ED, vitals showed: BP 143/82 HR 73 RR 18 Temp 98.2 SpO2 100% on room air CBC showed Hgb 11.8 (MCV 100, RDW 50.5). ABG showed acidotic pH 7.26, pCO2 28, pO2 98, and bicarbonate 16.9. CMP showed sodium 134, potassium 7.3, chloride 112, bicarbonate 16.9, BUN 29, creatinine 1.6 (baseline possibly 1.3 taken on 09/14/24), calculated osmolality 275, magnesium 1.6, AST 59, ALT 74, alkaline phosphatase 128, TSH 3.75, and free T4 1.96. Imagin/20 EKG showed the presence of an electronic ventricular pacemaker w/ HR 71 and normal QTc 461. In the ED, patient was given IV calcium gluconate, PO kayexalate, IV dextrose, inhaled albuterol and Duoneb, IV regular human insulin, and IV Lasix. Patient was admitted for the work-up and management of hyperkalemia. Hospital: During patient's hospital course, she was treated with INH albuterol, PO Kayexalate, IV calcium gluconate, IV Lasix, IV regular human insulin (+dextrose), PO Bicitra, and IV sodium bicarbonate for her hyperkalemia. She was also restarted on her home Coreg for her chronic hypertension. By 12/07, patient's potassium had been reduced to 4.6 and patient was deemed clinically stabilized for discharge home with instructions to discontinue taking her home spironolactone and losartan (which were thought to be the likely culprits of her presenting hyperkalemia). Patient is safe to discharge to home. Further discharge instructions below. - We have stopped your Medications aldactone and Losartan. These caused your high potassium. - We have started you on amlodipine for your blood pressure. - You have been started on sodium bicarbonate for your high potassium - Continue follow up with Cancer treatment center - Follow up with your primary care physician within 1 week of discharge. If you do not have a primary care physician, please follow up with the [facility] Residents clinic ([phone]) ? If you experience any new, worsening or persistent symptoms either call your primary doctor, or dial 911 or present to the emergency department. #Hyperkalemia, i/s/o impaired renal function, likely 2/2 #Adverse medication effect (losartan, spironolactone) #CKD IIIb, worsening, i/s/o chronic hypertension and T2DM #PMH of malignant neoplasm of right kidney #s/p right nephrectomy #Metabolic acidosis w/ compensatory respiratory alkalosis #Chronic hypertension #Macrocytic anemia #Transaminitis #Insulin-dependent T2DM #Hypothyroidism #Pacemaker in place #Restless leg syndrome Status at Discharge Cognitive/Behavioral Status at Discharge: stable Functional Status at Discharge: independent ambulation Overall Status at Discharge: patient is back to baseline Patient's care plan was discussed with my attending, Dr. Rai, and senior resident, Dr. Iniguez. Callum Gonzalez, DO Internal Medicine, PGY-1 Time Spent with Patient Time attestation: Total time spent providing and/or coordinating discharge services: Time spent: Greater than 30 minutes Exam Vital Signs Temp Pulse Resp BP Pulse Ox O2 Del Method O2 Flow Rate 97.1 F 91 16 148/66 H 95 Room Air 8 12/07/24 11:00 12/07/24 12:00 12/07/24 11:00 12/07/24 11:00 12/07/24 11:00 12/07/24 11:00 12/07/24 01:40 Narrative Exam General: A/O x3, no acute distress. Skin: Erythematous rash under right breast. Pimple under left breast. Skin intact. Head: Normocephalic, atraumatic. Eyes: PERRL, EOMI. Anicteric, vision grossly intact. Ears: No ear pain, no ear discharge, Hearing grossly intact. Nose: No nasal discharge. Mouth/Throat: Oral mucosa moist. No obvious lesions in oropharynx. Neck: Neck supple, non-tender, no cervical lymphadenopathy. Cardiovascular: Pacemaker in place. Regular rate and rhythm, no murmur, no JVD or carotid bruits. +S1/S2. Respiratory: Bilateral lungs are clear to auscultation, respirations unlabored, no crackles, no wheezing. No accessory muscle use. Gastrointestinal: Patient is ticklish and reacts strongly to palpation. Soft, nontender, non-distended, no palpable masses. No guarding or rebound tenderness. Peristalsis present. Extremities: 3+ pitting edema bilaterally up to knees. Symmetrical, no significant deformities. No cyanosis, no clubbing. 2+ radial pulse bilaterally, 2+ posterior tibial pulse bilaterally. Neuro: No focal deficits observed. Conversant, moving all extremities. No overt cerebellar signs/incoordination. Psychiatric: Cooperative, appropriate affect. Discharge Plan Plan Patient Disposition: HOME (Self Care) Patient condition on transfer: Stable Care Plan Goals: - We have stopped your Medications aldactone and Losartan. These caused your high potassium. - We have started you on amlodipine for your blood pressure. - You have been started on sodium bicarbonate for your high potassium - Continue follow up with Cancer treatment center - Follow up with your primary care physician within 1 week of discharge. If you do not have a primary care physician, please follow up with the [facility] Residents clinic ([phone]) ? If you experience any new, worsening or persistent symptoms either call your primary doctor, or dial 911 or present to the emergency department. Prescriptions/Referrals Prescriptions/Med Rec: New amlodipine 5 mg tablet 5 mg PO QDAY 30 Days Qty: 30 1RF sodium bicarbonate 325 mg tablet 325 mg PO QDAY 30 Days Qty: 30 1RF Continued Januvia 100 MG tablet 100 mg PO QDAY Qty: 0 carvedilol 12.5 mg tablet 12.5 mg PO BID ropinirole 1 mg tablet 2 mg PO QPM clonidine HCl 0.2 mg tablet 0.2 mg PO BID Mel-Debra Rx 1-60-300 mg-mg-mcg tablet 1 tab PO QDAY pembrolizumab 50 mg recon soln 200 mg IV .S2imljg Held Inlyta 5 mg tablet 5 mg PO Q12H Hold Instructions: Resume on 12/14/24. Follow with oncologist before resuming Discontinued spironolactone [Aldactone] 50 mg tablet 50 mg PO QDAY losartan [Cozaar] 50 mg tablet 50 mg PO QDAY lidocaine HCl [Lidocaine Viscous] 2 % solution 10 ml PO .Q6 PRN (Reason: as needed) Patient Comments: TAKE 10ML BY MOUTH NEEDED SWISH, GARGLE AND SPIT 1-2 TEASPOONS EVERY 6 HOURS NEEDED Referrals: Cancer Treatment Center - [facility] [Outside] Denise Gonzalez MD [Primary Care Provider, Nephrology] Patient/Caregiver Discharge Instructions Education Materials: CKD Dc, Hyperkalemia Dc Print Language: Irish Stand Alone Forms: Tesha Award Info., Patient Portal Info Letter Discharge Order Discharge Orders: Discharge (Routine); Ordered 12/07/24 Ordered By: Vance Iniguez Quality Discharge Quality Measures VTE prophylaxis Attestestation MD Attestation I have discussed and was present for the essential components of the discharge history, physical examination, diagnosis, and discharge treatment plan with the resident. I agree with the patient's discharge care as documented by the resident and amended herein by me. Ciro Rai, DO. The patient understood all discharge instructions, all questions were answered satisfactorily. The patient was instructed to return to the Emergency Department is symptoms worsened or persisted. At time of discharge, potassium normalized to 4.6, probably medication induced from losartan and spironolactone hence we will hold at time of discharge per nephrology recommendations. Patient will need close follow-up with her primary care physician and follow-up with cancer treatment center for further evaluation. Patient was stable, afebrile and tolerating p.o. intake at time of discharge home. Although this document has been carefully reviewed, there may still be some phonetic and other typographical errors. These errors are purely grammatical due to imperfections in the software program and should not be construed in any way to compromise the substance of the patient's medical care during this visit. Time Spent on discharge:
== END 2024-12-07 15:25 | disposition home or self-care (01) | DRG 641 ==
LOC: SERX 16:55 → SERHOLD 18:38 → S3SX 12-06 06:02
PROVIDERS: Nurse Practitioner Family; Student in an Organized Health Care Education/Training Program; Admitting Provider Student in an Organized Health Care Education/Training Program; Emergency Provider Emergency Medicine; PCP Internal Medicine; Visit Provider Student in an Organized Health Care Education/Training Program
DX: E87.5 Hyperkalemia (principal); I13.0 Hypertensive heart and chronic kidney disease with heart failure and stage 1 through stage 4 chronic kidney disease, or unspecified chronic kidney disease; I50.22 Chronic systolic (congestive) heart failure; E03.9 Hypothyroidism, unspecified; E78.5 Hyperlipidemia, unspecified; E11.22 Type 2 diabetes mellitus with diabetic chronic kidney disease; D53.9 Nutritional anemia, unspecified; E87.20 Acidosis, unspecified; R74.01 Elevation of levels of liver transaminase levels; E87.6 Hypokalemia; I44.1 Atrioventricular block, second degree; Z90.5 Acquired absence of kidney; N18.32 Chronic kidney disease, stage 3b; N25.89 Other disorders resulting from impaired renal tubular function; G25.81 Restless legs syndrome; Z79.4 Long term (current) use of insulin; Z95.0 Presence of cardiac pacemaker; Z85.528 Personal history of other malignant neoplasm of kidney
CPT/HCPCS: 36415; 36600; 76770; 80053; 80069; 82436; 82803; 83036; 83605; 83735; 84100; 84133; 84300; 84443; 84484; 85025; 93005; 93225; 94640; 94644; 94645; 96372; 96374; 96375; 96376; 99284; A9270; J0612; J1644; J1815; J1938; J2405; J3475

== ENCOUNTER → 2024-12-09 | Outpatient (CLI) | payer MEDICARE, MEDICAID, SELFPAY ==
--- NOTE | 2024-12-09 10:30 | ECHO_ITS ---
Transthoracic Echo Report Ht (in): 63 Wt (lb): 160 Exam Location: Echo Lab Status: Outpatient Health Insurance Sales Agent: Ana Webb Indications: Procedure Performed: BP: 124 / 63 HR: 70 MEASUREMENTS (Male / Female) Normal Values 2D ECHO LV Diastolic Diameter PLAX 4.3 cm 4.2 - 5.9 / 3.9 - 5.3 cm LV Systolic Diameter PLAX 2.9 cm IVS Diastolic Thickness 1.1 cm 0.6 - 1.0 / 0.6 - 0.9 cm LVPW Diastolic Thickness 1.1 cm 0.6 - 1.0 / 0.6 - 0.9 cm LV Relative Wall Thickness 0.5 LVOT Diameter 1.8 cm LA Volume Index 32.9 cm?/m? 16 - 28 cm?/m? Ascending Aorta Diameter 3.0 cm M-MODE AV Cusp Separation MM 0.9 cm DOPPLER AV Peak Velocity 159.0 cm/s AV Peak Gradient 10.1 mmHg AV Mean Gradient 6.0 mmHg AV Velocity Time Integral 39.3 cm LVOT Peak Velocity 77.2 cm/s LVOT Peak Gradient 2.4 mmHg LVOT Velocity Time Integral 18.5 cm LVOT Cardiac Index 1813.3 cm?/min?m? AV Area Cont Eq vti 1.2 cm? AV Area Cont Eq pk 1.2 cm? MV Area PHT 3.2 cm? Mitral E Point Velocity 51.0 cm/s Mitral A Point Velocity 84.4 cm/s Mitral E to A Ratio 0.6 LV E' Lateral Velocity 5.9 cm/s Mitral E to LV E' Lateral Ratio 8.7 LV E' Septal Velocity 4.5 cm/s Mitral E to LV E' Septal Ratio 11.4 TR Peak Velocity 231.0 cm/s TR Peak Gradient 21.3 mmHg PV Peak Velocity 66.9 cm/s PV Peak Gradient 1.8 mmHg FINDINGS Left Ventricle Normal left ventricular size, wall thickness, systolic function with no obvious regional wall motion abnormalities. There is grade I diastolic dysfunction of the left ventricle (impaired relaxation pattern). . The ejection fraction is visually estimated at 50-55 %. Right Ventricle The right ventricle is normal in size and systolic function. The estimated right ventricular systolic pressure, 29 mmHg with RAP 3. Left Atrium The left atrium is normal by two-dimensional, color flow and Doppler imaging with no structural abnormalities, no thrombus formation present. Right Atrium The right atrium is normal by two-dimensional imaging, color flow and Doppler imaging with no structural abnormalities, no thrombus formation present. Atrial Septum The interatrial septum appears normal with no evidence of a shunt. Aorta The aorta is normal by two-dimensional, color flow and Doppler interrogation. Mitral Valve The mitral valve is normal by two-dimensional, color flow and Doppler interrogation. Mild mitral regurgitation. Aortic Valve The aortic valve is trileaflet and mildly sclerotic with out stenosis. Tricuspid Valve The tricuspid valve is normal by two-dimensional, color flow and Doppler interrogation. There is mild tricuspid valve regurgitation. Pulmonic Valve The pulmonic valve is not well visualized. There is no significant pulmonic valve regurgitation. Vessels The pulmonary artery appears normal. The inferior vena cava pulmonary and hepatic veins appear normal. Pericardium The pericardium is normal by two-dimensional imaging. There is no significant pericardial effusion. CONCLUSIONS Indication: Secondary malignant neoplasm of brain Normal left ventricular size and function. Approximate ejection fraction is 50- 55%. Grade I diastolic dysfunction Normal right ventricular size and function. RVSP 29 mmHg with RAP 3. Aortic valve moderately sclerotic without stenosis. Mild mitral and mild tricuspid regurgitation noted. Compared to prior study of 09/14/24 Devante Eduardo (Electronically Signed) Final Date: 10 December 2024 17:18
== END | disposition home or self-care (01) ==
LOC: SDIM 10:24
PROVIDERS: PCP Internal Medicine; Referring Provider Internal Medicine Hematology & Oncology; Visit Provider Internal Medicine Hematology & Oncology
DX: I50.30 Unspecified diastolic (congestive) heart failure (principal); C79.31 Secondary malignant neoplasm of brain; C78.01 Secondary malignant neoplasm of right lung; C64.1 Malignant neoplasm of right kidney, except renal pelvis; I08.1 Rheumatic disorders of both mitral and tricuspid valves
CPT/HCPCS: 93306

== ENCOUNTER → 2024-12-22 | Outpatient (CLI) | payer MEDICARE, MEDICAID, SELFPAY ==
[2024-12-22 14:26] LABS: Basophils # (Auto) 0.1 Thou/mm3 (0.0-0.2); Basophils % (Auto) 1 % (0-2.5); Eosinophils # (Auto) 0.3 Thou/mm3 (0.0-0.5); Eosinophils % (Auto) 6 % (0-10); Hematocrit 33.1 % (36.0-46.0); Hemoglobin 11.2 g/dL (12.0-16.0); Immature Granulocytes Auto 0.02 Thou/mm3 (0.00-0.00); Lymphocytes # (Auto) 0.8 Thou/mm3 (1.0-4.8); Lymphocytes % (Auto) 15 % (10-50); Mean Corpuscular HGB Conc 33.8 g/dl (31.0-37.0); Mean Corpuscular Hemoglobin 31.5 pg (25.0-35.0); Mean Corpuscular Volume 93 fL (80-100); Monocytes # (Auto) 0.4 Thou/mm3 (0.0-0.8); Monocytes % (Auto) 8 % (0-12); Neutrophils # (Auto) 3.8 Thou/mm3 (1.8-7.7); Neutrophils % (Auto) 71 % (37-80); Nucleated Red Blood Cell # 0.00 Thou/mm3 (0.00-0.00); Nucleated Red Blood Cell % 0 /100 WBC (0); Platelet Count 325 Thou/mm3 (140-440); RDW Standard Deviation 43.4 fL (36.4-46.3); Red Blood Count 3.56 Miln/mm3 (4.00-5.20); White Blood Count 5.4 Thou/mm3 (3.6-11.0)
[2024-12-22 14:39] LABS: Albumin, Serum 4.4 gm/dL (3.4-4.8); Anion Gap 10 (7-16); BUN/Creatinine Ratio 25 Ratio (12-20); Blood Urea Nitrogen 48 mg/dL (9-23); Calcium 8.8 mg/dL (8.3-10.6); Calcium (Corrected) 8.8 mg/dL (8.5-10.1); Carbon Dioxide 24.8 mMol/L (20.0-31.0); Chloride 100 mMol/L (98-107); Creatinine (Component) 1.9 mg/dL (0.6-1.3); Glucose 162 mg/dL (74-106); Osmolality,Calculated 286 (275-295); Phosphorous 5.1 mg/dL (2.4-5.1); Potassium 4.1 mMol/L (3.4-5.1); Sodium 135 mMol/L (136-145); eGFR 28 See Note
== END | disposition home or self-care (01) ==
PROVIDERS: PCP Internal Medicine; Referring Provider Internal Medicine; Visit Provider Internal Medicine
DX: I12.9 Hypertensive chronic kidney disease with stage 1 through stage 4 chronic kidney disease, or unspecified chronic kidney disease (principal); N18.30 Chronic kidney disease, stage 3 unspecified
CPT/HCPCS: 36415; 80069; 85025

== ENCOUNTER 2025-01-04 09:42 | Inpatient (IN) | payer MEDICARE, MEDICAID, SELFPAY ==
[2025-01-04] VITALS (8 sets, daily range): BP systolic 100–151; BP diastolic 62–103; PULSE 72–91; RESP 14–19; TEMP 36.7–37.1; O2SAT 92–99
--- NOTE | 2025-01-04 10:42 | PC.NURSE ---
Pt. here from home to room 7, pt. states it was about 3 in the morning on Thursday and pt. states she fell, pt. states she uses a walker and she set her walker aside and walked into her room, pt. states she lost her balance and fell. Pt. states she hit the right side of her back on a metal table and dented the table. Pt. states she has swelling to the right side of her back, pt. denies loss of LOC, denies dizziness. Daughter Tri states pt. has hernia's in her stomach. Pt. has lung cancer and treatment was stopped because pt. received a port which was then removed and pt. had to get a pacemaker.
--- NOTE | 2025-01-04 10:59 | XR_ITS ---
Examination: CT chest with intravenous contrast CT abdomen with intravenous contrast CT pelvis with intravenous contrast 2-D coronal and sagittal reconstructions Time of exam: January 04, 2025, 1244 hours, comparison January 04, 2025 INDICATIONS: Patient fell today with injury to the chest and abdomen, chest pain abdomen pain, history malignant neoplasm of the brain, history right mediastinal tumor mass CTDI: vol (mGy) : 8.74 DLP: (mGycm): 609 Technique: Multiple axial images of the chest, abdomen and pelvis with intravenous contrast, 3.0 mm slice thickness. Images obtained post intravenous injection Isovue 40 cc Isovue-300 2-D sagittal and coronal reconstructions. Low dose protocols were performed. One or more of the following dose reduction techniques were used; automated exposure control, adjustment of the mA and/or KV according to patient size, use of iterative reconstruction technique. Findings: Thoracic aorta pulmonary arteries intact Again noted right mediastinal tumor mass in the tracheobronchial region No hemopericardium No pneumothorax Pulmonary mass in the right upper lobe with spiculated margins again depicted stable compared with November 24, 2024 No hemothorax The manubrium and the body of the sternum intact No thoracic or lumbar vertebral body compression fracture Rib detail is obscured by patient motion No acute displaced rib fractures No liver or splenic or renal laceration Aorta normal size No free body in the abdomen Multiple fluid distended small bowel loops Hernia defect again noted in the right anterior pelvic wall containing small bowel which may be partially incarcerated Urinary bladder intact Hips bones of the pelvis intact Severe osteopenia IMPRESSION: Pulmonary arteries and thoracic aorta intact Tumor mediastinal lymphadenopathy and tumor mass in the right upper lobe again noted No pneumothorax or hemothorax No abdominal parenchymal laceration Small bowel obstruction pattern which appears to be secondary to incarcerated bowel in a right anterior pelvic wall hernia defect Consider Gastrografin small bowel series follow-up
[2025-01-04] MEDS: PROCHLORPERAZINE INJ 5 MG/ML VIAL 2 ML 10 MG IV (11:21)
[2025-01-04] MEDS: MORPHINE SULF INJ 4 MG/ML VIAL IVP (11:22)
[2025-01-04] MEDS: SODIUM CHLORIDE 0.9% 1000 ML 1,000 ML 999 ML IV (11:26)
[2025-01-04] MEDS: ACETAMINOPHEN IVPB 1,000 MG/100 ML VIAL 250 MG IV (11:28)
[2025-01-04 11:55] LABS: Basophils # (Auto) 0.1 Thou/mm3 (0.0-0.2); Basophils % (Auto) 0 % (0-2.5); Eosinophils # (Auto) 0.1 Thou/mm3 (0.0-0.5); Eosinophils % (Auto) 1 % (0-10); Hematocrit 41.3 % (36.0-46.0); Hemoglobin 14.2 g/dL (12.0-16.0); Immature Granulocytes Auto 0.06 Thou/mm3 (0.00-0.00); Lymphocytes # (Auto) 0.9 Thou/mm3 (1.0-4.8); Lymphocytes % (Auto) 6 % (10-50); Mean Corpuscular HGB Conc 34.4 g/dl (31.0-37.0); Mean Corpuscular Hemoglobin 31.7 pg (25.0-35.0); Mean Corpuscular Volume 92 fL (80-100); Monocytes # (Auto) 0.7 Thou/mm3 (0.0-0.8); Monocytes % (Auto) 5 % (0-12); Neutrophils # (Auto) 12.9 Thou/mm3 (1.8-7.7); Neutrophils % (Auto) 88 % (37-80); Nucleated Red Blood Cell # 0.00 Thou/mm3 (0.00-0.00); Nucleated Red Blood Cell % 0 /100 WBC (0); Platelet Count 340 Thou/mm3 (140-440); RDW Standard Deviation 42.2 fL (36.4-46.3); Red Blood Count 4.48 Miln/mm3 (4.00-5.20); White Blood Count 14.8 Thou/mm3 (3.6-11.0)
[2025-01-04 12:08] LABS: Alanine Aminotransferase 15 U/L (10-49); Albumin, Serum 5.2 gm/dL (3.4-4.8); Albumin/Globulin Ratio 1.9 (1.2-2.2); Alkaline Phosphatase 129 U/L (46-116); Anion Gap 14 (7-16); Aspartate Amino Transferase 25 U/L (0-34); BUN/Creatinine Ratio 22 Ratio (12-20); Bilirubin,Total 0.4 mg/dL (0.3-1.2); Blood Urea Nitrogen 40 mg/dL (9-23); Calcium 10.5 mg/dL (8.3-10.6); Calcium (Corrected) 10.5 mg/dL (8.5-10.1); Carbon Dioxide 25.2 mMol/L (20.0-31.0); Chloride 100 mMol/L (98-107); Creatinine (Component) 1.8 mg/dL (0.6-1.3); Globulin 2.8 gm/dL (2.3-3.5); Glucose 155 mg/dL (74-106); Magnesium 2.4 mg/dL (1.6-2.6); Osmolality,Calculated 290 (275-295); Potassium 4.3 mMol/L (3.4-5.1); Sodium 139 mMol/L (136-145); Total Protein 8.0 gm/dL (5.7-8.2); eGFR 30 See Note
[2025-01-04 13:49] LABS: Collection Type, Urine Clean Catch
[2025-01-04 14:05] LABS: Bacteria,Urine 1+; Bilirubin,Urine Negative (Negative); Blood,Urine 1+ (Negative); Color,Urine Yellow (Lt Yel-Yel); Culture Indicated,Urine Yes; Glucose, Urine 3+ (Negative); Hyaline Casts,Urine < 1 /hpf (0-1); Ketones,Urine Trace (Negative); Leukocyte Esterase,Urine Positive (Negative); Nitrite,Urine Negative (Negative); PH,Urine 6.0 (5.0-7.0); Protein,Urine 2+ (Neg - Trace); RBC,Urine 12 /hpf (0-3); Specific Gravity,Urine 1.021 (1.001-1.035); Squamous Epithelial Cell,Urine 8 /hpf (0-5); Urobilinogen,Urine Negative mg/dL (0.0-1.0); WBC,Urine 30 /hpf (0-5)
[2025-01-04 14:06] LABS: Clarity,Urine Hazy (Clear/Hazy)
--- NOTE | 2025-01-04 15:31 | PC.NURSE ---
Pt. states she feels better and wants to go home.
--- NOTE | 2025-01-04 16:46 | PD.EDBACK ---
ED Back Injury Pain RME/HPI General Chief Complaint: Fall Stated Complaint: FALL X 4 DAYS; HIT CORNER OF TABLE ON R) BACK Time Seen by Provider: 01/04/25 10:18 Arrival date/time: 01/04/25 09:42 RME / HPI RME / HPI Narrative: 69-year-old female presenting for evaluation after a fall approximately 4 days ago during the night, in which she lost her balance while walking between rooms and struck her right back against a metal coffee table. She reports persistent back pain since the incident, with worsening symptoms recently. Nausea and vomiting began yesterday evening, with three episodes overnight. She denies diarrhea, fever, urinary symptoms, chest pain, and shortness of breath. Past medical history includes diabetes, hypertension, and metastatic cancer to the right lung. Related Data Home Medications ?Medication ?Instructions ?Recorded ?Confirmed sitagliptin phosphate 100 mg 100 mg PO QDAY #0 tabs 07/10/16 12/06/24 tablet (Januvia) carvedilol 12.5 mg tablet 12.5 mg PO BID 05/15/23 12/06/24 axitinib 5 mg tablet (Inlyta) 5 mg PO Q12H 05/25/24 12/06/24 Held on 12/07/24. Instructions: Resume on 12/14/24. Follow with oncologist before resuming clonidine HCl 0.2 mg tablet 0.2 mg PO BID 05/25/24 12/06/24 ropinirole 1 mg tablet 2 mg PO QPM 05/25/24 12/06/24 vitamin B comp no.3-folic acid 1 1 tab PO QDAY 08/17/24 12/06/24 mg-vit C 60 mg-biotin 300 mcg tablet (Mel-Debra Rx) pembrolizumab 50 mg intravenous 200 mg IV .[id number] 09/14/24 12/06/24 solution Previous Rx's ?Medication ?Instructions ?Recorded amlodipine 5 mg tablet 5 mg PO QDAY 1 month #30 tabs 12/07/24 sodium bicarbonate 325 mg tablet 325 mg PO QDAY 1 month #30 tabs 12/07/24 Allergies Allergy/AdvReac Type Severity Reaction Status Date / Time No Known Allergies Allergy Verified 01/04/25 09:47 Review of Systems Review of Systems Systems Reviewed: All systems reviewed, normal except as documented Past Medical History Past Medical History CARDIAC: Positive Cardiac Disorders, Congestive Heart Failure, Edema and Hypertension RESPIRATORY: Positive Pneumonia GASTROINTESTINAL: Positive Gall Bladder Disease GENITOURINARY: Positive Renal Disease (only has 1 kidney.) REPRODUCTIVE: Positive Previous Pregnancies MUSCULOSKELETAL: Positive Carpal Tunnel Syndrome ENDOCRINE: Positive Endocrine Disorders, Diabetes Mellitus Type 2 and Hyperthyroidism PSYCHO/SOCIAL: Positive Anxiety OTHER HISTORY: Positive Hospitalization, Blood Transfusions, Chemotherapy, Radiation Therapy, Cancer (renal cancer) and Lung Cancer (right) Surgical History SURGICAL: Positive Pacemaker, Endocrine Surgery, Tonsillectomy, Abdominal Surgery, Nephrectomy (2017), Tubal Ligation and Section Social History SMOKING STATUS: Never smoker SUBSTANCE USE: does not use Past Medical History Comments PMH COMMENT: - Diabetes - Hypertension - Metastatic cancer to right lung ED Exam Narrative Physical exam: General: Elderly, frail, no acute distress. Eyes: Appear normal with no scleral icterus. HENT: Normocephalic, atraumatic. Neck: Atraumatic, supple. Cardiac: Regular rate and rhythm; no significant murmurs appreciated. Respiratory: Lungs clear to auscultation; no rhonchi, rales, or wheezes; no respiratory distress. Abdomen: Tenderness to palpation, worse in upper mid left abdomen; no rebound or guarding. MS: Right mid lateral back tenderness; very slight minimal crepitus; no swelling. Skin: No erythema or bruising over right mid lateral back. Back exam: Atraumatic. Neurologic: Movements intact. Psychological: Cooperative and participatory with examination. Course Course Course Narrative: 1655h: The patient has a small bowel obstruction that is incarcerated through the hernia defect. Called surgeon Dr. Walters, no answer. Left a message to call back. Plan for admission. 1725h: Dr. Walters saw patient, recommends admit to medicine, small bowel series in hospital. Called and spoke with Dr. Gonzalez for admit - accepted. Quality Measures none Orders Category Date Time Status COVID-19 Screening Questionnaire NOW Care 01/04/25 16:[address] Screening NOW Care 01/04/25 11:01 Active Decision to Admit X1 Care 01/04/25 16:[address] chest abdomen pelvis w Stat Exams 01/04/25 10:59 Completed CBC Stat Lab 01/04/25 10:22 Completed CMP [Comprehensive Metabolic Panel] Stat Lab 01/04/25 10:22 Completed Lactic Acid [Lactate (Lactic Acid)] Stat Lab 01/04/25 16:59 Completed Magnesium Stat Lab 01/04/25 10:22 Completed Urinalysis, C/S if Indicated Stat Lab 01/04/25 13:39 Completed Urine Culture Stat Lab 01/04/25 13:39 Received Acetaminophen Ivpb [Ofirmev Inj] Med 01/04/25 10:59 Discontinued 1,000 mg in 100 ml IV NOW Morphine* Inj Med 01/04/25 10:59 Discontinued 4 mg IVP NOW ONE Prochlorperazine Inj [Compazine Inj] Med 01/04/25 10:59 Discontinued 10 mg IV X1 ONE Sodium Chloride 0.9% 1000 ml [Ns] 1,000 ml Med 01/04/25 10:59 Discontinued IV 999 mls/hr Vital Signs Vital signs: Vital Signs Temperature 98.5 F 01/04/25 09:56 Pulse Rate 86 01/04/25 09:56 Respiratory Rate 18 01/04/25 09:56 Blood Pressure 138/84 H 01/04/25 09:56 Pulse Oximetry (%) 98 01/04/25 09:56 Oxygen Delivery Method Room Air 01/04/25 09:56 Pulse ox is 98% on room air which is adequate. Back Pain / Injury MDM Narrative MDM Narrative:: Jessie Morrissey am scribing for and in the presence of Dr. Porter. Patient data External records reviewed:: [facility] previous records Clinical information provided by:: patient Social determinants that could affect healthcare access:: none Patient has the following chronic illnesses:: Hypertension, diabetes, hyperlipidemia, hypothyroidism, s/p pacemaker placement, CKD, Renal cell carcinoma s/p nephrectomy s/p metastatis to brain and right lung How is presenting disease/condition affected by chronic disease/condition?: exacerbated by Evaluation data The following diagnostics were reviewed and interpreted by me:: lab results and radiology exam(s) Lab and/or radiology exams considered but not ordered:: None Interpretation Summary: Ordering Physician: Amanda Porter MD Date of Service: 01/04/25 Procedure(s): CT chest abdomen pelvis w Accession Number(s): [id number] cc: Wolfgang Akhtar MD; Amanda Porter MD; Denise Gonzalez MD~ Examination: CT chest with intravenous contrast CT abdomen with intravenous contrast CT pelvis with intravenous contrast 2-D coronal and sagittal reconstructions Time of exam: January 04, 2025, 1244 hours, comparison January 04, 2025 INDICATIONS: Patient fell today with injury to the chest and abdomen, chest pain abdomen pain, history malignant neoplasm of the brain, history right mediastinal tumor mass CTDI: vol (mGy) : 8.74 DLP: (mGycm): 609 Technique: Multiple axial images of the chest, abdomen and pelvis with intravenous contrast, 3.0 mm slice thickness. Images obtained post intravenous injection Isovue 40 cc Isovue-300 2-D sagittal and coronal reconstructions. Low dose protocols were performed. One or more of the following dose reduction techniques were used; automated exposure control, adjustment of the mA and/or KV according to patient size, use of iterative reconstruction technique. Findings: Thoracic aorta pulmonary arteries intact Again noted right mediastinal tumor mass in the tracheobronchial region No hemopericardium No pneumothorax Pulmonary mass in the right upper lobe with spiculated margins again depicted stable compared with November 24, 2024 No hemothorax The manubrium and the body of the sternum intact No thoracic or lumbar vertebral body compression fracture Rib detail is obscured by patient motion No acute displaced rib fractures No liver or splenic or renal laceration Aorta normal size No free body in the abdomen Multiple fluid distended small bowel loops Hernia defect again noted in the right anterior pelvic wall containing small bowel which may be partially incarcerated Urinary bladder intact Hips bones of the pelvis intact Severe osteopenia IMPRESSION: Pulmonary arteries and thoracic aorta intact Tumor mediastinal lymphadenopathy and tumor mass in the right upper lobe again noted No pneumothorax or hemothorax No abdominal parenchymal laceration Small bowel obstruction pattern which appears to be secondary to incarcerated bowel in a right anterior pelvic wall hernia defect Consider Gastrografin small bowel series follow-up Dictated By: Wolfgang Akhtar MD Signed By: <Electronically signed by Wolfgang Akhtar MD in OV> 01/04/25 5097 Medications / Prescriptions Medications or Prescriptions considered but not ordered:: None Medication administrations:: Medication Administration History Discontinued Medications Acetaminophen (Ofirmev Inj) 1,000 mg in 100 mls @ 250 mls/hr IV NOW ONE Stop: 01/04/25 11:22 Last Infusion: 01/04/25 11:52 Dose: Infused Documented By: Admin: 01/04/25 11:28 Dose: 250 mls/hr Documented By: ED Sodium Chloride (Ns) 1,000 mls @ 999 mls/hr IV .Q1H1M ONE Stop: 01/04/25 11:59 Last Infusion: 01/04/25 12:27 Dose: Infused Documented By: Admin: 01/04/25 11:26 Dose: 999 mls/hr Documented By: ED Morphine Sulfate (Morphine Sulf Inj 4 Mg/Ml Vial) 4 mg IVP NOW ONE Stop: 01/04/25 11:00 Last Admin: 01/04/25 11:22 Dose: 4 mg Documented By: ED Prochlorperazine Edisylate (Prochlorperazine Inj 5 Mg/Ml Vial 2 Ml) 10 mg IV X1 ONE; Protocol Stop: 01/04/25 11:00 Last Admin: 01/04/25 11:21 Dose: 10 mg Documented By: ED See above Consultations Consultation(s) initiated? (list below): Yes Consultation #1 (Physician, Specialty, Details): See course Diagnosis Most likely diagnosis given after review of the tests above:: Small bowel obstruction, fall, rib contusion Admission Indicated Admission indicated?: indicated Admission Request Was there a request for admission?: Yes Admission Attestation Admission request attestation: Discussed case with [] from Hospitalist service regarding admission. Discussed patients ED course, exam findings, labs, and radiology results. The Hospitalist [agrees,declines] to accept the patient for admission. Disposition Plan Disposition Plan: Admit Discharge Plan Plan Patient Disposition: Admit Acute Care w/in Hospital Patient condition on transfer: Stable Prescriptions/Referrals Prescriptions/Med Rec: No Action Januvia 100 MG tablet 100 mg PO QDAY Qty: 0 carvedilol 12.5 mg tablet 12.5 mg PO BID amlodipine 5 mg tablet 5 mg PO QDAY 30 Days Qty: 30 1RF sodium bicarbonate 325 mg tablet 325 mg PO QDAY 30 Days Qty: 30 1RF ropinirole 1 mg tablet 2 mg PO QPM clonidine HCl 0.2 mg tablet 0.2 mg PO BID Inlyta 5 mg tablet 5 mg PO Q12H Mel-Debra Rx 1-60-300 mg-mg-mcg tablet 1 tab PO QDAY pembrolizumab 50 mg recon soln 200 mg IV .[id number] Referrals: Denise Gonzalez MD [Primary Care Provider, Nephrology] - In 1 week Problem List Clinical Impression: Small bowel obstruction, Fall, Contusion of rib on right side Patient/Caregiver Discharge Instructions Print Language: Zimbabwean Stand Alone Forms: [employer] Award Info., Patient Portal Info Letter
[2025-01-04 17:03] LABS: Lactate (Lactic Acid) 0.7 mMol/L (0.4-2.0)
--- NOTE | 2025-01-04 17:35 | XR_ITS ---
EXAMINATION: Small bowel series AP abdomen 3 views Date and time: January 04, 2025, this 1754 hours INDICATIONS: Abdominal pain and distention this week, incarcerated small bowel and right anterior pelvic hernia defect on CT examination today TECHNIQUE AND FINDINGS: Patient received 120 cc Gastrografin with immediate 30-minute and 1 hour films Contrast and distended small bowel loops to ileal level IMPRESSION: Small bowel obstruction pattern Recommend follow-up films 9:00 p.m. 11:00 p.m.
--- NOTE | 2025-01-04 17:37 | PD.SURCONS ---
HPI Consult details Consult date: 01/04/25 Reason for consultation narrative: The patient was seen in consultation because of a small bowel obstruction secondary to incarcerated hernia over the anterior abdominal wall as read by the radiologist in the CT scan History of present illness: Patient came to the emergency room because of some abdominal pain and back pain following a fall last Thursday. She also started having 3 episodes of vomiting. But she had a normal bowel movement yesterday. She is aware of at least 3 hernias over the abdomen for which she has been worked up by a surgeon and advised that she is not a candidate for surgery. Her past medical history was that she has had renal cell carcinoma treated with nephrectomy and cholecystectomy. Patient also had a metastatic disease to the right lung for which she is getting chemotherapy. She also had a pacemaker implantation. Past Medical History Past Medical History NEUROLOGIC: Negative Neurological Disorders or Seizures CARDIAC: Positive Cardiac Disorders, Congestive Heart Failure, Edema and Hypertension RESPIRATORY: Positive Pneumonia; Negative Chronic Obstructive Pulmonary Disease (COPD) or Asthma GASTROINTESTINAL: Positive Gall Bladder Disease; Negative Gastrointestinal Disorders GENITOURINARY: Positive Renal Disease (only has 1 kidney.); Negative Genitourinary Disorders REPRODUCTIVE: Positive Previous Pregnancies; Negative Pelvic Inflammatory Disease MUSCULOSKELETAL: Positive Carpal Tunnel Syndrome; Negative Musculoskeletal Disorders ENDOCRINE: Positive Endocrine Disorders, Diabetes Mellitus Type 2 and Hyperthyroidism; Negative Diabetes Mellitus Type 1 HEMATOLOGIC: Negative Blood Disorders or Sickle Cell Disease PSYCHO/SOCIAL: Positive Anxiety OTHER HISTORY: Positive Hospitalization, Blood Transfusions, Chemotherapy, Radiation Therapy, Cancer (renal cancer) and Lung Cancer (right); Negative Autoimmune Disease, Blood Transfusion Reaction or Anesthesia Reactions Surgical History SURGICAL: Positive Pacemaker, Endocrine Surgery, Tonsillectomy, Abdominal Surgery, Nephrectomy (2017), Tubal Ligation and Section; Negative Cardiac Surgery or Joint Replacement Social History SMOKING STATUS: Never smoker SUBSTANCE USE: does not use Past Medical History Comments PMH COMMENT: - Diabetes - Hypertension - Metastatic cancer to right lung Meds Home Medications and Allergies Home Medications ?Medication ?Instructions ?Recorded ?Confirmed ?Type sitagliptin phosphate 100 mg 100 mg PO QDAY #0 tabs 07/10/16 12/06/24 History tablet (Januvia) carvedilol 12.5 mg tablet 12.5 mg PO BID 05/15/23 12/06/24 History axitinib 5 mg tablet (Inlyta) 5 mg PO Q12H 05/25/24 12/06/24 History Held on 12/07/24. Instructions: Resume on 12/14/24. Follow with oncologist before resuming clonidine HCl 0.2 mg tablet 0.2 mg PO BID 05/25/24 12/06/24 History ropinirole 1 mg tablet 2 mg PO QPM 05/25/24 12/06/24 History vitamin B comp no.3-folic acid 1 1 tab PO QDAY 08/17/24 12/06/24 History mg-vit C 60 mg-biotin 300 mcg tablet (Mel-Debra Rx) pembrolizumab 50 mg intravenous 200 mg IV .[id number] 09/14/24 12/06/24 History solution Allergies Allergy/AdvReac Type Severity Reaction Status Date / Time No Known Allergies Allergy Verified 01/04/25 09:47 Exam Vital Signs Temp Pulse Resp BP Pulse Ox O2 Del Method 98.2 F 72 18 119/70 93 L Room Air 01/04/25 16:00 01/04/25 16:00 01/04/25 16:00 01/04/25 16:00 01/04/25 16:00 01/04/25 16:00 Narrative Exam Physical examination revealed an elderly lady who appeared older than her stated age of 69. Her vital signs are normal. Routine Chest/Breast/Axilla Exam Comments: Examination of the chest revealed surgical scar in the right upper quadrant from removal of the Port-A-Cath. Patient has defibrillator inserted through the left subclavian vein. Routine Abdominal Exam Comments: Abdominal examination shows subcostal incision as well as a right flank incision from nephrectomy. There is a herniation in the suprapubic area which seems to contain the bowel and reduces with the gurgle. Routine Extremities Exam Comments: Surgical scar on the right shoulder Results Results: Laboratory Laboratory Narrative: Laboratory workup showed leukocytosis of 14,000. Results: Imaging Imaging narrative: CT scan showed a hernia in the right lower quadrant which was read by radiologist as incarcerated. There is some small bowel dilatation suggesting there may be an obstruction but the hernia is reducible. Chest x-ray shows large pulmonary nodule on the right side due to metastatic disease Assessment & Plan Additional Assessment Additional comments: Pression: Possible partial small bowel obstruction due to hernia in the anterior abdominal wall Status post renal cell carcinoma treated with nephrectomy Metastatic disease in the lung Status post pacemaker insertion left side Plan Plan: I do not think that the patient has complete obstruction or incarceration. The hernia in the right lower quadrant is reducible and it reduces with gurgle indicating that there may be a loop of bowel. Patient does not seem to have a lot of pain at the site of the hernia. However she has a history of vomiting even though she had a bowel movement yesterday. She does not appear distended. However I will admit her and get a small bowel series to make sure there is no incarceration at the hernia site. Patient is at high risk for any surgical intervention and we shall try to treat her without surgery. Thank you.
--- NOTE | 2025-01-04 19:18 | PD.NEPHHP ---
Documentation for date of: 01/04/25 History of Present Illness History of Present Illness Chief complaint: Abdominal pain History of present illness: Ms. Zapata is a 69-year-old female with a history of CKD III, hyperkalemia, hypertension, type 2 diabetes, hypothyroidism, and metastatic renal cell carcinoma (s/p nephrectomy), dyslipidemia presented to the emergency department with abdominal pain and noted to have partial small bowel obstruction. Dr. Castillo was consulted. He recommended small bowel follow-through, admission and n.p.o. overnight. Patient does still have some mild abdominal discomfort. Multiple abdominal surgeries asked. Home medications included carvedilol, hydroxyzine, Inlyta, Januvia, levothyroxine, lovastatin, pembrolizumab, Mel-Debra, ropinirole, sodium bicarbonate. In the emergency department blood pressure 160/80, heart rate 79. WBC 7.4, hemoglobin 11.4, platelets 2 3. Sodium 144, potassium 3.6, bicarbonate 24.2, creatinine 0.8, glucose 109, normal except AST 38, albumin 3.9. CT abdomen and pelvis showed lung mass in the right upper lobe. Small bowel obstruction secondary to incarcerated bowel in the pelvic wall hernia defect. Normal bowel x-ray was ordered by Dr. Castillo Patient admitted to medical floor. Review of Systems Review of Systems Narrative Review of Systems: Review of systems CONSTITUTIONAL: Patient denies any fever, chills. HEENT: Denies any visual disturbances or hearing problems. CARDIOVASCULAR: Patient denies any chest pain, shortness of breath, swelling in the lower extremities. PULMONARY: Patient denies any shortness of breath, cough. GASTROINTESTINAL: Patient complaining of nausea, abdominal pain GENITOURINARY: Patient denies any urinary symptoms of burning or frequency or hematuria, denies any form in the urine. SKIN: Denies any rash. MUSCULOSKELETAL: Denies any muscular skeletal problems of joint pains. NEUROLOGICAL: Denies any neurological problems of strokes, seizures or confusion. Denies any memory problems. PSYCHIATRIC: Denies any depression or anxiety. LYMPHATICS : No lymphadenopathy Past Medical History Past Medical History NEUROLOGIC: Negative Seizures CARDIAC: Positive Cardiac Disorders, Congestive Heart Failure, Edema and Hypertension RESPIRATORY: Positive Pneumonia (2023); Negative Chronic Obstructive Pulmonary Disease (COPD) or Asthma GASTROINTESTINAL: Positive Gall Bladder Disease; Negative Gastrointestinal Disorders, Gastrointestinal Bleed or Obstructive Bowel (none before) GENITOURINARY: Positive Renal Disease; Negative Genitourinary Disorders REPRODUCTIVE: Positive Previous Pregnancies; Negative Pelvic Inflammatory Disease MUSCULOSKELETAL: Positive Carpal Tunnel Syndrome; Negative Musculoskeletal Disorders ENDOCRINE: Positive Endocrine Disorders, Diabetes Mellitus Type 2, Hyperthyroidism and Hypothyroidism; Negative Diabetes Mellitus Type 1 HEMATOLOGIC: Negative Blood Disorders or Sickle Cell Disease PSYCHO/SOCIAL: Negative Anxiety OTHER HISTORY: Positive Hospitalization, Falls (hurt right side lateral lower chest), Blood Transfusions, Chemotherapy (infusion- last 2 mons ago.), Cancer and Lung Cancer (right); Negative Autoimmune Disease, Blood Transfusion Reaction, Anesthesia Reactions or Radiation Therapy Surgical History SURGICAL: Positive Pacemaker, Endocrine Surgery, Tonsillectomy, Abdominal Surgery, Nephrectomy (right), Tubal Ligation and Section; Negative Cardiac Surgery or Joint Replacement Social History SMOKING STATUS: Never smoker SECOND HAND EXPOSURE: No SUBSTANCE USE: does not use Past Medical History Comments PMH COMMENT: - Diabetes - Hypertension - Metastatic cancer to right lung Meds Home Medications and Allergies Home Medications ?Medication ?Instructions ?Recorded ?Confirmed ?Type sitagliptin phosphate 100 mg 100 mg PO QDAY #0 tabs 07/10/16 01/04/25 History tablet (Januvia) carvedilol 12.5 mg tablet 12.5 mg PO BID 05/15/23 01/04/25 History axitinib 5 mg tablet (Inlyta) 5 mg PO Q12H 05/25/24 01/04/25 History ropinirole 1 mg tablet 1 mg PO BID 05/25/24 01/04/25 History vitamin B comp no.3-folic acid 1 1 tab PO QDAY 08/17/24 01/04/25 History mg-vit C 60 mg-biotin 300 mcg tablet (Mel-Debra Rx) pembrolizumab 50 mg intravenous 200 mg IV .[id number] 09/14/24 01/04/25 History solution hydroxyzine HCl 25 mg tablet 25 mg PO DAILY 01/04/25 01/04/25 History levothyroxine 175 mcg tablet 175 mcg PO DAILY 01/04/25 01/04/25 History lovastatin 10 mg tablet 10 mg PO .q evening 01/04/25 01/04/25 History Allergies Allergy/AdvReac Type Severity Reaction Status Date / Time No Known Allergies Allergy Verified 01/04/25 09:47 Exam Vital Signs Temp Pulse Resp BP Pulse Ox O2 Del Method 36.7 C 76 14 121/69 99 Room Air 01/04/25 18:00 01/04/25 19:09 01/04/25 19:09 01/04/25 19:09 01/04/25 19:09 01/04/25 19:09 Narrative Exam GENERAL APPEARANCE: Patient seems to be comfortable, adequately hydrated and nourished. HEENT: EOMI, PERRLA NECK: Neck supple, no JVD or bruit CARDIOVASCULAR: Heart regular, no murmurs LUNGS/CHEST: Chest clear to auscultation. No rales, rhonchi, wheezing ABDOMEN: Soft, diffuse abdominal pain, bowel sounds mild EXTREMITIES: No edema, clubbing or cyanosis. SKIN: Skin exam normal without any rashes MUSCULOSKELETAL: Musculoskeletal exam normal PSYCHIATRIC: Normal mood, affect LYMPHATICS: No lymphadenopathy noted Results: Labs 01/05/25 05:07 01/05/25 05:07 Labs: Short CBC 01/04/25 Range/Units 10:22 WBC 14.8 H (3.6-11.0) Thou/mm3 Hgb 14.2 (12.0-16.0) g/dL Hct 41.3 (36.0-46.0) % Plt Count 340 (140-440) Thou/mm3 BMP 01/04/25 10:22 Sodium 139 Potassium 4.3 Chloride 100 Carbon Dioxide 25.2 BUN 40 H Creatinine 1.8 H Glucose 155 H Calcium 10.5 Liver Function 01/04/25 Range/Units 10:22 Total Bilirubin 0.4 (0.3-1.2) mg/dL AST 25 (0-34) U/L ALT 15 (10-49) U/L Alkaline Phosphatase 129 H (46-116) U/L Albumin 5.2 H (3.4-4.8) gm/dL Urine 01/04/25 Range/Units 13:39 Urine Color Yellow (Lt Yel-Yel) Urine Clarity Hazy (Clear/Hazy) Urine pH 6.0 (5.0-7.0) Ur Specific [place] 1.021 (1.001-1.035) Urine Protein 2+ A (Neg - Trace) Urine Glucose (UA) 3+ A (Negative) Assessment & Plan Assessment and plan (1) Small bowel obstruction: Status: Acute Assessment and plan: Small bowel obstruction secondary to ventral hernia/previous multiple abdominal surgeries. Surgical consultation requested. Recommended small bowel follow-through. N.p.o. No need for NG tube at this point (2) Cancer of right lung: Status: Acute Assessment and plan: Patient on immunotherapy with Dr. [facility] at [facility] (3) Contusion of rib on right side: Status: Acute Assessment and plan: As needed Tylenol (4) Fall: Status: Acute Assessment and plan: Fall precautions (5) Ventral hernia: Status: Acute (6) Hypertension: Status: Chronic Assessment and plan: Resume home blood pressure pills (7) DM type 2 (diabetes mellitus, type 2): Status: Chronic Assessment and plan: Accu-Cheks, sliding scale Additional Assessment & Plan Additional Plan: CODE STATUS full code DVT prophylaxis-not needed ambulate GI prophylaxis not Disposition Home with daughter Quality Measures Quality Measures none Advance care planning discussed with:: patient
[2025-01-04] MEDS: SODIUM CHLORIDE 0.45 % 1,000 ML 60 ML IV (20:15)
--- NOTE | 2025-01-04 21:00 | XR_ITS ---
Examination: Abdomen AP single view Technique: AP portable supine abdomen, single view Exam date and time: January 04, [id number] hours INDICATIONS: Abdominal distention today, 3.5-hour delayed film for small bowel series FINDINGS: Contrast now present primarily in the colon IMPRESSION: Negative for small bowel complete obstruction No further films are needed
[2025-01-05] VITALS: BP 121/61; PULSE 75; RESP 15; TEMP 36.6; O2SAT 96
[2025-01-05 04:00] VITALS: BP 119/61; PULSE 72; RESP 16; TEMP 36.3; O2SAT 93
[2025-01-05 05:56] LABS: Basophils # (Auto) 0.1 Thou/mm3 (0.0-0.2); Basophils % (Auto) 1 % (0-2.5); Eosinophils # (Auto) 0.4 Thou/mm3 (0.0-0.5); Eosinophils % (Auto) 5 % (0-10); Hematocrit 34.4 % (36.0-46.0); Hemoglobin 11.4 g/dL (12.0-16.0); Immature Granulocytes Auto 0.03 Thou/mm3 (0.00-0.00); Lymphocytes # (Auto) 0.9 Thou/mm3 (1.0-4.8); Lymphocytes % (Auto) 13 % (10-50); Mean Corpuscular HGB Conc 33.1 g/dl (31.0-37.0); Mean Corpuscular Hemoglobin 31.2 pg (25.0-35.0); Mean Corpuscular Volume 94 fL (80-100); Monocytes # (Auto) 0.6 Thou/mm3 (0.0-0.8); Monocytes % (Auto) 8 % (0-12); Neutrophils # (Auto) 5.3 Thou/mm3 (1.8-7.7); Neutrophils % (Auto) 73 % (37-80); Nucleated Red Blood Cell # 0.00 Thou/mm3 (0.00-0.00); Nucleated Red Blood Cell % 0 /100 WBC (0); Platelet Count 253 Thou/mm3 (140-440); RDW Standard Deviation 43.0 fL (36.4-46.3); Red Blood Count 3.65 Miln/mm3 (4.00-5.20); White Blood Count 7.4 Thou/mm3 (3.6-11.0)
[2025-01-05 06:21] LABS: Alanine Aminotransferase 38 U/L (10-49); Albumin, Serum 3.9 gm/dL (3.4-4.8); Albumin/Globulin Ratio 1.9 (1.2-2.2); Alkaline Phosphatase 106 U/L (46-116); Anion Gap 11 (7-16); Aspartate Amino Transferase 38 U/L (0-34); BUN/Creatinine Ratio 24 Ratio (12-20); Bilirubin,Total 0.4 mg/dL (0.3-1.2); Blood Urea Nitrogen 36 mg/dL (9-23); Calcium 9.5 mg/dL (8.3-10.6); Calcium (Corrected) 9.6 mg/dL (8.5-10.1); Carbon Dioxide 24.2 mMol/L (20.0-31.0); Chloride 109 mMol/L (98-107); Creatinine (Component) 1.5 mg/dL (0.6-1.3); Globulin 2.1 gm/dL (2.3-3.5); Glucose 109 mg/dL (74-106); Osmolality,Calculated 296 (275-295); Potassium 3.6 mMol/L (3.4-5.1); Sodium 144 mMol/L (136-145); Total Protein 6.0 gm/dL (5.7-8.2); eGFR 37 See Note
[2025-01-05 08:00] VITALS: BP 150/69; PULSE 77; RESP 18; TEMP 36.1; O2SAT 96
--- NOTE | 2025-01-05 08:17 | PD.NEPHDC ---
Planned Discharge Date 01/05/25 DS: Providers Provider Date of admission: 01/04/25 19:18 Primary care physician: Denise Gonzalez MD Admitting Provider: Denise Gonzalez MD Attending Provider on Admission: Denise Gonzalez MD Consults: 01/04/25 20:40 Referral Infection Control Routine Comment: Reason for Infection Control Referral: Readmitted within 30 days Referral Physical Therapy Routine Comment: Physician Instructions: Referral Respiratory Therapy Routine Comment: Attending Provider on DC: Denise Gonzalez MD Discharging Provider: Denise Gonzalez MD Discharge Diagnosis Discharge Diagnosis (1) Small bowel obstruction: Status: Acute Assessment & Plan: (1) Small bowel obstruction: Status: Acute Assessment and plan: Small bowel obstruction secondary to ventral hernia/previous multiple abdominal surgeries. Surgical consultation requested. Recommended small bowel follow-through. Posterior small bowel follow-through patient has good bowel movements. Able to tolerate p.o. Will discharge her today (2) Cancer of right lung: Status: Acute Assessment and plan: Patient on immunotherapy with Dr. Self at [facility] (3) Contusion of rib on right side: Status: Acute Assessment and plan: As needed Tylenol (4) Fall: Status: Acute Assessment and plan: Fall precautions (5) Ventral hernia: Status: Acute (6) Hypertension: Status: Chronic Assessment and plan: Resume home blood pressure pills (7) DM type 2 (diabetes mellitus, type 2): Status: Chronic Assessment and plan: Accu-Cheks, sliding scale Problem List Completed Was Problem List Reviewed/Reconciled?: Yes Hospital Course Hospital Course Hospital course: Ms. Zapata is a 69-year-old female with a history of CKD III, hyperkalemia, hypertension, type 2 diabetes, hypothyroidism, and metastatic renal cell carcinoma (s/p nephrectomy), dyslipidemia presented to the emergency department with abdominal pain and noted to have partial small bowel obstruction. Dr. Castillo was consulted. He recommended small bowel follow-through, admission and n.p.o. overnight. Patient does still have some mild abdominal discomfort. Multiple abdominal surgeries asked. Home medications included carvedilol, hydroxyzine, Inlyta, Januvia, levothyroxine, lovastatin, pembrolizumab, Mel-Debra, ropinirole, sodium bicarbonate. In the emergency department blood pressure 160/80, heart rate 79. WBC 7.4, hemoglobin 11.4, platelets 2 3. Sodium 144, potassium 3.6, bicarbonate 24.2, creatinine 0.8, glucose 109, normal except AST 38, albumin 3.9. CT abdomen and pelvis showed lung mass in the right upper lobe. Small bowel obstruction secondary to incarcerated bowel in the pelvic wall hernia defect. Normal bowel x-ray was ordered by Dr. Castillo Patient admitted to medical floor. 01/05/2025 patient currently seen in medical floor. Resting comfortably. With small bowel follow-through. She has multiple bowel movements. Started her on clear liquid and advance her diet. Able to tolerate regular diet. I will discharge her after lunch today. Status at Discharge Cognitive/behavioral status at discharge: Stable Functional status at discharge: uses cane/walker Overall status at discharge: patient is progressing back to baseline Time Spent with Patient Time attestation: Total time spent providing and/or coordinating discharge services: 35 minutes Exam Vital Signs Temp Pulse Resp BP Pulse Ox O2 Del Method 36.3 C 72 16 119/61 93 L Room Air 01/05/25 04:00 01/05/25 04:00 01/05/25 04:00 01/05/25 04:00 01/05/25 04:00 01/05/25 04:00 Narrative Exam GENERAL APPEARANCE: Patient seems to be comfortable, adequately hydrated and nourished. HEENT: EOMI, PERRLA NECK: Neck supple, no JVD or bruit CARDIOVASCULAR: Heart regular, no murmurs LUNGS/CHEST: Chest clear to auscultation. No rales, rhonchi, wheezing ABDOMEN: Soft, nontender, nondistended. No masses. Normal bowel sounds. EXTREMITIES: No edema, clubbing or cyanosis. SKIN: Skin exam normal without any rashes MUSCULOSKELETAL: Mild tenderness in the right rib cage PSYCHIATRIC: Normal mood, affect LYMPHATICS: No lymphadenopathy noted NEUROLOGICAL : No neurological deficits Discharge Plan Plan Patient Disposition: HOME (Self Care) Patient condition on transfer: Stable Prescriptions/Referrals Prescriptions/Med Rec: Continued Januvia 100 MG tablet 100 mg PO QDAY Qty: 0 carvedilol 12.5 mg tablet 12.5 mg PO BID sodium bicarbonate 325 mg tablet 325 mg PO QDAY 30 Days Qty: 30 1RF hydroxyzine HCl 25 mg tablet 25 mg PO DAILY levothyroxine 175 mcg tablet 175 mcg PO DAILY Patient Comments: TAKE 1 TABLET BY MOUTH EVERY DAY lovastatin 10 mg tablet 10 mg PO .q evening Patient Comments: TAKE 1 TABLET BY MOUTH EVERY DAY WITH DINNER FOR 90 DAYS ropinirole 1 mg tablet 1 mg PO BID Rx Instructions: pt takes 2mg BID because 1mg doesn't work. Inlyta 5 mg tablet 5 mg PO Q12H Mel-Debra Rx 1-60-300 mg-mg-mcg tablet 1 tab PO QDAY pembrolizumab 50 mg recon soln 200 mg IV .P7ksovt Discontinued amlodipine 5 mg tablet 5 mg PO QDAY 30 Days Qty: 30 1RF bumetanide 1 mg tablet 1 mg PO BID Patient Comments: TAKE 1 TABLET BY MOUTH TWICE A DAY clonidine HCl 0.2 mg tablet 0.2 mg PO BID Referrals: Denise Gonzalez MD [Primary Care Provider, Nephrology] Patient/Caregiver Discharge Instructions Discharge Activity: activity as tolerated Education Materials: Small Bowel Obstruction Print Language: Czech Activity Restrictions/Additional Instructions: f/u with dr. gonzalez in 1 week Stand Alone Forms: Tesha Award Info., Patient Portal Info Letter Discharge Order Discharge Orders: Discharge (Routine); Ordered 01/05/25 Ordered By: Denise Gonzalez
[2025-01-05] MEDS: LEVOTHYROXINE SODIUM 125 MCG, LEVOTHYROXINE SODIUM 50 MCG 175 MCG PO (08:58)
[2025-01-05] MEDS: VIT B12/Vit C/FA (Nephrovite) TABLET 1 TAB PO (08:59)
--- NOTE | 2025-01-05 09:27 | PD.SURPROG ---
Documentation for date of: 01/05/25 Subjective Subjective Brief History: Patient came to the emergency room because of some abdominal pain and back pain following a fall last Thursday. She also started having 3 episodes of vomiting. But she had a normal bowel movement yesterday. She is aware of at least 3 hernias over the abdomen for which she has been worked up by a surgeon and advised that she is not a candidate for surgery. Her past medical history was that she has had renal cell carcinoma treated with nephrectomy and cholecystectomy. Patient also had a metastatic disease to the right lung for which she is getting chemotherapy. She also had a pacemaker implantation. Narrative: The patient is having bowel movements and there is no signs of obstruction of the small bowel Exam Vital Signs Temp Pulse Resp BP Pulse Ox O2 Del Method 97.0 F 77 18 150/69 H 96 Room Air 01/05/25 08:00 01/05/25 08:00 01/05/25 08:00 01/05/25 08:00 01/05/25 08:00 01/05/25 08:00 Results Results: Laboratory Laboratory Narrative: Patient's CBC is within normal limits Assessment & Plan Assessment Additional comments: Impression: Patient does not have any obstruction at the site of hernia Plan Plan: Patient does not require any surgical repair of the hernia at this time. She could be discharged.
--- NOTE | 2025-01-05 11:24 | PC.SS ---
Patient is alert/oriented. Patient was able to verify demographics. Patient was admitted for SBO. Patient d/c address: [address] [place] [address] Patient is independent with ADL's. No DME. However, she has a walker she uses as needed. Transportation is provided by family. Pharmacy: [facility]. PCP: Dr. Gonzalez. Discharge plan is to return home. Alt medical decision maker: Tri Orozco, daughter,
[2025-01-05] MEDS: ACETAMINOPHEN 325 MG TABLET 650 MG PO (11:28)
[2025-01-05 12:00] VITALS: BP 160/80; PULSE 79; RESP 18; TEMP 36.4; O2SAT 96
== END 2025-01-05 14:21 | disposition home or self-care (01) | DRG 389 ==
LOC: SERX 17:32 → SERHOLD 19:32 → S3NX 19:56
PROVIDERS: Admitting Provider Internal Medicine; Emergency Provider Family Medicine; PCP Internal Medicine; Visit Provider Internal Medicine
DX: K56.600 Partial intestinal obstruction, unspecified as to cause (principal); C78.01 Secondary malignant neoplasm of right lung; K43.6 Other and unspecified ventral hernia with obstruction, without gangrene; N18.30 Chronic kidney disease, stage 3 unspecified; E03.9 Hypothyroidism, unspecified; E11.22 Type 2 diabetes mellitus with diabetic chronic kidney disease; E78.5 Hyperlipidemia, unspecified; I12.9 Hypertensive chronic kidney disease with stage 1 through stage 4 chronic kidney disease, or unspecified chronic kidney disease; S20.211A Contusion of right front wall of thorax, initial encounter; Z95.0 Presence of cardiac pacemaker; Z85.528 Personal history of other malignant neoplasm of kidney; Z79.890 Hormone replacement therapy; Z90.5 Acquired absence of kidney
CPT/HCPCS: 36415; 71260; 74018; 74177; 74250; 80053; 81001; 83605; 83735; 85025; 87077; 87081; 87086; 87186; 96361; 96365; 96375; 97162; 99284; A4649; J0131; J0780; J2270; J7030; Q9963; Q9967; A9270

== ENCOUNTER → 2025-01-18 | Outpatient (CLI) | payer MEDICARE, MEDICAID, SELFPAY ==
[2025-01-18 11:38] LABS: Basophils # (Auto) 0.1 Thou/mm3 (0.0-0.2); Basophils % (Auto) 1 % (0-2.5); Eosinophils # (Auto) 0.5 Thou/mm3 (0.0-0.5); Eosinophils % (Auto) 7 % (0-10); Hematocrit 34.4 % (36.0-46.0); Hemoglobin 11.7 g/dL (12.0-16.0); Immature Granulocytes Auto 0.05 Thou/mm3 (0.00-0.00); Lymphocytes # (Auto) 1.1 Thou/mm3 (1.0-4.8); Lymphocytes % (Auto) 14 % (10-50); Mean Corpuscular HGB Conc 34.0 g/dl (31.0-37.0); Mean Corpuscular Hemoglobin 31.2 pg (25.0-35.0); Mean Corpuscular Volume 92 fL (80-100); Monocytes # (Auto) 0.5 Thou/mm3 (0.0-0.8); Monocytes % (Auto) 6 % (0-12); Neutrophils # (Auto) 5.9 Thou/mm3 (1.8-7.7); Neutrophils % (Auto) 72 % (37-80); Nucleated Red Blood Cell # 0.00 Thou/mm3 (0.00-0.00); Nucleated Red Blood Cell % 0 /100 WBC (0); Platelet Count 272 Thou/mm3 (140-440); RDW Standard Deviation 41.7 fL (36.4-46.3); Red Blood Count 3.75 Miln/mm3 (4.00-5.20); White Blood Count 8.1 Thou/mm3 (3.6-11.0)
[2025-01-18 12:23] LABS: Albumin, Serum 4.5 gm/dL (3.4-4.8); Anion Gap 11 (7-16); BUN/Creatinine Ratio 28 Ratio (12-20); Blood Urea Nitrogen 45 mg/dL (9-23); Calcium 9.4 mg/dL (8.3-10.6); Calcium (Corrected) 9.4 mg/dL (8.5-10.1); Carbon Dioxide 23.1 mMol/L (20.0-31.0); Chloride 104 mMol/L (98-107); Creatinine (Component) 1.6 mg/dL (0.6-1.3); Glucose 122 mg/dL (74-106); Osmolality,Calculated 288 (275-295); Phosphorous 5.2 mg/dL (2.4-5.1); Potassium 4.0 mMol/L (3.4-5.1); Sodium 138 mMol/L (136-145); Thyroid Stimulating Hormone 0.21 uIU/mL (0.55-4.78); eGFR 34 See Note
== END | disposition home or self-care (01) ==
LOC: COPL 10:31
PROVIDERS: PCP Internal Medicine; Referring Provider Internal Medicine; Visit Provider Internal Medicine
DX: N17.9 Acute kidney failure, unspecified (principal); I10 Essential (primary) hypertension; E03.9 Hypothyroidism, unspecified
CPT/HCPCS: 36415; 80069; 84443; 85025

== ENCOUNTER 2025-02-02 08:01 | Outpatient (RCR) | payer MEDICARE, MEDICAID, SELFPAY ==
--- NOTE | 2025-01-24 10:31 | CTCFLWUP_ITS ---
Patient: KIANNA GARCIA : 1955 Page 4 of 7 FOLLOW UP NOTE DATE OF SERVICE: 01/24/2025 NAME: KIANNA GARCIA ACCOUNT: [id number] : 1955 AGE: 69 INTERVAL HISTORY: Summary -69-year-old woman with a kidney cancer. Patient have not had any treatment for last 2 months. Patient have not completed her MRI as need to find out the type of pacemaker before MRI can be scheduled. Patient CT scan done on 11/24/2024 shows stable disease. Plan is to continue Keytruda and continue to hold Inlyta until patient feels back to normal and at that point Inlyta will be resumed medical History - Pneumonia- resolved Medications and Supplements - Antibiotics - Low ofloxacin - Immunotherapy - Delayed due to pneumonia and antibiotic treatment - Inhaler Review of Systems General: Positive for fatigue. Skin: Positive for dryness. HEENT: Positive for dry mouth. Genitourinary: Positive for vaginal dryness. 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; Secondary malignant neoplasm of right lung [ICD10] C78.01; Malignant neoplasm of right kidney, except renal pelvis [ICD10] C64.1 History of right nephrectomy remote in 2016 at [facility] 8 cm mass in the lung as clear-cell carcinoma Had a chemo break as patient was having other medical problems including new pacemaker and electrolyte abnormalities DATE OF DIAGNOSIS: 01/12/2024 STAGE/TNM: IV T4 N1 M1 TREATMENT HISTORY: Care?Plan Start?Date Cycle Day Intent Axitinib?and?Pembrolizumab 05/16/2024 1 21 Palliative HISTORY OF PRESENT ILLNESS: 69-year-old female who is seen here for new diagnosis of renal cell cancer. Patient also was found to have brain lesion for which she underwent SRS. Patient follows with [facility]. Patient completed SRS Feeling very fatigued and tired She has very poor appetite. 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 Tobacco?Pack?per?Day:?0 Tobacco Use:?SMOKED 1 PACK/MONTH FOR 10YRS - QUIT 40 YRS AGO ETOH?Use:?DENIES Drug?Note:?DENIES Social?History?Note:?LIVE???/?[employer] HISTORY: Menarche?-?Age:?11 Menopause:?48 :?4 Live?Births:?4 Age?1st?:?14 MEDICATIONS: 1. Bumex - 1 mg 1 tab Daily 2. carvedilol - 12.5 mg 1 tab Twice a Day 3. Januvia - 100 mg Daily 4. Levemir - 10 Units Twice a Day 5. levothyroxine - 175 mcg 1 tab Daily 6. Mel-Debra Rx - 1-60-300 mg-mg-mcg 1 tab Daily Medications Last Reconciled by Elizabeth Zamora MA on 01/24/2025 ALLERGIES: No Known Drug Allergies REVIEW OF SYSTEMS: A complete 14-point review of systems was performed and is negative except as noted in interval history. PHYSICAL EXAMINATION: VITAL SIGNS: PAIN: 0 - No pain ECOG Performance Status: 1 - Symptomatic; ambulatory; restricted in strenuous activity GENERAL APPEARANCE: Appears well, in no apparent distress, appropriately interactive. HEENT: Normocephalic, no temporal wasting, normal conjunctiva, no scleral icterus, normal hearing, lips without lesions, neck normal range of motion. CARDIOVASCULAR: Not assessed. PULMONARY: Normal respiratory effort, no respiratory distress or use of accessory muscles, speaking in full sentences, no tachypnea. EXTREMITIES: No pedal edema or cyanosis. SKIN: Normal skin appearance. NEUROLOGIC: Alert and oriented x4. PSHYCHIATRIC: Appropriate affect, mood normal, behavior normal, intact thought and speech. LABORATORY DATA: I have personally reviewed and interpreted each of the patient?s relevant lab tests, abnormal findings are below: Date 01/05/25 01/18/25 ??WHITE?BLOOD?COUNT?(Thou/mm3) 7.4 8.1 ??RED?BLOOD?COUNT?(Miln/mm3) 3.65?L 3.75?L ??HEMOGLOBIN?(gm/dl) 11.4?L 11.7?L ??HEMATOCRIT?(%) 34.4?L 34.4?L ??PLATELET?COUNT?(Thou/mm3) 253 272 ??NEUTROPHILS?%,?AUTO?(%) 73 72 ??LYMPH?%,?AUTO?(%) 13 14 ??NEUTROPHILS,?AUTO?(Thou/mm3) 5.3 5.9 ??GLUCOSE,RANDOM?(mg/dL) 109?H 122?H ??BLOOD?UREA?NITROGEN?(mg/dL) 36?H 45?H ??CREATININE?(mg/dL) 1.50?H 1.60?H ??SODIUM?(mmol/L) 144 138 ??POTASSIUM?(mmol/L) 3.6 4.0 ??CHLORIDE?(mmol/L) 109?H 104 ??CrCl?(CandG)?(ml/min) 33.39 31.30 ??AST/SGOT?(Unit/L) 38?H ? ??ALT/SGPT?(Unit/L) 38 ? ??ALKALINE?PHOSPHATASE?(Unit/L) 106 ? ??BILIRUBIN,?TOTAL?(mg/dL) 0.4 ? ??PROTEIN?TOTAL?(gm/dl) 6.0 ? ??ALBUMIN,?SERUM?(gm/dl) 3.9 4.5 ??GLOBULIN?(gm/dl) 2.1?L ? ??ALBUMIN/GLOBULIN?RATIO 1.9 ? ??CALCIUM,?SERUM?(mg/dL) 9.5 9.4 ??CALCIUM?SERUM?(CORRECTED)?(mg/dL) 9.6 9.4 ASSESSMENT/PLAN: #1 recurrent metastatic clear-cell renal cell cancer 8 cm mass in the right upper lobe and mediastinal disease patient was on axitinib with Keytruda and had no treatment for last [address] scan is stable Advised to resume Keytruda pneumonia Resolved Mucocutaneous dryness Resolved CBC CMP TSH T4 ORDERS: Order # Description [id number] CBC + Comprehensive Metabolic Panel [id number] Lab Appointment [id number] Follow Up Appointment [id number] CBC + Comprehensive Metabolic Panel [id number] Lab Appointment [id number] Follow Up Appointment [id number] CBC + Comprehensive Metabolic Panel [id number] Lab Appointment [id number] Follow Up Appointment RETURN TO CLINIC: I reviewed the diagnosis, prognosis, and recommended treatment/procedure options with the patient (and/or their legal medical service representative), including the potential benefits, risks, side effects and alternative therapies. We also discussed the option of no treatment and the possibility of clinical trial participation, if applicable. All questions were addressed, and they demonstrated understanding. They provided informed consent to proceed with the proposed plan of care. BILLING AND COMPLIANCE: I reviewed external records from providers outside my specialty as summarized above. I spent a total of 50 minutes on this patient?s care on the day of their visit excluding time spent related to any billed procedures. This time includes time spent with the patient as well as time spent documenting in the medical record, reviewing patients records and tests, obtaining history, placing orders, communicating with other healthcare professionals, counseling the patient, family or caregiver, and/or care coordination for the diagnoses above. Electronically Signed by: El Self MD T: 10:28 AM CC: PCP: Denise Gonzalez Referring: Denise Gonzalez This document was completed utilizing speech recognition software. Grammatical errors, random word insertions, pronoun errors, and incomplete sentences are an occasional consequence of this system due to software limitations, ambient noise, and hardware issues. Any formal questions or concerns about the content, text or information contained within the body of this dictation should be directly addressed to the provider for clarification.
[2025-02-02 08:59] LABS: Basophils # (Auto) 0.0 Thou/mm3 (0.0-0.2); Basophils % (Auto) 0 % (0-2.5); Eosinophils # (Auto) 0.5 Thou/mm3 (0.0-0.5); Eosinophils % (Auto) 7 % (0-10); Hematocrit 32.6 % (36.0-46.0); Hemoglobin 10.8 g/dL (12.0-16.0); Immature Granulocytes Auto 0.03 Thou/mm3 (0.00-0.00); Lymphocytes # (Auto) 1.0 Thou/mm3 (1.0-4.8); Lymphocytes % (Auto) 14 % (10-50); Mean Corpuscular HGB Conc 33.1 g/dl (31.0-37.0); Mean Corpuscular Hemoglobin 30.3 pg (25.0-35.0); Mean Corpuscular Volume 92 fL (80-100); Monocytes # (Auto) 0.5 Thou/mm3 (0.0-0.8); Monocytes % (Auto) 7 % (0-12); Neutrophils # (Auto) 4.8 Thou/mm3 (1.8-7.7); Neutrophils % (Auto) 71 % (37-80); Nucleated Red Blood Cell # 0.00 Thou/mm3 (0.00-0.00); Nucleated Red Blood Cell % 0 /100 WBC (0); Platelet Count 226 Thou/mm3 (140-440); RDW Standard Deviation 42.9 fL (36.4-46.3); Red Blood Count 3.56 Miln/mm3 (4.00-5.20); White Blood Count 6.7 Thou/mm3 (3.6-11.0)
[2025-02-02 09:25] LABS: Alanine Aminotransferase 16 U/L (10-49); Albumin, Serum 4.0 gm/dL (3.4-4.8); Albumin/Globulin Ratio 1.3 (1.2-2.2); Alkaline Phosphatase 142 U/L (46-116); Anion Gap 12 (7-16); Aspartate Amino Transferase 17 U/L (0-34); BUN/Creatinine Ratio 31 Ratio (12-20); Bilirubin,Total 0.3 mg/dL (0.3-1.2); Blood Urea Nitrogen 47 mg/dL (9-23); Calcium 9.1 mg/dL (8.3-10.6); Calcium (Corrected) 9.1 mg/dL (8.5-10.1); Carbon Dioxide 21.5 mMol/L (20.0-31.0); Chloride 104 mMol/L (98-107); Creatinine (Component) 1.5 mg/dL (0.6-1.3); Free T4 (Free Thyroxine) 2.07 ng/dL (0.89-1.76); Globulin 3.0 gm/dL (2.3-3.5); Glucose 149 mg/dL (74-106); Osmolality,Calculated 289 (275-295); Potassium 4.1 mMol/L (3.4-5.1); Sodium 137 mMol/L (136-145); Thyroid Stimulating Hormone 0.16 uIU/mL (0.55-4.78); Total Protein 7.0 gm/dL (5.7-8.2); eGFR 37 See Note
== END 2025-02-15 23:59 | disposition home or self-care (01) ==
LOC: SCTC 08:01
PROVIDERS: PCP Internal Medicine; Referring Provider Internal Medicine; Visit Provider Internal Medicine Hematology & Oncology
DX: Z51.11 Encounter for antineoplastic chemotherapy (principal); C64.1 Malignant neoplasm of right kidney, except renal pelvis; C78.01 Secondary malignant neoplasm of right lung; C79.31 Secondary malignant neoplasm of brain
CPT/HCPCS: 80053; 84439; 84443; 85025; 96413; 99212; J3490; J7040; J9271; G0463